=== PATIENT | male | born 1980 | race Caucasian/White ===

== ENCOUNTER 2023-03-20 21:47 | Emergency (ER) | payer MEDICAID, SELFPAY ==
[2023-03-20 21:49] VITALS: BP 139/87; PULSE 95; RESP 15; TEMP 36.9; O2SAT 98; BMI 37.3
--- NOTE | 2023-03-20 22:13 | CT_ITS ---
CT LEFT LOWER EXTREMITY WITH 3-D IMAGING CLINICAL INDICATION: infection -- left foot TECHNIQUE: Axial CT images of the LEFT lower extremity was performed without IV contrast material. Coronal and sagittal reformats were provided. RADIATION DOSAGE (If Supplied By Facility): CTDIvol = ( 15.35 ) mGy, DLP = ( 480.41 ) mGycm COMPARISON: Prior examinations are available for comparison. FINDINGS: Bones: Status post amputation of the great toe. No evidence of destructive bony process. No acute fracture is seen in the posterior calcaneus is not included on this examination.. Soft Tissues: Mild soft tissue swelling. No evidence of drainable abscess. CT/Extremity Lower without Contra IMPRESSION: 1. No evidence of destructive bony process or CT evidence of acute osteomyelitis. 2. Mild soft tissue swelling. 3. No evidence of drainable abscess. Electronically Signed: Landon Hair MD at 23:07 EDT ,
[2023-03-20] MEDS: HYDROmorphone 1 MG/ML Syringe 0.5 MG IV (22:28)
[2023-03-20] MEDS: Ondansetron 4 MG/2 ML Vial IV (22:28)
[2023-03-20 22:36] VITALS: BP 111/64; PULSE 86; RESP 18; TEMP 36.9; O2SAT 92
--- NOTE | 2023-03-20 22:36 | EDS_ITS ---
HPI History of Present Illness Chief Complaint: Other, Pain/Inj Detail of Chief Complaint: Bilateral foot pain Informant: patient Onset/Context/Timing Onset: Weeks (1 week) Context: Gradual Onset Narrative Narrative: Patient present secondary to bilateral foot pain and concern for infection. He is a diabetic. He complains of pain and swelling to the distal aspect of his left foot for the past week. He also has a scabbed lesion on his right great toe for the past week. He has an appointment to see his doctor on Sunday but did not think he could wait that long. He has had subjective fevers and states his blood sugars have been very elevated. [facility] Medical History (Updated 03/20/23 @ 23:[address] Juli Small MD) Amputation of left great toe Diabetes Heart attack Home Medications cephalexin 500 mg capsule 500 mg PO Q6 #40 CAPSULES 03/20/23 [Rx Last Taken Unknown] oxycodone-acetaminophen 5 mg-325 mg tablet (Percocet) 1 tab PO Q8H PRN pain 3 days #10 tabs 03/20/23 [Rx Last Taken Unknown] Allergy/AdvReac Type Severity Reaction Status Date / Time MORPHINE Allergy Shortness Uncoded 03/20/23 21:53 of breath PAPER TAPE AdvReac SKIN Uncoded 03/20/23 21:53 IRRITATION TORADOL AdvReac Nausea Uncoded 03/20/23 21:52 Surgical History Hx of heart artery stent Social History Smoking Status: Current every day smoker tobacco type: cigarettes ROS ROS ED Constitutional Constitutional ED: Reports fever(s) and subjective; Denies chills Eyes Eyes: Denies discharge from eye(s) ENT ENT ED: Denies discharge from eye(s), rhinorrhea or sore throat Cardiovascular Cardiovascular: Denies chest pain Respiratory/Chest Respiratory/Chest: Denies cough or dyspnea Gastrointestinal Gastrointestinal: Denies abdominal pain, nausea or vomiting Musculoskeletal Musculoskeletal: Reports extremity pain; Denies back pain Integumentary Denies Abrasions or rash Neurologic Neurologic: Denies headache(s) or weakness Psychiatric Psychiatric: Denies anxiety or depression Allergic/Immunologic Allergic/Immunologic ED: Denies lip swelling or urticaria EXAM Physical Exam Const Vital Signs: 03/20/23 21:49 03/20/23 22:36 Temperature 98.4 F 98.4 F Temperature Source Temporal Temporal Pulse Rate 95 86 Respiratory Rate 15 18 Blood Pressure 139/87 H 111/64 Blood Pressure Mean 104 79 Pulse Ox 98 92 Oxygen Delivery Method Room Air Room Air Positive well nourished and well developed General Appearance ED: well developed HEENT Reports moist mucous membranes Eyes EOMs intact bilaterally Neck no lymphadenopathy Chest Wall inspection of chest normal and palpation of chest normal Resp normal respiratory effort and clear to auscultation bilaterally Cardio regular rate and regular rhythm GI non-tender Palpation: soft Extremity Extremity Narrative: Patient with edematous area to the plantar surface of the left foot over the distal third, fourth, and fifth metatarsals. No overlying skin change. Scabbed lesion noted to the right great toe. No significant toe edema or erythema. No drainage from the wound. Neuro oriented x3 MDM MDM MDM Narrative Medical decision making narrative: Patient given Dilaudid for pain control. Labwork obtained to evaluate for leukocytosis, anemia, and electrolyte derangement. Right foot x-ray obtained to evaluate for any bony destruction of the right great toe or subcutaneous air. Given the amount of edema and tenderness to the left foot a CT scan was obtained to evaluate for deep abscess. Lab Data Attestation: I reviewed the patient's lab results. Labs: Laboratory Results - last 24 hr 03/20/23 22:30 WBC 10.5 RBC 4.08 L Hgb 12.6 L Hct 36.5 L MCV 89.5 MCH 30.9 MCHC 34.5 RDW Std Deviation 41.3 RDW Coeff of Simone 12.6 Plt Count 294 MPV 8.5 Immature Gran % (Auto) 0.300 Neut % (Auto) 63.3 Lymph % (Auto) 24.7 Stephens % (Auto) 6.8 Eos % (Auto) 4.2 Baso % (Auto) 0.7 Absolute Neuts (auto) 6.7 Absolute Lymphs (auto) 2.60 Nucleated RBC % 0 Sodium 134 L Potassium 4.3 Chloride 103 Carbon Dioxide 26.0 Anion Gap 5 BUN 31 H Creatinine 1.86 H Estim Creat Clear Calc 52.26 Est GFR (MDRD) Af Amer 52 L Est GFR (MDRD) Non-Af 43 L BUN/Creatinine Ratio 16.7 Glucose 310 H Lactic Acid 1.0 Calcium 9.3 Radiography Diagnostic Testing: Clinical Impression(s) from Imaging Studies Lower Extremity CT 03/20/23 22:13 IMPRESSION: 1. No evidence of destructive bony process or CT evidence of acute osteomyelitis. 2. Mild soft tissue swelling. 3. No evidence of drainable abscess. Electronically Signed: Landon Hair MD at 23:07 EDT , Foot X-Ray 03/20/23 22:43 IMPRESSION: No evidence of acute osseous changes. Electronically Signed: Landon Hair MD at 23:30 EDT , Treatment and Re-Evaluation :: CBC reveals normal white count at 10.5 with a hemoglobin of 12.6. No left shift noted. Chemistry studies significant for a sodium of 134. BUN is 31 and creatinine is 1.86. I do not have any prior studies available for comparison. Glucose is 310. Lactic acid is normal at 1.0. Right foot x-rays per my interpretation reveal chronic arthritic changes with no evidence of bony destruction or subcutaneous air. Radiology interpretation is reviewed and agrees. CT scan of the left foot reveals mild soft tissue swelling with no evidence of drainable abscess. No evidence of bony destruction. Patient will be given a course of Keflex and some Percocet for pain. I will refer him to local podiatry for follow-up. Discharge Plan Triage Chief Complaint: Other, Pain/Inj ED Provider: Juli Small Dx/Rx/DC Orders Clinical Impression: Diabetic foot infection Instructions: ED Diabetic Foot Care Prescriptions: New cephalexin 500 mg capsule 500 mg PO Q6 Qty: 40 0RF oxycodone-acetaminophen [Percocet] 5-325 mg tablet 1 tab PO Q8H PRN (Reason: pain) 3 Days Qty: 10 0RF Primary Care Provider: Connor Nazario Referrals: Jose Cruz Dawson DPM [Med Staff - Active Staff] - As Needed Connor Nazario MD [Primary Care Provider] - Disposition Disposition: Home, Self Care
[2023-03-20 22:43] LABS: Absolute Neutrophil Count 6.7 X10^3/uL (2.0-7.7); Basophil# 0.07 X10^3/uL; Basophil% 0.7 % (0-1); Eosinophil# 0.44 X10^3/uL; Eosinophils% 4.2 % (0-5); Hematocrit 36.5 % (40-54); Hemoglobin 12.6 g/dL (13.0-16.5); Lymphocyte % 24.7 % (19-41); Mean Corp Hgb Conc 34.5 g/dL (32-36); Mean Corpuscular Hgb 30.9 pg (27.0-32.0); Mean Corpuscular Volume 89.5 fL (80-94); Mean Platelet Vol. 8.5 fl (6.2-12.0); Monocyte# 0.72 X10^3/uL; Monocyte% 6.8 % (0-10); NRBC Flagged by Analyzer 0 % (0-5); Neutrophil # 6.68 X10^3/uL (2.7-7.7); Neutrophil % 63.3 % (47-70); Platelet Count 294 K/mm3 (150-450); RBC Distribution Width CV 12.6 % (11.6-14.6); RBC Distribution Width SD 41.3 fl (35.1-43.9); Red Blood Count 4.08 M/mm3 (4.6-6.2); White Blood Count 10.5 K/mm3 (4.4-11.0)
--- NOTE | 2023-03-20 22:43 | RAD_ITS ---
INDICATION: infection EXAMINATION/TECHNIQUE: X-RAY - RIGHT XR Foot Min 3 Views 3 VIEWS COMPARISON: No prior examinations are available for comparison. FINDINGS: SOFT TISSUES: No soft tissue swelling or gas. No radiopaque foreign body. BONES/JOINTS: No acute fracture or subluxation.. Normal alignment. Preservation of the joint space.. No sclerotic or destructive changes observed. Posterior calcaneal spur or enthesophyte. RAD/Foot min 3 Views IMPRESSION: No evidence of acute osseous changes. Electronically Signed: Landon Hair MD at 23:30 EDT ,
[2023-03-20 23:13] LABS: Anion Gap 5 (5-15); BUN 31 mg/dL (7-18); BUN/Creat Ratio 16.7 RATIO (10-20); Calcium,Total 9.3 mg/dL (8.5-10.1); Chloride 103 mmol/L (98-107); Creatinine, Serum 1.86 mg/dL (0.70-1.30); EST Glomerular Filtration Rate 43 mL/min (>60); Est Glom Filt Rate - Afr Amer 52 mL/min (>60); Estimated Creatinine Clearance 52.26 ml/min; Glucose 310 mg/dL (74-106); Potassium 4.3 mmol/L (3.5-5.1); Sodium Level 134 mmol/L (136-145)
[2023-03-20] MEDS: Cephalexin 250 MG Capsule 500 MG PO (23:55)
[2023-03-20] MEDS: HYDROmorphone 0.5 MG/0.5 ML SYRINGE IV (23:55)
== END 2023-03-21 00:10 | disposition home or self-care (01) ==
PROVIDERS: Emergency Provider Emergency Medicine; Visit Provider Emergency Medicine
DX: E11.628 Type 2 diabetes mellitus with other skin complications (principal); Z89.422 Acquired absence of other left toe(s); E11.65 Type 2 diabetes mellitus with hyperglycemia; L98.9 Disorder of the skin and subcutaneous tissue, unspecified; R60.0 Localized edema; M79.671 Pain in right foot; M79.672 Pain in left foot; F17.210 Nicotine dependence, cigarettes, uncomplicated; I25.2 Old myocardial infarction
CPT/HCPCS: 73630; 73700; 80048; 83605; 85025; 96374; 96375; 96376; 99284; A4216; J2405

== ENCOUNTER 2023-03-31 10:22 | Inpatient (IN) | payer MEDICARE, MEDICAID, SELFPAY ==
[2023-03-31 10:24] VITALS: BP 152/84; PULSE 74; RESP 12; TEMP 35.8; O2SAT 97; BMI 37.3
--- NOTE | 2023-03-31 11:11 | EDS_ITS ---
HPI History of Present Illness Chief Complaint: Wound Narrative Narrative: Patient is a diabetic, he smokes, he had a diabetic foot infection about a week ago he was placed on Keflex and his infection is getting worse. He is denying any fevers or chills or systemic complaints. No cough or congestion. Foot is quite painful. [facility] Medical History Amputation of left great toe Diabetes Heart attack Home Medications cephalexin 500 mg capsule 500 mg PO Q6 #40 CAPSULES 03/20/23 [Rx Last Taken Unknown] oxycodone-acetaminophen 5 mg-325 mg tablet (Percocet) 1 tab PO Q8H PRN pain 3 days #10 tabs 03/20/23 [Rx Last Taken Unknown] Allergy/AdvReac Type Severity Reaction Status Date / Time MORPHINE Allergy Severe Shortness Uncoded 03/31/23 10:24 of breath TORADOL AdvReac Mild Nausea Uncoded 03/31/23 10:24 PAPER TAPE AdvReac SKIN Uncoded 03/20/23 21:53 IRRITATION Surgical History Hx of heart artery stent Social History Smoking Status: Current every day smoker tobacco type: cigarettes ROS ROS ED ROS Narrative Past medical history: Reviewed Medications: Reviewed Social history: Noncontributory Review of systems: All systems negative except as indicated General: No fever Eyes: No visual changes ENT: No upper airway congestion, normal voice Neck: No neck pain Cardiovascular: No chest pain Respiratory: No shortness of breath or cough Gastrointestinal: No abdominal pain, nausea vomiting or diarrhea Genitourinary: No dysuria Musculoskeletal: As HPI Skin: As in HPI Neurological: No memory loss, confusion or any focal weakness EXAM Physical Exam Narrative Exam Narrative: Physical exam General: Patient appears chronically ill, he does not appear in significant distress. Head: Normocephalic, Atraumatic Eyes: Conjunctiva not pale ENT: Moist mucous membranes Neck: Supple, Nontender, No lymphadenopathy Cardiovascular: Regular rate, Regular rhythm Respiratory: No distress, CTA bilaterally Abdomen: Soft, Nontender, Nondistended Back: Nontender, Normal Inspection. Negative for: CVA tenderness Extremities: Foot has a dorsal infection, great toe is missing. Seems like there is some induration and fluctuance. No lymphangitic streaking, it is quite swollen. Skin: As above Neurological: Alert, Normal Strength, Normal Sensation Const Vital Signs: 03/31/23 10:24 Temperature 96.5 F L Temperature Source Temporal Pulse Rate 74 Respiratory Rate 12 Blood Pressure 152/84 H Blood Pressure Mean 106 Pulse Ox 97 Oxygen Delivery Method Room Air MDM MDM MDM Narrative Medical decision making narrative: Because of some induration and fluctuance, a bedside incision and drainage was done see procedure note Procedure note: Incision and drainage Verbal consent 1% lidocaine about 3 mL local I used a #15 blade, I used a hemostat to probe and break loculations only scant amount of pus was expectorated. Patient tolerated procedure well. : Patient has a diabetic foot that is not improving, part of the reason is because the blood sugar is 559 here, he may also have peripheral vascular disease. I started IV antibiotics and I will admit the patient. He can see podiatry inpatient. Time there is no evidence of sepsis. Inflammatory markers are quite elevated. There is a concern for underlying osteomyelitis. An inpatient MRI may be useful. I will talk to the hospitalist. Foot x-ray interpreted by me shows chronic changes, a toe amputation but no obvious osteomyelitis. Lab Data Labs: Laboratory Results - last 24 hr 03/31/23 11:15 WBC 6.4 RBC 4.25 L Hgb 12.6 L Hct 38.3 L MCV 90.1 MCH 29.6 MCHC 32.9 RDW Std Deviation 40.8 RDW Coeff of Simone 12.4 Plt Count 308 MPV 8.9 Immature Gran % (Auto) 0.300 Neut % (Auto) 61.2 Lymph % (Auto) 24.2 Canyon % (Auto) 7.8 Eos % (Auto) 5.2 H Baso % (Auto) 1.3 H Absolute Neuts (auto) 3.9 Absolute Lymphs (auto) 1.55 Nucleated RBC % 0 ESR 48 H Sodium 129 L Potassium 5.2 H Chloride 97 L Carbon Dioxide 28.0 Anion Gap 4 L BUN 29 H Creatinine 2.06 H Estim Creat Clear Calc 47.19 Est GFR (MDRD) Af Amer 46 L Est GFR (MDRD) Non-Af 38 L BUN/Creatinine Ratio 14.1 Glucose 559 H* Calcium 9.5 Total Bilirubin 0.20 AST 14 L ALT 28 Alkaline Phosphatase 74 C-React Prot Ext Range 6.77 H Total Protein 7.9 Albumin 3.1 L Globulin 4.8 H Albumin/Globulin Ratio 0.6 L Discharge Plan Triage Chief Complaint: Wound ED Provider: Kory Sparks Dx/Rx/DC Orders Clinical Impression: Diabetic foot, Failure of outpatient treatment, Uncontrolled diabetes mellitus Prescriptions: No Action cephalexin 500 mg capsule 500 mg PO Q6 Qty: 40 0RF oxycodone-acetaminophen [Percocet] 5-325 mg tablet 1 tab PO Q8H PRN (Reason: pain) 3 Days Qty: 10 0RF Primary Care Provider: Connor Nazario Referrals: Connor Nazario MD [Primary Care Provider] - Disposition Disposition: Acute Care Hospital [facility]
[2023-03-31] MEDS: Ondansetron 4 MG/2 ML Vial IV (11:13)
[2023-03-31] MEDS: HYDROmorphone 0.5 MG/0.5 ML SYRINGE IV ×2 (11:28→13:14)
[2023-03-31 11:30] LABS: Absolute Lymphocyte Count 1.55 X10^3/uL (0.83-4.51); Absolute Neutrophil Count 3.9 X10^3/uL (2.0-7.7); Basophil# 0.08 X10^3/uL; Basophil% 1.3 % (0-1); Eosinophil# 0.33 X10^3/uL; Eosinophils% 5.2 % (0-5); Hematocrit 38.3 % (40-54); Hemoglobin 12.6 g/dL (13.0-16.5); Lymphocyte # 1.55 X10^3/ul (0.83-4.51); Lymphocyte % 24.2 % (19-41); Mean Corp Hgb Conc 32.9 g/dL (32-36); Mean Corpuscular Hgb 29.6 pg (27.0-32.0); Mean Corpuscular Volume 90.1 fL (80-94); Mean Platelet Vol. 8.9 fl (6.2-12.0); Monocyte% 7.8 % (0-10); NRBC Flagged by Analyzer 0 % (0-5); Neutrophil # 3.92 X10^3/uL (2.7-7.7); Neutrophil % 61.2 % (47-70); Platelet Count 308 K/mm3 (150-450); RBC Distribution Width CV 12.4 % (11.6-14.6); RBC Distribution Width SD 40.8 fl (35.1-43.9); Red Blood Count 4.25 M/mm3 (4.6-6.2); White Blood Count 6.4 K/mm3 (4.4-11.0)
[2023-03-31 11:49] LABS: Erythrocyte Sedimentation Rate 48 mm/hr (0-20)
--- NOTE | 2023-03-31 12:05 | RAD_ITS ---
INDICATION: pain, infection EXAMINATION/TECHNIQUE: X-RAY - LEFT XR Foot Min 3 Views 3 VIEWS COMPARISON: CT dated March 20, 2023 FINDINGS: SOFT TISSUES: There is soft tissue swelling of the forefoot and midfoot. No radiopaque foreign body. BONES/JOINTS: There is evidence of prior amputation of the great toe which appears grossly stable since the prior CT. There is medial subluxation or possible dislocation of the second proximal phalanx at the metatarsophalangeal joint. No acute fracture or subluxation..No sclerotic or destructive changes observed. RAD/Foot min 3 Views IMPRESSION: Status post amputation of the great toe without evidence of osteomyelitis. Diffuse soft tissue swelling of the mid and forefoot. Subluxation or possible dislocation of the second proximal phalanx at the MTP joint. Electronically Signed: Jenni Zimmerman MD at 13:08 EDT ,
[2023-03-31 12:07] LABS: ALB/GLOB Ratio 0.6 RATIO (0.9-2.4); AST(SGOT) 14 U/L (15-37); Alanine Aminotransfer ALT/SGPT 28 U/L (16-61); Albumin, Serum 3.1 g/dL (3.2-5.0); Alkaline Phosphatase 74 U/L (45-117); Anion Gap 4 (5-15); BUN 29 mg/dL (7-18); BUN/Creat Ratio 14.1 RATIO (10-20); CRP 6.77 mg/L (0.0-3.0); Calcium,Total 9.5 mg/dL (8.5-10.1); Chloride 97 mmol/L (98-107); Creatinine, Serum 2.06 mg/dL (0.70-1.30); EST Glomerular Filtration Rate 38 mL/min (>60); Est Glom Filt Rate - Afr Amer 46 mL/min (>60); Estimated Creatinine Clearance 47.19 ml/min; Globulin 4.8 g/dL (2.2-4.2); Glucose 559 mg/dL (74-106); Potassium 5.2 mmol/L (3.5-5.1); Protein, Total 7.9 g/dL (6.4-8.2); Sodium Level 129 mmol/L (136-145)
--- NOTE | 2023-03-31 12:31 | HP.PCM_ITS ---
HPI - General General Date of Admission: 03/31/23 Date of Service: 03/31/23 Chief Complaint: foot infection HPI Narrative RUSTY MCCLURE, is a 42 M with a PMH as outlined who presents via the ED on 03/31/2023 with a complaint of a nonhealing left foot infection. He is a known diabetic. He had been placed on PO keflex after he presented to the ED with similar symptoms ~ 2 weeks ago, to no avail, so he decided to come in to the ED. he denied any fever, chills, cough, chest pain, palpitations, dizziness, nausea, vomiting or any other complaints. Vitals in the ED were BP of 152/84, IN of 74, R of 12 and temp of 96.5F. CBC showed Hb of 12.6, wbc of 6.4 and platelets of 308. ESR is 48. Chemistry showed sodium of 129, potasisum of 5.2 and Cr of 2.06. Glucose is 559 and bicarb is 28. CRP is 6.77. FOot xray was done and review was pending. He is being admitted to be managed for diabetic foot infection, with failed outpatient therapy. [facility] Medical History Amputation of left great toe Diabetes Heart attack Home Medications cephalexin 500 mg capsule 500 mg PO Q6 #40 CAPSULES 03/20/23 [Rx Last Taken Unknown] oxycodone-acetaminophen 5 mg-325 mg tablet (Percocet) 1 tab PO Q8H PRN pain 3 days #10 tabs 03/20/23 [Rx Last Taken Unknown] aspirin 81 mg tablet,delayed release 81 mg PO DAILY 03/31/23 [History Last Taken Unknown] atorvastatin 40 mg tablet 40 mg PO DAILY 03/31/23 [History Last Taken Unknown] clopidogrel 75 mg tablet 75 mg PO DAILY 03/31/23 [History Last Taken Unknown] fluticasone fur. 200 mcg-umeclid 62.5 mcg-vilant 25 mcg inhalat.powder (Trelegy Ellipta) 1 inh inhalation Q24H 03/31/23 [History Last Taken Unknown] furosemide 40 mg tablet 40 mg PO DAILY 03/31/23 [History Last Taken Unknown] gabapentin 300 mg capsule 300 mg PO TID 03/31/23 [History Last Taken Unknown] insulin NPH-regular 70-30 U-100 insulin 100 unit/mL subcutaneous pen (Humulin 70/30 U-100 KwikPen) 25 unit subcut TID 03/31/23 [History Last Taken Unknown] isosorbide mononitrate 30 mg tablet,extended release 24 hr 30 mg PO DAILY 03/31/23 [History Last Taken Unknown] losartan 50 mg tablet 50 mg PO DAILY 03/31/23 [History Last Taken Unknown] metformin 500 mg tablet 500 mg PO DAILY 03/31/23 [History Last Taken Unknown] ranolazine 500 mg tablet,extended release,12 hr 500 mg PO DAILY 03/31/23 [History Last Taken Unknown] sacubitril 49 mg-valsartan 51 mg tablet (Entresto) 1 tab PO BID 03/31/23 [History Last Taken Unknown] sucralfate 1 gram tablet 1 g PO 4X/DAY 03/31/23 [History Last Taken Unknown] Allergy/AdvReac Type Severity Reaction Status Date / Time morphine Allergy Severe Shortness Verified 03/31/23 16:49 of breath ketorolac [From Toradol] AdvReac Mild Nausea Verified 03/31/23 16:49 adhesive tape [paper tape] AdvReac Other Verified 03/31/23 16:49 Surgical History Hx of heart artery stent Social History Smoking Status: Current every day smoker tobacco type: cigarettes ROS Constitutional Constitutional: Denies anorexia, change in weight, chills, fatigue, fever(s), malaise or weakness ENT HEENT: Denies dysphagia, hearing loss or throat swelling Cardiovascular Cardiovascular: Denies chest pain, edema, orthopnea, palpitations or paroxysmal nocturnal dyspnea Respiratory/Chest Respiratory/Chest: Denies cough, shortness of breath at rest or shortness of breath with exertion Vital Signs Vital Signs Vital Signs: 03/31/23 10:24 Temperature 96.5 F L Temperature Source Temporal Pulse Rate 74 Respiratory Rate 12 Blood Pressure 152/84 H Blood Pressure Mean 106 Pulse Ox 97 Oxygen Delivery Method Room Air Weight Weight: 253 lb Body Mass Index (BMI) 37.3 Physical Exam Const alert, oriented x3 and no apparent distress General Appearance: cooperative HEENT normocephalic, head/scalp atraumatic, moist oral mucous membranes and oropharynx normal Neck no lymphadenopathy, supple and no JVD Lymph Lymphatic: no lymphadenopathy noted and no lymphedema noted Resp normal respiratory effort, normal air movement and clear to auscultation bilaterally Cardio regular rate, regular rhythm, S1 normal heart sound, S2 normal heart sound and no murmurs GI normal to inspection, nondistended, normoactive bowel sounds, soft to palpation, non-tender and non-distended Extremity Extremity Narrative: the dorsal pad of left foot very tender and swollen, no visible drainage. had firm callus over the side of the right great toe, very tender to touch. Skin Skin Narrative: as under the extremity Neuro CN's II-XII intact bilaterally, no focal motor deficits and no sensory deficits noted Psych thought process normal, cooperative, affect normal and denies homicidal ideation Results Lab / Micro Data 04/01/23 04:57 04/01/23 04:57 Labs: Laboratory Results - last 24 hr 03/31/23 11:15: WBC 6.4, RBC 4.25 L, Hgb 12.6 L, Hct 38.3 L, MCV 90.1, MCH 29.6, MCHC 32.9, RDW Std Deviation 40.8, RDW Coeff of Simone 12.4, Plt Count 308, MPV 8.9, Immature Gran % (Auto) 0.300, Neut % (Auto) 61.2, Lymph % (Auto) 24.2, Price % (Auto) 7.8, Eos % (Auto) 5.2 H, Baso % (Auto) 1.3 H, Absolute Neuts (auto) 3.9, Absolute Lymphs (auto) 1.55, Nucleated RBC % 0, ESR 48 H, Sodium 129 L, Potassium 5.2 H, Chloride 97 L, Carbon Dioxide 28.0, Anion Gap 4 L, BUN 29 H, Creatinine 2.06 H, Estim Creat Clear Calc 47.19, Est GFR (MDRD) Af Amer 46 L, Est GFR (MDRD) Non-Af 38 L, BUN/Creatinine Ratio 14.1, Glucose 559 H*, Calcium 9.5, Total Bilirubin 0.20, AST 14 L, ALT 28, Alkaline Phosphatase 74, C-React Prot Ext Range 6.77 H, Total Protein 7.9, Albumin 3.1 L, Globulin 4.8 H, Albumin/Globulin Ratio 0.6 L Assessment & Plan Assessment/Plan (1) Uncontrolled diabetes mellitus: PLAN: Plan #Diabetic foot infection * failed outpatient therapy * admit to med surg * consult podiatry * start on IV vancomycin and zosyn * get wound cultures * defer need for MRI to podiatry * * #Hyperglycemia in the setting of poorly controlled diabetes mellitus * blood sugar was in the 550s on admission * anion gap not elevated, with bicarb being 28 * check a1C * hydrate aggressively with IVF * give SQ humalog 10 units x 1 and start on high dose sliding scale * DVT prophylaxis: lovenox Charges/Coding Visit Charges Inpatient E&M: 62653 Init Hosp L3
[2023-03-31] MEDS: Piperacil/Tazobactam 4.5 GM in 0.9% Normal Saline (100mL MB+) 100 ML IV (12:51)
[2023-03-31 12:53] VITALS: BP 113/77; PULSE 64; RESP 18; TEMP 36.4; O2SAT 96
[2023-03-31] MEDS: Insulin Lispro 100 UNIT/ML INSULN.PEN 10 UNIT SC (13:03)
[2023-03-31] MEDS: Vancomycin HCl 1,750 MG in 0.9% Normal Saline (500mL Bag) 500 ML 250 MG IV (13:30)
--- NOTE | 2023-03-31 14:06 | NURSING ---
310 OBS [facility]
[2023-03-31 14:48] VITALS: RESP 18; BMI 39.3
[2023-03-31 14:56] VITALS: BP 133/73; PULSE 62; RESP 18; TEMP 37.2; O2SAT 98
--- NOTE | 2023-03-31 15:54 | PCM.RX.CS ---
Consult Antibiotic Management Pharmacy has been consulted to manage selected antiobiotic: Vancomycin Type of Intervention Type of Consult: New start Suspected Infection Suspected Infection: Other Labs Labs: Sodium 129 mmol/L (136-145) L 03/31/23 11:15 Potassium 5.2 mmol/L (3.5-5.1) H 03/31/23 11:15 Chloride 97 mmol/L (98-107) L 03/31/23 11:15 Carbon Dioxide 28.0 mmol/L (21.0-32.0) 03/31/23 11:15 Anion Gap 4 (5-15) L 03/31/23 11:15 BUN 29 mg/dL (7-18) H 03/31/23 11:15 Creatinine 2.06 mg/dL (0.70-1.30) H 03/31/23 11:15 Est GFR (MDRD) Af Amer 46 mL/min (>60) L 03/31/23 11:15 Est GFR (MDRD) Non-Af 38 mL/min (>60) L 03/31/23 11:15 BUN/Creatinine Ratio 14.1 RATIO (10-20) 03/31/23 11:15 Glucose 559 mg/dL (74-106) H* 03/31/23 11:15 Dosing Weight Weight used for dosin kg Estimated Creatinine Clearance Estimated Creatinine Clearance: 47ml/min Goal Trough Goal Trough: 15-20 mcg/mL Pharmacy Plan for Drug Dosing Pharmacy Plan for Drug Dosing: NEW START IV VANCOMYCIN Consulting Physician: Dr. Esquivel Indication: Diabetic Foot Infection Goal Trough: 15-20 SrCr: 2.06 CrCl: 46.8ml/min (using an adjusted body weight of 82kg) Comments: pt received a 1750mg x1 dose of Vancomycin in the ER on 03/31/23 at 1330 Vancomycin Dose: based on patients weight and renal function, recommend an initial dose of 1000mg q12h starting 04/01/23 at 0200. Trough prior to the 4th total dose Pending Level: 04/02/23 at 0130 Pharmacy Service will continue to monitor and adjust dosing as required. Follow-Up Labs Follow-Up Labs: Trough: Vancomycin (04/02/23 @ 0130)
[2023-03-31] MEDS: oxyCODONE 5 MG Tablet PO (16:04)
[2023-03-31] MEDS: Acetaminophen 325 MG Tablet 650 MG PO (16:05)
[2023-03-31] MEDS: Insulin Lispro 100 UNIT/ML INSULN.PEN SC ×2 (16:35→22:28)
[2023-03-31] MEDS: 0.9% Normal Saline (1000mL) 1,000 ML 150 ML IV ×2 (16:37→22:49)
[2023-03-31] MEDS: Juven (unflavored) Packet 1 PACKET PO (16:44)
[2023-03-31 16:53] LABS: Bedside Glucose 369 mg/dL (74-106)
[2023-03-31] MEDS: HYDROmorphone 1 MG/ML Syringe IV ×2 (17:45→22:15)
[2023-03-31] MEDS: 0.9% Saline Lock 10 ML Syringe IV (17:45)
[2023-03-31] MEDS: Piperacil/Tazobactam 3.375 GM in 0.9% Normal Saline (50mL MB+) 50 ML IV (22:19)
[2023-03-31 22:35] VITALS: BP 118/73; PULSE 60; RESP 16; TEMP 36.6; O2SAT 95
[2023-03-31 23:07] LABS: Bedside Glucose 235 mg/dL (74-106)
[2023-04-01] VITALS (7 sets, daily range): BP systolic 134–169; BP diastolic 68–83; PULSE 57–76; RESP 16–18; TEMP 36.4–37.2; O2SAT 96–99
[2023-04-01] MEDS: oxyCODONE 5 MG Tablet PO ×5 (00:08→23:24)
[2023-04-01] MEDS: Vancomycin IV 1,000 MG/200 ML BAG 200 MG IV ×2 (02:25→14:24)
[2023-04-01] MEDS: HYDROmorphone 1 MG/ML Syringe IV ×6 (02:39→21:57)
[2023-04-01 05:15] LABS: Absolute Lymphocyte Count 2.46 X10^3/uL (0.83-4.51); Absolute Neutrophil Count 3.8 X10^3/uL (2.0-7.7); Basophil# 0.09 X10^3/uL; Basophil% 1.2 % (0-1); Eosinophils% 6.6 % (0-5); Hematocrit 36.6 % (40-54); Hemoglobin 11.9 g/dL (13.0-16.5); Lymphocyte # 2.46 X10^3/ul (0.83-4.51); Lymphocyte % 32.6 % (19-41); Mean Corp Hgb Conc 32.5 g/dL (32-36); Mean Corpuscular Hgb 29.8 pg (27.0-32.0); Mean Corpuscular Volume 91.5 fL (80-94); Mean Platelet Vol. 8.8 fl (6.2-12.0); Monocyte# 0.63 X10^3/uL; Monocyte% 8.4 % (0-10); NRBC Flagged by Analyzer 0 % (0-5); Neutrophil # 3.84 X10^3/uL (2.7-7.7); Neutrophil % 50.9 % (47-70); Platelet Count 270 K/mm3 (150-450); RBC Distribution Width CV 12.6 % (11.6-14.6); RBC Distribution Width SD 41.5 fl (35.1-43.9); White Blood Count 7.5 K/mm3 (4.4-11.0)
[2023-04-01] MEDS: Piperacil/Tazobactam 3.375 GM in 0.9% Normal Saline (50mL MB+) 50 ML IV ×3 (05:19→22:06)
[2023-04-01 06:26] LABS: Anion Gap 5 (5-15); BUN 30 mg/dL (7-18); BUN/Creat Ratio 17.1 RATIO (10-20); Calcium,Total 8.8 mg/dL (8.5-10.1); Chloride 106 mmol/L (98-107); Creatinine, Serum 1.75 mg/dL (0.70-1.30); EST Glomerular Filtration Rate 46 mL/min (>60); Est Glom Filt Rate - Afr Amer 55 mL/min (>60); Estimated Creatinine Clearance 51.94 ml/min; Glucose 236 mg/dL (74-106); Potassium 4.2 mmol/L (3.5-5.1); Sodium Level 137 mmol/L (136-145)
[2023-04-01] MEDS: 0.9% Normal Saline (1000mL) 1,000 ML 150 ML IV (06:29)
[2023-04-01] MEDS: Insulin Lispro 100 UNIT/ML INSULN.PEN SC ×4 (06:30→22:07)
[2023-04-01 06:48] LABS: Bedside Glucose 261 mg/dL (74-106)
[2023-04-01] MEDS: Juven (unflavored) Packet 1 PACKET PO ×2 (08:34→17:40)
[2023-04-01] MEDS: 0.9% Saline Lock 10 ML Syringe IV ×2 (09:22→19:07)
--- NOTE | 2023-04-01 09:45 | ART_ITS ---
Reason For Study: ulcer Procedure A bilateral lower extremity continuous wave Doppler with analog waveform analysis,segmental pressures,and ankle brachial indexes without exercise. No LUE BP due to IV site. No L great toe pressure due to recent surgery and bandages. Left Segmental Pressures Left posterior tibial artery = 178mmHg. Left dorsalis pedis artery = 165mmHg. The left dorsalis pedis waveforms are triphasic. The left posterior tibial artery waveforms are triphasic. Right Segmental Pressures Right brachial= 156mmHg. Right posterior tibial artery = 189mmHg. Right dorsalis pedis artery = 194mmHg. Right digit = 134 mmHg. The right dorsalis pedis waveforms are triphasic. The right posterior tibial artery waveforms are triphasic. Indices The right ankle brachial index by the dorsalis pedis is 1.24. The right ankle brachial index by the posterior tibial artery is 1.21. The right digital-brachial index is .86. The left ankle brachial index by the posterior tibial artery is 1.14. The left ankle brachial index by the dorsalis pedis is 1.06. VL/Lower Ext Art Exam w/o Exercis Interpretation Summary Right RAVEN 1.24, normal. TBI and Doppler/PVR waveforms of the right leg normal a t rest. Left RAVEN 1.14, normal. Doppler/PVR waveforms of the left leg normal at rest. Ordering Physician: Po Saxena Performed By: Goran Goldstein, RVT
--- NOTE | 2023-04-01 09:47 | EKG12_ITS ---
Test Reason : PRE-OP, S/P CABG Blood Pressure : / mmHG Vent. Rate : 061 BPM Atrial Rate : 061 BPM P-R Int : 160 ms QRS Dur : 112 ms QT Int : 450 ms P-R-T Axes : 033 002 019 degrees QTc Int : 453 ms Sinus rhythm with Fusion complexes Inferior infarct , age undetermined Abnormal ECG No previous ECGs available Confirmed by ANN MURILLO, TIFF ([id number]), writer editor MARISSA HILLS ([id number]) on 04/17/2023 11:41:56 AM Referred By: ERIBERTO Confirmed By:TIFF JUAREZ MD
--- NOTE | 2023-04-01 09:49 | CON.PCM_ITS ---
Assessment & Plan Assessment/Plan (1) Type 2 diabetes mellitus with diabetic polyneuropathy: PLAN: Exam performed. Radiographs reviewed, no obvious signs of osteomyelitis. Patient vitally stable. No leukocytosis. Inflammatory markers within normal limits. Patient does have elevated blood sugar upon admission greater than 500, this co uld be related to left foot infection as he does demonstrate an abscess to the plantar left foot. Patient awaiting MRI left foot. We will plan for surgical debridement of the left foot tomorrow pending MRI results. Patient recent cardiac procedure, requesting cardiac clearance. EKG ordered. Arterial studies ordered. hemoglobin A1c ordered. Recommend heel weightbearing bilateral lower extremity in surgical shoes. We will continue to follow daily. (2) Peripheral vascular disease, unspecified: (3) Cellulitis of left lower limb: (4) Abscess of left foot excluding toes: (5) Hammertoe of left foot: (6) Hallux rigidus of right foot: HPI Consult Data Date of Consult: 04/01/23 HPI Narrative HPI Narrative: RUSTY MCCLURE, is a 42 M who presents onset left foot and leg swelling and pain in setting of poorly controlled diabetes. Patient has a history of a left partial first ray amputation on that side. Patient denies any constitutional symptoms but notes an increase in his blood sugar over the past several days. Patient denies any trauma to site or any other complaints at current. Patient is not followed routinely by podiatry current. [facility] Medical History Amputation of left great toe Diabetes Heart attack Home Medications cephalexin 500 mg capsule 500 mg PO Q6 #40 CAPSULES 03/20/23 [Rx Last Taken Unknown] oxycodone-acetaminophen 5 mg-325 mg tablet (Percocet) 1 tab PO Q8H PRN pain 3 days #10 tabs 03/20/23 [Rx Last Taken Unknown] aspirin 81 mg tablet,delayed release 81 mg PO DAILY 03/31/23 [History Last Taken Unknown] atorvastatin 40 mg tablet 40 mg PO DAILY 03/31/23 [History Last Taken Unknown] clopidogrel 75 mg tablet 75 mg PO DAILY 03/31/23 [History Last Taken Unknown] fluticasone fur. 200 mcg-umeclid 62.5 mcg-vilant 25 mcg inhalat.powder (Trelegy Ellipta) 1 inh inhalation Q24H 03/31/23 [History Last Taken Unknown] furosemide 40 mg tablet 40 mg PO DAILY 03/31/23 [History Last Taken Unknown] gabapentin 300 mg capsule 300 mg PO TID 03/31/23 [History Last Taken Unknown] insulin NPH-regular 70-30 U-100 insulin 100 unit/mL subcutaneous pen (Humulin 70/30 U-100 KwikPen) 25 unit subcut TID 03/31/23 [History Last Taken Unknown] isosorbide mononitrate 30 mg tablet,extended release 24 hr 30 mg PO DAILY 03/31/23 [History Last Taken Unknown] losartan 50 mg tablet 50 mg PO DAILY 03/31/23 [History Last Taken Unknown] metformin 500 mg tablet 500 mg PO DAILY 03/31/23 [History Last Taken Unknown] ranolazine 500 mg tablet,extended release,12 hr 500 mg PO DAILY 03/31/23 [History Last Taken Unknown] sacubitril 49 mg-valsartan 51 mg tablet (Entresto) 1 tab PO BID 03/31/23 [History Last Taken Unknown] sucralfate 1 gram tablet 1 g PO 4X/DAY 03/31/23 [History Last Taken Unknown] Allergy/AdvReac Type Severity Reaction Status Date / Time morphine Allergy Severe Shortness Verified 03/31/23 16:49 of breath ketorolac [From Toradol] AdvReac Mild Nausea Verified 03/31/23 16:49 adhesive tape [paper tape] AdvReac Other Verified 03/31/23 16:49 Surgical History Hx of heart artery stent Social History Smoking Status: Current every day smoker tobacco type: cigarettes ROS Constitutional Constitutional: Denies chills, daytime sleepiness or increased appetite Eyes Eyes: Denies blindness, blind spots or decreased night vision ENT HEENT: Denies change in voice, dental pain or facial pain Cardiovascular Cardiovascular: Denies abdominal edema, chest pain at rest or dyspnea Respiratory/Chest Respiratory/Chest: Denies change in phlegm color, dyspnea on exertion or mouth breathing Gastrointestinal Gastrointestinal: Denies bloating, change in bowel habits or cramping Physical Exam Narrative Dorsalis pedis posterior tibial pulses palpable 2 out of 4 to bilateral lower extremity. Doppler examination noted to be biphasic bilaterally. Capillary fill time brisk to lesser digits. Some atrophic skin changes noted such as skin thinning, shiny, taut appearance. Light touch protective sensation diminished bilateral feet. Patient does have pain to wound sites suggestive of some intact neuro sensation. Dermatologic: Right medial hallux demonstrates significant hyperkeratosis predebridement postdebridement full-thickness ulceration measuring 0.5 x 1.0 x 0.5 cm. Wound base demonstrates granular base clean skin edges no deep probing or undermining. Plantar left second MPJ there is noted to be an area of fluctuance predebridement postdebridement there is noted to be a full-thickness wound measuring 0.5 x 0.5 x 0.5 cm. periwound callus, fluctuance, edema, warmth and 3cc purulence noted upon debridement. Musculoskeletal: Diminished right first MPJ range of motion with regards to dorsiflexion less than 15 degrees. Dorsal dislocation left second digit with plantarflexed second metatarsal head. [place] deformity for wound creation. No signs DVT. Const alert and oriented x3 Lab / Micro Data 04/01/23 04:57 04/01/23 04:57 Labs: Laboratory Results - last 24 hr 03/31/23 11:15: WBC 6.4, RBC 4.25 L, Hgb 12.6 L, Hct 38.3 L, MCV 90.1, MCH 29.6, MCHC 32.9, RDW Std Deviation 40.8, RDW Coeff of Simone 12.4, Plt Count 308, MPV 8.9, Immature Gran % (Auto) 0.300, Neut % (Auto) 61.2, Lymph % (Auto) 24.2, [place] % (Auto) 7.8, Eos % (Auto) 5.2 H, Baso % (Auto) 1.3 H, Absolute Neuts (auto) 3.9, Absolute Lymphs (auto) 1.55, Nucleated RBC % 0, ESR 48 H, Sodium 129 L, Potassium 5.2 H, Chloride 97 L, Carbon Dioxide 28.0, Anion Gap 4 L, BUN 29 H, Creatinine 2.06 H, Estim Creat Clear Calc 47.19, Est GFR (MDRD) Af Amer 46 L, Est GFR (MDRD) Non-Af 38 L, BUN/Creatinine Ratio 14.1, Glucose 559 H*, Calcium 9.5, Total Bilirubin 0.20, AST 14 L, ALT 28, Alkaline Phosphatase 74, C-React Prot Ext Range 6.77 H, Total Protein 7.9, Albumin 3.1 L, Globulin 4.8 H, Albumin/Globulin Ratio 0.6 L 03/31/23 16:33: POC Glucose 369 H 03/31/23 22:28: POC Glucose 235 H 04/01/23 04:57: WBC 7.5, RBC 4.00 L, Hgb 11.9 L, Hct 36.6 L, MCV 91.5, MCH 29.8, MCHC 32.5, RDW Std Deviation 41.5, RDW Coeff of Simone 12.6, Plt Count 270, MPV 8.8, Immature Gran % (Auto) 0.300, Neut % (Auto) 50.9, Lymph % (Auto) 32.6, [place] % (Auto) 8.4, Eos % (Auto) 6.6 H, Baso % (Auto) 1.2 H, Absolute Neuts (auto) 3.8, Absolute Lymphs (auto) 2.46, Nucleated RBC % 0, Sodium 137, Potassium 4.2, Chloride 106, Carbon Dioxide 26.0, Anion Gap 5, BUN 30 H, Creatinine 1.75 H, Estim Creat Clear Calc 51.94, Est GFR (MDRD) Af Amer 55 L, Est GFR (MDRD) Non-Af 46 L, BUN/Creatinine Ratio 17.1, Glucose 236 H, Calcium 8.8 04/01/23 06:29: POC Glucose 261 H Radiology Impression Foot X-Ray 03/31/23 12:05 IMPRESSION: Status post amputation of the great toe without evidence of osteomyelitis. Diffuse soft tissue swelling of the mid and forefoot. Subluxation or possible dislocation of the second proximal phalanx at the MTP joint. Electronically Signed: Jenni Zimmerman MD at 13:08 EDT ,
[2023-04-01 10:14] LABS: Hemoglobin A1c 11.4 % (3.8-5.6)
[2023-04-01 12:05] LABS: Bedside Glucose 328 mg/dL (74-106)
[2023-04-01] MEDS: Acetaminophen 325 MG Tablet 650 MG PO ×2 (12:11→20:55)
--- NOTE | 2023-04-01 12:31 | PN_ITS ---
Subjective Subjective Patient seen and examined. He feels better today. He had pain in his left foot still. Podiatry was present and had debrided the left and right feet. He is to go for surgery tomorrow. In light of cardiac history , podiatry requesting for cardiac clearance. Objective Data Objective Data Vital Signs: Vital Signs Temp Pulse Resp BP Pulse Ox O2 Del Method 97.8 F 57 L 16 134/83 H 96 Room Air 04/01/23 05:20 04/01/23 05:20 04/01/23 05:20 04/01/23 05:20 04/01/23 05:20 04/01/23 05:20 Oxygen Delivery Method Room Air Weight: 251 lb 1.704 oz Body Mass Index (BMI) 39.3 Intake & Output: Intake and Output for Last 24 Hours 03/30/23 03/31/23 04/01/23 23:59 23:59 23:59 Intake Total 2365 / 2565 1550 / 1550 Output Total 1200 / 1200 700 / 700 Balance 1165 / 1365 850 / 850 Lab / Micro Data 04/01/23 04:57 04/01/23 04:57 Labs: Laboratory Results - last 24 hr 03/31/23 16:33: POC Glucose 369 H 03/31/23 22:28: POC Glucose 235 H 04/01/23 04:57: WBC 7.5, RBC 4.00 L, Hgb 11.9 L, Hct 36.6 L, MCV 91.5, MCH 29.8, MCHC 32.5, RDW Std Deviation 41.5, RDW Coeff of Simone 12.6, Plt Count 270, MPV 8.8, Immature Gran % (Auto) 0.300, Neut % (Auto) 50.9, Lymph % (Auto) 32.6, [place] % (Auto) 8.4, Eos % (Auto) 6.6 H, Baso % (Auto) 1.2 H, Absolute Neuts (auto) 3.8, Absolute Lymphs (auto) 2.46, Nucleated RBC % 0, Sodium 137, Potassium 4.2, Chloride 106, Carbon Dioxide 26.0, Anion Gap 5, BUN 30 H, Creatinine 1.75 H, E stim Creat Clear Calc 51.94, Est GFR (MDRD) Af Amer 55 L, Est GFR (MDRD) Non-Af 46 L, BUN/Creatinine Ratio 17.1, Glucose 236 H, Hemoglobin A1c 11.4 H, Calcium 8.8 04/01/23 06:29: POC Glucose 261 H 04/01/23 11:48: POC Glucose 328 H Radiography Diagnostic Testing: Radiology Impression Foot X-Ray 03/31/23 12:05 IMPRESSION: Status post amputation of the great toe without evidence of osteomyelitis. Diffuse soft tissue swelling of the mid and forefoot. Subluxation or possible dislocation of the second proximal phalanx at the MTP joint. Electronically Signed: Jenni Zimmerman MD at 13:08 EDT , Physical Exam Const alert, oriented x3 and no apparent distress General Appearance: cooperative HEENT normocephalic, head/scalp atraumatic, moist oral mucous membranes and oropharynx normal Neck no lymphadenopathy, supple and no JVD Lymph Lymphatic: no lymphadenopathy noted and no lymphedema noted Resp normal respiratory effort, normal air movement and clear to auscultation bilaterally Cardio regular rate, regular rhythm, S1 normal heart sound, S2 normal heart sound and no murmurs GI normal to inspection, nondistended, normoactive bowel sounds, soft to palpation, non-tender and non-distended Extremity Extremity Narrative: has firm, fluctuant swelling over left sole of foot, beneath the 2nd and 3rd toes. Also has debrided area over right great toe. Skin Skin Narrative: as under extremity Neuro CN's II-XII intact bilaterally, no focal motor deficits and no sensory deficits noted Psych thought process normal, cooperative, affect normal and denies homicidal ideation Assessment & Plan Assessment/Plan (1) Uncontrolled diabetes mellitus: PLAN: Plan #Diabetic foot infection * failed outpatient therapy * admit to med surg * podiatry on board. On Iv vancomycin and zosyn * wound and blood cultured pending * PO tylenol, oxycodone and IV morphine prn for pain. * start on IV vancomycin and zosyn * MRI of the left foot ordered as per podiatry * * #Hyperglycemia in the setting of poorly controlled diabetes mellitus * blood sugar was in the 550s on admission. blood sugars now better controlled * A1C is 11.4. * on metformin 500mg daily and NPH insulin 70/30 25 units bid. * ISS. Accuchecks ACHS * #CAD s/p stents: says he has had ~ 5 stents inserted. on aspirin, high intensity statin and imdur * #Peripheral artery disease: on aspirin and statin as well as ranolazine. #HFrEF: on entresto and lasix. DVT prophylaxis: lovenox Charges/Coding Visit Charges Inpatient E&M: 31585 Subs Hosp L2
--- NOTE | 2023-04-01 15:41 | PCM.CONS.C ---
Assessment & Plan Assessment/Plan (1) Coronary artery disease: QUALIFIERS: Coronary Disease-Associated Artery/Lesion type: unspecified vessel or lesion type [place] vs. transplanted heart: [place] heart Associated angina: without angina Qualified Code(s): I25.10 - Atherosclerotic heart disease of [place] coronary artery without angina pectoris PLAN: Continue present management (2) Preoperative cardiovascular examination: PLAN: No cardiac work-up required prior to debridement of the left foot abscess. Patient would be considered low risk for perioperative cardiac complications during this procedure. Continue aspirin and Plavix without interruption at this time. We will sign off. If we can be of any further assistance please let us know. HPI Consult Data Date of Consult: 04/01/23 HPI Narrative Reason for Consultation: Preoperative evaluation HPI Narrative: RUSTY MCCLURE, is a 42 M who presents with left foot abscess. The plan is to drain the abscess tomorrow. Cardiology consult was requested for preoperative cardiovascular evaluation. Patient has history of coronary artery disease status post CABG in around 2012. He has had 8 stents after that according to the patient. We do not have the details of these procedures at this time. Patient states that about 2 to 3 months ago he had his last stent that had to be placed because of occlusion of one of the prior stents. Unclear if this was stent thrombosis. Patient denies any cardiac complaints at this time. He states that he has pain in his foot while walking but continues to walk without any limitations. He can walk greater than 1 block without any issues. [facility] Medical History Amputation of left great toe Diabetes Heart attack Home Medications cephalexin 500 mg capsule 500 mg PO Q6 #40 CAPSULES 03/20/23 [Rx Last Taken Unknown] oxycodone-acetaminophen 5 mg-325 mg tablet (Percocet) 1 tab PO Q8H PRN pain 3 days #10 tabs 03/20/23 [Rx Last Taken Unknown] aspirin 81 mg tablet,delayed release 81 mg PO DAILY 03/31/23 [History Last Taken Unknown] atorvastatin 40 mg tablet 40 mg PO DAILY 03/31/23 [History Last Taken Unknown] clopidogrel 75 mg tablet 75 mg PO DAILY 03/31/23 [History Last Taken Unknown] fluticasone fur. 200 mcg-umeclid 62.5 mcg-vilant 25 mcg inhalat.powder (Trelegy Ellipta) 1 inh inhalation Q24H 03/31/23 [History Last Taken Unknown] furosemide 40 mg tablet 40 mg PO DAILY 03/31/23 [History Last Taken Unknown] gabapentin 300 mg capsule 300 mg PO TID 03/31/23 [History Last Taken Unknown] insulin NPH-regular 70-30 U-100 insulin 100 unit/mL subcutaneous pen (Humulin 70/30 U-100 KwikPen) 25 unit subcut TID 03/31/23 [History Last Taken Unknown] isosorbide mononitrate 30 mg tablet,extended release 24 hr 30 mg PO DAILY 03/31/23 [History Last Taken Unknown] losartan 50 mg tablet 50 mg PO DAILY 03/31/23 [History Last Taken Unknown] metformin 500 mg tablet 500 mg PO DAILY 03/31/23 [History Last Taken Unknown] ranolazine 500 mg tablet,extended release,12 hr 500 mg PO DAILY 03/31/23 [History Last Taken Unknown] sacubitril 49 mg-valsartan 51 mg tablet (Entresto) 1 tab PO BID 03/31/23 [History Last Taken Unknown] sucralfate 1 gram tablet 1 g PO 4X/DAY 03/31/23 [History Last Taken Unknown] Allergy/AdvReac Type Severity Reaction Status Date / Time morphine Allergy Severe Shortness Verified 03/31/23 16:49 of breath ketorolac [From Toradol] AdvReac Mild Nausea Verified 03/31/23 16:49 adhesive tape [paper tape] AdvReac Other Verified 03/31/23 16:49 Surgical History Hx of heart artery stent Social History Smoking Status: Current every day smoker tobacco type: cigarettes Physical Exam Const alert and oriented x3 HEENT normocephalic Eyes no scleral icterus Resp normal respiratory effort Risk Stratification Risk Stratification Applicable: No Charges/Coding Visit Charges Inpatient E&M: 91026 Init Hosp L2 Objective Data Vital Signs: Vital Signs Temp Pulse Resp BP Pulse Ox O2 Del Method 98.9 F 62 18 134/70 H 97 Room Air 04/01/23 09:00 04/01/23 09:00 04/01/23 09:00 04/01/23 09:00 04/01/23 09:00 04/01/23 09:00 Oxygen Delivery Method Room Air Weight: 251 lb 1.704 oz Body Mass Index (BMI) 39.3 Intake & Output: Intake and Output for Last 24 Hours 03/30/23 03/31/23 04/01/23 23:59 23:59 23:59 Intake Total 2365 / 2565 4100 / 4100 Output Total 1200 / 1200 1700 / 1700 Balance 1165 / 1365 2400 / 2400 Lab / Micro Data 04/01/23 04:57 04/01/23 04:57 Labs: Laboratory Results - last 24 hr 03/31/23 16:33: POC Glucose 369 H 03/31/23 22:28: POC Glucose 235 H 04/01/23 04:57: WBC 7.5, RBC 4.00 L, Hgb 11.9 L, Hct 36.6 L, MCV 91.5, MCH 29.8, MCHC 32.5, RDW Std Deviation 41.5, RDW Coeff of Simone 12.6, Plt Count 270, MPV 8.8, Immature Gran % (Auto) 0.300, Neut % (Auto) 50.9, Lymph % (Auto) 32.6, [place] % (Auto) 8.4, Eos % (Auto) 6.6 H, Baso % (Auto) 1.2 H, Absolute Neuts (auto) 3.8, Absolute Lymphs (auto) 2.46, Nucleated RBC % 0, Sodium 137, Potassium 4.2, Chloride 106, Carbon Dioxide 26.0, Anion Gap 5, BUN 30 H, Creatinine 1.75 H, Estim Creat Clear Calc 51.94, Est GFR (MDRD) Af Amer 55 L, Est GFR (MDRD) Non-Af 46 L, BUN/Creatinine Ratio 17.1, Glucose 236 H, Hemoglobin A1c 11.4 H, Calcium 8.8 04/01/23 06:29: POC Glucose 261 H 04/01/23 11:48: POC Glucose 328 H Cardiology Labs/Tests 04/01/23 04:57: WBC 7.5, RBC 4.00 L, Hgb 11.9 L, Hct 36.6 L, MCV 91.5, MCH 29.8, MCHC 32.5, Plt Count 270, MPV 8.8, Immature Gran % (Auto) 0.300, Neut % (Auto) 50.9, Lymph % (Auto) 32.6, [place] % (Auto) 8.4, Eos % (Auto) 6.6 H, Baso % (Auto) 1.2 H, Absolute Neuts (auto) 3.8, Nucleated RBC % 0, Sodium 137, Potassium 4.2, Chloride 106, Carbon Dioxide 26.0, Anion Gap 5, BUN 30 H, Creatinine 1.75 H, Est GFR (MDRD) Af Amer 55 L, Est GFR (MDRD) Non-Af 46 L, BUN/Creatinine Ratio 17.1, Glucose 236 H, Hemoglobin A1c 11.4 H, Calcium 8.8 Rhythm: EKG: ECHO: Stress Test: Cardiac Cath: PCI: CT Surgery: Holter monitor: EPS: PPM: CXR: Chest CT Scan:
[2023-04-01 17:35] LABS: Bedside Glucose 280 mg/dL (74-106)
[2023-04-01] MEDS: Gabapentin 300 MG Capsule PO ×2 (17:39→22:06)
[2023-04-01] MEDS: Budesonide Respules 0.5 MG/2 ML AMPUL.NEB. INHALATION (19:13)
[2023-04-01] MEDS: Ipratropium/Albuterol Sulfate 3 ML AMPUL.NEB INHALATION (19:13)
[2023-04-01] MEDS: Sucralfate 1 GM Tablet PO (21:58)
[2023-04-01] MEDS: SACUBITRIL/VALSARTAN 49-51 MG TABLET 1 EACH PO (21:58)
[2023-04-01] MEDS: Ranolazine 500 MG Tablet PO (21:59)
[2023-04-01] MEDS: Ondansetron 4 MG/2 ML Vial IV (22:22)
[2023-04-02] VITALS (16 sets, daily range): BP systolic 99–145; BP diastolic 45–85; PULSE 53–84; RESP 16–18; TEMP 36.4–36.8; O2SAT 95–99
[2023-04-02 00:38] LABS: Bedside Glucose 290 mg/dL (74-106)
[2023-04-02] MEDS: HYDROmorphone 1 MG/ML Syringe IV ×5 (01:06→19:47)
[2023-04-02 02:01] LABS: Anion Gap 7 (5-15); BUN 26 mg/dL (7-18); BUN/Creat Ratio 17.9 RATIO (10-20); Chloride 107 mmol/L (98-107); Creatinine, Serum 1.45 mg/dL (0.70-1.30); EST Glomerular Filtration Rate 57 mL/min (>60); Est Glom Filt Rate - Afr Amer 69 mL/min (>60); Estimated Creatinine Clearance 62.68 ml/min; Glucose 227 mg/dL (74-106); Potassium 3.5 mmol/L (3.5-5.1); Sodium Level 139 mmol/L (136-145)
[2023-04-02 02:21] LABS: Vancomycin, Trough Level 15.3 ug/mL (5.0-15.0)
[2023-04-02 02:24] LABS: Absolute Lymphocyte Count 2.84 X10^3/uL (0.83-4.51); Basophil# 0.06 X10^3/uL; Basophil% 0.7 % (0-1); Eosinophil# 0.31 X10^3/uL; Eosinophils% 3.5 % (0-5); Hematocrit 35.1 % (40-54); Hemoglobin 11.6 g/dL (13.0-16.5); Lymphocyte # 2.84 X10^3/ul (0.83-4.51); Lymphocyte % 31.9 % (19-41); Mean Corpuscular Hgb 29.7 pg (27.0-32.0); Mean Corpuscular Volume 89.8 fL (80-94); Monocyte# 0.63 X10^3/uL; Monocyte% 7.1 % (0-10); NRBC Flagged by Analyzer 0 % (0-5); Neutrophil # 5.04 X10^3/uL (2.7-7.7); Neutrophil % 56.5 % (47-70); Platelet Count 289 K/mm3 (150-450); RBC Distribution Width CV 12.3 % (11.6-14.6); RBC Distribution Width SD 40.2 fl (35.1-43.9); Red Blood Count 3.91 M/mm3 (4.6-6.2); White Blood Count 8.9 K/mm3 (4.4-11.0)
--- NOTE | 2023-04-02 02:28 | PCM.RX.CS ---
Consult Antibiotic Management Pharmacy has been consulted to manage selected antiobiotic: Vancomycin Type of Intervention Type of Consult: Follow-up Labs Labs: Sodium 139 mmol/L (136-145) 04/02/23 01:30 Potassium 3.5 mmol/L (3.5-5.1) 04/02/23 01:30 Chloride 107 mmol/L (98-107) 04/02/23 01:30 Carbon Dioxide 25.0 mmol/L (21.0-32.0) 04/02/23 01:30 Anion Gap 7 (5-15) 04/02/23 01:30 BUN 26 mg/dL (7-18) H 04/02/23 01:30 Creatinine 1.45 mg/dL (0.70-1.30) H 04/02/23 01:30 Est GFR (MDRD) Af Amer 69 mL/min (>60) 04/02/23 01:30 Est GFR (MDRD) Non-Af 57 mL/min (>60) L 04/02/23 01:30 BUN/Creatinine Ratio 17.9 RATIO (10-20) 04/02/23 01:30 Glucose 227 mg/dL (74-106) H 04/02/23 01:30 Vancomycin Trough 15.3 ug/mL (5.0-15.0) H 04/02/23 01:30 Pharmacy Plan for Drug Dosing Pharmacy Plan for Drug Dosing: Pharmacy Service will continue to monitor and adjust dosing as required. RTOUGH 15.3 @ 11 HOURS. NO CHANGES, FOLLOW UP TROUGH IN 48 HOURS Follow-Up Labs Follow-Up Labs: Trough: Vancomycin Date/Time Labs Ordered Labs to be done on [date and time ordered]: 04/04 @ 8240
[2023-04-02] MEDS: Vancomycin IV 1,000 MG/200 ML BAG 200 MG IV ×2 (02:31→15:06)
[2023-04-02] MEDS: Acetaminophen 325 MG Tablet 650 MG PO ×2 (02:33→22:15)
[2023-04-02] MEDS: Piperacil/Tazobactam 3.375 GM in 0.9% Normal Saline (50mL MB+) 50 ML IV ×3 (06:10→22:14)
[2023-04-02] MEDS: Gabapentin 300 MG Capsule PO ×3 (06:45→22:22)
[2023-04-02] MEDS: Insulin Lispro 100 UNIT/ML INSULN.PEN SC ×3 (06:45→22:16)
[2023-04-02] MEDS: oxyCODONE 5 MG Tablet PO ×3 (06:51→22:14)
[2023-04-02] MEDS: Budesonide Respules 0.5 MG/2 ML AMPUL.NEB. INHALATION (06:55)
[2023-04-02] MEDS: Ipratropium/Albuterol Sulfate 3 ML AMPUL.NEB INHALATION (06:55)
[2023-04-02 07:10] LABS: Bedside Glucose 265 mg/dL (74-106)
--- NOTE | 2023-04-02 08:02 | PN.HOSP_ITS ---
Reason for Visit Reason for Visit: Diagnoses Type 2 diabetes mellitus with diabetic polyneuropathy (03/31/23) Atherosclerotic heart disease of [place] coronary artery without angina pectoris (03/31/23) Peripheral vascular disease, unspecified (03/31/23) Cutaneous abscess of left foot (03/31/23) Cellulitis of left lower limb (03/31/23) Hallux rigidus, right foot (03/31/23) Other hammer toe(s) (acquired), left foot (03/31/23) Encounter for preprocedural cardiovascular examination (03/31/23) Subjective Subjective Feels well post op. Objective Data Objective Data Vital Signs: Vital Signs Temp Pulse Resp BP Pulse Ox O2 Del Method 36.6 C 68 18 119/54 L 97 Room Air 04/02/23 04:09 04/02/23 06:55 04/02/23 06:55 04/02/23 04:09 04/02/23 04:09 04/02/23 04:09 Oxygen Delivery Method Room Air Weight: 113.9 kg Body Mass Index (BMI) 39.3 Intake & Output: Intake and Output for Last 24 Hours 03/31/23 04/01/23 04/02/23 23:59 23:59 23:59 Intake Total 2365 / 2565 5050 / 5350 575 / 575 Output Total 1200 / 1200 2380 / 2380 Balance 1165 / 1365 2670 / 2970 575 / 575 Lab / Micro Data 04/02/23 01:30 04/02/23 01:30 Labs: Laboratory Results - last 24 hr 04/01/23 04:57: Hemoglobin A1c 11.4 H 04/01/23 11:48: POC Glucose 328 H 04/01/23 17:15: POC Glucose 280 H 04/01/23 22:10: POC Glucose 290 H 04/02/23 01:30: WBC 8.9, RBC 3.91 L, Hgb 11.6 L, Hct 35.1 L, MCV 89.8, MCH 29.7, MCHC 33.0, RDW Std Deviation 40.2, RDW Coeff of Simone 12.3, Plt Count 289, MPV 9.0, Immature Gran % (Auto) 0.300, Neut % (Auto) 56.5, Lymph % (Auto) 31.9, [place] % (Auto) 7.1, Eos % (Auto) 3.5, Baso % (Auto) 0.7, Absolute Neuts (auto) 5.0, Absolute Lymphs (auto) 2.84, Nucleated RBC % 0, Sodium 139, Potassium 3.5, Chloride 107, Carbon Dioxide 25.0, Anion Gap 7, BUN 26 H, Creatinine 1.45 H, Estim Creat Clear Calc 62.68, Est GFR (MDRD) Af Amer 69, Est GFR (MDRD) Non-Af 57 L, BUN/Creatinine Ratio 17.9, Glucose 227 H, Calcium 9.0, Vancomycin Trough 1 5.3 H 04/02/23 06:44: POC Glucose 265 H Physical Exam Const alert and no apparent distress HEENT head/scalp atraumatic Extremity Extremity Narrative: left foot wrapped--did not remove. Neuro Sensorium / Orientation: awake and alert Assessment & Plan Assessment/Plan (1) Diabetic foot infection: PLAN: Failed outpt mgmt Abx w van and pip/tazo s/p tendo achilles lenghening LLE. Lesser metatarsal osteotomy, I+D deep abscess down to level of tendon sheath/joint capsule. follow up cultures (2) Uncontrolled diabetes mellitus: QUALIFIERS: Diabetes mellitus type: type 2 Glycemic state: with hyperglycemia Qualified Code(s): E11.65 - Type 2 diabetes mellitus with hyperglycemia PLAN: a1c 11.5 Home regimen 70/30 25 TID. Here is 75/25 SSI (3) STEPHANIE (acute kidney injury): PLAN: admission Cr. 2.06, down to 1.45. Improved Monitor PLAN: Plan Chronic conditions * CAD: ASA, clopidogrel, atorvastatin, entresto. H/O CABG. Recent PCI 2-3 months ago. Cleared for surgery by cardiology DVT prophylaxis: lovenox Charges/Coding Visit Charges Inpatient E&M: 89969 Subs Hosp L2
[2023-04-02 08:13] LABS: Hemoglobin A1c 11.5 % (3.8-5.6)
--- NOTE | 2023-04-02 09:00 | MRI_ITS ---
STUDY: MRI LEFT FOOT REASON FOR EXAM: Male, 42 years old. Left foot infection, forefoot. Diabetes. TECHNIQUE: Standardized fat and water weighted pulse sequences were obtained in all 3 orthogonal planes. COMPARISON: None. FINDINGS: There has been amputation of the first digit through the distal shaft of the first metatarsal. There is cystic adventitious bursitis located inferior to the second MTP joint. There is mild marrow stress edema in the second and third metatarsal heads. Normal bone marrow of the remainder of the metatarsals, phalanges and visualized distal tarsal row, without fracture, periostitis, erosions, reactive bone edema, or osteomyelitis. Normal joint spaces, without effusions. Normal visualized [place] and Lisfranc joints and normal Lisfranc ligament. Normal intermetatarsal spaces without intermetatarsal ([place]) neuroma or bursitis. Normal visualized flexor and extensor tendons. Normal visualized plantar fascia without fasciitis, fibromatosis or tear. There is severe atrophy and fatty infiltration of the intrinsic muscles of the foot. There is mild subcutaneous soft tissue edema along the dorsum of the forefoot. MRI/Lower Ext/No Jt/w/o IMPRESSION: First digit amputation through the distal shaft of the first metatarsal. Cystic adventitious bursitis located inferior to the second MTP joint. Mild marrow stress edema in the second and third metatarsal heads. Severe atrophy and fatty infiltration of the intrinsic muscles of the foot. Mild subcutaneous soft tissue edema along the dorsum of the forefoot. No evidence of osteomyelitis. Electronically Signed: Warren Diaz MD at 10:58 EDT ,
[2023-04-02 09:17] LABS: Bedside Glucose 270 mg/dL (74-106)
--- NOTE | 2023-04-02 09:42 | NURSING ---
pt off floor for MRI @ 2537
--- NOTE | 2023-04-02 10:58 | CASEMGMT ---
RADHA DAWSON Face to Face with patient for initial transition planning/care coordination assessment. RN SAMIR introduced self and role at [facility]. Patient sitting on edge of bed, alert and oriented. Patient willing to participate in assessment and is able to answer all questions appropriately. Pt mother at bedside and pt agreeable to assessment with her present. Care providers, pharmacy, and demographics verified. Patient wishes to discharge home. Patient states he has no further needs or concerns at this time. CM to follow for discharge planning needs that may arise. PCP:Aravind Specialists:JENNI Prescott Preferred Pharmacy:[facility] Insurance:[facility] Prescription Benefit: yes LNOK:Nicolasa Cortez, mother Living Arrangements:Pt lives with mother and her sig other in a single story home with no steps to enter. Pt reports he is I in ADL's and denies concerns at home. Transportation: Pt drives self and denies concerns with transportation. DME:nebulizer, BGM and CGM with sufficient supply of strips, lancets and sensors. Pt states he has insuling with sufficient supply of needles as well. HHC:[facility] in the past when he had IV atb SNF:None Disposition Plan:Home, follow for wound care or need for IV atb Surgery came in at end of assessment and took pt to OR.
[2023-04-02] MEDS: Lactated Ringers 1,000 ML 15 ML IV (11:22)
--- NOTE | 2023-04-02 12:00 | RAD_ITS ---
STUDY: X-RAY - LEFT FOREFOOT CLINICAL: Male, 42 years old. Pain. TECHNIQUE: 3 intraoperative spot films of the left forefoot were obtained. COMPARISON: None. FINDINGS: There has been first digit amputation through the distal shaft of the first metatarsal. Initial spot film images show surgical instrumentation projecting over the second metatarsal neck region and the final image demonstrates an osteotomy of the distal second metatarsal. Normal remainder of the metatarsi. Normal second through fifth metatarsophalangeal joints. Normal visualized interphalangeal joints and phalanges of the lesser toes. RAD/Foot 2 Views IMPRESSION: Status post first digit amputation through the distal shaft of the first metatarsal. Osteotomy of the distal second metatarsal. Electronically Signed: Warren Diaz MD at 14:56 EDT ,
[2023-04-02] MEDS: Bupivacaine 0.5% PF 10 ML VIAL (12:55)
--- NOTE | 2023-04-02 13:06 | OP.PCM_ITS ---
Problems Associated Problem List Diagnoses (1) Short Achilles tendon (acquired), left ankle: (2) Type 2 diabetes mellitus with diabetic polyneuropathy: (3) Non-pressure chronic ulcer of other part of left foot with fat layer exposed: (4) Other hammer toe(s) (acquired), left foot: (5) Metatarsal deformity: (6) Abscess of tendon of left foot: Report of Operation Date of Procedure: 04/02/23 Pre-Operative Diagnosis: 1. Left lower extremity equinus deformity 2. Full-thickness wound left plantar foot 3. Deep abscess down to level tendon sheath/capsule left foot 4. Hammertoe left foot 5. Lesser metatarsal deformity with plantar flexor deformity creating apex wo und site plantar second MPJ 6. Diabetic neuropathy Post-Operative Diagnosis: Same Surgery/Procedure Performed:: 1. Tendo Achilles lengthening left lower extremity 2. Lesser metatarsal osteotomy 3. Incision and drainage of deep abscess down to level of tendon sheath/joint capsule Description of Surgical Findings:: Preoperatively MRI confirmed deep abscess deep to full-thickness wound to plantar left foot. No evidence of osteomyelitis. Due to history of partial left first ray amputation second digital deformity creating an apex for wound formation to plantar second MPJ plan was made for tendo Achilles lengthening with lesser metatarsal floating osteotomy and incision and drainage of abscess. This there is a deep abscess was noted to be 3 cc no evidence of deep residual infection postdebridement. Pre and post lavage swab cultures were taken Surgeon: Po Saxena inside sales manager: None (Elizabeth THORNTON) Type of Anesthesia: General Special Medications: 30 cc half percent Marcaine plain Specimen's removed: Pre and post lavage swab cultures as well as left plantar foot wound for tissue Drains: None Estimated Blood Loss (mL): Less than Fluids Replaced: None Description of Procedure: Patient was brought back the operating placed comfortably in supine position operating room table. Patient induced under general anesthesia. Well-padded left calf tourniquet applied. Left lower extremity 5 out any external rotation. Local infiltration block was performed using 10 cc half percent Marcaine at the second ray site. Left lower extremity scrubbed prepped draped using typical aseptic fashion. First procedure once cleared by anesthesia the left lower extremity was elevated exsanguinated tourniquet was inflated 250 mmHg. Local infiltration block was performed using 10 cc half percent Marcaine plain for a total of 20 cc at current to the posterior Achilles tendon. Using a ruler from the distal insertion of the Achilles tendon to proximal mahmood were made transversely across the tendon at 5 8 and 11 cm respectively through percutaneous stab incisions with a #11 blade the tendon was hemisected with the distalmost incision hemisected and the medial aspect of the central incision and resecting the lateral aspect and the proximal incision again hemisected and the medial aspect. There is to be a noted a 5 degree increase in dorsiflexor range of motion upon completion of this procedure incisional sites were flushed with copious amounts normal sterile saline and closed with simple interrupted 3-0 Prolene. This was covered. Attention was then directed to the next procedural sites. Second procedure incision drainage abscess down to deep tendon/capsule. The elliptical incision was performed to excise the half centimeter by half centimeter full-thickness wound to allow for incisional closure and abscess decompression. These this ellipse was excised using a 15 blade and pickup and passed the back table for tissue cultures there is noted to be a 3 cc abscess that was drained from the site. Prelavage swab cultures were then taken. Site was flushed with copious amounts normal sterile saline and post lavage swab cultures were then taken. Incision was then closed primarily using simple interrupted 3-0 Prolene. Third procedure fluoroscopic imaging was used to emerald out the second metatarsal head and neck. Dorsal 2 cm long incision was made full-thickness down to level of the second metatarsal neck. The extensor tendon was transected to allow for reduction of the hammertoe deformity and again using fluoroscopic imaging a transverse cut was made from dorsal plantar using a sagittal saw and the second metatarsal neck to allow for offloading of the second MPJ wound via floating metatarsal osteotomy. This was confirmed intraoperatively as well as fluoroscopic imaging. Site was flushed with copious amounts of normal sterile saline and then closed with 2 horizontal mattress sutures. Also tourniquet was then let down total tourniquet time was noted be 23 minutes. Incisional sites were dressed with Betadine Adaptic 4 x 4's Kerlix ABD pads and a well-padded Nazario compression dressing. Patient was transferred back to to the PACU vital signs stable vascular status intact all digits for further monitoring prior to transfer back to the floor. Patient tolerated procedure and anesthesia well apparent satisfactory condition. No complications. No unexpected findings. She will continue to receive IV antibiotics until final culture and sensitivity. I am confident that we cleared any infection with this procedure today.
[2023-04-02 13:36] LABS: Bedside Glucose 298 mg/dL (74-106)
[2023-04-02] MEDS: Sucralfate 1 GM Tablet PO ×2 (16:24→22:15)
[2023-04-02] MEDS: Juven (unflavored) Packet 1 PACKET PO (16:24)
[2023-04-02] MEDS: Insulin Human 75/25 Kwickpen 25 UNIT SC (16:26)
[2023-04-02 16:46] LABS: Bedside Glucose 246 mg/dL (74-106)
[2023-04-02] MEDS: 0.9% Saline Lock 10 ML Syringe IV ×2 (19:47→22:11)
[2023-04-02] MEDS: Ondansetron 4 MG/2 ML Vial IV (22:11)
[2023-04-02] MEDS: Ranolazine 500 MG Tablet PO (22:15)
[2023-04-02] MEDS: SACUBITRIL/VALSARTAN 49-51 MG TABLET 1 EACH PO (22:16)
[2023-04-03] VITALS (7 sets, daily range): BP systolic 124–145; BP diastolic 65–91; PULSE 58–80; RESP 14–18; TEMP 36.1–36.7; O2SAT 97–99
[2023-04-03] MEDS: HYDROmorphone 1 MG/ML Syringe IV ×7 (00:01→22:51)
[2023-04-03] MEDS: 0.9% Saline Lock 10 ML Syringe IV ×5 (00:01→22:51)
[2023-04-03 00:22] LABS: Bedside Glucose 286 mg/dL (74-106)
[2023-04-03] MEDS: oxyCODONE 5 MG Tablet PO ×4 (02:10→21:30)
[2023-04-03] MEDS: Vancomycin IV 1,000 MG/200 ML BAG 200 MG IV ×2 (02:10→13:10)
[2023-04-03] MEDS: Gabapentin 300 MG Capsule PO ×3 (05:35→21:38)
[2023-04-03] MEDS: Piperacil/Tazobactam 3.375 GM in 0.9% Normal Saline (50mL MB+) 50 ML IV ×3 (05:35→21:30)
[2023-04-03] MEDS: Sucralfate 1 GM Tablet PO ×4 (05:36→21:32)
[2023-04-03] MEDS: Insulin Lispro 100 UNIT/ML INSULN.PEN SC ×4 (05:38→21:36)
[2023-04-03] MEDS: 0.9% Normal Saline (250mL Bag) 250 ML 15 ML IV (05:40)
[2023-04-03] MEDS: Acetaminophen 325 MG Tablet 650 MG PO ×3 (06:36→21:30)
[2023-04-03 06:40] LABS: Bedside Glucose 245 mg/dL (74-106)
[2023-04-03 07:27] LABS: Absolute Lymphocyte Count 2.37 X10^3/uL (0.83-4.51); Absolute Neutrophil Count 5.8 X10^3/uL (2.0-7.7); Basophil# 0.08 X10^3/uL; Basophil% 0.8 % (0-1); Eosinophil# 0.44 X10^3/uL; Eosinophils% 4.6 % (0-5); Hematocrit 36.7 % (40-54); Hemoglobin 12.1 g/dL (13.0-16.5); Lymphocyte # 2.37 X10^3/ul (0.83-4.51); Lymphocyte % 24.8 % (19-41); Mean Corpuscular Volume 91.1 fL (80-94); Monocyte# 0.85 X10^3/uL; Monocyte% 8.9 % (0-10); NRBC Flagged by Analyzer 0 % (0-5); Neutrophil # 5.78 X10^3/uL (2.7-7.7); Neutrophil % 60.6 % (47-70); POSITIVE COUNT YES; RBC Distribution Width CV 12.3 % (11.6-14.6); RBC Distribution Width SD 40.7 fl (35.1-43.9); Red Blood Count 4.03 M/mm3 (4.6-6.2); White Blood Count 9.6 K/mm3 (4.4-11.0)
[2023-04-03] MEDS: Ipratropium/Albuterol Sulfate 3 ML AMPUL.NEB INHALATION ×2 (07:34→19:50)
[2023-04-03] MEDS: Budesonide Respules 0.5 MG/2 ML AMPUL.NEB. INHALATION ×2 (07:34→19:50)
--- NOTE | 2023-04-03 07:44 | PN.HOSP_ITS ---
Reason for Visit Reason for Visit: Diagnoses Type 2 diabetes mellitus with diabetic polyneuropathy (03/31/23) Type 2 diabetes mellitus with other skin complications (03/31/23) Type 2 diabetes mellitus with hyperglycemia (03/31/23) Atherosclerotic heart disease of [place] coronary artery without angina pectoris (03/31/23) Peripheral vascular disease, unspecified (03/31/23) Cutaneous abscess of left foot (03/31/23) Cellulitis of left lower limb (03/31/23) Local infection of the skin and subcutaneous tissue, unspecified (03/31/23) Non-pressure chronic ulcer of other part of left foot with fat layer exposed (03/31/23) Hallux rigidus, right foot (03/31/23) Other hammer toe(s) (acquired), left foot (03/31/23) Unspecified acquired deformity of unspecified lower leg (03/31/23) Abscess of tendon sheath, left ankle and foot (03/31/23) Short Achilles tendon (acquired), left ankle (03/31/23) Acute kidney failure, unspecified (03/31/23) Encounter for preprocedural cardiovascular examination (03/31/23) Subjective Subjective Still with pain in foot. Objective Data Objective Data Vital Signs: Vital Signs Temp Pulse Resp BP Pulse Ox O2 Del Method 36.1 C L 60 16 124/65 H 97 Room Air 04/03/23 06:41 04/03/23 07:35 04/03/23 07:35 04/03/23 06:41 04/03/23 06:41 04/03/23 06:41 Oxygen Delivery Method Room Air Weight: 113.9 kg Body Mass Index (BMI) 39.3 Intake & Output: Intake and Output for Last 24 Hours 04/01/23 04/02/23 04/03/23 23:59 23:59 23:59 Intake Total 5050 / 5350 1250.75 / 1250.75 1155 / 1155 Output Total 2380 / 2380 1125 / 1125 Balance 2670 / 2970 1250.75 / 1250.75 30 / 30 Lab / Micro Data 04/03/23 07:00 04/03/23 07:00 Labs: Laboratory Results - last 24 hr 04/02/23 01:30: Hemoglobin A1c 11.5 H 04/02/23 08:59: POC Glucose 270 H 04/02/23 13:17: POC Glucose 298 H 04/02/23 16:26: POC Glucose 246 H 04/02/23 22:14: POC Glucose 286 H 04/03/23 05:37: POC Glucose 245 H Micro: Microbiology 04/01/23 10:00 Wound - Left Foot Gram Stain - Final 04/01/23 10:00 Wound - Left Foot Wound Culture - Preliminary Citrobacter freundii Enterococcus faecalis Staphylococcus species 04/01/23 10:00 Wound - Left Foot Anaerobic Culture - Preliminary Checking for anaerobes, further studies to follow. 03/31/23 12:45 Blood Culture (Wb) - Venous Bacteria Detection (PCR) - Final 03/31/23 12:45 Blood Culture (Wb) - Venous Blood Culture - Preliminary Presumptive Micrococcus spp. 04/02/23 Unknown Wound Abcess - Aerobic & Anaerobic Swabs Gram Stain - Final 04/02/23 Unknown Wound Abcess - Left Foot Gram Stain - Final 04/02/23 Unknown Wound Abcess - Aerobic & Anaerobic Swabs Gram Stain - Final 03/31/23 12:30 Blood Culture (Wb) - Anticubital Left Blood Culture - Preliminary No growth in 48 hours. Radiography Diagnostic Testing: Radiology Impression Lower Extremity MRI 04/02/23 09:00 IMPRESSION: First digit amputation through the distal shaft of the first metatarsal. Cystic adventitious bursitis located inferior to the second MTP joint. Mild marrow stress edema in the second and third metatarsal heads. Severe atrophy and fatty infiltration of the intrinsic muscles of the foot. Mild subcutaneous soft tissue edema along the dorsum of the forefoot. No evidence of osteomyelitis. Electronically Signed: Warren Diaz MD at 10:58 EDT , Foot X-Ray 04/02/23 12:00 IMPRESSION: Status post first digit amputation through the distal shaft of the first metatarsal. Osteotomy of the distal second metatarsal. Electronically Signed: Warren Diaz MD at 14:56 EDT , Physical Exam Const alert and no apparent distress HEENT head/scalp atraumatic Extremity normal to inspection Assessment & Plan Assessment/Plan (1) Diabetic foot infection: PLAN: Failed outpt mgmt Abx w van and pip/tazo s/p tendo Achilles lengthening LLE. Lesser metatarsal osteotomy, I+D deep abscess down to level of tendon sheath/joint capsule. Podiatry following Consult ID Cultures: * Wound 04/01: Citrobacter, Enterococcus faecalis, Staph sp. * Surgical culture 04/02:Possible enterococcus. (2) Uncontrolled diabetes mellitus: QUALIFIERS: Diabetes mellitus type: type 2 Glycemic state: with hyperglycemia Qualified Code(s): E11.65 - Type 2 diabetes mellitus with hyperglycemia PLAN: a1c 11.5 Home regimen 70/30 25 TID. Here is 75/25 SSI Will increase 75/25 to 32 BID. (3) STEPHANIE (acute kidney injury): PLAN: admission Cr. 2.06, down to 1.45. Improved Monitor PLAN: Plan Chronic conditions * CAD: ASA, clopidogrel, atorvastatin, entresto. H/O CABG. Recent PCI 2-3 months ago. Cleared for surgery by cardiology DVT prophylaxis: lovenox Charges/Coding Visit Charges Inpatient E&M: 90396 Subs Hosp L2
[2023-04-03 07:58] LABS: Differential Indicated SCAN CRITERIA MET
[2023-04-03 07:59] LABS: Platelet Estimate ADEQUATE (ADEQ)
[2023-04-03 08:05] LABS: Anion Gap 6 (5-15); BUN 23 mg/dL (7-18); BUN/Creat Ratio 16.8 RATIO (10-20); Calcium,Total 8.8 mg/dL (8.5-10.1); Chloride 110 mmol/L (98-107); Creatinine, Serum 1.37 mg/dL (0.70-1.30); EST Glomerular Filtration Rate 61 mL/min (>60); Est Glom Filt Rate - Afr Amer 74 mL/min (>60); Estimated Creatinine Clearance 66.34 ml/min; Glucose 243 mg/dL (74-106); Potassium 3.5 mmol/L (3.5-5.1); Sodium Level 137 mmol/L (136-145)
[2023-04-03] MEDS: Isosorbide Mononitrate 30 MG Tablet PO (09:04)
[2023-04-03] MEDS: Ranolazine 500 MG Tablet PO ×2 (09:04→21:32)
[2023-04-03] MEDS: Atorvastatin Calcium 40 MG Tablet PO (09:04)
[2023-04-03] MEDS: Aspirin E.C. 81 MG Tablet PO (09:04)
[2023-04-03] MEDS: Clopidogrel Bisulfate 75 MG Tablet PO (09:04)
[2023-04-03] MEDS: Juven (unflavored) Packet 1 PACKET PO ×2 (09:04→16:22)
[2023-04-03] MEDS: SACUBITRIL/VALSARTAN 49-51 MG TABLET 1 EACH PO ×2 (09:04→21:32)
[2023-04-03] MEDS: Insulin Human 75/25 Kwickpen 25 UNIT SC ×2 (09:05→11:31)
[2023-04-03] MEDS: Furosemide 40 MG Tablet PO (09:05)
--- NOTE | 2023-04-03 10:06 | PCM.CONS.GEN ---
Assessment & Plan Assessment/Plan (1) Abscess of tendon of left foot: PLAN: Taken to OR 04/02/[address] Saxena for I&D. No osteo seen on MRI. Wound cx with enterococcus, citro, staph. On empiric vanc/zosyn. Will follow, thank you (2) Type 2 diabetes mellitus with diabetic polyneuropathy: HPI Consult Data Date of Consult: 04/03/23 HPI Narrative Reason for Consultation: foot abscess HPI Narrative: RUSTY MCCLURE, is a 42 M with uncontrolled DM complicated by neuropathy, presented 03.31.23 with 1-2 months progressive L foot infected wound with progressive mild pain, redness and associated fever and chills. Given keflex from ED, changed to clinda and doxy for the week leading up to admit. MRI done, taken to OR here 04/[address] Saxena for I&D. On vanc/zosyn, feeling better. Full ROS performed and neg except as noted above. [facility] Medical History Amputation of left great toe Diabetes Heart attack Home Medications cephalexin 500 mg capsule 500 mg PO Q6 #40 CAPSULES 03/20/23 [Rx Last Taken Unknown] oxycodone-acetaminophen 5 mg-325 mg tablet (Percocet) 1 tab PO Q8H PRN pain 3 days #10 tabs 03/20/23 [Rx Last Taken Unknown] aspirin 81 mg tablet,delayed release 81 mg PO DAILY 03/31/23 [History Last Taken Unknown] atorvastatin 40 mg tablet 40 mg PO DAILY 03/31/23 [History Last Taken Unknown] clopidogrel 75 mg tablet 75 mg PO DAILY 03/31/23 [History Last Taken Unknown] fluticasone fur. 200 mcg-umeclid 62.5 mcg-vilant 25 mcg inhalat.powder (Trelegy Ellipta) 1 inh inhalation Q24H 03/31/23 [History Last Taken Unknown] furosemide 40 mg tablet 40 mg PO DAILY 03/31/23 [History Last Taken Unknown] gabapentin 300 mg capsule 300 mg PO TID 03/31/23 [History Last Taken Unknown] insulin NPH-regular 70-30 U-100 insulin 100 unit/mL subcutaneous pen (Humulin 70/30 U-100 KwikPen) 25 unit subcut TID 03/31/23 [History Last Taken Unknown] isosorbide mononitrate 30 mg tablet,extended release 24 hr 30 mg PO DAILY 03/31/23 [History Last Taken Unknown] losartan 50 mg tablet 50 mg PO DAILY 03/31/23 [History Last Taken Unknown] metformin 500 mg tablet 500 mg PO DAILY 03/31/23 [History Last Taken Unknown] ranolazine 500 mg tablet,extended release,12 hr 500 mg PO DAILY 03/31/23 [History Last Taken Unknown] sacubitril 49 mg-valsartan 51 mg tablet (Entresto) 1 tab PO BID 03/31/23 [History Last Taken Unknown] sucralfate 1 gram tablet 1 g PO 4X/DAY 03/31/23 [History Last Taken Unknown] Allergy/AdvReac Type Severity Reaction Status Date / Time morphine Allergy Severe Shortness Verified 03/31/23 16:49 of breath ketorolac [From Toradol] AdvReac Mild Nausea Verified 03/31/23 16:49 adhesive tape [paper tape] AdvReac Other Verified 03/31/23 16:49 Surgical History Hx of heart artery stent Social History Smoking Status: Current every day smoker tobacco type: cigarettes Physical Exam Const alert, oriented x3 and no apparent distress General Appearance: cooperative HEENT normocephalic and head/scalp atraumatic Eyes PERRL and EOMs intact bilaterally Neck supple and No nodes Resp normal air movement and clear to auscultation bilaterally Cardio regular rate and regular rhythm Heart Sounds: Negative for murmur GI soft to palpation, non-tender and non-distended Extremity General Extremity: Negative for edema Skin Skin Narrative: L foot wrapped. Neuro CN's II-XII intact bilaterally Lab / Micro Data Attestation: I reviewed the patient's lab results. 04/03/23 07:00 04/03/23 07:00 Labs: Laboratory Results - last 24 hr 04/02/23 13:17: POC Glucose 298 H 04/02/23 16:26: POC Glucose 246 H 04/02/23 22:14: POC Glucose 286 H 04/03/23 05:37: POC Glucose 245 H 04/03/23 07:00: WBC 9.6, RBC 4.03 L, Hgb 12.1 L, Hct 36.7 L, MCV 91.1, MCH 30.0, MCHC 33.0, RDW Std Deviation 40.7, RDW Coeff of Simone 12.3, Plt Count TNP, MPV 9.0, Immature Gran % (Auto) 0.300, Neut % (Auto) 60.6, Lymph % (Auto) 24.8, Carson % (Auto) 8.9, Eos % (Auto) 4.6, Baso % (Auto) 0.8, Absolute Neuts (auto) 5.8, Absolute Lymphs (auto) 2.37, Nucleated RBC % 0, Platelet Estimate ADEQUATE, Sodium 137, Potassium 3.5, Chloride 110 H, Carbon Dioxide 21.0, Anion Gap 6, BUN 23 H, Creatinine 1.37 H, Estim Creat Clear Calc 66.34, Est GFR (MDRD) Af Amer 74, Est GFR (MDRD) Non-Af 61, BUN/Creatinine Ratio 16.8, Glucose 243 H, Calcium 8.8 Micro: Microbiology 04/01/23 10:00 Wound - Left Foot Gram Stain - Final 04/01/23 10:00 Wound - Left Foot Wound Culture - Preliminary Citrobacter freundii Enterococcus faecalis Staphylococcus species Staphylococcus species#2 04/01/23 10:00 Wound - Left Foot Anaerobic Culture - Preliminary Checking for anaerobes, further studies to follow. 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 03/31/23 12:30 Blood Culture (Wb) - Anticubital Left Blood Culture - Preliminary No growth in 48 hours. Radiology Impression Lower Extremity MRI 04/02/23 09:00 IMPRESSION: First digit amputation through the distal shaft of the first metatarsal. Cystic adventitious bursitis located inferior to the second MTP joint. Mild marrow stress edema in the second and third metatarsal heads. Severe atrophy and fatty infiltration of the intrinsic muscles of the foot. Mild subcutaneous soft tissue edema along the dorsum of the forefoot. No evidence of osteomyelitis. Electronically Signed: Warren Diaz MD at 10:58 EDT , Foot X-Ray 04/02/23 12:00 IMPRESSION: Status post first digit amputation through the distal shaft of the first metatarsal. Osteotomy of the distal second metatarsal. Electronically Signed: Warren Diaz MD at 14:56 EDT ,
[2023-04-03 11:51] LABS: Bedside Glucose 280 mg/dL (74-106)
--- NOTE | 2023-04-03 12:41 | WOUNDNOTE ---
wound photo: left foot
--- NOTE | 2023-04-03 12:42 | WOUNDNOTE ---
wound photo: left foot
--- NOTE | 2023-04-03 12:43 | WOUNDNOTE ---
wound photo: left Achilles
--- NOTE | 2023-04-03 12:53 | PCM.PROGNOTE ---
Subjective Subjective 1 day postop. Pain moderate today. Denies constitutional's. No sign DVT. Objective Data Objective Data Vital Signs: Vital Signs Temp Pulse Resp BP Pulse Ox O2 Del Method 97 F L 60 16 124/65 H 97 Room Air 04/03/23 06:41 04/03/23 07:35 04/03/23 07:35 04/03/23 06:41 04/03/23 06:41 04/03/23 08:29 Oxygen Delivery Method Room Air Weight: 113.9 kg Body Mass Index (BMI) 39.3 Intake & Output: Intake and Output for Last 24 Hours 04/01/23 04/02/23 04/03/23 23:59 23:59 23:59 Intake Total 5050 / 5350 1250.75 / 1250.75 1505 / 1505 Output Total 2380 / 2380 1925 / 1925 Balance 2670 / 2970 1250.75 / 1250.75 -420 / -420 Lab / Micro Data 04/03/23 07:00 04/03/23 07:00 Labs: Laboratory Results - last 24 hr 04/02/23 13:17: POC Glucose 298 H 04/02/23 16:26: POC Glucose 246 H 04/02/23 22:14: POC Glucose 286 H 04/03/23 05:37: POC Glucose 245 H 04/03/23 07:00: WBC 9.6, RBC 4.03 L, Hgb 12.1 L, Hct 36.7 L, MCV 91.1, MCH 30.0, MCHC 33.0, RDW Std Deviation 40.7, RDW Coeff of Simone 12.3, Plt Count TNP, MPV 9.0, Immature Gran % (Auto) 0.300, Neut % (Auto) 60.6, Lymph % (Auto) 24.8, Cassia % (Auto) 8.9, Eos % (Auto) 4.6, Baso % (Auto) 0.8, Absolute Neuts (auto) 5.8, Absolute Lymphs (auto) 2.37, Nucleated RBC % 0, Platelet Estimate ADEQUATE, Sodium 137, Potassium 3.5, Chloride 110 H, Carbon Dioxide 21.0, Anion Gap 6, BUN 23 H, Creatinine 1.37 H, Estim Creat Clear Calc 66.34, Est GFR (MDRD) Af Amer 74, Est GFR (MDRD) Non-Af 61, BUN/Creatinine Ratio 16.8, Glucose 243 H, Calcium 8.8 04/03/23 11:31: POC Glucose 280 H Micro: Microbiology 04/01/23 10:00 Wound - Left Foot Gram Stain - Final 04/01/23 10:00 Wound - Left Foot Wound Culture - Preliminary Citrobacter freundii Enterococcus faecalis Staphylococcus species Staphylococcus species#2 04/01/23 10:00 Wound - Left Foot Anaerobic Culture - Preliminary Checking for anaerobes, further studies to follow. 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 03/31/23 12:30 Blood Culture (Wb) - Anticubital Left Blood Culture - Preliminary No growth in 48 hours. Radiography Diagnostic Testing: Radiology Impression Foot X-Ray 04/02/23 12:00 IMPRESSION: Status post first digit amputation through the distal shaft of the first metatarsal. Osteotomy of the distal second metatarsal. Electronically Signed: Warren Diaz MD at 14:56 EDT , Physical Exam Narrative 0 incisional sites to right dorsal forefoot right plantar forefoot and right posterior Achilles noted to be well approximated with intact sutures. No signs of infection residually. Tenderness noted to meseret-incisional areas. Neurovascular status unchanged, no sign DVT. Const alert and oriented x3 Assessment & Plan Assessment/Plan (1) Abscess of tendon of left foot: PLAN: Exam performed Vital signs stable Incisional sites look well approximated recommend waiting final culture and sensitivity for antibiotic recommendations Patient can bear weight to right heel in surgical shoe with AO splint Well-padded AO splint was applied to right lower extremity today along with overlying dry sterile dressing to the incisional sites. Upon discharge patient will follow-up with me in 1 week. Per clinical findings no evidence of bone infection recommend DC on oral antibiotics pending final culture and sensitivity. Please contact our service if any additional information is required. We will otherwise follow-up with the patient in 1 week upon discharge. Patient is splint is to keep remain clean dry and intact until follow-up. (2) Other hammer toe(s) (acquired), left foot: (3) Non-pressure chronic ulcer of other part of left foot with fat layer exposed: (4) Short Achilles tendon (acquired), left ankle:
[2023-04-03] MEDS: Insulin Human 75/25 Kwickpen 32 UNIT SC (16:22)
[2023-04-03 16:35] LABS: Bedside Glucose 233 mg/dL (74-106)
[2023-04-03 22:40] LABS: Bedside Glucose 200 mg/dL (74-106)
[2023-04-04 01:55] LABS: Vancomycin, Trough Level 14.6 ug/mL (5.0-15.0)
[2023-04-04] MEDS: Vancomycin IV 1,000 MG/200 ML BAG 200 MG IV (02:16)
[2023-04-04] MEDS: Vancomycin Trough/Random Due 1 LAB MC (02:16)
[2023-04-04] MEDS: HYDROmorphone 1 MG/ML Syringe IV ×3 (02:16→10:58)
[2023-04-04] MEDS: 0.9% Saline Lock 10 ML Syringe IV ×3 (02:16→10:59)
[2023-04-04 02:33] VITALS: BP 116/58; PULSE 68; RESP 18; TEMP 36.6; O2SAT 96
--- NOTE | 2023-04-04 03:10 | PHA.PHARE_ITS ---
Consult Antibiotic Management Pharmacy has been consulted to manage selected antiobiotic: Vancomycin Type of Intervention Type of Consult: Follow-up Labs Labs: Sodium 137 mmol/L (136-145) 04/03/23 07:00 Potassium 3.5 mmol/L (3.5-5.1) 04/03/23 07:00 Chloride 110 mmol/L (98-107) H 04/03/23 07:00 Carbon Dioxide 21.0 mmol/L (21.0-32.0) 04/03/23 07:00 Anion Gap 6 (5-15) 04/03/23 07:00 BUN 23 mg/dL (7-18) H 04/03/23 07:00 Creatinine 1.37 mg/dL (0.70-1.30) H 04/03/23 07:00 Est GFR (MDRD) Af Amer 74 mL/min (>60) 04/03/23 07:00 Est GFR (MDRD) Non-Af 61 mL/min (>60) 04/03/23 07:00 BUN/Creatinine Ratio 16.8 RATIO (10-20) 04/03/23 07:00 Glucose 243 mg/dL (74-106) H 04/03/23 07:00 Vancomycin Trough 14.6 ug/mL (5.0-15.0) 04/04/23 01:20 Microbiology Microbiology: Microbiology 04/01/23 10:00 Wound - Left Foot Gram Stain - Final 04/01/23 10:00 Wound - Left Foot Wound Culture - Preliminary Citrobacter freundii Enterococcus faecalis Staphylococcus species Staphylococcus species#2 04/01/23 10:00 Wound - Left Foot Anaerobic Culture - Preliminary Checking for anaerobes, further studies to follow. 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 03/31/23 12:30 Blood Culture (Wb) - Anticubital Left Blood Culture - Preliminary No growth in 48 hours. Pharmacy Plan for Drug Dosing Pharmacy Plan for Drug Dosing: Pharmacy Service will continue to monitor and adjust dosing as required. TROUGH 14.6 @ 12 HOURS. NO CHANGES, FOLLOW UP TROUGH IN 2 DAYS
[2023-04-04] MEDS: Gabapentin 300 MG Capsule PO ×2 (06:44→15:16)
[2023-04-04] MEDS: Piperacil/Tazobactam 3.375 GM in 0.9% Normal Saline (50mL MB+) 50 ML IV (06:45)
[2023-04-04] MEDS: Sucralfate 1 GM Tablet PO ×2 (06:45→10:59)
[2023-04-04] MEDS: Insulin Lispro 100 UNIT/ML INSULN.PEN SC (06:46)
[2023-04-04 06:54] LABS: Absolute Lymphocyte Count 2.15 X10^3/uL (0.83-4.51); Absolute Neutrophil Count 4.4 X10^3/uL (2.0-7.7); Basophil# 0.07 X10^3/uL; Basophil% 0.9 % (0-1); Eosinophil# 0.35 X10^3/uL; Eosinophils% 4.6 % (0-5); Hematocrit 36.8 % (40-54); Lymphocyte # 2.15 X10^3/ul (0.83-4.51); Mean Corp Hgb Conc 32.6 g/dL (32-36); Mean Corpuscular Hgb 29.7 pg (27.0-32.0); Mean Corpuscular Volume 91.1 fL (80-94); Mean Platelet Vol. 8.7 fl (6.2-12.0); Monocyte# 0.67 X10^3/uL; Monocyte% 8.7 % (0-10); NRBC Flagged by Analyzer 0 % (0-5); Neutrophil % 57.3 % (47-70); Platelet Count 261 K/mm3 (150-450); RBC Distribution Width CV 12.4 % (11.6-14.6); RBC Distribution Width SD 41.1 fl (35.1-43.9); Red Blood Count 4.04 M/mm3 (4.6-6.2); White Blood Count 7.7 K/mm3 (4.4-11.0)
[2023-04-04 07:13] LABS: Bedside Glucose 213 mg/dL (74-106)
[2023-04-04 07:23] LABS: Anion Gap 5 (5-15); BUN 24 mg/dL (7-18); BUN/Creat Ratio 17.3 RATIO (10-20); Calcium,Total 8.8 mg/dL (8.5-10.1); Chloride 111 mmol/L (98-107); Creatinine, Serum 1.39 mg/dL (0.70-1.30); EST Glomerular Filtration Rate 60 mL/min (>60); Est Glom Filt Rate - Afr Amer 72 mL/min (>60); Estimated Creatinine Clearance 65.39 ml/min; Glucose 213 mg/dL (74-106); Potassium 3.3 mmol/L (3.5-5.1); Sodium Level 139 mmol/L (136-145)
[2023-04-04] MEDS: oxyCODONE 5 MG Tablet PO (07:51)
[2023-04-04] MEDS: Juven (unflavored) Packet 1 PACKET PO (07:56)
[2023-04-04] MEDS: Insulin Human 75/25 Kwickpen 32 UNIT SC (07:56)
[2023-04-04] MEDS: Aspirin E.C. 81 MG Tablet PO (07:56)
[2023-04-04 08:00] VITALS: BP 122/76; PULSE 71; RESP 18; TEMP 36.3; O2SAT 98
--- NOTE | 2023-04-04 08:17 | WOUNDNOTE ---
In to reassess the dressing to the left foot. dressing remains D&I. Pt states still some mild discomfort noted. will continue to monitor. pt states he is hoping to be discharged home today.
--- NOTE | 2023-04-04 08:54 | PN.HOSP_ITS ---
Reason for Visit Reason for Visit: Diagnoses Type 2 diabetes mellitus with diabetic polyneuropathy (03/31/23) Type 2 diabetes mellitus with other skin complications (03/31/23) Type 2 diabetes mellitus with hyperglycemia (03/31/23) Atherosclerotic heart disease of [place] coronary artery without angina pectoris (03/31/23) Peripheral vascular disease, unspecified (03/31/23) Cutaneous abscess of left foot (03/31/23) Cellulitis of left lower limb (03/31/23) Local infection of the skin and subcutaneous tissue, unspecified (03/31/23) Non-pressure chronic ulcer of other part of left foot with fat layer exposed (03/31/23) Hallux rigidus, right foot (03/31/23) Other hammer toe(s) (acquired), left foot (03/31/23) Unspecified acquired deformity of unspecified lower leg (03/31/23) Abscess of tendon sheath, left ankle and foot (03/31/23) Short Achilles tendon (acquired), left ankle (03/31/23) Acute kidney failure, unspecified (03/31/23) Encounter for preprocedural cardiovascular examination (03/31/23) Subjective Subjective Some pain. Feels ok otherwise. Objective Data Objective Data Vital Signs: Vital Signs Temp Pulse Resp BP Pulse Ox O2 Del Method 36.6 C 68 18 116/58 L 96 Room Air 04/04/23 02:33 04/04/23 02:33 04/04/23 02:33 04/04/23 02:33 04/04/23 02:33 04/04/23 02:34 Oxygen Delivery Method Room Air Weight: 113.9 kg Body Mass Index (BMI) 39.3 Intake & Output: Intake and Output for Last 24 Hours 04/02/23 04/03/23 04/04/23 23:59 23:59 23:59 Intake Total 1250.75 / 1250.75 2555 / 2555 550 / 550 Output Total 3125 / 3125 Balance 1250.75 / 1250.75 -570 / -570 550 / 550 Lab / Micro Data 04/04/23 06:40 04/04/23 06:40 Labs: Laboratory Results - last 24 hr 04/03/23 11:31: POC Glucose 280 H 04/03/23 16:17: POC Glucose 233 H 04/03/23 21:36: POC Glucose 200 H 04/04/23 01:20: Vancomycin Trough 14.6 04/04/23 06:40: WBC 7.7, RBC 4.04 L, Hgb 12.0 L, Hct 36.8 L, MCV 91.1, MCH 29.7, MCHC 32.6, RDW Std Deviation 41.1, RDW Coeff of Simone 12.4, Plt Count 261, MPV 8.7, Immature Gran % (Auto) 0.500, Neut % (Auto) 57.3, Lymph % (Auto) 28.0, [place] % (Auto) 8.7, Eos % (Auto) 4.6, Baso % (Auto) 0.9, Absolute Neuts (auto) 4.4, Absolute Lymphs (auto) 2.15, Nucleated RBC % 0, Sodium 139, Potassium 3.3 L, Chl oride 111 H, Carbon Dioxide 23.0, Anion Gap 5, BUN 24 H, Creatinine 1.39 H, Estim Creat Clear Calc 65.39, Est GFR (MDRD) Af Amer 72, Est GFR (MDRD) Non-Af 60, BUN/Creatinine Ratio 17.3, Glucose 213 H, Calcium 8.8 04/04/23 06:43: POC Glucose 213 H Micro: Microbiology 04/02/23 Unknown Wound Abcess - Left Foot Gram Stain - Final 04/02/23 Unknown Wound Abcess - Left Foot Wound Culture - Preliminary Citrobacter freundii GPC Poss Enterococcus sp Staphylococcus species Staphylococcus species#2 04/01/23 10:00 Wound - Left Foot Gram Stain - Final 04/01/23 10:00 Wound - Left Foot Wound Culture - Final Citrobacter freundii Enterococcus faecalis Meth. resistant Staph. aureus Staphylococcus epidermidis 04/01/23 10:00 Wound - Left Foot Anaerobic Culture - Preliminary Checking for anaerobes, further studies to follow. 04/02/23 Unknown Wound Abcess - Aerobic & Anaerobic Swabs Gram Stain - Final 04/02/23 Unknown Wound Abcess - Aerobic & Anaerobic Swabs Wound Culture - Preliminary GPC Poss Enterococcus sp 04/02/23 Unknown Wound Abcess - Aerobic & Anaerobic Swabs Gram Stain - Final 04/02/23 Unknown Wound Abcess - Aerobic & Anaerobic Swabs Wound Culture - Preliminary GPC Poss Enterococcus sp 03/31/23 12:45 Blood Culture (Wb) - Venous Bacteria Detection (PCR) - Final 03/31/23 12:45 Blood Culture (Wb) - Venous Blood Culture - Preliminary Presumptive Micrococcus spp. 03/31/23 12:30 Blood Culture (Wb) - Anticubital Left Blood Culture - Preliminary No growth in 48 hours. Radiography Diagnostic Testing: Radiology Impression Extremity Arterial Study 04/01/23 09:45 Interpretation Summary Right RAVEN 1.24, normal. TBI and Doppler/PVR waveforms of the right leg normal at rest. Left RAVEN 1.14, normal. Doppler/PVR waveforms of the left leg normal at rest. Ordering Physician: Po Saxena Performed By: Goran Goldstein, RVT Physical Exam Const alert and no apparent distress HEENT head/scalp atraumatic and moist oral mucous membranes Extremity Extremity Narrative: left leg wrapped--did not remove. Assessment & Plan Assessment/Plan (1) Diabetic foot infection: PLAN: Failed outpt mgmt Abx w van and pip/tazo s/p tendo Achilles lengthening LLE. Lesser metatarsal osteotomy, I+D deep abscess down to level of tendon sheath/joint capsule. Podiatry following Consult ID Cultures: * Wound 04/01: Citrobacter, Enterococcus faecalis, Staph sp. * Surgical culture 04/02:Possible enterococcus. 10 more days of linezolid, cefdinir and metronidazole. Follow up with podiatry. (2) Uncontrolled diabetes mellitus: QUALIFIERS: Diabetes mellitus type: type 2 Glycemic state: with hyperglycemia Qualified Code(s): E11.65 - Type 2 diabetes mellitus with hyperglycemia PLAN: a1c 11.5 Home regimen 70/30 25 TID. Here is 75/25 SSI Chest with patient that this combination insulin is not ideal and recommended going on basal insulin as well as prandial. Patient states that he would not have any issues regards to insurance coverage with that. So would recommend patient be on basal insulin twice daily and then prandial insulin with meals. Patient does have a continuous remote glucometer that would help him be able to check that. He is open to following up with endocrinology and provide information for Dr. Ish Tan. (3) STEPHANIE (acute kidney injury): PLAN: admission Cr. 2.06, down to 1.45. Improved Monitor PLAN: Plan Chronic conditions * CAD: ASA, clopidogrel, atorvastatin, entresto. H/O CABG. Recent PCI 2-3 months ago. Cleared for surgery by cardiology DVT prophylaxis: lovenox
--- NOTE | 2023-04-04 09:34 | PN.ID_ITS ---
Physical Exam Narrative Feeling good, no fever, no n/v/d. Const alert and no apparent distress General Appearance: cooperative Resp normal air movement and clear to auscultation bilaterally Cardio regular rate and regular rhythm GI soft to palpation, non-tender and non-distended Skin Skin Narrative: L foot wrapped ID ID: Route of nutrition/ use of supplements: [] Nutritional Intake: [] IV Site: [] Anne Catheter: [] Assessment & Plan Assessment/Plan (1) Abscess of tendon of left foot: PLAN: Taken to OR 04/02/[address] Saxena for I&D. No osteo seen on MRI. Wound cx with enterococcus, citro, MRSA, MR-CoNS. Abscess extended down to tendon. On empiric vanc/zosyn. Ok for home with 10 more days po linezolid, cefdinir, flagyl. 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
[2023-04-04] MEDS: Atorvastatin Calcium 40 MG Tablet PO (10:59)
[2023-04-04] MEDS: SACUBITRIL/VALSARTAN 49-51 MG TABLET 1 EACH PO (10:59)
[2023-04-04] MEDS: Clopidogrel Bisulfate 75 MG Tablet PO (10:59)
[2023-04-04] MEDS: Furosemide 40 MG Tablet PO (10:59)
[2023-04-04] MEDS: Ranolazine 500 MG Tablet PO (10:59)
[2023-04-04] MEDS: Isosorbide Mononitrate 30 MG Tablet PO (11:00)
[2023-04-04 11:59] LABS: Bedside Glucose 112 mg/dL (74-106)
--- NOTE | 2023-04-04 12:35 | PCM.DC.SUM ---
Providers Date of Admission: 03/31/23 Primary Care Physician: Dr. 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 Routine Comment: Consult: Podiatry Routine Consulting Provider: Po Saxena Reason for Consult: diabetic foot infection EMERGENT Consult: No Notified: Yes Date Notified: 03/31/23 Time Notified: 15:19 Method of Notification: Text 04/01/23 12:42 Consult: Cardiology Routine Consulting Provider: Lesley Bedoya Reason for Consult: cardiac preoperative risk assessment EMERGENT Consult: No Notified: Yes Date Notified: 04/01/23 Time Notified: 12:42 Method of Notification: Text 04/03/23 07:46 Consult: Infectious Disease Routine Consulting Provider: Connor Brown Reason for Consult: diabetic foot infection EMERGENT Consult: No Notified: Yes Date Notified: 04/03/23 Time Notified: 07:46 Method of Notification: Text Reason For Visit: DIABETIC FOOT INFECTION, HYPERGLYCEMIA Diagnosis Discharge Diagnosis (1) Diabetic foot infection: Status: Inactive Code(s): E11.628 - Type 2 diabetes mellitus with other skin complications; L08.9 - Local infection of the skin and subcutaneous tissue, unspecified Plan: Failed outpt mgmt Abx w van and pip/tazo s/p tendo Achilles lengthening LLE. Lesser metatarsal osteotomy, I+D deep abscess down to level of tendon sheath/joint capsule. Podiatry following Consult ID Cultures: Wound 04/01: Citrobacter, Enterococcus faecalis, Staph sp. Surgical culture 04/02:Possible enterococcus. 10 more days of linezolid, cefdinir and metronidazole. Follow up with podiatry. (2) Uncontrolled diabetes mellitus: Status: Acute Qualifiers: Diabetes mellitus type: type 2 Glycemic state: with hyperglycemia Qualified Code(s): E11.65 - Type 2 diabetes mellitus with hyperglycemia Plan: a1c 11.5 Home regimen 70/30 25 TID. Here is 75/25 SSI Chest with patient that this combination insulin is not ideal and recommended going on basal insulin as well as prandial. Patient states that he would not have any issues regards to insurance coverage with that. So would recommend patient be on basal insulin twice daily and then prandial insulin with meals. Patient does have a continuous remote glucometer that would help him be able to check that. He is open to following up with endocrinology and provide information for Dr. Ish Tan. (3) STEPHANIE (acute kidney injury): Status: Acute Code(s): N17.9 - Acute kidney failure, unspecified Plan: admission Cr. 2.06, down to 1.45. Improved Monitor Plan Chronic conditions CAD: ASA, clopidogrel, atorvastatin, entresto. H/O CABG. Recent PCI 2-3 months ago. Cleared for surgery by cardiology DVT prophylaxis: lovenox Medications at Discharge Home Medications aspirin 81 mg tablet,delayed release 81 mg PO DAILY 03/31/23 atorvastatin 40 mg tablet 40 mg PO DAILY 03/31/23 clopidogrel 75 mg tablet 75 mg PO DAILY 03/31/23 fluticasone fur. 200 mcg-umeclid 62.5 mcg-vilant 25 mcg inhalat.powder (Trelegy Ellipta) 1 inh inhalation Q24H 03/31/23 furosemide 40 mg tablet 40 mg PO DAILY 03/31/23 gabapentin 300 mg capsule 300 mg PO TID 03/31/23 isosorbide mononitrate 30 mg tablet,extended release 24 hr 30 mg PO DAILY 03/31/23 metformin 500 mg tablet 500 mg PO DAILY 03/31/23 ranolazine 500 mg tablet,extended release,12 hr 500 mg PO DAILY 03/31/23 sacubitril 49 mg-valsartan 51 mg tablet (Entresto) 1 tab PO BID 03/31/23 sucralfate 1 gram tablet 1 g PO 4X/DAY 03/31/23 acetaminophen 500 mg capsule 1,000 mg (2 x 500 mg) PO Q8H PRN PRN pain #90 caps 04/04/23 arginine 7 gram-glutam 7 gram-CaHMB 1.5 [id number]-[id number]-[id number]-min oral pwd pkt (Bjorn (with collagen)) 1 packet PO BIDCM #30 ea 04/04/23 buprenorphine 8 mg-naloxone 2 mg sublingual film (Suboxone) 1 film buccal BID #30 ea 04/04/23 cefdinir 300 mg capsule 300 mg PO BID #20 caps 04/04/23 ibuprofen 400 mg tablet 400 mg PO Q6H PRN pain #60 tabs 04/04/23 insulin glargine 100 unit/mL subcutaneous solution 30 unit (0.3 mL) subcut BID #10 mL 04/04/23 insulin lispro 100 unit/mL subcutaneous pen (Humalog KwikPen (U-100) Insulin) 10 unit (0.1 mL) subcut TID #15 mL 04/04/23 linezolid 600 mg tablet 600 mg PO Q12H 10 days #20 tabs 04/04/23 metronidazole 500 mg tablet 500 mg PO TID #30 tabs 04/04/23 Hospital Course Operations - (1. Tendo Achilles lengthening left lower extremity 2. Lesser metatarsal osteotomy 3. Incision and drainage of deep abscess down to level of tendon sheath/joint capsule) Procedures None Summary of Care Provided Minutes Spent on Discharge: 35 Weight / BMI Weight Weight: 113.9 kg Body Mass Index (BMI) 39.3 ABG / Lab / Microbiology Data 04/04/23 06:40 04/04/23 06:40 Laboratory: Laboratory Results - last 24 hr 04/03/23 16:17: POC Glucose 233 H 04/03/23 21:36: POC Glucose 200 H 04/04/23 01:20: Vancomycin Trough 14.6 04/04/23 06:40: WBC 7.7, RBC 4.04 L, Hgb 12.0 L, Hct 36.8 L, MCV 91.1, MCH 29.7, MCHC 32.6, RDW Std Deviation 41.1, RDW Coeff of Simone 12.4, Plt Count 261, MPV 8.7, Immature Gran % (Auto) 0.500, Neut % (Auto) 57.3, Lymph % (Auto) 28.0, [place] % (Auto) 8.7, Eos % (Auto) 4.6, Baso % (Auto) 0.9, Absolute Neuts (auto) 4.4, Absolute Lymphs (auto) 2.15, Nucleated RBC % 0, Sodium 139, Potassium 3.3 L, Chloride 111 H, Carbon Dioxide 23.0, Anion Gap 5, BUN 24 H, Creatinine 1.39 H, Estim Creat Clear Calc 65.39, Est GFR (MDRD) Af Amer 72, Est GFR (MDRD) Non-Af 60, BUN/Creatinine Ratio 17.3, Glucose 213 H, Calcium 8.8 04/04/23 06:43: POC Glucose 213 H 04/04/23 11:35: POC Glucose 112 H Microbiology: Microbiology 04/01/23 10:00 Wound - Left Foot Gram Stain - Final 04/01/23 10:00 Wound - Left Foot Wound Culture - Final Citrobacter freundii Enterococcus faecalis Meth. resistant Staph. aureus Staphylococcus epidermidis 04/01/23 10:00 Wound - Left Foot Anaerobic Culture - Final No anaerobic bacteria isolated. 03/31/23 12:45 Blood Culture (Wb) - Venous Bacteria Detection (PCR) - Final 03/31/23 12:45 Blood Culture (Wb) - Venous Blood Culture - Preliminary Presumptive Micrococcus spp. Gram positive purnima 04/02/23 Unknown Wound Abcess - Aerobic & Anaerobic Swabs Gram Stain - Final 04/02/23 Unknown Wound Abcess - Aerobic & Anaerobic Swabs Wound Culture - Final Enterococcus faecalis 04/02/23 Unknown Wound Abcess - Aerobic & Anaerobic Swabs Gram Stain - Final 04/02/23 Unknown Wound Abcess - Aerobic & Anaerobic Swabs Wound Culture - Preliminary Enterococcus faecalis 04/02/23 Unknown Wound Abcess - Left Foot Gram Stain - Final 04/02/23 Unknown Wound Abcess - Left Foot Wound Culture - Preliminary Citrobacter freundii GPC Poss Enterococcus sp Staphylococcus species Staphylococcus species#2 03/31/23 12:30 Blood Culture (Wb) - Anticubital Left Blood Culture - Preliminary No growth in 48 hours. Radiography Diagnostic Testing: Radiology Impression Extremity Arterial Study 04/01/23 09:45 Interpretation Summary Right RAVEN 1.24, normal. TBI and Doppler/PVR waveforms of the right leg normal at rest. Left RAVEN 1.14, normal. Doppler/PVR waveforms of the left leg normal at rest. Ordering Physician: Po Saxena Performed By: Goran Goldstein RVT D/C Instructions Discharge Diet: 2000 Calorie Control Diet Weight Bearing Status: No weight bearing Keep extremity elevated above heart level: Left Leg Call your doctor if your incision/area has: Continuous Slow Oozing, Sudden Increased Bleeding, Increased Pain/ Swelling, Increased Redness, Foul Smelling Discharge and Swelling at the incision site Call your doctor if you observe: Fever of 101 or Higher Meaningful Use Info Meaningful Use Diagnoses (Choose all that apply): None applicable Discharge Plan Admission Admit Date/Time: 03/31/23 12:43 Primary Reason for Your Visit: diabetic foot infection Attending Provider: Brendon Marie Primary Care Provider: Connor Nazario Consulting Providers: Elise Esquivel; Lesley Bedoya; Po Saxena; Connor Brown Instructions Additional Instructions / Restrictions: Keep splint clean dry and intact right lower extremity Maintain heel weightbearing in surgical shoe assisted by walker Elevate right lower extremity above level of heart at rest Patient can ice behind the knee 3 times a day. Take antibiotics as directed. Follow-up with Dr. Norman in 1 week. For pain, you may take Tylenol and/or ibuprofen. Since you are already taking Suboxone, I will not prescribe narcotics. Your insulin regimen is now changed. You are to take Insulin glargine (long-acting insulin) twice daily and insulin lispro (short-acting insulin) with meals. You may follow up with endocrinology at your earliest convenience. Discharge Orders/Prescriptions Prescriptions: New linezolid 600 mg tablet 600 mg PO Q12H 10 Days Qty: 20 0RF cefdinir 300 mg capsule 300 mg PO BID Qty: 20 0RF metronidazole 500 mg tablet 500 mg PO TID Qty: 30 0RF Bjorn (with collagen) 7-7-1.5 gram Powder In Packet 1 packet PO BIDCM Qty: 30 0RF buprenorphine-naloxone [Suboxone] 8-2 mg film 1 film buccal BID Qty: 30 0RF Rx Instructions: continue the dosing you were prescribed on 03/14/[address] Bello insulin glargine 100 unit/mL solution 30 unit subcut BID Qty: 10 0RF insulin lispro [Humalog KwikPen Insulin] 100 unit/mL insulin pen 10 unit subcut TID Qty: 15 0RF acetaminophen 500 mg capsule 1,000 mg PO Q8H PRN PRN (Reason: pain) Qty: 90 0RF ibuprofen 400 mg tablet 400 mg PO Q6H PRN (Reason: pain) Qty: 60 0RF Continued aspirin 81 mg tablet,delayed release (DR/EC) 81 mg PO DAILY Patient Comments: TAKE 1 TABLET BY MOUTH EVERY MORNING atorvastatin 40 mg tablet 40 mg PO DAILY Patient Comments: TAKE 1 TABLET BY MOUTH ONCE DAILY clopidogrel 75 mg tablet 75 mg PO DAILY Patient Comments: TAKE 1 TABLET BY MOUTH ONCE DAILY sucralfate 1 gram tablet 1 g PO 4X/DAY Patient Comments: TAKE 1 TABLET BY MOUTH FOUR TIMES DAILY Entresto 49-51 mg tablet 1 tab PO BID Patient Comments: TAKE 1 TABLET BY MOUTH TWICE DAILY ranolazine 500 mg tablet extended release 12 hr 500 mg PO DAILY Patient Comments: TAKE 1 TABLET BY MOUTH TWICE DAILY gabapentin 300 mg capsule 300 mg PO TID Patient Comments: TAKE 1 CAPSULE BY MOUTH THREE TIMES DAILY furosemide 40 mg tablet 40 mg PO DAILY Patient Comments: TAKE 1 TABLET BY MOUTH ONCE DAILY Trelegy Ellipta 200-62.5-25 mcg blister with device 1 inh INHALATION Q24H Patient Comments: INHALE 1 PUFF BY MOUTH ONCE DAILY DIRECTED Discontinued cephalexin 500 mg capsule 500 mg PO Q6 Qty: 40 0RF oxycodone-acetaminophen [Percocet] 5-325 mg tablet 1 tab PO Q8H PRN (Reason: pain) 3 Days Qty: 10 0RF losartan 50 mg tablet 50 mg PO DAILY Patient Comments: TAKE 1 TABLET BY MOUTH EVERY DAY Humulin 70/30 U-100 KwikPen 100 unit/mL (70-30) insulin pen 25 unit SUBCUT TID Patient Comments: INJECT 35 UNITS SUBCUTANEOUSLY TWICE DAILY WITH MEALS No Action metformin 500 mg tablet 500 mg PO DAILY Patient Comments: TAKE 1 TABLET BY MOUTH ONCE DAILY WITH BREAKFAST isosorbide mononitrate 30 mg tablet extended release 24 hr 30 mg PO DAILY Patient Comments: TAKE 1 TABLET BY MOUTH ONCE DAILY Referrals / Follow Up: Po Saxena DPM [Med Staff - Active Staff] - Connor Nazario MD [Primary Care Provider] - Ish Tan MD [Med Staff - Courtesy Staff] - Within 1 Month Disposition Disposition (needs filled in before D/C Order can be placed): Home, Self Care Charges/Coding Visit Charges Inpatient E&M: 40315 Disch Hosp >30min
[2023-04-04] MEDS: Insulin Human 75/25 Kwickpen 16 UNIT SC (12:37)
[2023-04-04] MEDS: oxyCODONE 5 MG Tablet 10 MG PO (12:37)
--- NOTE | 2023-04-04 14:07 | CASEMGMT ---
Addendum entered by Anila Parsons 04/04/23 14:37: Received message to call Adele at [facility]. TC to her at [phone]. Provided an update on pt and contact information. Original Note: TC to [facility] in [place], pt cost for insulin and linezolid=$0. Bjorn is not covered and is approx $97. RN CM into pt room, pt dressed and ready for dc. Pt aware of med cost. Provided pt with a $10 coupon for Bjorn. Pt states this is affordable to him. Pt is comfortable dc'ing and denies any needs for homegoing.
--- NOTE | 2023-04-04 14:35 | PHA.DC_ITS ---
Pharmacy [facility] Service has performed discharge medication reconciliation and counseling for this patient. The patient's discharge medication list was reviewed for discrepancies and discrepancies were resolved. The patient was counseled on the following discharge medications and changes in medications for homegoing were reviewed. The Reason for Use, instructions for use, and potential side effects were reviewed for all new medications. The patient's questions regarding all of their medications were answered. 1. Acetaminophen 1000 mg PO Q8H PRN pain 2. Bjorn BID 3. Cefdinir 300 mg PO BID x 10 days 4. Ibuprofen 400 mg PO Q6H PRN pain 5. Linezolid 600 mg PO Q12H x 10 days 6. Metronidazole 500 mg PO TID x 10 days 7. Oxycodone 5 mg P oQ4H PRN pain x 7 days 8. Insulin lispro 10 unit TID with meals 9. Insulin glargine 30 units BID The patient was able to verbally demonstrate an understanding of their discharge medications. Medications at Discharge Home Medications aspirin 81 mg tablet,delayed release 81 mg PO DAILY 03/31/23 atorvastatin 40 mg tablet 40 mg PO DAILY 03/31/23 clopidogrel 75 mg tablet 75 mg PO DAILY 03/31/23 fluticasone fur. 200 mcg-umeclid 62.5 mcg-vilant 25 mcg inhalat.powder (Trelegy Ellipta) 1 inh inhalation Q24H 03/31/23 furosemide 40 mg tablet 40 mg PO DAILY 03/31/23 gabapentin 300 mg capsule 300 mg PO TID 03/31/23 isosorbide mononitrate 30 mg tablet,extended release 24 hr 30 mg PO DAILY 03/31/23 metformin 500 mg tablet 500 mg PO DAILY 03/31/23 ranolazine 500 mg tablet,extended release,12 hr 500 mg PO DAILY 03/31/23 sacubitril 49 mg-valsartan 51 mg tablet (Entresto) 1 tab PO BID 03/31/23 sucralfate 1 gram tablet 1 g PO 4X/DAY 03/31/23 acetaminophen 500 mg capsule 1,000 mg (2 x 500 mg) PO Q8H PRN PRN pain #90 caps 04/04/23 arginine 7 gram-glutam 7 gram-CaHMB 1.5 szce-ovmpg-gp-min oral pwd pkt (Bjorn (with collagen)) 1 packet PO BIDCM #30 ea 04/04/23 buprenorphine 8 mg-naloxone 2 mg sublingual film (Suboxone) 1 film buccal BID #30 ea 04/04/23 cefdinir 300 mg capsule 300 mg PO BID #20 caps 04/04/23 ibuprofen 400 mg tablet 400 mg PO Q6H PRN pain #60 tabs 04/04/23 insulin glargine 100 unit/mL subcutaneous solution 30 unit (0.3 mL) subcut BID #10 mL 04/04/23 insulin lispro 100 unit/mL subcutaneous pen (Humalog KwikPen (U-100) Insulin) 10 unit (0.1 mL) subcut TID #15 mL 04/04/23 linezolid 600 mg tablet 600 mg PO Q12H 10 days #20 tabs 04/04/23 metronidazole 500 mg tablet 500 mg PO TID #30 tabs 04/04/23 oxycodone 5 mg capsule 5 mg PO Q4H PRN pain 7 days #42 caps 04/04/23
[2023-04-04 15:01] VITALS: BP 137/81; PULSE 57; RESP 16; TEMP 36.3; O2SAT 99
== END 2023-04-04 15:29 | disposition home or self-care (01) | DRG 623 ==
LOC: ED 12:21 → MS3 13:42
PROVIDERS: Anesthesiology; Podiatrist; Admitting Provider Student in an Organized Health Care Education/Training Program; Emergency Provider Emergency Medicine
PROC: 0L8P3ZZ Division of Left Lower Leg Tendon, Percutaneous Approach (ICD-10-PCS; principal; 2023-04-02 11:45)
DX: E11.621 Type 2 diabetes mellitus with foot ulcer (principal); L03.116 Cellulitis of left lower limb; I50.22 Chronic systolic (congestive) heart failure; N17.9 Acute kidney failure, unspecified; E11.42 Type 2 diabetes mellitus with diabetic polyneuropathy; B95.2 Enterococcus as the cause of diseases classified elsewhere; B95.62 Methicillin resistant Staphylococcus aureus infection as the cause of diseases classified elsewhere; E11.51 Type 2 diabetes mellitus with diabetic peripheral angiopathy without gangrene; L97.522 Non-pressure chronic ulcer of other part of left foot with fat layer exposed; E11.65 Type 2 diabetes mellitus with hyperglycemia; Z89.412 Acquired absence of left great toe; Z79.4 Long term (current) use of insulin; E11.628 Type 2 diabetes mellitus with other skin complications; L97.519 Non-pressure chronic ulcer of other part of right foot with unspecified severity; M65.072 Abscess of tendon sheath, left ankle and foot; M20.42 Other hammer toe(s) (acquired), left foot; I25.10 Atherosclerotic heart disease of native coronary artery without angina pectoris; M20.21 Hallux rigidus, right foot; M67.02 Short Achilles tendon (acquired), left ankle; F17.210 Nicotine dependence, cigarettes, uncomplicated; Z79.82 Long term (current) use of aspirin; Z79.84 Long term (current) use of oral hypoglycemic drugs; Z95.5 Presence of coronary angioplasty implant and graft; Z95.1 Presence of aortocoronary bypass graft
CPT/HCPCS: 36415; 73620; 73630; 73718; 76000; 80048; 80053; 80202; 82962; 83036; 85025; 85652; 86140; 87015; 87040; 87070; 87075; 87077; 87102; 87116; 87176; 87186; 87205; 87206; 93005; 93923; 94640; 94668; 97802; 99252; 99284; J7030; J7040; J7050; J7120; A4216; G0463; J2405

== ENCOUNTER → 2023-05-17 | Outpatient (CLI) | payer MEDICARE, MEDICAID, SELFPAY | END | disposition home or self-care (01) | LOC: LABSPEC 17:22 | PROVIDERS: Visit Provider Podiatrist | DX: L97.512 Non-pressure chronic ulcer of other part of right foot with fat layer exposed (principal) | CPT/HCPCS: 87070; 87075; 87077; 87186; 87205 ==

== ENCOUNTER 2023-06-22 12:02 | Day surgery (SDC) | payer MEDICARE, MEDICAID, SELFPAY ==
[2023-06-22] VITALS (9 sets, daily range): BP systolic 112–138; BP diastolic 61–77; PULSE 60–67; RESP 16–18; TEMP 36.1–36.6; O2SAT 93–100; BMI 36.7
--- NOTE | 2023-06-22 | BON_PTH ---
PATHOLOGY RESULTS PATIENT: RUSTY MCCLURE LOC: [facility] [place] U#:[id number] AGE/SX: 42/M ROOM: RE06/22/[address]: Dr. Po Saxena DPM : 1980 BED: DIS: 06/22/2023 SPEC #: [id number] RECD: 06/22/23 18:39 STATUS: DOMONIQUE JAELYN #: [id number] LOLIS: 06/22/23 00:[address]: Po Saxena DEPT: SURGICAL PATHOLOGY RECD BY: Benigno Augustin ENTERED: 06/25/23 09:31 SP TYPE: Bone OTHR DR: Dr. Connor Nazario MD Tissues: Toe, NOS Procedures: Decalcification bone/plaque Surgery Specimen Level IV HEADER OPERATION: Right hallux IPJ arthroplasty PRE-OP DIAGNOSIS: Hallux rigidus, Diabetic neuropathy TISSUE SUBMITTED: Right great toe bone MICROSCOPIC DIAGNOSIS Bone of right great toe, excision: Reactive and reparative change. No evidence of osteomyelitis. AM:prakash 06/28/2023 MICROSCOPIC DESCRIPTION Slides are reviewed. GROSS DESCRIPTION Received in fixative is one container labeled with the patient's name and designated bone right great toe. The specimen consists of multiple pieces of bone that in aggregate measure 3.0 x 2.0 x 0.5 cm. The specimen is totally submitted in two cassettes after decalcification. / SJ:prakash 06/25/2023 TC:5 CPT: 26092, 07060
[2023-06-22] MEDS: Lactated Ringers 1,000 ML 15 ML IV (12:33)
[2023-06-22 12:58] LABS: Bedside Glucose 215 mg/dL (74-106)
--- NOTE | 2023-06-22 14:12 | RAD_ITS ---
INDICATION: FOOT ARTHROPLASTY EXAMINATION/TECHNIQUE: X-RAY - RIGHT XR Foot Min 3 Views 1 VIEW COMPARISON: 03/20/2023 FINDINGS: Single fluoroscopic spot image of the right toes obtained intraoperatively. For details of procedure please refer to the operative notes. Total fluoroscopic time: 3 seconds. RAD/Foot min 3 Views IMPRESSION: Single intraoperative fluoroscopic spot view of the toes of right foot. Electronically Signed: Rey Martinez MD at 18:34 EST ,
[2023-06-22] MEDS: Cefazolin 2 GM in 0.9% Normal Saline (100mL Bag) 100 ML IV (14:35)
[2023-06-22] MEDS: Bupivacaine Mpf 0.5% 30 ML VIAL (14:40)
[2023-06-22] MEDS: Bacitracin 500 UNITS/GM PACKET (14:55)
[2023-06-22] MEDS: Bupivacaine 0.5% PF 10 ML VIAL (14:56)
--- NOTE | 2023-06-22 15:07 | OP.PCM_ITS ---
Problems Associated Problem List Diagnoses (1) Type 2 diabetes mellitus with diabetic polyneuropathy: (2) Hallux rigidus of right foot: Report of Operation Date of Procedure: 06/22/23 Pre-Operative Diagnosis: 1) hallux rigidus right foot 2) diabetic neuropathy Post-Operative Diagnosis: Same Surgery/Procedure Performed:: Hallux interphalangeal joint arthroplasty, right foot Surgeon: Po Saxena bending roll operator: None (prudence nieves) Type of Anesthesia: Local MAC Special Medications: 40 cc half percent Marcaine plain Specimen's removed: Proximal phalangeal head right hallux Drains: None Estimated Blood Loss (mL): Minimal Fluids Replaced: Per anesthesia Description of Procedure: Patient brought back the operating placed comfortably in supine position on operating room table. Patient induced under MAC anesthesia. Well-padded right ankle tourniquet applied. Right lower extremity was positioned and bump to knock out on external rotation. Right lower extremity scrubbed prepped draped using typical aseptic fashion. Once cleared by anesthesia a local anesthesia block was performed by performing a digital block to the right hallux with 10 cc of half percent Marcaine plain additional 10 cc was performed using a Warren block to the right hallux. Preoperatively the hallux IPJ was marked out using palp Tatian and a medial 3 cm incision was made traversing the hallux interphalangeal joint arthroplasty down to level bone any bleeders identified cauterized neurovascular structures were identified and protected with blunt retraction blunt dissection was taken to expose the interphalange joint of the right hallux and approximately 1/2 cm of the proximal phalangeal head was excised from medial to lateral using a sagittal saw and bone rongeurs this was confirmed using fluoroscopic imaging. Toe was now mobile from a rigid state to offload preulcerative lesion to the plantar medial right hallux. Site was flushed with copious amounts of normal sterile saline. Deep closure performed with simple interrupted buried 4-0 Vicryl. Horizontal mattress stitches x 3 were performed using 4-0 nylon. Tourniquet was let down prior to incisional closure. Total tourniquet time was noted to be 14 minutes. Additional 20 cc cc of half percent Marcaine plain for a total of 40 cc was used in a Warren block in digital block technique to the right hallux. Incisional site was dressed with bacitracin Adaptic 4 x 4's Kerlix and Bart bandage. Patient was transported to PACU vital signs stable vascular status intact all digits for further monitoring prior to discharge. Patient tolerated procedure and anesthesia well in apparent satisfactory condition. No complications Preoperatively patient had a rigid right hallux which was contributing to a preulcerative lesion to the plantar medial hallux IPJ, after procedure the hallux IPJ is now mobile with offloading a preulcerative lesion to plantar medial right hallux Grafts/Implants Used: None Admit VTE Documentation VTE Present on Admission: Yes VTE Pharm Prophylaxis ordered?: Yes
[2023-06-22 16:15] LABS: Bedside Glucose 105 mg/dL (74-106)
== END 2023-06-22 16:53 | disposition home or self-care (01) ==
LOC: SDC 12:02 → AC 12:04
PROVIDERS: Referring Provider Podiatrist; Visit Provider Podiatrist
PROC: (CPT 28899; principal; 2023-06-22 13:15)
DX: E11.42 Type 2 diabetes mellitus with diabetic polyneuropathy (principal); J44.9 Chronic obstructive pulmonary disease, unspecified; I48.19 Other persistent atrial fibrillation; M20.21 Hallux rigidus, right foot; I10 Essential (primary) hypertension; I25.10 Atherosclerotic heart disease of native coronary artery without angina pectoris; K21.9 Gastro-esophageal reflux disease without esophagitis; F41.9 Anxiety disorder, unspecified; F32.A Depression, unspecified; M10.9 Gout, unspecified; M19.90 Unspecified osteoarthritis, unspecified site; F17.210 Nicotine dependence, cigarettes, uncomplicated; F12.90 Cannabis use, unspecified, uncomplicated; I25.2 Old myocardial infarction; Z95.1 Presence of aortocoronary bypass graft; Z86.718 Personal history of other venous thrombosis and embolism; Z79.82 Long term (current) use of aspirin; Z79.899 Other long term (current) drug therapy
CPT/HCPCS: 28289; 73630; 76000; 82962; 88305; 88311; J7120; J2405

== ENCOUNTER 2023-06-27 19:35 | Emergency (ER) | payer MEDICARE, MEDICAID, SELFPAY ==
[2023-06-27 19:38] VITALS: BP 174/102; PULSE 74; RESP 20; TEMP 36.2; O2SAT 97; BMI 37.3
--- NOTE | 2023-06-27 19:47 | ED.VIS.LOWEX ---
HPI History of Present Illness Chief Complaint: Lower Extremity Injury Narrative Narrative: 42-year-old male past medical history of diabetes, had surgery by his brush head maker Dr. Saxena a month ago, but states he stepped on a piece of glass in bare feet approximately 3 days ago. He saw his primary care physician the following day and was put on Keflex. He states tonight the area is swollen and painful, and red. His tetanus immunization is up-to-date. He pulled out a large shard of glass that was at least an inch deep. He is unsure if there is a small piece of glass still contained within his wound. He denies any fevers or chills, no nausea or vomiting, no other symptoms. [facility] Medical History Amputation of left great toe Anxiety Arthritis Back pain Cardiology follow-up encounter COPD (chronic obstructive pulmonary disease) Coronary artery disease Diabetic foot Dietary restriction DVT (deep venous thrombosis) Failure of outpatient treatment Fatty liver Gastric reflux Hallux rigidus of right foot Hammertoe of left foot Heart attack High cholesterol History of atrial fibrillation History of CHF (congestive heart failure) History of echocardiogram History of edema History of pain when walking History of stress test History of ulceration Hypertension Insulin dependent diabetes mellitus Leg cramps Marijuana use Metatarsal deformity Migraine headache MRSA infection Other hammer toe(s) (acquired), left foot Peripheral vascular disease, unspecified Restless legs Short Achilles tendon (acquired), left ankle Shortness of breath on exertion Smoker Substance abuse Syncope TIA (transient ischemic attack) Type 2 diabetes mellitus with diabetic polyneuropathy Uncontrolled diabetes mellitus Wears glasses Home Medications aspirin 81 mg tablet,delayed release 81 mg PO DAILY 03/31/23 [History Last Taken 06/21/23] atorvastatin 40 mg tablet 40 mg PO DAILY 03/31/23 [History Last Taken Unknown] clopidogrel 75 mg tablet 75 mg PO DAILY 03/31/23 [History Last Taken 06/21/23] fluticasone fur. 200 mcg-umeclid 62.5 mcg-vilant 25 mcg inhalat.powder (Trelegy Ellipta) 1 inh inhalation Q24H 03/31/23 [History Last Taken Unknown] furosemide 40 mg tablet 40 mg PO DAILY 03/31/23 [History Last Taken Unknown] gabapentin 300 mg capsule 300 mg PO 4X/DAY 03/31/23 [History Last Taken 06/22/23] isosorbide mononitrate 30 mg tablet,extended release 24 hr 30 mg PO DAILY 03/31/23 [History Last Taken 06/22/23] metformin 500 mg tablet 500 mg PO DAILY 03/31/23 [History Last Taken Unknown] ranolazine 500 mg tablet,extended release,12 hr 500 mg PO BID 03/31/23 [History Last Taken Unknown] sacubitril 49 mg-valsartan 51 mg tablet (Entresto) 1 tab PO BID 03/31/23 [History Last Taken Unknown] sucralfate 1 gram tablet 1 g PO 4X/DAY 03/31/23 [History Last Taken Unknown] acetaminophen 500 mg capsule 1,000 mg (2 x 500 mg) PO Q8H PRN PRN pain #90 caps 04/04/23 [Rx Last Taken Unknown] buprenorphine 8 mg-naloxone 2 mg sublingual film (Suboxone) 1 film buccal BID #30 ea 04/04/23 [Rx Last Taken Unknown] ibuprofen 400 mg tablet 400 mg PO Q6H PRN pain #60 tabs 04/04/23 [Rx Last Taken Unknown] insulin glargine 100 unit/mL subcutaneous solution 30 unit (0.3 mL) subcut BID #10 mL 04/04/23 [Rx Last Taken Unknown] insulin lispro 100 unit/mL subcutaneous pen (Humalog KwikPen (U-100) Insulin) 10 unit (0.1 mL) subcut TID #15 mL 04/04/23 [Rx Last Taken Unknown] albuterol sulfate 2.5 mg/3 mL (0.083 %) solution for nebulization 2.5 mg inhalation Q8H PRN PRN shortness of breath or wheezing 06/21/23 [History Last Taken Unknown] albuterol sulfate 90 mcg/actuation aerosol inhaler 2 inh inhalation PRN PRN shortness of breath or wheezing 06/21/23 [History Last Taken Unknown] clindamycin HCl 300 mg capsule 300 mg PO TID 06/21/23 [History Last Taken Unknown] cyclobenzaprine 10 mg tablet 10 mg PO TID 06/21/23 [History Last Taken Unknown] famotidine 20 mg tablet 20 mg PO BID 06/21/23 [History Last Taken 06/22/23] losartan 50 mg tablet 50 mg PO 1500 06/21/23 [History Last Taken 06/22/23] ondansetron 4 mg disintegrating tablet 4 mg PO Q8H PRN nausea and vomiting 06/21/23 [History Last Taken Unknown] pantoprazole 40 mg tablet,delayed release 40 mg PO DAILY 06/21/23 [History Last Taken 06/22/23] ibuprofen 800 mg tablet 800 mg PO TID PRN pain #30 tabs 06/22/23 [Rx Last Taken Unknown] Allergy/AdvReac Type Severity Reaction Status Date / Time morphine Allergy Severe Anaphylaxis Verified 06/27/23 19:37 sumatriptan [From Imitrex] Allergy Severe Other Verified 06/27/23 19:37 acetarsol Allergy Intermediate Rash Verified 06/27/23 19:37 calcium [From DHEA] Allergy Intermediate Shortness Verified 06/27/23 19:37 of breath calcium carbonate [From DHEA] Allergy Intermediate Shortness Verified 06/27/23 19:37 of breath chlorpromazine Allergy Intermediate Other Verified 06/27/23 19:37 [From Thorazine] nalbuphine Allergy Intermediate Shortness Verified 06/27/23 19:37 of breath prasterone (DHEA) [From DHEA] Allergy Intermediate Shortness Verified 06/27/23 19:37 of breath prednisone Allergy Intermediate Other Verified 06/27/23 19:37 prochlorperazine Allergy Intermediate Shortness Verified 06/27/23 19:37 of breath magnesium AdvReac Severe Other Verified 06/27/23 19:37 Iodinated Contrast Media AdvReac Mild Other Verified 06/27/23 19:37 iodine AdvReac Mild Other Verified 06/27/23 19:37 ketorolac [From Toradol] AdvReac Mild Nausea Verified 06/27/23 19:37 tramadol AdvReac Mild Vomiting Verified 06/27/23 19:37 adhesive tape [paper tape] AdvReac Other Verified 06/27/23 19:37 Surgical History History of cardiac catheterization History of carpal tunnel surgery of left wrist History of carpal tunnel surgery of right wrist Hx of heart artery stent Hx of left knee surgery Hx of single vessel coronary artery bypass Hx of tonsillectomy Social History Smoking Status: Current every day smoker tobacco type: cigarettes ROS ROS ED ROS Narrative Constitutional: No fever, no chills. HEENT: No sore throat. No neck pain. No loss of vision. No rhinorrhea. Cardiovascular: No chest pain. No palpitations. No pedal edema. Respiratory: No cough, no shortness of breath. Abdominal: No abdominal pain. No nausea. No vomiting. Genitourinary: No dysuria. No hematuria. Musculoskeletal: No myalgias. No arthralgias. Positive swelling and redness plantar aspect of left foot. No drainage. Neurologic: No headaches. No dizziness. No lightheadedness. Skin: No rash. No change in color. Psychiatric: No depression. No anxiety. EXAM Physical Exam Narrative Exam Narrative: Afebrile. Vital signs noted. Nontoxic-appearing. HEENT: Normocephalic. Atraumatic. PERRL, EOMI. Neck soft and supple. No point tenderness or step off. Cardiovascular: Regular rate and rhythm. No murmurs, rubs, or gallops appreciated. Respiratory: No tachypnea. Lungs clear to auscultation bilaterally. Gastrointestinal: Abdomen soft, nontender, with normoactive bowel sounds. No rebound or guarding. Neurological: Awake. Alert. Nonfocal, nonlateralizing. Skin: No rash. Normal color. No pallor. Musculoskeletal: No pedal edema. Full range of motion extremities. Inspection of the left foot does reveal postsurgical changes and amputation of the great toe. There is a healing vertical incision in the midfoot from where he had surgery over a month ago. There is more of a horizontal puncture wound without active bleeding or overt erythema with tenderness to palpation. No purulent drainage or active bleeding noted. It may be approximately 1.5 to 2 cm in length. Const Vital Signs: 06/27/23 19:38 Temperature 97.2 F L Temperature Source Temporal Pulse Rate 74 Respiratory Rate 20 H Blood Pressure 174/102 H Blood Pressure Mean 126 Pulse Ox 97 Oxygen Delivery Method Room Air MDM MDM MDM Narrative Medical decision making narrative: Concern is for retained foreign body of the left foot versus infected plantar wound. I do not feel laboratory work is indicated. He was told that x-rays may not definitively show any retained foreign body. He is already taking Keflex. X-rays obtained of the left foot and interpreted by myself independently demonstrate no evidence of foreign body. I reviewed the radiology report which confirms my independent interpretation, and, some soft tissue swelling and postsurgical changes as well. Patient was reassured. He is to continue his Keflex. He can follow-up with his primary care provider who put him on Keflex, and he was told to follow-up with his brush head maker in the next 2 days for a wound check before the holiday. I feel he can be discharged safely home with follow-up. I do not feel he needs laboratory work. Return instructions to the emergency department were reviewed. Disposition is discharged home in stable condition. History & Record Review Discussion w/independent historian: Patient Additional record(s) reviewed:: Prior ED visit Lab Data Attestation: I reviewed the patient's lab results. Radiography Diagnostic Testing: Clinical Impression(s) from Imaging Studies Foot X-Ray 06/27/23 20:02 IMPRESSION: Postsurgical changes as described with diffuse soft tissue swelling. Remainder of the extra unremarkable with no acute fracture or subluxation. Electronically Signed: Alma Rosa Stark MD at 20:57 EST , Discharge Plan Triage Chief Complaint: Lower Extremity Injury ED Provider: Jeff Hardwick Dx/Rx/DC Orders Clinical Impression: Visit for wound check, Puncture wound of foot, left Instructions: ED Puncture Wound (Foot), ED Stab Wound Prescriptions: No Action aspirin 81 mg tablet,delayed release (DR/EC) 81 mg PO DAILY Patient Comments: TAKE 1 TABLET BY MOUTH EVERY MORNING atorvastatin 40 mg tablet 40 mg PO DAILY Patient Comments: TAKE 1 TABLET BY MOUTH ONCE DAILY clopidogrel 75 mg tablet 75 mg PO DAILY Patient Comments: TAKE 1 TABLET BY MOUTH ONCE DAILY sucralfate 1 gram tablet 1 g PO 4X/DAY Patient Comments: TAKE 1 TABLET BY MOUTH FOUR TIMES DAILY Entresto 49-51 mg tablet 1 tab PO BID Patient Comments: TAKE 1 TABLET BY MOUTH TWICE DAILY ranolazine 500 mg tablet extended release 12 hr 500 mg PO BID Patient Comments: TAKE 1 TABLET BY MOUTH TWICE DAILY metformin 500 mg tablet 500 mg PO DAILY Patient Comments: TAKE 1 TABLET BY MOUTH ONCE DAILY WITH BREAKFAST isosorbide mononitrate 30 mg tablet extended release 24 hr 30 mg PO DAILY Patient Comments: TAKE 1 TABLET BY MOUTH ONCE DAILY gabapentin 300 mg capsule 300 mg PO 4X/DAY Patient Comments: TAKE 1 CAPSULE BY MOUTH THREE TIMES DAILY furosemide 40 mg tablet 40 mg PO DAILY Patient Comments: TAKE 1 TABLET BY MOUTH ONCE DAILY Trelejalil Ellipta 200-62.5-25 mcg blister with device 1 inh INHALATION Q24H Patient Comments: INHALE 1 PUFF BY MOUTH ONCE DAILY DIRECTED buprenorphine-naloxone [Suboxone] 8-2 mg film 1 film buccal BID Qty: 30 0RF Rx Instructions: continue the dosing you were prescribed on 03/14/[address] Bello insulin glargine 100 unit/mL solution 30 unit subcut BID Qty: 10 0RF insulin lispro [Humalog KwikPen Insulin] 100 unit/mL insulin pen 10 unit subcut TID Qty: 15 0RF acetaminophen 500 mg capsule 1,000 mg PO Q8H PRN PRN (Reason: pain) Qty: 90 0RF ibuprofen 400 mg tablet 400 mg PO Q6H PRN (Reason: pain) Qty: 60 0RF famotidine 20 mg tablet 20 mg PO BID Patient Comments: TAKE 1 TABLET BY MOUTH TWICE DAILY pantoprazole 40 mg tablet,delayed release (DR/EC) 40 mg PO DAILY Patient Comments: TAKE 1 TABLET BY MOUTH ONCE DAILY albuterol sulfate 90 mcg/actuation HFA aerosol inhaler 2 inh INHALATION PRN PRN (Reason: shortness of breath or wheezing) Patient Comments: INHALE 2 PUFFS BY MOUTH as instructed EVERY 4 HOURS NEEDED for FOR WHEEZING, SHORTNESS OF BREATH albuterol sulfate 2.5 mg /3 mL (0.083 %) solution for nebulization 2.5 mg inhalation Q8H PRN PRN (Reason: shortness of breath or wheezing) Patient Comments: INHALE ONE 3ML VIAL PER NEBULIZER THREE TIMES DAILY NEEDED FOR WHEEZING OR SHORTNESS OF BREATH INHALING OVER 5 TO 15 MINUTES losartan 50 mg tablet 50 mg PO 1500 Patient Comments: TAKE 1 TABLET BY MOUTH EVERY DAY ondansetron 4 mg tablet,disintegrating 4 mg PO Q8H PRN (Reason: nausea and vomiting) Patient Comments: DISSOLVE 1 (ONE) TABLET BY MOUTH EVERY 6 HOURS NEEDED FOR NAUSEA clindamycin HCl 300 mg capsule 300 mg PO TID Patient Comments: TAKE 1 CAPSULE BY MOUTH THREE TIMES DAILY FOR 10 DAYS cyclobenzaprine 10 mg tablet 10 mg PO TID ibuprofen 800 mg tablet 800 mg PO TID PRN (Reason: pain) Qty: 30 0RF Primary Care Provider: Connor Nazario Referrals: Po Saxena DPM [Med Staff - Active Staff] - 2 Days for wound check Connor Nazario MD [Primary Care Provider] - 1 Week Disposition Disposition: Home, Self Care
--- NOTE | 2023-06-27 20:02 | RAD_ITS ---
STUDY: X-RAY - LEFT FOOT CLINICAL: Male, 42 years old. pain, trauma TECHNIQUE: 3 view(s) of the foot. COMPARISON: 03/31/2023. FINDINGS: Normal talus, calcaneus, and tarsal bones. Normal visualized subtalar, talonavicular, calcaneocuboid, tarsal and tarsometatarsal articulations. Normal metatarsi. Status post amputation from the mid proximal metatarsal bone. Normal third through fifth metatarsophalangeal joints. Well-corticated lucency through the distal aspect of the second metatarsal bone suggestive of sequela of old fracture or prior surgery. The second through fifth phalanges are unremarkable. Diffuse soft tissue swelling of the distal calf, ankle and dorsum of the foot. There is no demonstrated fracture. RAD/Foot min 3 Views IMPRESSION: Postsurgical changes as described with diffuse soft tissue swelling. Remainder of the extra unremarkable with no acute fracture or subluxation. Electronically Signed: Alma Rosa Stark MD at 20:57 EST ,
== END 2023-06-27 21:19 | disposition home or self-care (01) ==
PROVIDERS: Emergency Provider Emergency Medicine; Visit Provider Emergency Medicine
DX: Z51.89 Encounter for other specified aftercare (principal); E11.51 Type 2 diabetes mellitus with diabetic peripheral angiopathy without gangrene; Z89.422 Acquired absence of other left toe(s); J44.9 Chronic obstructive pulmonary disease, unspecified; I11.0 Hypertensive heart disease with heart failure; I50.9 Heart failure, unspecified; Z79.4 Long term (current) use of insulin; S91.332A Puncture wound without foreign body, left foot, initial encounter; W25.XXXA Contact with sharp glass, initial encounter; I25.10 Atherosclerotic heart disease of native coronary artery without angina pectoris; E78.00 Pure hypercholesterolemia, unspecified; K21.9 Gastro-esophageal reflux disease without esophagitis; F41.9 Anxiety disorder, unspecified; M19.90 Unspecified osteoarthritis, unspecified site; F12.90 Cannabis use, unspecified, uncomplicated; G25.81 Restless legs syndrome; F17.210 Nicotine dependence, cigarettes, uncomplicated; Z86.73 Personal history of transient ischemic attack (TIA), and cerebral infarction without residual deficits; Z79.82 Long term (current) use of aspirin; Z79.899 Other long term (current) drug therapy; Z79.84 Long term (current) use of oral hypoglycemic drugs; Z86.718 Personal history of other venous thrombosis and embolism
CPT/HCPCS: 73630; 99282

== ENCOUNTER 2023-06-29 13:43 | Emergency (ER) | payer MEDICARE, MEDICAID, SELFPAY ==
[2023-06-29 13:44] VITALS: BP 171/90; PULSE 69; RESP 15; TEMP 36.7; O2SAT 99; BMI 38.2
[2023-06-29 14:26] LABS: Absolute Lymphocyte Count 1.64 X10^3/uL (0.83-4.51); Absolute Neutrophil Count 6.4 X10^3/uL (2.0-7.7); Basophil# 0.06 X10^3/uL; Basophil% 0.7 % (0-1); Eosinophil# 0.15 X10^3/uL; Eosinophils% 1.7 % (0-5); Hematocrit 37.6 % (40-54); Hemoglobin 12.6 g/dL (13.0-16.5); Lymphocyte # 1.64 X10^3/ul (0.83-4.51); Lymphocyte % 18.5 % (19-41); Mean Corp Hgb Conc 33.5 g/dL (32-36); Mean Corpuscular Hgb 29.4 pg (27.0-32.0); Mean Corpuscular Volume 87.6 fL (80-94); Mean Platelet Vol. 8.9 fl (6.2-12.0); Monocyte# 0.53 X10^3/uL; NRBC Flagged by Analyzer 0 % (0-5); Neutrophil # 6.44 X10^3/uL (2.7-7.7); Neutrophil % 72.8 % (47-70); Platelet Count 282 K/mm3 (150-450); RBC Distribution Width CV 13.1 % (11.6-14.6); RBC Distribution Width SD 41.6 fl (35.1-43.9); Red Blood Count 4.29 M/mm3 (4.6-6.2); White Blood Count 8.9 K/mm3 (4.4-11.0)
[2023-06-29 14:41] LABS: ALB/GLOB Ratio 0.7 RATIO (0.9-2.4); AST(SGOT) 30 U/L (15-37); Alanine Aminotransfer ALT/SGPT 30 U/L (16-61); Albumin, Serum 3.1 g/dL (3.2-5.0); Alkaline Phosphatase 65 U/L (45-117); Anion Gap 6 (5-15); BUN 16 mg/dL (7-18); BUN/Creat Ratio 9.3 RATIO (10-20); Calcium,Total 8.8 mg/dL (8.5-10.1); Chloride 105 mmol/L (98-107); Creatinine, Serum 1.72 mg/dL (0.70-1.30); EST Glomerular Filtration Rate 47 mL/min (>60); Est Glom Filt Rate - Afr Amer 57 mL/min (>60); Estimated Creatinine Clearance 56.52 ml/min; Globulin 4.2 g/dL (2.2-4.2); Glucose 373 mg/dL (74-106); Potassium 4.6 mmol/L (3.5-5.1); Protein, Total 7.3 g/dL (6.4-8.2); Sodium Level 135 mmol/L (136-145)
--- NOTE | 2023-06-29 15:12 | CT_ITS ---
STUDY: CT ABDOMEN AND PELVIS WITHOUT CONTRAST REASON FOR EXAM: Male, 42 years old. Abd pain. Nausea and vomiting. RADIATION DOSAGE (If Supplied By Facility): CTDIvol = ( 18.96 ) mGy, DLP = ( 1027.91 ) mGycm TECHNIQUE: Transaxial images were obtained from the dome of the diaphragm to the symphysis pubis without oral contrast, and without intravenous contrast. Sagittal and coronal images were reconstructed. Individualized dose optimization techniques were used for this CT. COMPARISON: None. FINDINGS: The visualized lung bases are unremarkable. Coronary artery calcification. Normal liver. Normal gallbladder and extrahepatic biliary system. Normal spleen. Normal pancreas. Normal bilateral adrenal glands. Normal right kidney. Normal left kidney. Normal visualized stomach. Normal small intestine. There are scattered colonic diverticula consistent with diverticulosis. The appendix is visualized and appears normal. There is scattered atherosclerotic calcification of the abdominal aorta, without a demonstrated aneurysm. Normal inferior vena cava. Normal retroperitoneum. Normal urinary bladder. Mild central prostatic calcifications. Normal abdominal wall. Straightening of the normal lumbar lordosis. CT/Abdomen/Pelvis without Cont IMPRESSION: Scattered sigmoid diverticula. Electronically Signed: Willy Cruz MD at 16:04 [facility] ,
--- NOTE | 2023-06-29 15:14 | EDS_ITS ---
HPI History of Present Illness Chief Complaint: Abd Pain Informant: patient Onset/Context/Timing Onset: Today Narrative Narrative: Patient presents secondary to epigastric abdominal pain with nausea and vomiting. Patient states symptoms started on awakening this morning. Yesterday he felt well. He has not measured a fever but has felt warm and then gets chilled. No diarrhea. [facility] Medical History Amputation of left great toe Anxiety Arthritis Back pain Cardiology follow-up encounter COPD (chronic obstructive pulmonary disease) Coronary artery disease Diabetic foot Dietary restriction DVT (deep venous thrombosis) Failure of outpatient treatment Fatty liver Gastric reflux Hallux rigidus of right foot Hammertoe of left foot Heart attack High cholesterol History of atrial fibrillation History of CHF (congestive heart failure) History of echocardiogram History of edema History of pain when walking History of stress test History of ulceration Hypertension Insulin dependent diabetes mellitus Leg cramps Marijuana use Metatarsal deformity Migraine headache MRSA infection Other hammer toe(s) (acquired), left foot Peripheral vascular disease, unspecified Restless legs Short Achilles tendon (acquired), left ankle Shortness of breath on exertion Smoker Substance abuse Syncope TIA (transient ischemic attack) Type 2 diabetes mellitus with diabetic polyneuropathy Uncontrolled diabetes mellitus Wears glasses Home Medications aspirin 81 mg tablet,delayed release 81 mg PO DAILY 03/31/23 [History Last Taken 06/21/23] atorvastatin 40 mg tablet 40 mg PO DAILY 03/31/23 [History Last Taken Unknown] clopidogrel 75 mg tablet 75 mg PO DAILY 03/31/23 [History Last Taken 06/21/23] fluticasone fur. 200 mcg-umeclid 62.5 mcg-vilant 25 mcg inhalat.powder (Trelegy Ellipta) 1 inh inhalation Q24H 03/31/23 [History Last Taken Unknown] furosemide 40 mg tablet 40 mg PO DAILY 03/31/23 [History Last Taken Unknown] gabapentin 300 mg capsule 300 mg PO 4X/DAY 03/31/23 [History Last Taken 06/22/23] isosorbide mononitrate 30 mg tablet,extended release 24 hr 30 mg PO DAILY 03/31/23 [History Last Taken 06/22/23] metformin 500 mg tablet 500 mg PO DAILY 03/31/23 [History Last Taken Unknown] ranolazine 500 mg tablet,extended release,12 hr 500 mg PO BID 03/31/23 [History Last Taken Unknown] sacubitril 49 mg-valsartan 51 mg tablet (Entresto) 1 tab PO BID 03/31/23 [History Last Taken Unknown] sucralfate 1 gram tablet 1 g PO 4X/DAY 03/31/23 [History Last Taken Unknown] acetaminophen 500 mg capsule 1,000 mg (2 x 500 mg) PO Q8H PRN PRN pain #90 caps 04/04/23 [Rx Last Taken Unknown] insulin glargine 100 unit/mL subcutaneous solution 30 unit (0.3 mL) subcut BID #10 mL 04/04/23 [Rx Last Taken Unknown] insulin lispro 100 unit/mL subcutaneous pen (Humalog KwikPen (U-100) Insulin) 10 unit (0.1 mL) subcut TID #15 mL 04/04/23 [Rx Last Taken Unknown] albuterol sulfate 2.5 mg/3 mL (0.083 %) solution for nebulization 2.5 mg inhalation Q8H PRN PRN shortness of breath or wheezing 06/21/23 [History Last Taken Unknown] albuterol sulfate 90 mcg/actuation aerosol inhaler 2 inh inhalation PRN PRN shortness of breath or wheezing 06/21/23 [History Last Taken Unknown] cyclobenzaprine 10 mg tablet 10 mg PO TID PRN muscle spasm 06/21/23 [History Last Taken Unknown] famotidine 20 mg tablet 20 mg PO BID 06/21/23 [History Last Taken 06/22/23] losartan 50 mg tablet 50 mg PO 1500 06/21/23 [History Last Taken 06/22/23] ondansetron 4 mg disintegrating tablet 4 mg PO Q8H PRN nausea and vomiting 06/21/23 [History Last Taken Unknown] pantoprazole 40 mg tablet,delayed release 40 mg PO DAILY 06/21/23 [History Last Taken 06/22/23] ibuprofen 800 mg tablet 800 mg PO TID PRN pain #30 tabs 06/22/23 [Rx Last Taken Unknown] ondansetron 4 mg disintegrating tablet 4 mg PO Q8H PRN PRN Nausea #10 tabs 06/29/23 [Rx Last Taken Unknown] Allergy/AdvReac Type Severity Reaction Status Date / Time morphine Allergy Severe Anaphylaxis Verified 06/29/23 13:45 sumatriptan [From Imitrex] Allergy Severe Other Verified 06/29/23 13:45 acetarsol Allergy Intermediate Rash Verified 06/29/23 13:45 calcium [From DHEA] Allergy Intermediate Shortness Verified 06/29/23 13:45 of breath calcium carbonate [From DHEA] Allergy Intermediate Shortness Verified 06/29/23 13:45 of breath chlorpromazine Allergy Intermediate Other Verified 06/29/23 13:45 [From Thorazine] nalbuphine Allergy Intermediate Shortness Verified 06/29/23 13:45 of breath prasterone (DHEA) [From DHEA] Allergy Intermediate Shortness Verified 06/29/23 13:45 of breath prednisone Allergy Intermediate Other Verified 06/29/23 13:45 prochlorperazine Allergy Intermediate Shortness Verified 06/29/23 13:45 of breath magnesium AdvReac Severe Other Verified 06/29/23 13:45 Iodinated Contrast Media AdvReac Mild Other Verified 06/29/23 13:45 iodine AdvReac Mild Other Verified 06/29/23 13:45 ketorolac [From Toradol] AdvReac Mild Nausea Verified 06/29/23 13:45 tramadol AdvReac Mild Vomiting Verified 06/29/23 13:45 adhesive tape [paper tape] AdvReac Other Verified 06/29/23 13:45 Surgical History History of cardiac catheterization History of carpal tunnel surgery of left wrist History of carpal tunnel surgery of right wrist Hx of heart artery stent Hx of left knee surgery Hx of single vessel coronary artery bypass Hx of tonsillectomy Social History Smoking Status: Current every day smoker tobacco type: cigarettes ROS ROS ED Constitutional Constitutional ED: Reports chills, fever(s), subjective and sweats Eyes Eyes: Denies change in vision or discharge from eye(s) ENT ENT ED: Denies discharge from eye(s), rhinorrhea or sore throat Cardiovascular Cardiovascular: Denies chest pain or palpitations Respiratory/Chest Respiratory/Chest: Denies cough or dyspnea Gastrointestinal Gastrointestinal: Reports abdominal pain, nausea and vomiting; Denies diarrhea Genitourinary Genitourinary ED: Denies dysuria Musculoskeletal Musculoskeletal: Denies back pain or extremity pain Integumentary Denies Abrasions or rash Neurologic Neurologic: Denies headache(s) or weakness Psychiatric Psychiatric: Denies anxiety or depression Allergic/Immunologic Allergic/Immunologic ED: Denies lip swelling or urticaria EXAM Physical Exam Const Vital Signs: 06/29/23 13:44 Temperature 98.1 F Temperature Source Temporal Pulse Rate 69 Respiratory Rate 15 Blood Pressure 171/90 H Blood Pressure Mean 117 Pulse Ox 99 Oxygen Delivery Method Room Air Positive well nourished and well developed General Appearance ED: well developed HEENT Reports moist mucous membranes Eyes EOMs intact bilaterally Chest Wall inspection of chest normal and palpation of chest normal Resp normal respiratory effort and clear to auscultation bilaterally Cardio regular rate and regular rhythm GI GI Narrative: Moderate tenderness in the epigastrium. Guarding is noted. Active bowel sounds are appreciated. Extremity Extremity Narrative: Right lower extremity in a walking boot. Neuro oriented x3 and no sensory deficits noted Motor Exam: strength 5/5 throughout Psych Mood & Affect: anxious MDM MDM MDM Narrative Medical decision making narrative: IV line established. Patient given Dilaudid and Zofran for pain and nausea. Labwork obtained to evaluate for leukocytosis, anemia, and electrolyte derangement. CT scan of the abdomen pelvis obtained to evaluate for possible cholecystitis or pancreatitis. Fluids given. History & Record Review Discussion w/independent historian: Patient Additional record(s) reviewed:: Prior ED visit and Prior labs Lab Data Attestation: I reviewed the patient's lab results. Labs: Laboratory Results - last 24 hr 06/29/23 06/29/23 14:20 15:20 WBC 8.9 RBC 4.29 L Hgb 12.6 L Hct 37.6 L MCV 87.6 MCH 29.4 MCHC 33.5 RDW Std Deviation 41.6 RDW Coeff of Simone 13.1 Plt Count 282 MPV 8.9 Immature Gran % (Auto) 0.300 Neut % (Auto) 72.8 H Lymph % (Auto) 18.5 L Hunt % (Auto) 6.0 Eos % (Auto) 1.7 Baso % (Auto) 0.7 Absolute Neuts (auto) 6.4 Absolute Lymphs (auto) 1.64 Nucleated RBC % 0 Sodium 135 L Potassium 4.6 Chloride 105 Carbon Dioxide 24.0 Anion Gap 6 BUN 16 Creatinine 1.72 H Estim Creat Clear Calc 56.52 Est GFR (MDRD) Af Amer 57 L Est GFR (MDRD) Non-Af 47 L BUN/Creatinine Ratio 9.3 L Glucose 373 H Lactic Acid 1.4 Calcium 8.8 Total Bilirubin 0.30 AST 30 ALT 30 Alkaline Phosphatase 65 Total Protein 7.3 Albumin 3.1 L Globulin 4.2 Albumin/Globulin Ratio 0.7 L Lipase 24 Urine Color Yellow Urine Clarity Clear Urine pH 6.0 Ur Specific [place] 1.015 Urine Protein 500 H Urine Glucose (UA) 1000 H Urine Ketones Negative Urine Occult Blood 25 H Urine Nitrite Negative Urine Bilirubin Negative Urine Urobilinogen Normal Ur Leukocyte Esterase Negative Urine RBC 0 SEEN Urine WBC 0-5 SEEN Ur Squamous Epith Cells 25-50 SEEN Urine Bacteria 0 SEEN Urine Mucus 0 SEEN Radiography Diagnostic Testing: Clinical Impression(s) from Imaging Studies Abdomen/Pelvis CT 06/29/23 15:12 IMPRESSION: Scattered sigmoid diverticula. Electronically Signed: Willy Cruz MD at 16:04 EST , Treatment and Re-Evaluation :: CBC was normal white count 8.9 with a hemoglobin of 12.6. 72% neutrophils noted. Chemistry studies significant for a creatinine 1.72. This is only slightly elevated over his prior values. He has been as high as 2 in the past. Glucose is elevated at 373. Lactic acid is normal at 1.4. LFTs and lipase are normal. Urinalysis reveals no evidence of acute infection. He does have [address] scan of the abdomen pelvis is obtained that shows scattered sigmoid diverticula with no acute findings. Patient was given Dilaudid here followed by a GI cocktail and a dose of Protonix. At this time patient is resting more comfortably. He is on buprenorphine chronically. He states he is already on Carafate and Protonix as well. He will continue these medications and follow a bland diet. Return instructions given. Discharge Plan Triage Chief Complaint: Abd Pain ED Provider: Juli Small Dx/Rx/DC Orders Clinical Impression: Epigastric pain Prescriptions: New ondansetron 4 mg tablet,disintegrating 4 mg PO Q8H PRN PRN (Reason: Nausea) Qty: 10 0RF No Action aspirin 81 mg tablet,delayed release (DR/EC) 81 mg PO DAILY Patient Comments: TAKE 1 TABLET BY MOUTH EVERY MORNING atorvastatin 40 mg tablet 40 mg PO DAILY Patient Comments: TAKE 1 TABLET BY MOUTH ONCE DAILY clopidogrel 75 mg tablet 75 mg PO DAILY Patient Comments: TAKE 1 TABLET BY MOUTH ONCE DAILY sucralfate 1 gram tablet 1 g PO 4X/DAY Patient Comments: TAKE 1 TABLET BY MOUTH FOUR TIMES DAILY Entresto 49-51 mg tablet 1 tab PO BID Patient Comments: TAKE 1 TABLET BY MOUTH TWICE DAILY ranolazine 500 mg tablet extended release 12 hr 500 mg PO BID Patient Comments: TAKE 1 TABLET BY MOUTH TWICE DAILY metformin 500 mg tablet 500 mg PO DAILY Patient Comments: TAKE 1 TABLET BY MOUTH ONCE DAILY WITH BREAKFAST isosorbide mononitrate 30 mg tablet extended release 24 hr 30 mg PO DAILY Patient Comments: TAKE 1 TABLET BY MOUTH ONCE DAILY gabapentin 300 mg capsule 300 mg PO 4X/DAY Patient Comments: TAKE 1 CAPSULE BY MOUTH THREE TIMES DAILY furosemide 40 mg tablet 40 mg PO DAILY Patient Comments: TAKE 1 TABLET BY MOUTH ONCE DAILY Trelegy Ellipta 200-62.5-25 mcg blister with device 1 inh INHALATION Q24H Patient Comments: INHALE 1 PUFF BY MOUTH ONCE DAILY DIRECTED insulin glargine 100 unit/mL solution 30 unit subcut BID Qty: 10 0RF insulin lispro [Humalog KwikPen Insulin] 100 unit/mL insulin pen 10 unit subcut TID Qty: 15 0RF acetaminophen 500 mg capsule 1,000 mg PO Q8H PRN PRN (Reason: pain) Qty: 90 0RF famotidine 20 mg tablet 20 mg PO BID Patient Comments: TAKE 1 TABLET BY MOUTH TWICE DAILY pantoprazole 40 mg tablet,delayed release (DR/EC) 40 mg PO DAILY Patient Comments: TAKE 1 TABLET BY MOUTH ONCE DAILY albuterol sulfate 90 mcg/actuation HFA aerosol inhaler 2 inh INHALATION PRN PRN (Reason: shortness of breath or wheezing) Patient Comments: INHALE 2 PUFFS BY MOUTH as instructed EVERY 4 HOURS NEEDED for FOR WHEEZIN G, SHORTNESS OF BREATH albuterol sulfate 2.5 mg /3 mL (0.083 %) solution for nebulization 2.5 mg inhalation Q8H PRN PRN (Reason: shortness of breath or wheezing) Patient Comments: INHALE ONE 3ML VIAL PER NEBULIZER THREE TIMES DAILY NEEDED FOR WHEEZING OR SHORTNESS OF BREATH INHALING OVER 5 TO 15 MINUTES losartan 50 mg tablet 50 mg PO 1500 Patient Comments: TAKE 1 TABLET BY MOUTH EVERY DAY ondansetron 4 mg tablet,disintegrating 4 mg PO Q8H PRN (Reason: nausea and vomiting) Patient Comments: DISSOLVE 1 (ONE) TABLET BY MOUTH EVERY 6 HOURS NEEDED FOR NAUSEA cyclobenzaprine 10 mg tablet 10 mg PO TID PRN (Reason: muscle spasm) ibuprofen 800 mg tablet 800 mg PO TID PRN (Reason: pain) Qty: 30 0RF Primary Care Provider: Connor Nazario Referrals: Connor Nazario MD [Primary Care Provider] - 1 Week if not improving Disposition Disposition: Home, Self Care
[2023-06-29] MEDS: HYDROmorphone 1 MG/ML Syringe 0.5 MG IV (15:20)
[2023-06-29] MEDS: 0.9% Normal Saline (1000mL) 1,000 ML 1000 ML IV (15:20)
[2023-06-29] MEDS: Ondansetron 4 MG/2 ML Vial IV (15:20)
[2023-06-29 15:27] LABS: Bacteria 0 SEEN /hpf (None Seen); Mucous, Urine 0 SEEN /hpf (<or=2+); Red Blood Cells-Urine 0 SEEN /hpf (0-5)
[2023-06-29 15:34] LABS: Lipase 24 U/L (13-75)
[2023-06-29 15:45] LABS: Color, Urine Yellow (Yellow); Glucose, Dipstick 1000 mg/dl (Normal); Ketone-Dipstick Negative (Negative); Leukocyte Esterase-Dipstick Negative /ul (Negative); Nitrite-Dipstick Negative (Negative); Occult Blood-Urine 25 /ul (Negative); Protein-Dipstick 500 mg/dl (Negative); Specific Gravity, Urine 1.015 (1.002-1.030); Urine Bilirubin Dipstick Negative (Negative); Urine Clarity Clear (Clear); Urine Urobilinogen Normal (Normal)
[2023-06-29 15:54] LABS: Lactic Acid 1.4 mmol/L (0.4-1.9)
[2023-06-29] MEDS: HYDROmorphone 0.5 MG/0.5 ML SYRINGE IV (16:05)
[2023-06-29 16:13] LABS: Squamous Epithelial Cells - UA 25-50 SEEN /hpf (0-5); White Blood Cells 0-5 SEEN /hpf (0-5)
[2023-06-29] MEDS: Pantoprazole Sodium 40 MG in 0.9% Normal Saline (100mL MB+) 100 ML 330 MG IV (16:17)
[2023-06-29] MEDS: Mag Hydrox/Al Hydrox/Simeth 30 ML UDC PO (16:19)
== END 2023-06-29 17:20 | disposition home or self-care (01) ==
PROVIDERS: Emergency Provider Emergency Medicine; Visit Provider Emergency Medicine
DX: R10.13 Epigastric pain (principal); J44.9 Chronic obstructive pulmonary disease, unspecified; I11.0 Hypertensive heart disease with heart failure; I50.9 Heart failure, unspecified; E11.42 Type 2 diabetes mellitus with diabetic polyneuropathy; E11.65 Type 2 diabetes mellitus with hyperglycemia; Z79.4 Long term (current) use of insulin; R11.2 Nausea with vomiting, unspecified; E78.00 Pure hypercholesterolemia, unspecified; K57.30 Diverticulosis of large intestine without perforation or abscess without bleeding; I25.10 Atherosclerotic heart disease of native coronary artery without angina pectoris; F17.210 Nicotine dependence, cigarettes, uncomplicated; Z79.84 Long term (current) use of oral hypoglycemic drugs; Z79.82 Long term (current) use of aspirin; Z79.02 Long term (current) use of antithrombotics/antiplatelets; Z79.899 Other long term (current) drug therapy; Z95.1 Presence of aortocoronary bypass graft
CPT/HCPCS: 74176; 80053; 81001; 83605; 83690; 85025; 96361; 96374; 96375; 96376; 99283; J7030; A4216; J2405

== ENCOUNTER 2023-07-14 15:18 | Emergency (ER) | payer MEDICARE, MEDICAID, SELFPAY ==
[2023-07-14 15:20] VITALS: BP 164/77; PULSE 74; RESP 18; TEMP 36.4; O2SAT 99
--- NOTE | 2023-07-14 16:30 | RAD_ITS ---
STUDY: X-RAY - LEFT ANKLE REASON FOR EXAM: Male, 42 years old. pain, swelling TECHNIQUE: 3 view(s) of the ankle. COMPARISON: None. FINDINGS: Normal visualized distal tibia and fibula. Normal medial and lateral malleoli. Normal tibiotalar articulation and ankle mortise. Normal visualized talus and calcaneus. The visualized subtalar, talonavicular, calcaneocuboid and tarsal articulations are normal. There is no demonstrated fracture. Diffuse soft tissue swelling seen. RAD/Ankle min 3 Views IMPRESSION: Diffuse swelling with no distinct fracture or subluxation. Electronically Signed: Alma Rosa Stark MD at 16:47 EST ,
--- NOTE | 2023-07-14 16:30 | RAD_ITS ---
STUDY: X-RAY - LEFT FOOT CLINICAL: Male, 42 years old. pain TECHNIQUE: 3 view(s) of the foot. COMPARISON: 06/27/2023. FINDINGS: Normal talus, calcaneus, and tarsal bones. Normal visualized subtalar, talonavicular, calcaneocuboid, tarsal and tarsometatarsal articulations. Status post amputation of the first toe from the mid first metatarsal bone. Transverse lucency with well-corticated margins through the distal portion of the second metatarsal bone, likely sequela of old trauma or prior surgery. Normal second through fifth metatarsophalangeal joints. Normal interphalangeal joints and phalanges of the lesser toes. Diffuse soft tissue swelling through the distal calf, ankle and diffuse swelling through the foot including the dorsum and plantar region. There is no demonstrated acute fracture. RAD/Foot min 3 Views IMPRESSION: Diffuse soft tissue swelling as described with status post amputation of the first toe. No acute fracture or subluxation. Electronically Signed: Alma Rosa Stark MD at 16:47 EST ,
--- NOTE | 2023-07-14 16:31 | ED.VIS.LOWEX ---
HPI History of Present Illness Chief Complaint: Lower Extremity Injury Detail of Chief Complaint: Pain to left heel and ankle Informant: patient Narrative Narrative: Patient presents with pain to left heel and ankle that started last evening. Denies injury or trauma. He is not sure if maybe he stepped on something. Patient has history of diabetes and has had surgeries on his left foot. Last surgery was about [address] Saxena. Patient also with history of gout and typically gets it in his left ankle. In the last 2 months he states he had 2 flareups of gout that he normally gets Keflex for it because he cannot take steroids. [facility] Medical History Amputation of left great toe Anxiety Arthritis Back pain Cardiology follow-up encounter COPD (chronic obstructive pulmonary disease) Coronary artery disease Diabetic foot Dietary restriction DVT (deep venous thrombosis) Failure of outpatient treatment Fatty liver Gastric reflux Hallux rigidus of right foot Hammertoe of left foot Heart attack High cholesterol History of atrial fibrillation History of CHF (congestive heart failure) History of echocardiogram History of edema History of pain when walking History of stress test History of ulceration Hypertension Insulin dependent diabetes mellitus Leg cramps Marijuana use Metatarsal deformity Migraine headache MRSA infection Other hammer toe(s) (acquired), left foot Peripheral vascular disease, unspecified Restless legs Short Achilles tendon (acquired), left ankle Shortness of breath on exertion Smoker Substance abuse Syncope TIA (transient ischemic attack) Type 2 diabetes mellitus with diabetic polyneuropathy Uncontrolled diabetes mellitus Wears glasses Home Medications aspirin 81 mg tablet,delayed release 81 mg PO DAILY 03/31/23 [History Last Taken 06/21/23] atorvastatin 40 mg tablet 40 mg PO DAILY 03/31/23 [History Last Taken Unknown] clopidogrel 75 mg tablet 75 mg PO DAILY 03/31/23 [History Last Taken 06/21/23] fluticasone fur. 200 mcg-umeclid 62.5 mcg-vilant 25 mcg inhalat.powder (Trelegy Ellipta) 1 inh inhalation Q24H 03/31/23 [History Last Taken Unknown] furosemide 40 mg tablet 40 mg PO DAILY 03/31/23 [History Last Taken Unknown] gabapentin 300 mg capsule 300 mg PO 4X/DAY 03/31/23 [History Last Taken 06/22/23] isosorbide mononitrate 30 mg tablet,extended release 24 hr 30 mg PO DAILY 03/31/23 [History Last Taken 06/22/23] metformin 500 mg tablet 500 mg PO DAILY 03/31/23 [History Last Taken Unknown] ranolazine 500 mg tablet,extended release,12 hr 500 mg PO BID 03/31/23 [History Last Taken Unknown] sacubitril 49 mg-valsartan 51 mg tablet (Entresto) 1 tab PO BID 03/31/23 [History Last Taken Unknown] sucralfate 1 gram tablet 1 g PO 4X/DAY 03/31/23 [History Last Taken Unknown] acetaminophen 500 mg capsule 1,000 mg (2 x 500 mg) PO Q8H PRN PRN pain #90 caps 04/04/23 [Rx Last Taken Unknown] insulin glargine 100 unit/mL subcutaneous solution 30 unit (0.3 mL) subcut BID #10 mL 04/04/23 [Rx Last Taken Unknown] insulin lispro 100 unit/mL subcutaneous pen (Humalog KwikPen (U-100) Insulin) 10 unit (0.1 mL) subcut TID #15 mL 04/04/23 [Rx Last Taken Unknown] albuterol sulfate 2.5 mg/3 mL (0.083 %) solution for nebulization 2.5 mg inhalation Q8H PRN PRN shortness of breath or wheezing 06/21/23 [History Last Taken Unknown] albuterol sulfate 90 mcg/actuation aerosol inhaler 2 inh inhalation PRN PRN shortness of breath or wheezing 06/21/23 [History Last Taken Unknown] cyclobenzaprine 10 mg tablet 10 mg PO TID PRN muscle spasm 06/21/23 [History Last Taken Unknown] famotidine 20 mg tablet 20 mg PO BID 06/21/23 [History Last Taken 06/22/23] losartan 50 mg tablet 50 mg PO 1500 06/21/23 [History Last Taken 06/22/23] ondansetron 4 mg disintegrating tablet 4 mg PO Q8H PRN nausea and vomiting 06/21/23 [History Last Taken Unknown] pantoprazole 40 mg tablet,delayed release 40 mg PO DAILY 06/21/23 [History Last Taken 06/22/23] ibuprofen 800 mg tablet 800 mg PO TID PRN pain #30 tabs 06/22/23 [Rx Last Taken Unknown] ondansetron 4 mg disintegrating tablet 4 mg PO Q8H PRN PRN Nausea #10 tabs 06/29/23 [Rx Last Taken Unknown] cephalexin 500 mg capsule 500 mg PO Q6 #40 CAPSULES 07/14/23 [Rx Last Taken Unknown] hydrocodone-acetaminophen 5-325mg 5mg-325mg 1 tab PO Q4H PRN PRN Pain 2 days #10 TABLETS 07/14/23 [Rx Last Taken Unknown] Allergy/AdvReac Type Severity Reaction Status Date / Time morphine Allergy Severe Anaphylaxis Verified 07/14/23 15:20 sumatriptan [From Imitrex] Allergy Severe Other Verified 07/14/23 15:20 acetarsol Allergy Intermediate Rash Verified 07/14/23 15:20 calcium [From DHEA] Allergy Intermediate Shortness Verified 07/14/23 15:20 of breath calcium carbonate [From DHEA] Allergy Intermediate Shortness Verified 07/14/23 15:20 of breath chlorpromazine Allergy Intermediate Other Verified 07/14/23 15:20 [From Thorazine] nalbuphine Allergy Intermediate Shortness Verified 07/14/23 15:20 of breath prasterone (DHEA) [From DHEA] Allergy Intermediate Shortness Verified 07/14/23 15:20 of breath prednisone Allergy Intermediate Other Verified 07/14/23 15:20 prochlorperazine Allergy Intermediate Shortness Verified 07/14/23 15:20 of breath magnesium AdvReac Severe Other Verified 07/14/23 15:20 Iodinated Contrast Media AdvReac Mild Other Verified 07/14/23 15:20 iodine AdvReac Mild Other Verified 07/14/23 15:20 ketorolac [From Toradol] AdvReac Mild Nausea Verified 07/14/23 15:20 tramadol AdvReac Mild Vomiting Verified 07/14/23 15:20 adhesive tape [paper tape] AdvReac Other Verified 07/14/23 15:20 Surgical History History of cardiac catheterization History of carpal tunnel surgery of left wrist History of carpal tunnel surgery of right wrist Hx of heart artery stent Hx of left knee surgery Hx of single vessel coronary artery bypass Hx of tonsillectomy Social History Smoking Status: Current every day smoker tobacco type: cigarettes ROS ROS ED Review of Systems ROS Unobtainable: other Constitutional Constitutional ED: Reports lethargy; Denies chills, fever(s), sweats or weight loss Eyes Eyes: Denies blurry vision, change in vision or diplopia ENT ENT ED: Denies rhinorrhea or sore throat Cardiovascular Cardiovascular: Reports chest pain and racing heartbeat; Denies orthopnea Respiratory/Chest Respiratory/Chest: Denies cough, dyspnea, dyspnea on exertion, orthopnea or sputum Gastrointestinal Gastrointestinal: Denies abdominal pain, diarrhea, nausea or vomiting Genitourinary Genitourinary ED: Denies dysuria, hematuria or urinary frequency Musculoskeletal Musculoskeletal: Reports other Details: Left foot and ankle pain ; Denies arthralgias, back pain, myalgias or neck pain Integumentary Denies abscess, Abrasions or rash Neurologic Neurologic: Denies headache(s) or weakness Psychiatric Psychiatric: Denies anxiety, depression or suicidal thoughts Endocrine Endocrinology: Denies polydipsia, polyphagia or polyuria Hematologic/Lymphatic Hematologic/Lymphatic: Denies easy bleeding, easy bruising or lymphadenopathy Allergic/Immunologic Allergic/Immunologic ED: Denies mouth swelling, tongue swelling or urticaria EXAM Physical Exam Const Vital Signs: 07/14/23 15:20 07/14/23 18:36 Temperature 97.6 F L Temperature Source Temporal Pulse Rate 74 88 Respiratory Rate 18 16 Blood Pressure 164/77 H 140/88 H Blood Pressure Mean 106 105 Pulse Ox 99 Oxygen Delivery Method Room Air Room Air Positive well nourished and well developed General Appearance ED: well developed and NAD HEENT Reports TM's clear and moist mucous membranes normocephalic and atraumatic; Negative for trauma or tenderness Tympanic Membrane ED: Yes TM's clear Eyes PERRL and EOMs intact bilaterally General Eye ED: Negative for pale conjunctiva or scleral icterus Neck no lymphadenopathy, supple and no JVD General: Negative for tenderness Chest Wall inspection of chest normal and palpation of chest normal Chest: Negative for tenderness Resp normal respiratory effort and clear to auscultation bilaterally Effort and Inspection: Negative for respiratory distress or pain with movement Auscultation: Negative for rhonchi, wheezes or diminished lung sounds Cardio regular rate, regular rhythm, S1 normal heart sound, S2 normal heart sound and no murmurs Peripheral Pulses: pulses 2+ throughout GI normal to inspection, nondistended, normoactive bowel sounds, soft to palpation, non-tender, non-distended and no masses Back/Spine no CVA tenderness and no thoracic nor lumbar tenderness Extremity Extremity Narrative: Left foot and ankle-patient does have tenderness palpation over the left heel. There is no erythema or warmth noted. There are some mild soft tissue swelling diffusely about the ankle with some diffuse tenderness palpation. There is no erythema or warmth noted. Neurovascular intact distally. General Extremety ED: Negative for edema General Extremity: Negative for edema Neuro oriented x3, CN's II-XII intact bilaterally, no sensory deficits noted and gait normal Sensorium / Orientation: awake, alert, oriented to person, oriented to place and oriented to time Motor Exam: strength 5/5 throughout and strength abnormal Psych mental status grossly normal Skin no rashes or lesions noted and no wounds MDM MDM MDM Narrative Medical decision making narrative: Patient presents with pain and swelling to the left foot and ankle without known trauma. He does have history of gout. He had x-rays of the left foot and ankle that were negative for fracture or dislocation but did show soft tissue swelling and prior surgical procedures on the foot. No foreign bodies noted in the soft tissues. I discussed case with administrative operations coordinator on-call Dr. Marquis who asked that I obtain some basic labs and have patient follow-up with his office on Sunday. I will start him on Keflex empirically as he does have history of infections and he is diabetic. Suspect likely symptoms related to gout. His uric acid level here was normal at 7.1. Patient cannot take steroids. Recommended he take ibuprofen as tolerated. I will write him for a few [place] for severe pain. Lab Data Attestation: I reviewed the patient's lab results. Labs: Laboratory Results - last 24 hr 07/14/23 17:09 WBC 7.5 RBC 3.79 L Hgb 11.3 L Hct 33.4 L MCV 88.1 MCH 29.8 MCHC 33.8 RDW Std Deviation 40.4 RDW Coeff of Simone 12.6 Plt Count 267 MPV 9.1 Immature Gran % (Auto) 0.400 Neut % (Auto) 49.9 Lymph % (Auto) 33.7 Mineral % (Auto) 9.5 Eos % (Auto) 5.2 H Baso % (Auto) 1.3 H Absolute Neuts (auto) 3.7 Absolute Lymphs (auto) 2.52 Nucleated RBC % 0 ESR 22 H Sodium 138 Potassium 4.4 Chloride 109 H Carbon Dioxide 26.0 Anion Gap 3 L BUN 23 H Creatinine 1.72 H Est GFR (MDRD) Af Amer 57 L Est GFR (MDRD) Non-Af 47 L BUN/Creatinine Ratio 13.4 Glucose 277 H Uric Acid 7.1 Calcium 8.7 C-React Prot Ext Range < 2.90 Radiography Diagnostic Testing: Clinical Impression(s) from Imaging Studies Ankle X-Ray 07/14/23 16:30 IMPRESSION: Diffuse swelling with no distinct fracture or subluxation. Electronically Signed: Alma Rosa Stark MD at 16:47 EST Reading Location ID and State: [id number] / [place] , Service support , Foot X-Ray 07/14/23 16:30 IMPRESSION: Diffuse soft tissue swelling as described with status post amputation of the first toe. No acute fracture or subluxation. Electronically Signed: Alma Rosa Stark MD at 16:47 EST , Three-view x-rays of the left ankle obtained interpreted by myself as no evidence of fracture or dislocation. Radiology in agreement but felt there was some soft tissue swelling. Three-view x-rays of the left foot obtained showed prior surgical changes with no evidence of fracture foreign bodies and soft tissue's or other acute disease process. Radiology in agreement. Discharge Plan Triage Chief Complaint: Lower Extremity Injury ED Provider: Raji Scruggs Dx/Rx/DC Orders Clinical Impression: Gout, Acute pain of left foot, Ankle pain, left Instructions: ED Gout, ED Knee Pain of Uncertain Cause Prescriptions: New hydrocodone-acetaminophen [hydrocodone-acetaminophen] 5-325 mg tablet 1 tab PO Q4H PRN PRN (Reason: Pain) 2 Days Qty: 10 0RF cephalexin [cephalexin] 500 mg capsule 500 mg PO Q6 Qty: 40 0RF No Action aspirin 81 mg tablet,delayed release (DR/EC) 81 mg PO DAILY Patient Comments: TAKE 1 TABLET BY MOUTH EVERY MORNING atorvastatin 40 mg tablet 40 mg PO DAILY Patient Comments: TAKE 1 TABLET BY MOUTH ONCE DAILY clopidogrel 75 mg tablet 75 mg PO DAILY Patient Comments: TAKE 1 TABLET BY MOUTH ONCE DAILY sucralfate 1 gram tablet 1 g PO 4X/DAY Patient Comments: TAKE 1 TABLET BY MOUTH FOUR TIMES DAILY Entresto 49-51 mg tablet 1 tab PO BID Patient Comments: TAKE 1 TABLET BY MOUTH TWICE DAILY ranolazine 500 mg tablet extended release 12 hr 500 mg PO BID Patient Comments: TAKE 1 TABLET BY MOUTH TWICE DAILY metformin 500 mg tablet 500 mg PO DAILY Patient Comments: TAKE 1 TABLET BY MOUTH ONCE DAILY WITH BREAKFAST isosorbide mononitrate 30 mg tablet extended release 24 hr 30 mg PO DAILY Patient Comments: TAKE 1 TABLET BY MOUTH ONCE DAILY gabapentin 300 mg capsule 300 mg PO 4X/DAY Patient Comments: TAKE 1 CAPSULE BY MOUTH THREE TIMES DAILY furosemide 40 mg tablet 40 mg PO DAILY Patient Comments: TAKE 1 TABLET BY MOUTH ONCE DAILY Trelegy Ellipta 200-62.5-25 mcg blister with device 1 inh INHALATION Q24H Patient Comments: INHALE 1 PUFF BY MOUTH ONCE DAILY DIRECTED insulin glargine 100 unit/mL solution 30 unit subcut BID Qty: 10 0RF insulin lispro [Humalog KwikPen Insulin] 100 unit/mL insulin pen 10 unit subcut TID Qty: 15 0RF acetaminophen 500 mg capsule 1,000 mg PO Q8H PRN PRN (Reason: pain) Qty: 90 0RF ondansetron 4 mg tablet,disintegrating 4 mg PO Q8H PRN PRN (Reason: Nausea) Qty: 10 0RF famotidine 20 mg tablet 20 mg PO BID Patient Comments: TAKE 1 TABLET BY MOUTH TWICE DAILY pantoprazole 40 mg tablet,delayed release (DR/EC) 40 mg PO DAILY Patient Comments: TAKE 1 TABLET BY MOUTH ONCE DAILY albuterol sulfate 90 mcg/actuation HFA aerosol inhaler 2 inh INHALATION PRN PRN (Reason: shortness of breath or wheezing) Patient Comments: INHALE 2 PUFFS BY MOUTH as instructed EVERY 4 HOURS NEEDED for FOR WHEEZING, SHORTNESS OF BREATH albuterol sulfate 2.5 mg /3 mL (0.083 %) solution for nebulization 2.5 mg inhalation Q8H PRN PRN (Reason: shortness of breath or wheezing) Patient Comments: INHALE ONE 3ML VIAL PER NEBULIZER THREE TIMES DAILY NEEDED FOR WHEEZING OR SHORTNESS OF BREATH INHALING OVER 5 TO 15 MINUTES losartan 50 mg tablet 50 mg PO 1500 Patient Comments: TAKE 1 TABLET BY MOUTH EVERY DAY ondansetron 4 mg tablet,disintegrating 4 mg PO Q8H PRN (Reason: nausea and vomiting) Patient Comments: DISSOLVE 1 (ONE) TABLET BY MOUTH EVERY 6 HOURS NEEDED FOR NAUSEA cyclobenzaprine 10 mg tablet 10 mg PO TID PRN (Reason: muscle spasm) ibuprofen 800 mg tablet 800 mg PO TID PRN (Reason: pain) Qty: 30 0RF Primary Care Provider: Connor Nazario Referrals: Dru Marquis DPM [Med Staff - Active Staff] - 2 Days Connor Nazario MD [Primary Care Provider] - Disposition Disposition: Home, Self Care Discharge Date/Time: 07/14/23 18:41
[2023-07-14 17:20] LABS: Erythrocyte Sedimentation Rate 22 mm/hr (0-20)
[2023-07-14 17:22] LABS: Absolute Lymphocyte Count 2.52 X10^3/uL (0.83-4.51); Absolute Neutrophil Count 3.7 X10^3/uL (2.0-7.7); Basophil% 1.3 % (0-1); Eosinophil# 0.39 X10^3/uL; Eosinophils% 5.2 % (0-5); Hematocrit 33.4 % (40-54); Hemoglobin 11.3 g/dL (13.0-16.5); Lymphocyte # 2.52 X10^3/ul (0.83-4.51); Lymphocyte % 33.7 % (19-41); Mean Corp Hgb Conc 33.8 g/dL (32-36); Mean Corpuscular Hgb 29.8 pg (27.0-32.0); Mean Corpuscular Volume 88.1 fL (80-94); Mean Platelet Vol. 9.1 fl (6.2-12.0); Monocyte# 0.71 X10^3/uL; Monocyte% 9.5 % (0-10); NRBC Flagged by Analyzer 0 % (0-5); Neutrophil # 3.72 X10^3/uL (2.7-7.7); Neutrophil % 49.9 % (47-70); Platelet Count 267 K/mm3 (150-450); RBC Distribution Width CV 12.6 % (11.6-14.6); RBC Distribution Width SD 40.4 fl (35.1-43.9); Red Blood Count 3.79 M/mm3 (4.6-6.2); White Blood Count 7.5 K/mm3 (4.4-11.0)
[2023-07-14 17:39] LABS: Anion Gap 3 (5-15); BUN 23 mg/dL (7-18); BUN/Creat Ratio 13.4 RATIO (10-20); CRP < 2.90 mg/L (0.0-3.0); Calcium,Total 8.7 mg/dL (8.5-10.1); Chloride 109 mmol/L (98-107); Creatinine, Serum 1.72 mg/dL (0.70-1.30); EST Glomerular Filtration Rate 47 mL/min (>60); Est Glom Filt Rate - Afr Amer 57 mL/min (>60); Glucose 277 mg/dL (74-106); Potassium 4.4 mmol/L (3.5-5.1); Sodium Level 138 mmol/L (136-145); Uric Acid 7.1 mg/dL (3.5-7.2)
[2023-07-14] MEDS: Cephalexin 250 MG Capsule 500 MG PO (18:31)
[2023-07-14 18:36] VITALS: BP 140/88; PULSE 88; RESP 16
== END 2023-07-14 18:41 | disposition home or self-care (01) ==
PROVIDERS: Emergency Provider Emergency Medicine; Visit Provider Emergency Medicine
DX: M10.9 Gout, unspecified (principal); J44.9 Chronic obstructive pulmonary disease, unspecified; E11.42 Type 2 diabetes mellitus with diabetic polyneuropathy; Z79.4 Long term (current) use of insulin; I25.10 Atherosclerotic heart disease of native coronary artery without angina pectoris; E78.00 Pure hypercholesterolemia, unspecified; K21.9 Gastro-esophageal reflux disease without esophagitis; F17.210 Nicotine dependence, cigarettes, uncomplicated; Z79.84 Long term (current) use of oral hypoglycemic drugs; Z79.82 Long term (current) use of aspirin; Z79.02 Long term (current) use of antithrombotics/antiplatelets; Z79.899 Other long term (current) drug therapy
CPT/HCPCS: 73610; 73630; 80048; 84550; 85025; 85652; 86140; 99282

== ENCOUNTER 2023-09-01 17:16 | Emergency (ER) | payer MEDICARE, MEDICAID, SELFPAY ==
[2023-09-01 17:17] VITALS: BP 163/83; PULSE 79; RESP 18; TEMP 35.9; O2SAT 98; BMI 32.5
[2023-09-01 17:24] VITALS: TEMP 36.6
--- NOTE | 2023-09-01 17:30 | ED.VIS.LOWEX ---
HPI <MARYLIN Webb - Last Filed: 09/01/23 20:03> History of Present Illness Chief Complaint: Wound Check Narrative Narrative: 42-year-old male with type 2 diabetes presents with right great toe pain and swelling. This morning when he woke up there was a white pustule on gradually throughout the day its become red and swollen. About a week and a half ago he had an ingrown toenail removed by Dr. Saxena. He tolerated procedure well without complications. Since the procedure he was on a prophylactic antibiotic he thinks may be clindamycin. Today he feels warm but has no documented fever. His blood sugars today were around 375 which is higher than normal. He is on insulin. He ran out of his metformin 2 months ago. PFS <MARYLIN Webb - Last Filed: 09/01/23 20:03> [facility] Medical History Amputation of left great toe Anxiety Arthritis Back pain Cardiology follow-up encounter COPD (chronic obstructive pulmonary disease) Coronary artery disease Diabetic foot Dietary restriction DVT (deep venous thrombosis) Failure of outpatient treatment Fatty liver Gastric reflux Hallux rigidus of right foot Hammertoe of left foot Heart attack High cholesterol History of atrial fibrillation History of CHF (congestive heart failure) History of echocardiogram History of edema History of pain when walking History of stress test History of ulceration Hypertension Insulin dependent diabetes mellitus Leg cramps Marijuana use Metatarsal deformity Migraine headache MRSA infection Other hammer toe(s) (acquired), left foot Peripheral vascular disease, unspecified Restless legs Short Achilles tendon (acquired), left ankle Shortness of breath on exertion Smoker Substance abuse Syncope TIA (transient ischemic attack) Type 2 diabetes mellitus with diabetic polyneuropathy Uncontrolled diabetes mellitus Wears glasses Home Medications aspirin 81 mg tablet,delayed release 81 mg PO DAILY 03/31/23 [History Last Taken 06/21/23] atorvastatin 40 mg tablet 40 mg PO DAILY 03/31/23 [History Last Taken Unknown] clopidogrel 75 mg tablet 75 mg PO DAILY 03/31/23 [History Last Taken 06/21/23] fluticasone fur. 200 mcg-umeclid 62.5 mcg-vilant 25 mcg inhalat.powder (Trelegy Ellipta) 1 inh inhalation Q24H 03/31/23 [History Last Taken Unknown] furosemide 40 mg tablet 40 mg PO DAILY 03/31/23 [History Last Taken Unknown] gabapentin 300 mg capsule 300 mg PO 4X/DAY 03/31/23 [History Last Taken 06/22/23] isosorbide mononitrate 30 mg tablet,extended release 24 hr 30 mg PO DAILY 03/31/23 [History Last Taken 06/22/23] metformin 500 mg tablet 500 mg PO DAILY 03/31/23 [History Last Taken Unknown] ranolazine 500 mg tablet,extended release,12 hr 500 mg PO BID 03/31/23 [History Last Taken Unknown] sacubitril 49 mg-valsartan 51 mg tablet (Entresto) 1 tab PO BID 03/31/23 [History Last Taken Unknown] sucralfate 1 gram tablet 1 g PO 4X/DAY 03/31/23 [History Last Taken Unknown] acetaminophen 500 mg capsule 1,000 mg (2 x 500 mg) PO Q8H PRN PRN pain #90 caps 04/04/23 [Rx Last Taken Unknown] insulin glargine 100 unit/mL subcutaneous solution 30 unit (0.3 mL) subcut BID #10 mL 04/04/23 [Rx Last Taken Unknown] insulin lispro 100 unit/mL subcutaneous pen (Humalog KwikPen (U-100) Insulin) 10 unit (0.1 mL) subcut TID #15 mL 04/04/23 [Rx Last Taken Unknown] albuterol sulfate 2.5 mg/3 mL (0.083 %) solution for nebulization 2.5 mg inhalation Q8H PRN PRN shortness of breath or wheezing 06/21/23 [History Last Taken Unknown] albuterol sulfate 90 mcg/actuation aerosol inhaler 2 inh inhalation PRN PRN shortness of breath or wheezing 06/21/23 [History Last Taken Unknown] cyclobenzaprine 10 mg tablet 10 mg PO TID PRN muscle spasm 06/21/23 [History Last Taken Unknown] famotidine 20 mg tablet 20 mg PO BID 06/21/23 [History Last Taken 06/22/23] losartan 50 mg tablet 50 mg PO 1500 06/21/23 [History Last Taken 06/22/23] ondansetron 4 mg disintegrating tablet 4 mg PO Q8H PRN nausea and vomiting 06/21/23 [History Last Taken Unknown] pantoprazole 40 mg tablet,delayed release 40 mg PO DAILY 06/21/23 [History Last Taken 06/22/23] ibuprofen 800 mg tablet 800 mg PO TID PRN pain #30 tabs 06/22/23 [Rx Last Taken Unknown] ondansetron 4 mg disintegrating tablet 4 mg PO Q8H PRN PRN Nausea #10 tabs 06/29/23 [Rx Last Taken Unknown] cephalexin 500 mg capsule 500 mg PO Q6 #40 CAPSULES 07/14/23 [Rx Last Taken Unknown] hydrocodone-acetaminophen 5-325mg 5mg-325mg 1 tab PO Q4H PRN PRN Pain 2 days #10 TABLETS 07/14/23 [Rx Last Taken Unknown] doxycycline hyclate 100 mg capsule 100 mg PO BID 7 days #14 caps 09/01/23 [Rx Last Taken Unknown] Allergy/AdvReac Type Severity Reaction Status Date / Time morphine Allergy Severe Anaphylaxis Verified 09/01/23 17:17 sumatriptan [From Imitrex] Allergy Severe Other Verified 09/01/23 17:17 acetarsol Allergy Intermediate Rash Verified 09/01/23 17:17 calcium [From DHEA] Allergy Intermediate Shortness Verified 09/01/23 17:17 of breath calcium carbonate [From DHEA] Allergy Intermediate Shortness Verified 09/01/23 17:17 of breath chlorpromazine Allergy Intermediate Other Verified 09/01/23 17:17 [From Thorazine] nalbuphine Allergy Intermediate Shortness Verified 09/01/23 17:17 of breath prasterone (DHEA) [From DHEA] Allergy Intermediate Shortness Verified 09/01/23 17:17 of breath prednisone Allergy Intermediate Other Verified 09/01/23 17:17 prochlorperazine Allergy Intermediate Shortness Verified 09/01/23 17:17 of breath magnesium AdvReac Severe Other Verified 09/01/23 17:17 Iodinated Contrast Media AdvReac Mild Other Verified 09/01/23 17:17 iodine AdvReac Mild Other Verified 09/01/23 17:17 ketorolac [From Toradol] AdvReac Mild Nausea Verified 09/01/23 17:17 tramadol AdvReac Mild Vomiting Verified 09/01/23 17:17 adhesive tape [paper tape] AdvReac Other Verified 09/01/23 17:17 Surgical History History of cardiac catheterization History of carpal tunnel surgery of left wrist History of carpal tunnel surgery of right wrist Hx of heart artery stent Hx of left knee surgery Hx of single vessel coronary artery bypass Hx of tonsillectomy Social History Smoking Status: Current every day smoker tobacco type: cigarettes ROS <MARYLIN Webb - Last Filed: 09/01/23 20:03> ROS ED ROS Narrative Constitutional: Negative for fever. GI: Negative for nausea, vomiting. Neuro: Negative for motor/sensory dysfunction. Skin: Positive for erythema. EXAM <MARYLIN Webb - Last Filed: 09/01/23 20:03> Physical Exam Narrative Exam Narrative: CONST: Patient sitting in no acute distress. EYES: Normal inspection. NECK: Normal inspection. RESP: No respiratory distress, CTAB. CVS: Regular rate and rhythm, no murmur, no gallop. SKIN: Color normal, no rash, warm, dry, intact. EXTREMITIES: Pinpoint pustule on medial right great toe, the toe is edematous and erythematous especially on the medial aspect and tender to palpation, no fluctuance or drainage expressed. The sliver of medial toenail has been removed and is healed without signs of infection. Normal appearance of the ankle and foot. Full ROM, 2+ DP pulses. Healed left great toe amputation. NEURO: Oriented x4. PSYCH: Normal affect. Const Vital Signs: 09/01/23 17:17 09/01/23 17:24 Temperature 96.7 F L 97.9 F Temperature Source Temporal Oral Pulse Rate 79 Respiratory Rate 18 Blood Pressure 163/83 H Blood Pressure Mean 109 Pulse Ox 98 Oxygen Delivery Method Room Air <Dr. Brendon Schuster DO - Last Filed: 09/01/23 19:12> Physical Exam Const Vital Signs: 09/01/23 17:17 09/01/23 17:24 Temperature 96.7 F L 97.9 F Temperature Source Temporal Oral Pulse Rate 79 Respiratory Rate 18 Blood Pressure 163/83 H Blood Pressure Mean 109 Pulse Ox 98 Oxygen Delivery Method Room Air MDM <MARYLIN Webb - Last Filed: 09/01/23 20:03> MDM MDM Narrative Medical decision making narrative: Patient developed right great toe swelling and redness that started this morning. He is diabetic and had an ingrown toenail removed about 2 weeks ago. He appears well and nontoxic. He is afebrile with stable vital signs. Right toe has diffuse soft tissue swelling and erythema and tenderness especially along the medial aspect. There is a tiny pustule. There is no fluctuance or drainage. Extremities are neurovascularly intact. Labs show white count of 7.8, glucose 578 with normal CO2 and anion gap, CRP 7.54, ESR 61. Creatinine is 2.01. He has been this high in the past and as low as 1.37. I advised he stop taking NSAIDs and follow-up with his PCP for monitoring. X-ray shows no acute findings. Patient was given IV fluids and 10 units of insulin and after an hour is trending down to 439. Patient checks his glucose frequently at home and has a sliding scale and can administer more insulin as needed over the next few days. I discussed the case with on-call senior animal trainer, Dr. Vail, who recommended starting doxycycline and he can be reevaluated in the office in 48 hours on Sunday morning. Patient was comfortable with this plan and discharged in stable condition. Differential: Cellulitis, abscess, osteomyelitis Consults: Podiatry Lab Data Attestation: I reviewed the patient's lab results. Labs: Laboratory Results - last 24 hr 09/01/23 17:40 WBC 7.8 RBC 4.84 Hgb 14.0 Hct 41.2 MCV 85.1 MCH 28.9 MCHC 34.0 RDW Std Deviation 38.5 RDW Coeff of Simone 12.4 Plt Count 322 MPV 9.4 Immature Gran % (Auto) 0.300 Neut % (Auto) 57.7 Lymph % (Auto) 27.4 Pettis % (Auto) 9.5 Eos % (Auto) 4.2 Baso % (Auto) 0.9 Absolute Neuts (auto) 4.5 Absolute Lymphs (auto) 2.14 Nucleated RBC % 0 ESR 61 H Sodium 127 L Potassium 3.8 Chloride 95 L Carbon Dioxide 23.0 Anion Gap 9 BUN 32 H Creatinine 2.01 H Estim Creat Clear Calc 56.32 Est GFR (MDRD) Af Amer 47 L Est GFR (MDRD) Non-Af 39 L BUN/Creatinine Ratio 15.9 Glucose 578 H* Calcium 9.4 C-React Prot Ext Range 7.54 H Radiography Diagnostic Testing: Clinical Impression(s) from Imaging Studies Foot X-Ray 09/01/23 17:43 IMPRESSION: Diffuse soft tissue swelling. No fracture or destructive bony process. Electronically Signed: Malik Clark MD ([place]) at 18:04 EST , ED attending interpretation of right foot shows no acute bony process. <Dr. Brendon Schuster, DO - Last Filed: 09/01/23 19:12> [facility] Lab Data Labs: Laboratory Results - last 24 hr 09/01/23 17:40 WBC 7.8 RBC 4.84 Hgb 14.0 Hct 41.2 MCV 85.1 MCH 28.9 MCHC 34.0 RDW Std Deviation 38.5 RDW Coeff of Simone 12.4 Plt Count 322 MPV 9.4 Immature Gran % (Auto) 0.300 Neut % (Auto) 57.7 Lymph % (Auto) 27.4 Pettis % (Auto) 9.5 Eos % (Auto) 4.2 Baso % (Auto) 0.9 Absolute Neuts (auto) 4.5 Absolute Lymphs (auto) 2.14 Nucleated RBC % 0 ESR 61 H Sodium 127 L Potassium 3.8 Chloride 95 L Carbon Dioxide 23.0 Anion Gap 9 BUN 32 H Creatinine 2.01 H Estim Creat Clear Calc 56.32 Est GFR (MDRD) Af Amer 47 L Est GFR (MDRD) Non-Af 39 L BUN/Creatinine Ratio 15.9 Glucose 578 H* Calcium 9.4 C-React Prot Ext Range 7.54 H Radiography Diagnostic Testing: Clinical Impression(s) from Imaging Studies Foot X-Ray 09/01/23 17:43 IMPRESSION: Diffuse soft tissue swelling. No fracture or destructive bony process. Electronically Signed: Malik Clark MD ([place]) at 18:04 EST , Treatment and Re-Evaluation Narrative: I have personally performed a face to face assessment of the patient and have reviewed the CELIA Note. I performed a substantive portion of the visit including all aspects of the following. My [place] findings include: History: Patient presents with redness and swelling to his right great toe that began today. Patient states it has gradually gotten worse throughout the day. Patient describes the pain as sharp and burning. Patient states it is worse with any pressure or movement. Patient denies any paresthesias or weakness. Patient states he did have a recent excision of an ingrown toenail by Dr. Saxena. Patient admits to some subjective chills and sweats. Exam: Vital signs are stable except for mildly elevated blood pressure 163/83. Patient is afebrile. Patient is in no acute distress. Musculoskeletal exam reveals tenderness, edema, and erythema over the right great toe, worse on the medial aspect. There is a small pustule noted. There is no fluctuance. There is no discharge or drainage noted. Range of motion was limited in all motions of the right great toe secondary to pain. Sensation was intact to light touch in all digits. Capillary refill was less than 2 seconds in all digits. Medical Decision Making: Differential diagnosis includes cellulitis, osteomyelitis, and abscess. CBC will be obtained to assess for leukocytosis and anemia. Basic metabolic profile will be obtained to assess for electrolyte abnormality and renal function. Sed rate and CRP will be obtained to assess for acute phase reactants. X-rays of the right foot will be obtained to assess for osteomyelitis. CBC was reviewed and was within normal limits. Basic metabolic profile was reviewed. Glucose was 578. Sodium was falsely low at 127. BUN was 32 and creatinine was 2.01. This is consistent with prior results. C-reactive protein was reviewed and was elevated at 7.54. Sed rate was reviewed and was elevated at 61. X-rays of the right foot were obtained. There are 3 views. On my independent interpretation, there is no acute fracture. There is no evidence of osteomyelitis. Radiologist also interpreted the x-rays and agrees. Patient was given IV fluids. Patient was given a dose of insulin here. Patient was given a dose of Percocet here. Patient was given a dose of doxycycline. Patient was instructed to use warm compresses to the area. Patient was instructed to follow-up with his senior animal trainer in 2 days. Patient understood and was agreeable with the plan. All questions were answered. Discharge Plan Triage Chief Complaint: Wound Check ED Midlevel Provider: Tanvi Wells ED Provider: Brendon Schuster Dx/Rx/DC Orders Clinical Impression: Right foot infection, Acute hyperglycemia Instructions: ED Wound Check (Infection) Prescriptions: New doxycycline hyclate 100 mg capsule 100 mg PO BID 7 Days Qty: 14 0RF No Action aspirin 81 mg tablet,delayed release (DR/EC) 81 mg PO DAILY Patient Comments: TAKE 1 TABLET BY MOUTH EVERY MORNING atorvastatin 40 mg tablet 40 mg PO DAILY Patient Comments: TAKE 1 TABLET BY MOUTH ONCE DAILY clopidogrel 75 mg tablet 75 mg PO DAILY Patient Comments: TAKE 1 TABLET BY MOUTH ONCE DAILY sucralfate 1 gram tablet 1 g PO 4X/DAY Patient Comments: TAKE 1 TABLET BY MOUTH FOUR TIMES DAILY Entresto 49-51 mg tablet 1 tab PO BID Patient Comments: TAKE 1 TABLET BY MOUTH TWICE DAILY ranolazine 500 mg tablet extended release 12 hr 500 mg PO BID Patient Comments: TAKE 1 TABLET BY MOUTH TWICE DAILY metformin 500 mg tablet 500 mg PO DAILY Patient Comments: TAKE 1 TABLET BY MOUTH ONCE DAILY WITH BREAKFAST isosorbide mononitrate 30 mg tablet extended release 24 hr 30 mg PO DAILY Patient Comments: TAKE 1 TABLET BY MOUTH ONCE DAILY gabapentin 300 mg capsule 300 mg PO 4X/DAY Patient Comments: TAKE 1 CAPSULE BY MOUTH THREE TIMES DAILY furosemide 40 mg tablet 40 mg PO DAILY Patient Comments: TAKE 1 TABLET BY MOUTH ONCE DAILY Trelegy Ellipta 200-62.5-25 mcg blister with device 1 inh INHALATION Q24H Patient Comments: INHALE 1 PUFF BY MOUTH ONCE DAILY DIRECTED insulin glargine 100 unit/mL solution 30 unit subcut BID Qty: 10 0RF insulin lispro [Humalog KwikPen Insulin] 100 unit/mL insulin pen 10 unit subcut TID Qty: 15 0RF acetaminophen 500 mg capsule 1,000 mg PO Q8H PRN PRN (Reason: pain) Qty: 90 0RF ondansetron 4 mg tablet,disintegrating 4 mg PO Q8H PRN PRN (Reason: Nausea) Qty: 10 0RF hydrocodone-acetaminophen [hydrocodone-acetaminophen] 5-325 mg tablet 1 tab PO Q4H PRN PRN (Reason: Pain) 2 Days Qty: 10 0RF cephalexin [cephalexin] 500 mg capsule 500 mg PO Q6 Qty: 40 0RF famotidine 20 mg tablet 20 mg PO BID Patient Comments: TAKE 1 TABLET BY MOUTH TWICE DAILY pantoprazole 40 mg tablet,delayed release (DR/EC) 40 mg PO DAILY Patient Comments: TAKE 1 TABLET BY MOUTH ONCE DAILY albuterol sulfate 90 mcg/actuation HFA aerosol inhaler 2 inh INHALATION PRN PRN (Reason: shortness of breath or wheezing) Patient Comments: INHALE 2 PUFFS BY MOUTH as instructed EVERY 4 HOURS NEEDED for FOR WHEEZING, SHORTNESS OF BREATH albuterol sulfate 2.5 mg /3 mL (0.083 %) solution for nebulization 2.5 mg inhalation Q8H PRN PRN (Reason: shortness of breath or wheezing) Patient Comments: INHALE ONE 3ML VIAL PER NEBULIZER THREE TIMES DAILY NEEDED FOR WHEEZING OR SHORTNESS OF BREATH INHALING OVER 5 TO 15 MINUTES losartan 50 mg tablet 50 mg PO 1500 Patient Comments: TAKE 1 TABLET BY MOUTH EVERY DAY ondansetron 4 mg tablet,disintegrating 4 mg PO Q8H PRN (Reason: nausea and vomiting) Patient Comments: DISSOLVE 1 (ONE) TABLET BY MOUTH EVERY 6 HOURS NEEDED FOR NAUSEA cyclobenzaprine 10 mg tablet 10 mg PO TID PRN (Reason: muscle spasm) ibuprofen 800 mg tablet 800 mg PO TID PRN (Reason: pain) Qty: 30 0RF Primary Care Provider: Connor Nazario Referrals: Connor Nazario MD [Primary Care Provider] - Activity Restrictions/Additional Instructions: Call the podiatry office on Sunday. Dr. Vail is there in the morning and Dr. Saxena in the afternoon and you can be seen by either. Tell them you were in the ER and Dr. Vail said you need to be seen Sunday. Disposition Disposition: Home, Self Care
--- NOTE | 2023-09-01 17:43 | RAD_ITS ---
STUDY: X-RAY - RIGHT FOOT CLINICAL: Male, 42 years old. Swelling and pain TECHNIQUE: 3 view(s) of the foot. COMPARISON: None. FINDINGS: Normal talus, calcaneus, and tarsal bones. Degenerative arthrosis of the tibiotalar articulation. Normal metatarsi. Normal metatarsophalangeal joint of the great toe. Normal tibial and fibular sesamoid bones. Partial resection of the first distal phalanx adjacent to the IP joint. Normal second through fifth metatarsophalangeal joints. Normal interphalangeal joints and phalanges of the lesser toes. Diffuse soft tissue swelling. RAD/Foot min 3 Views IMPRESSION: Diffuse soft tissue swelling. No fracture or destructive bony process. Electronically Signed: Malik Clark MD ([place]) at 18:04 EST ,
[2023-09-01 17:56] LABS: Absolute Lymphocyte Count 2.14 X10^3/uL (0.83-4.51); Absolute Neutrophil Count 4.5 X10^3/uL (2.0-7.7); Basophil# 0.07 X10^3/uL; Basophil% 0.9 % (0-1); Eosinophil# 0.33 X10^3/uL; Eosinophils% 4.2 % (0-5); Hematocrit 41.2 % (40-54); Lymphocyte # 2.14 X10^3/ul (0.83-4.51); Lymphocyte % 27.4 % (19-41); Mean Corpuscular Hgb 28.9 pg (27.0-32.0); Mean Corpuscular Volume 85.1 fL (80-94); Mean Platelet Vol. 9.4 fl (6.2-12.0); Monocyte# 0.74 X10^3/uL; Monocyte% 9.5 % (0-10); NRBC Flagged by Analyzer 0 % (0-5); Neutrophil # 4.51 X10^3/uL (2.7-7.7); Neutrophil % 57.7 % (47-70); Platelet Count 322 K/mm3 (150-450); RBC Distribution Width CV 12.4 % (11.6-14.6); RBC Distribution Width SD 38.5 fl (35.1-43.9); Red Blood Count 4.84 M/mm3 (4.6-6.2); White Blood Count 7.8 K/mm3 (4.4-11.0)
[2023-09-01] MEDS: Oxycodone/Apap 5/325 Tablet PO (17:57)
[2023-09-01] MEDS: Ondansetron ODT 4 MG Tablet PO (17:58)
[2023-09-01 18:03] LABS: Erythrocyte Sedimentation Rate 61 mm/hr (0-20)
[2023-09-01 18:19] LABS: Anion Gap 9 (5-15); BUN 32 mg/dL (7-18); BUN/Creat Ratio 15.9 RATIO (10-20); CRP 7.54 mg/L (0.0-3.0); Calcium,Total 9.4 mg/dL (8.5-10.1); Chloride 95 mmol/L (98-107); Creatinine, Serum 2.01 mg/dL (0.70-1.30); EST Glomerular Filtration Rate 39 mL/min (>60); Est Glom Filt Rate - Afr Amer 47 mL/min (>60); Estimated Creatinine Clearance 56.32 ml/min; Glucose 578 mg/dL (74-106); Potassium 3.8 mmol/L (3.5-5.1); Sodium Level 127 mmol/L (136-145)
[2023-09-01] MEDS: 0.9% Normal Saline (1000mL) 1,000 ML 999 ML IV (18:40)
[2023-09-01] MEDS: Doxycycline 100 MG CAPSULE PO (18:42)
[2023-09-01] MEDS: Insulin Lispro 100 UNIT/ML INSULN.PEN 10 UNIT SC (18:42)
[2023-09-01 20:08] VITALS: BP 156/86; PULSE 61; RESP 20; TEMP 36.2; O2SAT 97
[2023-09-01 20:15] LABS: Bedside Glucose 439 mg/dL (74-106)
== END 2023-09-01 20:09 | disposition home or self-care (01) ==
PROVIDERS: Physician Assistant; Emergency Provider Emergency Medicine; Visit Provider Emergency Medicine
DX: L08.9 Local infection of the skin and subcutaneous tissue, unspecified (principal); E11.51 Type 2 diabetes mellitus with diabetic peripheral angiopathy without gangrene; Z89.412 Acquired absence of left great toe; J44.9 Chronic obstructive pulmonary disease, unspecified; E11.65 Type 2 diabetes mellitus with hyperglycemia; E11.42 Type 2 diabetes mellitus with diabetic polyneuropathy; Z79.4 Long term (current) use of insulin; M79.674 Pain in right toe(s); E78.00 Pure hypercholesterolemia, unspecified; I10 Essential (primary) hypertension; F17.210 Nicotine dependence, cigarettes, uncomplicated; Z79.82 Long term (current) use of aspirin; Z79.02 Long term (current) use of antithrombotics/antiplatelets; Z79.899 Other long term (current) drug therapy
CPT/HCPCS: 73630; 80048; 82962; 85025; 85652; 86140; 96360; 99283; J7030; A4216

== ENCOUNTER 2023-09-02 02:02 | Emergency (ER) | payer MEDICARE, MEDICAID, SELFPAY ==
[2023-09-02 02:03] VITALS: BP 166/79; PULSE 91; RESP 12; TEMP 36.1; O2SAT 94; BMI 35.4
--- NOTE | 2023-09-02 02:27 | EDS_ITS ---
HPI History of Present Illness Chief Complaint: Lower Extremity Injury Informant: patient Narrative Narrative: Patient presents with his right great toe looking a little bit larger than when he left. Patient had part of his nail removed about 10 days ago but was doing well. It is unclear if he was on antibiotics for a period of time after this or not. He was seen earlier today for erythema of the great toe. I reviewed the x-rays and blood work that was done. He states the blood sugars better. He does not feel sick. He is not having fevers chills nausea or vomiting. But he looked at his toe and he thinks it is a little bit more swollen tonight. He was told to come back in if it is more red or swollen. He has had multiple surgeries on his feet and loss of toes due to diabetes. [facility] Medical History Amputation of left great toe Anxiety Arthritis Back pain Cardiology follow-up encounter COPD (chronic obstructive pulmonary disease) Coronary artery disease Diabetic foot Dietary restriction DVT (deep venous thrombosis) Failure of outpatient treatment Fatty liver Gastric reflux Hallux rigidus of right foot Hammertoe of left foot Heart attack High cholesterol History of atrial fibrillation History of CHF (congestive heart failure) History of echocardiogram History of edema History of pain when walking History of stress test History of ulceration Hypertension Insulin dependent diabetes mellitus Leg cramps Marijuana use Metatarsal deformity Migraine headache MRSA infection Other hammer toe(s) (acquired), left foot Peripheral vascular disease, unspecified Restless legs Short Achilles tendon (acquired), left ankle Shortness of breath on exertion Smoker Substance abuse Syncope TIA (transient ischemic attack) Type 2 diabetes mellitus with diabetic polyneuropathy Uncontrolled diabetes mellitus Wears glasses Home Medications aspirin 81 mg tablet,delayed release 81 mg PO DAILY 03/31/23 [History Last Taken 06/21/23] atorvastatin 40 mg tablet 40 mg PO DAILY 03/31/23 [History Last Taken Unknown] clopidogrel 75 mg tablet 75 mg PO DAILY 03/31/23 [History Last Taken 06/21/23] fluticasone fur. 200 mcg-umeclid 62.5 mcg-vilant 25 mcg inhalat.powder (Trelegy Ellipta) 1 inh inhalation Q24H 03/31/23 [History Last Taken Unknown] furosemide 40 mg tablet 40 mg PO DAILY 03/31/23 [History Last Taken Unknown] gabapentin 300 mg capsule 300 mg PO 4X/DAY 03/31/23 [History Last Taken 06/22/23] isosorbide mononitrate 30 mg tablet,extended release 24 hr 30 mg PO DAILY 03/31/23 [History Last Taken 06/22/23] metformin 500 mg tablet 500 mg PO DAILY 03/31/23 [History Last Taken Unknown] ranolazine 500 mg tablet,extended release,12 hr 500 mg PO BID 03/31/23 [History Last Taken Unknown] sacubitril 49 mg-valsartan 51 mg tablet (Entresto) 1 tab PO BID 03/31/23 [History Last Taken Unknown] sucralfate 1 gram tablet 1 g PO 4X/DAY 03/31/23 [History Last Taken Unknown] acetaminophen 500 mg capsule 1,000 mg (2 x 500 mg) PO Q8H PRN PRN pain #90 caps 04/04/23 [Rx Last Taken Unknown] insulin glargine 100 unit/mL subcutaneous solution 30 unit (0.3 mL) subcut BID #10 mL 04/04/23 [Rx Last Taken Unknown] insulin lispro 100 unit/mL subcutaneous pen (Humalog KwikPen (U-100) Insulin) 10 unit (0.1 mL) subcut TID #15 mL 04/04/23 [Rx Last Taken Unknown] albuterol sulfate 2.5 mg/3 mL (0.083 %) solution for nebulization 2.5 mg inhalation Q8H PRN PRN shortness of breath or wheezing 06/21/23 [History Last Taken Unknown] albuterol sulfate 90 mcg/actuation aerosol inhaler 2 inh inhalation PRN PRN shortness of breath or wheezing 06/21/23 [History Last Taken Unknown] cyclobenzaprine 10 mg tablet 10 mg PO TID PRN muscle spasm 06/21/23 [History Last Taken Unknown] famotidine 20 mg tablet 20 mg PO BID 06/21/23 [History Last Taken 06/22/23] losartan 50 mg tablet 50 mg PO 1500 06/21/23 [History Last Taken 06/22/23] ondansetron 4 mg disintegrating tablet 4 mg PO Q8H PRN nausea and vomiting 06/21/23 [History Last Taken Unknown] pantoprazole 40 mg tablet,delayed release 40 mg PO DAILY 06/21/23 [History Last Taken 06/22/23] ibuprofen 800 mg tablet 800 mg PO TID PRN pain #30 tabs 06/22/23 [Rx Last Taken Unknown] ondansetron 4 mg disintegrating tablet 4 mg PO Q8H PRN PRN Nausea #10 tabs 06/29/23 [Rx Last Taken Unknown] cephalexin 500 mg capsule 500 mg PO Q6 #40 CAPSULES 07/14/23 [Rx Last Taken Unknown] metoprolol succinate 25 mg tablet,extended release 24 hr 25 mg PO Q12H 09/02/23 [History Last Taken Unknown] milnacipran 100 mg tablet (Savella) 100 mg PO QHS 09/02/23 [History Last Taken Unknown] Allergy/AdvReac Type Severity Reaction Status Date / Time morphine Allergy Severe Anaphylaxis Verified 09/02/23 02:08 sumatriptan [From Imitrex] Allergy Severe Other Verified 09/02/23 02:08 acetarsol Allergy Intermediate Rash Verified 09/02/23 02:08 chlorpromazine Allergy Intermediate Other Verified 09/02/23 02:08 [From Thorazine] nalbuphine Allergy Intermediate Shortness Verified 09/02/23 02:08 of breath prasterone (DHEA) [From DHEA] Allergy Intermediate Shortness Verified 09/02/23 02:08 of breath prednisone Allergy Intermediate Other Verified 09/02/23 02:08 prochlorperazine Allergy Intermediate Shortness Verified 09/02/23 02:08 of breath Iodinated Contrast Media AdvReac Mild Hives Verified 09/02/23 02:08 iodine AdvReac Mild Hives Verified 09/02/23 02:08 ketorolac [From Toradol] AdvReac Mild Nausea Verified 09/02/23 02:08 tramadol AdvReac Mild Vomiting Verified 09/02/23 02:08 adhesive tape [paper tape] AdvReac Other Verified 09/02/23 02:08 Surgical History History of cardiac catheterization History of carpal tunnel surgery of left wrist History of carpal tunnel surgery of right wrist Hx of heart artery stent Hx of left knee surgery Hx of single vessel coronary artery bypass Hx of tonsillectomy Social History Smoking Status: Current every day smoker tobacco type: cigarettes ROS ROS ED Constitutional Constitutional ED: Denies chills, fever(s), subjective or sweats ENT ENT ED: Denies rhinorrhea Cardiovascular Cardiovascular: Denies chest pain, palpitations or racing heartbeat Respiratory/Chest Respiratory/Chest: Denies cough Gastrointestinal Gastrointestinal: Denies nausea or vomiting Musculoskeletal Musculoskeletal: Reports arthralgias and other Details: Pain at right great toe. He states he still does have good sensation. Integumentary Reports other Details: Redness of right great Neurologic Neurologic: Denies paresthesias or weakness Endocrine Endocrinology: Denies polydipsia or polyuria Allergic/Immunologic Allergic/Immunologic ED: Denies urticaria EXAM Physical Exam Narrative Exam Narrative: General: Patient awake alert no acute distress nontoxic in appearance. HEENT mucous membranes are moist. Heart is regular. Lungs are clear and saturations are normal 94% on room air showing no hypoxia. Abdomen is obese but nontender. Extremities there is some erythema diffusely around the right great toe and swelling. It is mildly warm. It looks were he had the excisional part of his nail is well-healed. He states there is seem to have been a small pustule at the base of the toe yesterday but that is gone now. The erythema does not streak up the foot at all. It stops at the big toe. Sensation is still intact. Const Vital Signs: 09/02/23 02:03 Temperature 96.9 F L Temperature Source Temporal Pulse Rate 91 Respiratory Rate 12 Blood Pressure 166/79 H Blood Pressure Mean 108 Pulse Ox 94 Oxygen Delivery Method Room Air MDM MDM MDM Narrative Medical decision making narrative: I have reviewed the blood work and x-ray that were just done earlier in the evening. I do not think it is worth repeating this now. I do not think the hyperglycemia is causing this. I think he likely has an infection. He was just started on antibiotics. It has been hours since he started it. I do not think the workup needs to change. He is not having vomiting. He is not having fevers. I think he is still appropriate to try as an outpatient therapy as he really has barely started it. I will give him an IV dose of vancomycin here. He requested something for pain. The difficulty is he has allergies to many pain meds. And he is on Suboxone. I will use Tylenol as there are very few options. Patient was given Tylenol for pain. He wanted something else. But he has significant limitations based on his allergies. Even though he has morphine listed as anaphylaxis he can tolerate Dilaudid. I explained this is unlikely to do much for him as he is on Suboxone. It is not listed on his med list but I did do an online prescribing report. This was given which helped. 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 I explained that we still need to give him a chance of recovery. He has only been on antibiotics for a matter of hours. If he is failing outpatient therapy he may need to come in and he may end up having surgery. But at this point he has no fever or white count or sign of osteomyelitis or gas in the tissues and I feel outpatient trial of therapy is appropriate. Discharge Plan Triage Chief Complaint: Lower Extremity Injury ED Provider: Wellington Rand Dx/Rx/DC Orders Clinical Impression: Cellulitis of great toe of right foot Instructions: ED Cellulitis Prescriptions: No Action aspirin 81 mg tablet,delayed release (DR/EC) 81 mg PO DAILY Patient Comments: TAKE 1 TABLET BY MOUTH EVERY MORNING atorvastatin 40 mg tablet 40 mg PO DAILY Patient Comments: TAKE 1 TABLET BY MOUTH ONCE DAILY clopidogrel 75 mg tablet 75 mg PO DAILY Patient Comments: TAKE 1 TABLET BY MOUTH ONCE DAILY sucralfate 1 gram tablet 1 g PO 4X/DAY Patient Comments: TAKE 1 TABLET BY MOUTH FOUR TIMES DAILY Entresto 49-51 mg tablet 1 tab PO BID Patient Comments: TAKE 1 TABLET BY MOUTH TWICE DAILY ranolazine 500 mg tablet extended release 12 hr 500 mg PO BID Patient Comments: TAKE 1 TABLET BY MOUTH TWICE DAILY metformin 500 mg tablet 500 mg PO DAILY Patient Comments: TAKE 1 TABLET BY MOUTH ONCE DAILY WITH BREAKFAST isosorbide mononitrate 30 mg tablet extended release 24 hr 30 mg PO DAILY Patient Comments: TAKE 1 TABLET BY MOUTH ONCE DAILY gabapentin 300 mg capsule 300 mg PO 4X/DAY Patient Comments: TAKE 1 CAPSULE BY MOUTH THREE TIMES DAILY furosemide 40 mg tablet 40 mg PO DAILY Patient Comments: TAKE 1 TABLET BY MOUTH ONCE DAILY Trelegy Ellipta 200-62.5-25 mcg blister with device 1 inh INHALATION Q24H Patient Comments: INHALE 1 PUFF BY MOUTH ONCE DAILY DIRECTED insulin glargine 100 unit/mL solution 30 unit subcut BID Qty: 10 0RF insulin lispro [Humalog KwikPen Insulin] 100 unit/mL insulin pen 10 unit subcut TID Qty: 15 0RF acetaminophen 500 mg capsule 1,000 mg PO Q8H PRN PRN (Reason: pain) Qty: 90 0RF ondansetron 4 mg tablet,disintegrating 4 mg PO Q8H PRN PRN (Reason: Nausea) Qty: 10 0RF cephalexin [cephalexin] 500 mg capsule 500 mg PO Q6 Qty: 40 0RF famotidine 20 mg tablet 20 mg PO BID Patient Comments: TAKE 1 TABLET BY MOUTH TWICE DAILY pantoprazole 40 mg tablet,delayed release (DR/EC) 40 mg PO DAILY Patient Comments: TAKE 1 TABLET BY MOUTH ONCE DAILY albuterol sulfate 90 mcg/actuation HFA aerosol inhaler 2 inh INHALATION PRN PRN (Reason: shortness of breath or wheezing) Patient Comments: INHALE 2 PUFFS BY MOUTH as instructed EVERY 4 HOURS NEEDED for FOR WHEEZING, SHORTNESS OF BREATH albuterol sulfate 2.5 mg /3 mL (0.083 %) solution for nebulization 2.5 mg inhalation Q8H PRN PRN (Reason: shortness of breath or wheezing) Patient Comments: INHALE ONE 3ML VIAL PER NEBULIZER THREE TIMES DAILY NEEDED FOR WHEEZING OR SHORTNESS OF BREATH INHALING OVER 5 TO 15 MINUTES losartan 50 mg tablet 50 mg PO 1500 Patient Comments: TAKE 1 TABLET BY MOUTH EVERY DAY ondansetron 4 mg tablet,disintegrating 4 mg PO Q8H PRN (Reason: nausea and vomiting) Patient Comments: DISSOLVE 1 (ONE) TABLET BY MOUTH EVERY 6 HOURS NEEDED FOR NAUSEA cyclobenzaprine 10 mg tablet 10 mg PO TID PRN (Reason: muscle spasm) ibuprofen 800 mg tablet 800 mg PO TID PRN (Reason: pain) Qty: 30 0RF metoprolol succinate 25 mg tablet extended release 24 hr 25 mg PO Q12H Patient Comments: TAKE 1 TABLET BY MOUTH TWICE DAILY Savella 100 mg tablet 100 mg PO QHS Patient Comments: TAKE 1/2 (ONE-HALF) OF A TABLET BY MOUTH EVERY NIGHT AT BEDTIME FOR 7 DAYS, then TAKE 1/2 (ONE-HALF) OF A TABLET BY MOUTH TWICE DAILY FOR 21 DAYS Primary Care Provider: Connor Nazario Referrals: Connor Nazario MD [Primary Care Provider] - 2 Days for wound check Activity Restrictions/Additional Instructions: Follow-up with your primary physician or preferably your forming machine 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 Disposition Disposition: Home, Self Care
[2023-09-02] MEDS: Acetaminophen 500 MG Tablet 1000 MG PO (03:03)
[2023-09-02 03:05] VITALS: BP 135/77; PULSE 67; RESP 16; TEMP 36.2
[2023-09-02] MEDS: Vancomycin HCl 1,750 MG in 0.9% Normal Saline (500mL Bag) 500 ML 250 MG IV (03:05)
[2023-09-02] MEDS: HYDROmorphone 1 MG/ML Syringe IM (03:52)
[2023-09-02 04:05] VITALS: BP 135/78; PULSE 66; RESP 16; TEMP 36.9
[2023-09-02 05:21] VITALS: BP 140/77; PULSE 67; RESP 16; TEMP 36.6; O2SAT 95
== END 2023-09-02 05:28 | disposition home or self-care (01) ==
PROVIDERS: Emergency Provider Emergency Medicine; Visit Provider Emergency Medicine
DX: L03.115 Cellulitis of right lower limb (principal); E11.51 Type 2 diabetes mellitus with diabetic peripheral angiopathy without gangrene; Z89.412 Acquired absence of left great toe; J44.9 Chronic obstructive pulmonary disease, unspecified; Z79.4 Long term (current) use of insulin; Z79.82 Long term (current) use of aspirin; Z79.02 Long term (current) use of antithrombotics/antiplatelets; Z79.899 Other long term (current) drug therapy; F17.210 Nicotine dependence, cigarettes, uncomplicated
CPT/HCPCS: 96365; 96366; 96372; 99284; J7040

== ENCOUNTER 2023-09-05 20:04 | Emergency (ER) | payer MEDICARE, MEDICAID, SELFPAY ==
[2023-09-05 20:05] VITALS: BP 153/78; PULSE 72; RESP 15; TEMP 36.1; O2SAT 99; BMI 36.1
--- NOTE | 2023-09-05 20:21 | CT_ITS ---
EXAM: CT ABDOMEN AND PELVIS WITHOUT INTRAVENOUS CONTRAST CLINICAL INDICATION: Upper abd pain TECHNIQUE: Helically acquired images were obtained of the abdomen and pelvis without intravenous contrast. This CT exam was performed using one or more of the following dose reduction techniques: automated exposure control, adjustment of the mA and/or kV according to patient size, and/or use of iterative reconstruction technique. COMPARISON: CT abdomen and pelvis, 06/29/2023 FINDINGS: LOWER THORAX: Coronary artery stent. Mild likely atelectasis in the basilar lungs. No cardiomegaly. No significant pericardial effusion. ABDOMEN: LIVER: Low-attenuation throughout the liver suggesting fatty infiltration. No focal hepatic abnormality. GALLBLADDER AND BILE DUCTS: No significant abnormality. No calcified gallstones. No gallbladder distention or wall edema. No intra- or extrahepatic biliary ductal dilation. PANCREAS: No significant abnormality. No focal cystic mass. SPLEEN: No significant abnormality. Normal size without focal cystic or solid mass. ADRENALS: No significant abnormality. No nodules. KIDNEYS AND URETERS: No significant abnormality. Normal renal size and position. No hydronephrosis. STOMACH AND BOWEL: Colonic diverticulosis without evidence of acute diverticulitis. No stomach or bowel distention. PELVIS: APPENDIX: A normal appendix is identified in the right lower quadrant. BLADDER: No significant abnormality. REPRODUCTIVE: Normal as visualized. No mass. ABDOMEN and PELVIS: INTRAPERITONEAL SPACE: No significant abnormality. No ascites or other fluid collection. No free air. BONES/JOINTS: Degenerative changes in the spine. No suspicious lytic or blastic abnormality. SOFT TISSUES: No significant abnormality. No discrete abdominal or pelvic wall hernia. VASCULATURE: Atherosclerosis of the aorta and its branch vessels. LYMPH NODES: No significant abnormality. No enlarged lymph nodes. CT/Abdomen/Pelvis without Cont IMPRESSION: 1. Fatty liver. 2. Colonic diverticulosis without evidence of acute diverticulitis. Electronically Signed: Mychal Rothman DO at 21:09 EST ,
--- NOTE | 2023-09-05 20:21 | EKG12_ITS ---
Test Reason : DYSRHYTHMIA Blood Pressure : / mmHG Vent. Rate : 066 BPM Atrial Rate : 066 BPM P-R Int : 146 ms QRS Dur : 120 ms QT Int : 418 ms P-R-T Axes : 050 006 -20 degrees QTc Int : 438 ms Normal sinus rhythm Inferior infarct (cited on or before 01-APR-2023) Abnormal ECG Confirmed by YADIRA MURILLO, ABELINO ([id number]), editorial director MARISSA HILLS ([id number]) on 09/10/2023 9:33:09 AM Referred By: Confirmed By:JUAN MAY MD
--- NOTE | 2023-09-05 20:24 | EX.ED.DYSGE1 ---
HPI History of Present Illness Chief Complaint: Abd Pain Informant: patient Onset/Context/Timing Onset: Yesterday Narrative Narrative: Patient presents secondary to severe left upper quadrant pain that started yesterday. He states has had some chills but no fever. He had some nausea. Patient denies any prior abdominal surgeries. He states he did undergo an EGD about a year ago and was told he should have both an upper and lower repeated. He has not yet done so because he is on aspirin and Plavix. He is currently on Carafate and Protonix for reflux. [facility] Medical History Amputation of left great toe Anxiety Arthritis Back pain Cardiology follow-up encounter COPD (chronic obstructive pulmonary disease) Coronary artery disease Diabetic foot Dietary restriction DVT (deep venous thrombosis) Failure of outpatient treatment Fatty liver Gastric reflux Hallux rigidus of right foot Hammertoe of left foot Heart attack High cholesterol History of atrial fibrillation History of CHF (congestive heart failure) History of echocardiogram History of edema History of pain when walking History of stress test History of ulceration Hypertension Insulin dependent diabetes mellitus Leg cramps Marijuana use Metatarsal deformity Migraine headache MRSA infection Other hammer toe(s) (acquired), left foot Peripheral vascular disease, unspecified Restless legs Short Achilles tendon (acquired), left ankle Shortness of breath on exertion Smoker Substance abuse Syncope TIA (transient ischemic attack) Type 2 diabetes mellitus with diabetic polyneuropathy Uncontrolled diabetes mellitus Wears glasses Home Medications aspirin 81 mg tablet,delayed release 81 mg PO DAILY 03/31/23 [History Last Taken 06/21/23] atorvastatin 40 mg tablet 40 mg PO DAILY 03/31/23 [History Last Taken Unknown] clopidogrel 75 mg tablet 75 mg PO DAILY 03/31/23 [History Last Taken 06/21/23] fluticasone fur. 200 mcg-umeclid 62.5 mcg-vilant 25 mcg inhalat.powder (Trelegy Ellipta) 1 inh inhalation Q24H 03/31/23 [History Last Taken Unknown] furosemide 40 mg tablet 40 mg PO DAILY 03/31/23 [History Last Taken Unknown] gabapentin 300 mg capsule 300 mg PO 4X/DAY 03/31/23 [History Last Taken 06/22/23] isosorbide mononitrate 30 mg tablet,extended release 24 hr 30 mg PO DAILY 03/31/23 [History Last Taken 06/22/23] metformin 500 mg tablet 500 mg PO DAILY 03/31/23 [History Last Taken Unknown] ranolazine 500 mg tablet,extended release,12 hr 500 mg PO BID 03/31/23 [History Last Taken Unknown] sacubitril 49 mg-valsartan 51 mg tablet (Entresto) 1 tab PO BID 03/31/23 [History Last Taken Unknown] sucralfate 1 gram tablet 1 g PO 4X/DAY 03/31/23 [History Last Taken Unknown] acetaminophen 500 mg capsule 1,000 mg (2 x 500 mg) PO Q8H PRN PRN pain #90 caps 04/04/23 [Rx Last Taken Unknown] insulin glargine 100 unit/mL subcutaneous solution 30 unit (0.3 mL) subcut BID #10 mL 04/04/23 [Rx Last Taken Unknown] insulin lispro 100 unit/mL subcutaneous pen (Humalog KwikPen (U-100) Insulin) 10 unit (0.1 mL) subcut TID #15 mL 04/04/23 [Rx Last Taken Unknown] albuterol sulfate 2.5 mg/3 mL (0.083 %) solution for nebulization 2.5 mg inhalation Q8H PRN PRN shortness of breath or wheezing 06/21/23 [History Last Taken Unknown] albuterol sulfate 90 mcg/actuation aerosol inhaler 2 inh inhalation PRN PRN shortness of breath or wheezing 06/21/23 [History Last Taken Unknown] cyclobenzaprine 10 mg tablet 10 mg PO TID PRN muscle spasm 06/21/23 [History Last Taken Unknown] famotidine 20 mg tablet 20 mg PO BID 06/21/23 [History Last Taken 06/22/23] losartan 50 mg tablet 50 mg PO 1500 06/21/23 [History Last Taken 06/22/23] ondansetron 4 mg disintegrating tablet 4 mg PO Q8H PRN nausea and vomiting 06/21/23 [History Last Taken Unknown] pantoprazole 40 mg tablet,delayed release 40 mg PO DAILY 06/21/23 [History Last Taken 06/22/23] ibuprofen 800 mg tablet 800 mg PO TID PRN pain #30 tabs 06/22/23 [Rx Last Taken Unknown] ondansetron 4 mg disintegrating tablet 4 mg PO Q8H PRN PRN Nausea #10 tabs 06/29/23 [Rx Last Taken Unknown] cephalexin 500 mg capsule 500 mg PO Q6 #40 CAPSULES 07/14/23 [Rx Last Taken Unknown] metoprolol succinate 25 mg tablet,extended release 24 hr 25 mg PO Q12H 09/02/23 [History Last Taken Unknown] milnacipran 100 mg tablet (Savella) 100 mg PO QHS 09/02/23 [History Last Taken Unknown] Allergy/AdvReac Type Severity Reaction Status Date / Time morphine Allergy Severe Anaphylaxis Verified 09/05/23 20:07 sumatriptan [From Imitrex] Allergy Severe Other Verified 09/05/23 20:07 acetarsol Allergy Intermediate Rash Verified 09/05/23 20:07 chlorpromazine Allergy Intermediate Other Verified 09/05/23 20:07 [From Thorazine] nalbuphine Allergy Intermediate Shortness Verified 09/05/23 20:07 of breath prasterone (DHEA) [From DHEA] Allergy Intermediate Shortness Verified 09/05/23 20:07 of breath prednisone Allergy Intermediate Other Verified 09/05/23 20:07 prochlorperazine Allergy Intermediate Shortness Verified 09/05/23 20:07 of breath Iodinated Contrast Media AdvReac Mild Hives Verified 09/05/23 20:07 iodine AdvReac Mild Hives Verified 09/05/23 20:07 ketorolac [From Toradol] AdvReac Mild Nausea Verified 09/05/23 20:07 tramadol AdvReac Mild Vomiting Verified 09/05/23 20:07 adhesive tape [paper tape] AdvReac Other Verified 09/05/23 20:07 Surgical History History of cardiac catheterization History of carpal tunnel surgery of left wrist History of carpal tunnel surgery of right wrist Hx of heart artery stent Hx of left knee surgery Hx of single vessel coronary artery bypass Hx of tonsillectomy Social History Smoking Status: Current every day smoker tobacco type: cigarettes ROS ROS ED Constitutional Constitutional ED: Reports chills; Denies fever(s) Eyes Eyes: Denies change in vision or discharge from eye(s) ENT ENT ED: Denies discharge from eye(s), rhinorrhea or sore throat Cardiovascular Cardiovascular: Denies chest pain or palpitations Respiratory/Chest Respiratory/Chest: Denies cough or dyspnea Gastrointestinal Gastrointestinal: Reports abdominal pain and nausea; Denies diarrhea or vomiting Genitourinary Genitourinary ED: Denies dysuria Musculoskeletal Musculoskeletal: Denies back pain or extremity pain Integumentary Denies Abrasions or rash Neurologic Neurologic: Denies headache(s) or weakness Psychiatric Psychiatric: Denies anxiety or depression Allergic/Immunologic Allergic/Immunologic ED: Denies lip swelling or urticaria EXAM Physical Exam Const Vital Signs: 09/05/23 20:05 Temperature 96.9 F L Temperature Source Temporal Pulse Rate 72 Respiratory Rate 15 Blood Pressure 153/78 H Blood Pressure Mean 103 Pulse Ox 99 Oxygen Delivery Method Room Air Positive well nourished and well developed General Appearance ED: well developed HEENT Reports moist mucous membranes Eyes EOMs intact bilaterally Chest Wall inspection of chest normal and palpation of chest normal Resp normal respiratory effort and clear to auscultation bilaterally Cardio regular rate and regular rhythm GI GI Narrative: Moderate tenderness in the left upper quadrant. No guarding or rebound. Hypoactive bowel sounds. Extremity normal to inspection Neuro oriented x3 and no sensory deficits noted Motor Exam: strength 5/5 throughout Psych mental status grossly normal Skin no rashes or lesions noted MDM MDM MDM Narrative Medical decision making narrative: IV line established. Labwork obtained to evaluate for leukocytosis, anemia, and electrolyte derangement. Patient given IV fluids along with Dilaudid and Zofran. CT flank obtained to evaluate for possible pancreatitis, cholecystitis, perforated ulcer. History & Record Review Discussion w/independent historian: Patient Additional record(s) reviewed:: Prior ED visit and Prior labs Lab Data Attestation: I reviewed the patient's lab results. Labs: Laboratory Results - last 24 hr 09/05/23 20:20 WBC 8.6 RBC 4.55 L Hgb 13.3 Hct 39.3 L MCV 86.4 MCH 29.2 MCHC 33.8 RDW Std Deviation 39.5 RDW Coeff of Simone 12.5 Plt Count 250 MPV 9.4 Immature Gran % (Auto) 0.300 Neut % (Auto) 70.6 H Lymph % (Auto) 15.[address] [place] % (Auto) 11.8 H Eos % (Auto) 0.6 Baso % (Auto) 0.8 Absolute Neuts (auto) 6.1 Absolute Lymphs (auto) 1.36 Nucleated RBC % 0 Sodium 130 L Potassium 3.7 Chloride 98 Carbon Dioxide 22.0 Anion Gap 10 BUN 25 H Creatinine 2.07 H Estim Creat Clear Calc 57.70 Est GFR (MDRD) Af Amer 46 L Est GFR (MDRD) Non-Af 38 L BUN/Creatinine Ratio 12.1 Glucose 522 H* Calcium 9.4 Total Bilirubin 0.80 Direct Bilirubin 0.20 AST 35 ALT 50 Alkaline Phosphatase 67 Troponin I High Sens 12 Total Protein 7.4 Albumin 2.9 L Globulin 4.5 H Lipase 27 Radiography Diagnostic Testing: Clinical Impression(s) from Imaging Studies Abdomen/Pelvis CT 09/05/23 20:21 IMPRESSION: 1. Fatty liver. 2. Colonic diverticulosis without evidence of acute diverticulitis. Electronically Signed: Mychal Rothman DO at 21:09 EST , Treatment and Re-Evaluation :: CBC was normal white count 8.6 with normal differential. Hemoglobin is 13.3. Chemistry studies reveal a BUN of 25 and a creatinine of 2.07. This is consistent with his prior values. Glucose is elevated at 522. Sodium is 130, but corrected sodium is 137. LFTs and lipase are unremarkable. Troponin is normal at 12. EKG is sinus rhythm with no significant ischemia. He does have slight changes noted in lead III when compared to prior study, but no significant changes noted in [address] scan of the abdomen and pelvis obtained reveals fatty liver and chronic diverticulosis without evidence of diverticulitis. Patient is given a GI cocktail. After 1 L of IV fluids his blood sugar is improved to 388. At this time patient is still on Carafate and Protonix at home. He will be discharged home to continue these medications. I will refer him both to general surgery and GI locally so he can have repeat endoscopy studies done which she is due for. Return instructions provided. Discharge Plan Triage Chief Complaint: Abd Pain ED Provider: Juli Small Dx/Rx/DC Orders Clinical Impression: Abdominal pain Instructions: ED Epigastric Pain Uncertain Cause Prescriptions: No Action aspirin 81 mg tablet,delayed release (DR/EC) 81 mg PO DAILY Patient Comments: TAKE 1 TABLET BY MOUTH EVERY MORNING atorvastatin 40 mg tablet 40 mg PO DAILY Patient Comments: TAKE 1 TABLET BY MOUTH ONCE DAILY clopidogrel 75 mg tablet 75 mg PO DAILY Patient Comments: TAKE 1 TABLET BY MOUTH ONCE DAILY sucralfate 1 gram tablet 1 g PO 4X/DAY Patient Comments: TAKE 1 TABLET BY MOUTH FOUR TIMES DAILY Entresto 49-51 mg tablet 1 tab PO BID Patient Comments: TAKE 1 TABLET BY MOUTH TWICE DAILY ranolazine 500 mg tablet extended release 12 hr 500 mg PO BID Patient Comments: TAKE 1 TABLET BY MOUTH TWICE DAILY metformin 500 mg tablet 500 mg PO DAILY Patient Comments: TAKE 1 TABLET BY MOUTH ONCE DAILY WITH BREAKFAST isosorbide mononitrate 30 mg tablet extended release 24 hr 30 mg PO DAILY Patient Comments: TAKE 1 TABLET BY MOUTH ONCE DAILY gabapentin 300 mg capsule 300 mg PO 4X/DAY Patient Comments: TAKE 1 CAPSULE BY MOUTH THREE TIMES DAILY furosemide 40 mg tablet 40 mg PO DAILY Patient Comments: TAKE 1 TABLET BY MOUTH ONCE DAILY Trelegy Ellipta 200-62.5-25 mcg blister with device 1 inh INHALATION Q24H Patient Comments: INHALE 1 PUFF BY MOUTH ONCE DAILY DIRECTED insulin glargine 100 unit/mL solution 30 unit subcut BID Qty: 10 0RF insulin lispro [Humalog KwikPen Insulin] 100 unit/mL insulin pen 10 unit subcut TID Qty: 15 0RF acetaminophen 500 mg capsule 1,000 mg PO Q8H PRN PRN (Reason: pain) Qty: 90 0RF ondansetron 4 mg tablet,disintegrating 4 mg PO Q8H PRN PRN (Reason: Nausea) Qty: 10 0RF cephalexin [cephalexin] 500 mg capsule 500 mg PO Q6 Qty: 40 0RF famotidine 20 mg tablet 20 mg PO BID Patient Comments: TAKE 1 TABLET BY MOUTH TWICE DAILY pantoprazole 40 mg tablet,delayed release (DR/EC) 40 mg PO DAILY Patient Comments: TAKE 1 TABLET BY MOUTH ONCE DAILY albuterol sulfate 90 mcg/actuation HFA aerosol inhaler 2 inh INHALATION PRN PRN (Reason: shortness of breath or wheezing) Patient Comments: INHALE 2 PUFFS BY MOUTH as instructed EVERY 4 HOURS NEEDED for FOR WHEEZING, SHORTNESS OF BREATH albuterol sulfate 2.5 mg /3 mL (0.083 %) solution for nebulization 2.5 mg inhalation Q8H PRN PRN (Reason: shortness of breath or wheezing) Patient Comments: INHALE ONE 3ML VIAL PER NEBULIZER THREE TIMES DAILY NEEDED FOR WHEEZING OR SHORTNESS OF BREATH INHALING OVER 5 TO 15 MINUTES losartan 50 mg tablet 50 mg PO 1500 Patient Comments: TAKE 1 TABLET BY MOUTH EVERY DAY ondansetron 4 mg tablet,disintegrating 4 mg PO Q8H PRN (Reason: nausea and vomiting) Patient Comments: DISSOLVE 1 (ONE) TABLET BY MOUTH EVERY 6 HOURS NEEDED FOR NAUSEA cyclobenzaprine 10 mg tablet 10 mg PO TID PRN (Reason: muscle spasm) ibuprofen 800 mg tablet 800 mg PO TID PRN (Reason: pain) Qty: 30 0RF metoprolol succinate 25 mg tablet extended release 24 hr 25 mg PO Q12H Patient Comments: TAKE 1 TABLET BY MOUTH TWICE DAILY Savella 100 mg tablet 100 mg PO QHS Patient Comments: TAKE 1/2 (ONE-HALF) OF A TABLET BY MOUTH EVERY NIGHT AT BEDTIME FOR 7 DAYS, then TAKE 1/2 (ONE-HALF) OF A TABLET BY MOUTH TWICE DAILY FOR 21 DAYS Primary Care Provider: Connor Nazario Referrals: Rg Pfeiffer DO [Med Staff - Active Staff] - As soon as possible Connor Nazario MD [Primary Care Provider] - Traci Womack MD [Med Staff - Active Staff] - As soon as possible Disposition Disposition: Home, Self Care
[2023-09-05 20:32] LABS: Absolute Lymphocyte Count 1.36 X10^3/uL (0.83-4.51); Absolute Neutrophil Count 6.1 X10^3/uL (2.0-7.7); Basophil# 0.07 X10^3/uL; Basophil% 0.8 % (0-1); Eosinophil# 0.05 X10^3/uL; Eosinophils% 0.6 % (0-5); Hematocrit 39.3 % (40-54); Hemoglobin 13.3 g/dL (13.0-16.5); Lymphocyte # 1.36 X10^3/ul (0.83-4.51); Lymphocyte % 15.9 % (19-41); Mean Corp Hgb Conc 33.8 g/dL (32-36); Mean Corpuscular Hgb 29.2 pg (27.0-32.0); Mean Corpuscular Volume 86.4 fL (80-94); Mean Platelet Vol. 9.4 fl (6.2-12.0); Monocyte# 1.01 X10^3/uL; Monocyte% 11.8 % (0-10); NRBC Flagged by Analyzer 0 % (0-5); Neutrophil # 6.06 X10^3/uL (2.7-7.7); Neutrophil % 70.6 % (47-70); Platelet Count 250 K/mm3 (150-450); RBC Distribution Width CV 12.5 % (11.6-14.6); RBC Distribution Width SD 39.5 fl (35.1-43.9); Red Blood Count 4.55 M/mm3 (4.6-6.2); White Blood Count 8.6 K/mm3 (4.4-11.0)
[2023-09-05] MEDS: Ondansetron 4 MG/2 ML Vial IV (20:34)
[2023-09-05] MEDS: HYDROmorphone 1 MG/ML Syringe IV (20:35)
[2023-09-05] MEDS: 0.9% Normal Saline (1000mL) 1,000 ML 1000 ML IV (20:36)
[2023-09-05 21:01] LABS: AST(SGOT) 35 U/L (15-37); Alanine Aminotransfer ALT/SGPT 50 U/L (16-61); Albumin, Serum 2.9 g/dL (3.2-5.0); Alkaline Phosphatase 67 U/L (45-117); Anion Gap 10 (5-15); BUN 25 mg/dL (7-18); BUN/Creat Ratio 12.1 RATIO (10-20); Calcium,Total 9.4 mg/dL (8.5-10.1); Chloride 98 mmol/L (98-107); Creatinine, Serum 2.07 mg/dL (0.70-1.30); EST Glomerular Filtration Rate 38 mL/min (>60); Est Glom Filt Rate - Afr Amer 46 mL/min (>60); Globulin 4.5 g/dL (2.2-4.2); Glucose 522 mg/dL (74-106); Lipase 27 U/L (13-75); Potassium 3.7 mmol/L (3.5-5.1); Protein, Total 7.4 g/dL (6.4-8.2); Sodium Level 130 mmol/L (136-145)
[2023-09-05 21:03] LABS: Troponin-I HS 12 pg/mL (3.0-78.0)
[2023-09-05] MEDS: Mag Hydrox/Al Hydrox/Simeth 30 ML UDC PO (21:47)
[2023-09-05] MEDS: HYDROmorphone 0.5 MG/0.5 ML SYRINGE IV (21:49)
[2023-09-05 22:24] VITALS: BP 120/63; PULSE 67; RESP 12; TEMP 36.7; O2SAT 100
[2023-09-05 22:28] LABS: Bedside Glucose 388 mg/dL (74-106)
== END 2023-09-05 22:26 | disposition home or self-care (01) ==
PROVIDERS: Emergency Provider Emergency Medicine; Visit Provider Emergency Medicine
DX: R10.9 Unspecified abdominal pain (principal); J44.9 Chronic obstructive pulmonary disease, unspecified; E11.42 Type 2 diabetes mellitus with diabetic polyneuropathy; Z79.4 Long term (current) use of insulin; R11.0 Nausea; I10 Essential (primary) hypertension; K21.9 Gastro-esophageal reflux disease without esophagitis; F17.210 Nicotine dependence, cigarettes, uncomplicated; Z79.82 Long term (current) use of aspirin; Z79.84 Long term (current) use of oral hypoglycemic drugs; Z79.02 Long term (current) use of antithrombotics/antiplatelets; Z79.899 Other long term (current) drug therapy; Z95.1 Presence of aortocoronary bypass graft
CPT/HCPCS: 74176; 80048; 80076; 82962; 83690; 84484; 85025; 93005; 96361; 96374; 96375; 96376; 99285; J7030; A4216; J2405

== ENCOUNTER → 2023-09-12 | Outpatient (CLI) | payer MEDICARE, MEDICAID, SELFPAY ==
--- NOTE | 2023-09-12 12:41 | MRI_ITS ---
STUDY: MRI RIGHT FOREFOOT REASON FOR EXAM: Male, 42 years old. Acute osteomyelitis right foot. TECHNIQUE: Standardized fat and water weighted pulse sequences were obtained in all 3 orthogonal planes. COMPARISON: Right foot radiographs dated 06/22/2023 and 09/01/2023. FINDINGS: There is subcutaneous soft tissue swelling surrounding the great toe and extending along the dorsum of the foot. There is no discrete fluid collection or drainable abscess. Again seen is an osteotomy of the head of the first proximal phalanx. There is abnormal marrow signal in the shaft of the first proximal phalanx (sagittal STIR series 8 images 7-9), concerning for developing osteomyelitis. Normal bone marrow of the remainder of the phalanges, metatarsals, and visualized distal tarsal row, without fracture, periostitis, erosions or reactive bone edema. Normal sesamoids without sesamoiditis, fracture or avascular necrosis. Normal joint spaces, without effusions. There are no extraarticular fluid collections. Normal visualized Chopart and Lisfranc joints and normal Lisfranc ligament. Normal intermetatarsal spaces without intermetatarsal (Weiner) neuroma or bursitis. Normal visualized extensor digitorum longus, extensor hallucis longus, flexor digitorum brevis and flexor hallucis longus tendons. Normal visualized plantar fascia without fasciitis, fibromatosis or tear. There is atrophy and fatty infiltration of the intrinsic muscles of the foot. MRI/Lower Ext/No Jt/w/o IMPRESSION: Osteotomy of the head of the first proximal phalanx. Abnormal marrow signal in the shaft of the first proximal phalanx, concerning for developing osteomyelitis. Subcutaneous soft tissue swelling surrounding the great toe and extending along the dorsum of the foot. No discrete fluid collection or drainable abscess. Atrophy and fatty infiltration of the intrinsic muscles of the foot. Electronically Signed: Warren Diaz MD at 14:25 EST ,
== END | disposition home or self-care (01) ==
LOC: MRI 12:33
PROVIDERS: Referring Provider Podiatrist; Visit Provider Podiatrist
DX: M86.171 Other acute osteomyelitis, right ankle and foot (principal)
CPT/HCPCS: 73718

== ENCOUNTER 2023-09-14 14:59 | Inpatient (IN) | payer MEDICARE, MEDICAID, SELFPAY ==
[2023-09-14] VITALS (9 sets, daily range): BP systolic 123–163; BP diastolic 66–94; PULSE 63–76; RESP 12–18; TEMP 36.4–37; O2SAT 95–100; BMI 35.3; BMI 35.1
[2023-09-14] MEDS: HYDROmorphone 1 MG/ML Syringe IV (17:13)
--- NOTE | 2023-09-14 17:20 | RAD_ITS ---
STUDY: X-RAY - LEFT FOOT CLINICAL: Male, 42 years old. pain- left heal, right great toe TECHNIQUE: 3 view(s) of the foot. COMPARISON: 07/14/2023. FINDINGS: No change or acute abnormality seen. Stable appearance of previous amputation of the first digit through the neck of the first metatarsal. 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 No acute fracture. No dislocation. No current focal destructive lesion of the bones. Normal visualized subtalar, talonavicular, calcaneocuboid, tarsal and tarsometatarsal articulations. Normal third through fifth metatarsophalangeal joints. Normal interphalangeal joints and phalanges of the lesser toes. The soft tissue structures are unremarkable. RAD/Foot min 3 Views IMPRESSION: No definite acute abnormality. Electronically Signed: Raymon Gould MD at 18:00 EST ,
--- NOTE | 2023-09-14 17:20 | RAD_ITS ---
STUDY: X-RAY - RIGHT FOOT CLINICAL: Male, 42 years old. PAIN TECHNIQUE: 3 view(s) of the foot. COMPARISON: 09/01/2023. FINDINGS: Stable appearance of previous amputation of the head of the first proximal phalanx. No acute fracture, dislocation, or focal destructive lesion of the bones. Normal talus, calcaneus, and tarsal bones. Normal visualized subtalar, talonavicular, calcaneocuboid, tarsal and tarsometatarsal articulations. Normal metatarsi. Normal metatarsophalangeal joint of the great toe. Normal tibial and fibular sesamoid bones. Normal interphalangeal joint of the great toe. Normal phalanges of the great toe. Normal second through fifth metatarsophalangeal joints. Normal interphalangeal joints and phalanges of the lesser toes. The soft tissue structures are unremarkable. RAD/Foot min 3 Views IMPRESSION: No definite acute or significant abnormality seen. Electronically Signed: Raymon Gould MD at 18:01 EST ,
--- NOTE | 2023-09-14 17:27 | ED.VIS.LOWEX ---
HPI History of Present Illness Chief Complaint: Lower Extremity Injury Informant: patient Narrative Narrative: Patient is a 42-year-old male with history of type 2 diabetes mellitus with polyneuropathy and chronic wounds to his foot with prior left great toe amputation presenting with worsening foot pain. He follows with podiatry, Dr. Saxena. Patient reports the past 2 weeks has had worsening pain of his right great toe production and MRI of it yesterday. He states it continues to be more painful and swollen. He is also been having intermittent drainage from his left heel. Is not entirely sure where it is coming from but he sees his drainage on his sock. He has been having subjective fevers and chills. Has been having nausea but attributes that to the pain. Has been taking Tylenol as well as gabapentin and is on a Butrans patch as well for pain. Denies any new injury. Is currently on antibiotics and is not sure which one it is. Outpatient MRI from 09/12/2023 reviewed which is concerning for developing osteomyelitis of the first proximal phalanx and surrounding subcutaneous of tissue swelling of the great toe extending on the dorsum of the foot with no discrete fluid collection of the right foot. [facility] Medical History Amputation of left great toe Anxiety Arthritis Back pain Cardiology follow-up encounter COPD (chronic obstructive pulmonary disease) Coronary artery disease Diabetic foot Dietary restriction DVT (deep venous thrombosis) Failure of outpatient treatment Fatty liver Gastric reflux Hallux rigidus of right foot Hammertoe of left foot Heart attack High cholesterol History of atrial fibrillation History of CHF (congestive heart failure) History of echocardiogram History of edema History of pain when walking History of stress test History of ulceration Hypertension Insulin dependent diabetes mellitus Leg cramps Marijuana use Metatarsal deformity Migraine headache MRSA infection Other hammer toe(s) (acquired), left foot Peripheral vascular disease, unspecified Restless legs Short Achilles tendon (acquired), left ankle Shortness of breath on exertion Smoker Substance abuse Syncope TIA (transient ischemic attack) Type 2 diabetes mellitus with diabetic polyneuropathy Uncontrolled diabetes mellitus Wears glasses Home Medications aspirin 81 mg tablet,delayed release 81 mg PO DAILY 03/31/23 [History Last Taken 09/14/23] atorvastatin 40 mg tablet 40 mg PO DAILY 03/31/23 [History Last Taken 09/14/23] clopidogrel 75 mg tablet 75 mg PO DAILY 03/31/23 [History Last Taken 09/14/23] fluticasone fur. 200 mcg-umeclid 62.5 mcg-vilant 25 mcg inhalat.powder (Trelegy Ellipta) 1 inh inhalation Q24H 03/31/23 [History Last Taken 09/14/23] furosemide 40 mg tablet 40 mg PO DAILY 03/31/23 [History Last Taken 09/14/23] gabapentin 300 mg capsule 300 mg PO 4X/DAY 03/31/23 [History Last Taken 09/14/23] isosorbide mononitrate 30 mg tablet,extended release 24 hr 30 mg PO DAILY 03/31/23 [History Last Taken 09/14/23] metformin 500 mg tablet 500 mg PO DAILY 03/31/23 [History Last Taken Unknown] sacubitril 49 mg-valsartan 51 mg tablet (Entresto) 1 tab PO BID 03/31/23 [History Last Taken 09/14/23] sucralfate 1 gram tablet 1 g PO 4X/DAY 03/31/23 [History Last Taken 09/14/23] acetaminophen 500 mg capsule 1,000 mg (2 x 500 mg) PO Q8H PRN PRN pain #90 caps 04/04/23 [Rx Last Taken 09/14/23] insulin glargine 100 unit/mL subcutaneous solution 30 unit (0.3 mL) subcut BID #10 mL 04/04/23 [Rx Last Taken 09/14/23] insulin lispro 100 unit/mL subcutaneous pen (Humalog KwikPen (U-100) Insulin) 10 unit (0.1 mL) subcut TID #15 mL 04/04/23 [Rx Last Taken 09/14/23] albuterol sulfate 2.5 mg/3 mL (0.083 %) solution for nebulization 2.5 mg inhalation Q8H PRN PRN shortness of breath or wheezing 06/21/23 [History Last Taken 09/05/23] albuterol sulfate 90 mcg/actuation aerosol inhaler 2 inh inhalation PRN PRN shortness of breath or wheezing 06/21/23 [History Last Taken 09/14/23] losartan 50 mg tablet 50 mg PO 1500 06/21/23 [History Last Taken 09/14/23] pantoprazole 40 mg tablet,delayed release 40 mg PO DAILY 06/21/23 [History Last Taken 09/14/23] metoprolol succinate 25 mg tablet,extended release 24 hr 25 mg PO Q12H 09/02/23 [History Last Taken 09/14/23] buprenorphine 8 mg-naloxone 2 mg sublingual film 1 film sublingual BID 09/14/23 [History Last Taken 09/12/23] ciprofloxacin HCl 750 mg tablet 750 mg PO Q12H 09/14/23 [History Last Taken 09/14/23] doxycycline monohydrate 100 mg capsule 100 mg PO Q12H 09/14/23 [History Last Taken 09/14/23] Allergy/AdvReac Type Severity Reaction Status Date / Time morphine Allergy Severe Anaphylaxis Verified 09/14/23 15:01 sumatriptan [From Imitrex] Allergy Severe Other Verified 09/14/23 15:01 acetarsol Allergy Intermediate Rash Verified 09/14/23 15:01 chlorpromazine Allergy Intermediate Other Verified 09/14/23 15:01 [From Thorazine] nalbuphine Allergy Intermediate Shortness Verified 09/14/23 15:01 of breath prasterone (DHEA) [From DHEA] Allergy Intermediate Shortness Verified 09/14/23 15:01 of breath prednisone Allergy Intermediate Other Verified 09/14/23 15:01 prochlorperazine Allergy Intermediate Shortness Verified 09/14/23 15:01 of breath Iodinated Contrast Media AdvReac Mild Hives Verified 09/14/23 15:01 iodine AdvReac Mild Hives Verified 09/14/23 15:01 ketorolac [From Toradol] AdvReac Mild Nausea Verified 09/14/23 15:01 tramadol AdvReac Mild Vomiting Verified 09/14/23 15:01 adhesive tape [paper tape] AdvReac Other Verified 09/14/23 15:01 Family History (Updated 09/14/23 @ 21:[address] Magali Jiménez MD) Mother Hypertension HLD (hyperlipidemia) Heart disease Father Hypertension HLD (hyperlipidemia) Heart disease Myocardial infarction CAD (coronary artery disease) Surgical History History of cardiac catheterization History of carpal tunnel surgery of left wrist History of carpal tunnel surgery of right wrist Hx of heart artery stent Hx of left knee surgery Hx of single vessel coronary artery bypass Hx of tonsillectomy Social History (Updated 09/14/23 @ 21:[address] Magali Jiménez MD) household members: none Smoking Status: Current every day smoker tobacco type: cigarettes Smoking packs per day: 0.5 Smoking cigarettes per day: 10.0 alcohol intake: never substance use type: does not use ROS ROS ED Constitutional Constitutional ED: Reports chills, fever(s) and subjective Eyes Eyes: Denies change in vision Cardiovascular Cardiovascular: Denies chest pain Respiratory/Chest Respiratory/Chest: Denies cough Gastrointestinal Gastrointestinal: Reports nausea; Denies abdominal pain or vomiting Musculoskeletal Musculoskeletal: Reports other Details: Worsening right great toe pain, left heel pain. Chronic neuropathy Integumentary Reports rash Neurologic Neurologic: Reports paresthesias; Denies headache(s) or weakness Hematologic/Lymphatic Hematologic/Lymphatic: Denies easy bleeding or easy bruising EXAM Physical Exam Const Vital Signs: 09/14/23 14:59 09/14/23 15:01 09/14/23 17:01 Temperature 97.6 F L Temperature Source Temporal Pulse Rate 63 69 70 Respiratory Rate 16 18 14 Blood Pressure 163/76 H 155/79 H 142/66 H Blood Pressure Mean 105 104 91 Pulse Ox 98 99 95 Oxygen Delivery Method Room Air Room Air Room Air 09/14/23 18:04 09/14/23 20:01 09/14/23 20:00 Temperature 98.6 F Temperature Source Pulse Rate 67 76 64 Respiratory Rate 14 12 12 Blood Pressure 140/77 H 123/79 H Blood Pressure Mean 98 93 Pulse Ox 99 100 100 Oxygen Delivery Method Room Air Room Air Positive well nourished and well developed General Appearance ED: well developed and NAD HEENT Reports moist mucous membranes Eyes PERRL Chest Wall inspection of chest normal Resp normal respiratory effort and clear to auscultation bilaterally Cardio regular rate, regular rhythm and no murmurs Cardio Narrative: 2+ DP pulses GI non-tender and non-distended Extremity Extremity Narrative: Edema with pain with palpation and range of motion of the right great toe. No associated erythema at this time. No crepitus appreciated of the bilateral lower extremities. Mild edema of the left lower extremity appreciated, nonpitting. Prior left great toe amputation. Tenderness palpation of the left heel. No associated warmth. Patient does have a diffuse tenderness throughout his lower extremities. Neuro oriented x3 and moves all extremities Sensorium / Orientation: alert Motor Exam: Negative for general weakness Psych mental status grossly normal Skin no wounds Rashes: no rashes MDM MDM MDM Narrative Medical decision making narrative: Patient is a 42-year-old male with history of diabetes, polyneuropathy and presenting with worsening foot pain. Patient peers nontoxic. He reports he has been having fever that is subjective and chills. Concern for osteomyelitis, occult infection versus other source of infection. Workup including CBC, BMP, CRP and ESR is obtained. Patient does have elevation of the CRP and ESR however it is near his baseline. Is not have an acute leukocytosis. X-rays reviewed by myself as well as radiology do not show any acute fracture or other acute abnormalities. Patient is given 1 mg IV Dilaudid for pain control. 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 Saxena. Given the worsening pain he is agreeable with admission for IV antibiotics as patient could have worsening diabetic foot infection. Addition patient is profoundly hyperglycemic with a glucose of 728. He has baseline elevation of his creatinine of 1.75. He has pseudohyponatremia with a sodium of 128. He has a normal anion gap and I do not believe he is in DKA. He is given 15 units of insulin in the emergency room for his hyperglycemia after 1 L of IV fluids. Started on IV Rocephin and vancomycin. Patient does mention to me that he stopped taking his buprenorphine 8 mg patch week ago because he was having pain in his left upper quadrant and thought it was related to that. Not sure what to make of that symptom but some of his increased pain could be from the fact that he stopped the buprenorphine. Case is discussed with admitting physician, Dr. Jiménez. History & Record Review Additional record(s) reviewed:: Prior outpatient record (MRI from 09/11-possible osteomyelitis of the right great toe proximal phalanx, surrounding soft tissue swelling) Lab Data Attestation: I reviewed the patient's lab results. Labs: Laboratory Results - last 24 hr 09/14/23 09/14/23 17:20 20:14 WBC 7.2 RBC 4.14 L Hgb 12.1 L Hct 36.8 L MCV 88.9 MCH 29.2 MCHC 32.9 RDW Std Deviation 40.1 RDW Coeff of Simone 12.4 Plt Count 303 MPV 9.0 ESR 44 H Sodium 128 L Potassium 4.4 Chloride 95 L Carbon Dioxide 25.0 Anion Gap 8 BUN 26 H Creatinine 1.75 H Estim Creat Clear Calc 67.46 Est GFR (MDRD) Af Amer 55 L Est GFR (MDRD) Non-Af 46 L BUN/Creatinine Ratio 14.9 Glucose 728 H* Calcium 10.1 Magnesium 1.8 C-React Prot Ext Range 7.29 H POC Glucose > 500 H* ABG Data ABG results: ABG 09/14/23 18:18 Specimen Type MONICA Sample Site Not entered VBG pH 7.34 VBG pO2 39 VBG HCO3 25 VBG Total CO2 27 VBG O2 Sat (Calc) 70 VBG Base Excess -1 POC Mix VBG pCO2 Pt Tmp 47.0 O2 Delivery Device Not entered Radiography Diagnostic Testing: Clinical Impression(s) from Imaging Studies Foot X-Ray 09/14/23 17:20 IMPRESSION: No definite acute abnormality. Electronically Signed: Raymon Gould MD at 18:00 EST , Foot X-Ray 09/14/23 17:20 IMPRESSION: No definite acute or significant abnormality seen. Electronically Signed: Raymon Gould MD at 18:01 EST , Management Discussion w/another healthcare provider: Hospitalist and Recycling Director Discharge Plan Dx/Rx/DC Orders Clinical Impression: Type 2 diabetes mellitus with diabetic polyneuropathy, Hyperglycemia, Acute osteomyelitis Disposition Disposition: Acute Care Hospital [facility] Discharge Date/Time: 09/14/23 20:51
[2023-09-14 17:30] LABS: Hematocrit 36.8 % (40-54); Hemoglobin 12.1 g/dL (13.0-16.5); Mean Corp Hgb Conc 32.9 g/dL (32-36); Mean Corpuscular Hgb 29.2 pg (27.0-32.0); Mean Corpuscular Volume 88.9 fL (80-94); Platelet Count 303 K/mm3 (150-450); RBC Distribution Width CV 12.4 % (11.6-14.6); RBC Distribution Width SD 40.1 fl (35.1-43.9); Red Blood Count 4.14 M/mm3 (4.6-6.2); White Blood Count 7.2 K/mm3 (4.4-11.0)
[2023-09-14 17:38] LABS: Erythrocyte Sedimentation Rate 44 mm/hr (0-20)
[2023-09-14 17:55] LABS: Anion Gap 8 (5-15); BUN 26 mg/dL (7-18); BUN/Creat Ratio 14.9 RATIO (10-20); CRP 7.29 mg/L (0.0-3.0); Calcium,Total 10.1 mg/dL (8.5-10.1); Chloride 95 mmol/L (98-107); Creatinine, Serum 1.75 mg/dL (0.70-1.30); EST Glomerular Filtration Rate 46 mL/min (>60); Est Glom Filt Rate - Afr Amer 55 mL/min (>60); Estimated Creatinine Clearance 67.46 ml/min; Glucose 728 mg/dL (74-106); Potassium 4.4 mmol/L (3.5-5.1); Sodium Level 128 mmol/L (136-145)
[2023-09-14] MEDS: 0.9% Normal Saline (1000mL) 1,000 ML 999 ML IV (18:03)
[2023-09-14 18:23] LABS: Blood Gas Specimen Type VEN; O2 Delivery Device Not entered; SITE Not entered; VBG BASE EXCESS -1 mmol/L (-1.0-3.5); VBG Bicarbonate 25 mmol/L (22-26); VBG PO2 39 mmHg (25-40); VBG SO2 70 % (50-70); VBG TCO2 27 mmol/L (23-33); VBG pH 7.34 (7.32-7.42)
[2023-09-14] MEDS: oxyCODONE 5 MG Tablet PO (20:24)
--- NOTE | 2023-09-14 20:25 | PCM.HP.STD ---
HPI - General General Date of Admission: 09/14/23 Date of Service: 09/14/23 Chief Complaint: Worsening pain to R foot pain HPI Narrative The patient is a 42 y/o M w/ PMHx: Chart reported HF unclear type, Chronic anemia, Hx VTE, CAD s/p CABG x 1 and PCI, COPD, Anxiety and Depression, GERD, PAF, HTN, HLD, Hx Substance abuse, Hx TIA, Tobacco use, RLS, PVD, Diabetes mellitus type II poorly controlled with diabetic foot wound history who presents to the [facility] ED on 09/14/23 with history of chronic diabetic foot wounds with prior left great toe amputation with worsening foot pain following with Dr. 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 however given MRI 09/12/2023 demonstrated concerning findings for developing osteomyelitis of the first proximal phalanx and surrounding subcutaneous tissue of the great toe extending on the dorsum of the right foot with no discrete collection prompted referral to the ED for evaluation Workup in the ED included T98.6, heart rate 76, BP 123/79, respiratory rate 12, 100% on room air, CBC with WC 7.12, hemoglobin 12.1, MCV 88.9, platelet 303 without differential performed, VBG unremarkable, ESR 44, CRP 7.29, BMP with sodium 128, chloride 95, BUN/creatinine 26/1.75, glucose 728, plain film of the left foot with no definitive acute abnormality, plain film of the right foot with no definitive acute abnormality. In the ED patient ministered 1 L normal saline, Dilaudid 1 mg IV x 1, oxycodone 5 mg p.o. x 1, IV Zosyn and IV vancomycin therapy. [facility] Medical History Amputation of left great toe Anxiety Arthritis Back pain Cardiology follow-up encounter COPD (chronic obstructive pulmonary disease) Coronary artery disease Diabetic foot Dietary restriction DVT (deep venous thrombosis) Failure of outpatient treatment Fatty liver Gastric reflux Hallux rigidus of right foot Hammertoe of left foot Heart attack High cholesterol History of atrial fibrillation History of CHF (congestive heart failure) History of echocardiogram History of edema History of pain when walking History of stress test History of ulceration Hypertension Insulin dependent diabetes mellitus Leg cramps Marijuana use Metatarsal deformity Migraine headache MRSA infection Other hammer toe(s) (acquired), left foot Peripheral vascular disease, unspecified Restless legs Short Achilles tendon (acquired), left ankle Shortness of breath on exertion Smoker Substance abuse Syncope TIA (transient ischemic attack) Type 2 diabetes mellitus with diabetic polyneuropathy Uncontrolled diabetes mellitus Wears glasses Home Medications aspirin 81 mg tablet,delayed release 81 mg PO DAILY 03/31/23 [History Last Taken 09/14/23] atorvastatin 40 mg tablet 40 mg PO DAILY 03/31/23 [History Last Taken 09/14/23] clopidogrel 75 mg tablet 75 mg PO DAILY 03/31/23 [History Last Taken 09/14/23] fluticasone fur. 200 mcg-umeclid 62.5 mcg-vilant 25 mcg inhalat.powder (Trelegy Ellipta) 1 inh inhalation Q24H 03/31/23 [History Last Taken 09/14/23] furosemide 40 mg tablet 40 mg PO DAILY 03/31/23 [History Last Taken 09/14/23] gabapentin 300 mg capsule 300 mg PO 4X/DAY 03/31/23 [History Last Taken 09/14/23] isosorbide mononitrate 30 mg tablet,extended release 24 hr 30 mg PO DAILY 03/31/23 [History Last Taken 09/14/23] metformin 500 mg tablet 500 mg PO DAILY 03/31/23 [History Last Taken Unknown] sacubitril 49 mg-valsartan 51 mg tablet (Entresto) 1 tab PO BID 03/31/23 [History Last Taken 09/14/23] sucralfate 1 gram tablet 1 g PO 4X/DAY 03/31/23 [History Last Taken 09/14/23] acetaminophen 500 mg capsule 1,000 mg (2 x 500 mg) PO Q8H PRN PRN pain #90 caps 04/04/23 [Rx Last Taken 09/14/23] insulin glargine 100 unit/mL subcutaneous solution 30 unit (0.3 mL) subcut BID #10 mL 04/04/23 [Rx Last Taken 09/14/23] insulin lispro 100 unit/mL subcutaneous pen (Humalog KwikPen (U-100) Insulin) 10 unit (0.1 mL) subcut TID #15 mL 04/04/23 [Rx Last Taken 09/14/23] albuterol sulfate 2.5 mg/3 mL (0.083 %) solution for nebulization 2.5 mg inhalation Q8H PRN PRN shortness of breath or wheezing 06/21/23 [History Last Taken 09/05/23] albuterol sulfate 90 mcg/actuation aerosol inhaler 2 inh inhalation PRN PRN shortness of breath or wheezing 06/21/23 [History Last Taken 09/14/23] losartan 50 mg tablet 50 mg PO 1500 06/21/23 [History Last Taken 09/14/23] pantoprazole 40 mg tablet,delayed release 40 mg PO DAILY 06/21/23 [History Last Taken 09/14/23] metoprolol succinate 25 mg tablet,extended release 24 hr 25 mg PO Q12H 09/02/23 [History Last Taken 09/14/23] buprenorphine 8 mg-naloxone 2 mg sublingual film 1 film sublingual BID 09/14/23 [History Last Taken 09/12/23] ciprofloxacin HCl 750 mg tablet 750 mg PO Q12H 09/14/23 [History Last Taken 09/14/23] doxycycline monohydrate 100 mg capsule 100 mg PO Q12H 09/14/23 [History Last Taken 09/14/23] Allergy/AdvReac Type Severity Reaction Status Date / Time morphine Allergy Severe Anaphylaxis Verified 09/14/23 15:01 sumatriptan [From Imitrex] Allergy Severe Other Verified 09/14/23 15:01 acetarsol Allergy Intermediate Rash Verified 09/14/23 15:01 chlorpromazine Allergy Intermediate Other Verified 09/14/23 15:01 [From Thorazine] nalbuphine Allergy Intermediate Shortness Verified 09/14/23 15:01 of breath prasterone (DHEA) [From DHEA] Allergy Intermediate Shortness Verified 09/14/23 15:01 of breath prednisone Allergy Intermediate Other Verified 09/14/23 15:01 prochlorperazine Allergy Intermediate Shortness Verified 09/14/23 15:01 of breath Iodinated Contrast Media AdvReac Mild Hives Verified 09/14/23 15:01 iodine AdvReac Mild Hives Verified 09/14/23 15:01 ketorolac [From Toradol] AdvReac Mild Nausea Verified 09/14/23 15:01 tramadol AdvReac Mild Vomiting Verified 09/14/23 15:01 adhesive tape [paper tape] AdvReac Other Verified 09/14/23 15:01 Family History (Updated 09/14/23 @ 21:[address] Magali Jiménez MD) Mother Hypertension HLD (hyperlipidemia) Heart disease Father Hypertension HLD (hyperlipidemia) Heart disease Myocardial infarction CAD (coronary artery disease) Surgical History History of cardiac catheterization History of carpal tunnel surgery of left wrist History of carpal tunnel surgery of right wrist Hx of heart artery stent Hx of left knee surgery Hx of single vessel coronary artery bypass Hx of tonsillectomy Social History (Updated 09/14/23 @ 21:[address] Magali Jiménez MD) household members: none Smoking Status: Current every day smoker tobacco type: cigarettes Smoking packs per day: 0.5 Smoking cigarettes per day: 10.0 alcohol intake: never substance use type: does not use ROS ROS Narrative Admission Review of Systems: CONSTITUTIONAL: No weight loss, + fever, chills, weakness or fatigue. HEENT: Eyes: No visual loss, blurred vision, double vision or yellow sclerae. Ears, Nose, Throat: No hearing loss, sneezing, congestion, runny nose or sore throat. SKIN: No rash or itching, lesions, wounds except + diabetic foot wounds with concern for drainage, swelling and erythema per patient. CARDIOVASCULAR: No chest pain, chest pressure or chest discomfort, palpitations, edema, orthopnea, syncopal events. RESPIRATORY: No shortness of breath, cough or sputum, wheezing, hemoptysis. GASTROINTESTINAL: + anorexia, nausea without emesis, previous abdominal cramping discomfort which seems to improve. No diarrhea, melena, BRBPR. GENITOURINARY: No dysuria, frequency, urgency or retention. NEUROLOGICAL: No headache, dizziness, syncope, paralysis, ataxia, numbness or tingling in the extremities, focal weakness, change in bowel or bladder control, seizure. MUSCULOSKELETAL: + muscle, back pain, joint pain or stiffness. HEMATOLOGIC: + Chronic anemia, easy bleeding/bruising. LYMPHATICS: No enlarged nodes. No history of splenectomy. PSYCHIATRIC: + History of anxiety and depression. ENDOCRINOLOGIC: No reports of sweating, cold or heat intolerance. No polyuria or polydipsia. ALLERGIES: + History of hives and anaphylaxis. Vital Signs Vital Signs Vital Signs: 09/14/23 14:59 09/14/23 15:01 09/14/23 17:01 Temperature 97.6 F L Temperature Source Temporal Pulse Rate 63 69 70 Respiratory Rate 16 18 14 Blood Pressure 163/76 H 155/79 H 142/66 H Blood Pressure Mean 105 104 91 Pulse Ox 98 99 95 Oxygen Delivery Method Room Air Room Air Room Air 09/14/23 18:04 09/14/23 20:01 09/14/23 20:00 Temperature 98.6 F Temperature Source Pulse Rate 67 76 64 Respiratory Rate 14 12 12 Blood Pressure 140/77 H 123/79 H Blood Pressure Mean 98 93 Pulse Ox 99 100 100 Oxygen Delivery Method Room Air Room Air Weight Weight: 239 lb 7 oz Body Mass Index (BMI) 35.3 Physical Exam Narrative Physical Examination: General: Awake, alert, oriented x 3 and cooperative, seated upright in the ED bed, appears calm, notes ongoing discomfort to his diabetic foot wound, right greater than left but does not overtly appear distressed or severely uncomfortable. Skin: Normal color, normal turgor, no icterus, no cyanosis with noted edematous primarily right great toe with no significant erythema and evidence of previous left foot toe amputations with tenderness at the heel and edema but again no specific drainage or erythema. HEENT: AT/NC, EOMI, PERRLA, mildly dry MM, no carotid bruits or JVD noted; however, thickened neck makes evaluation difficult. Lungs: CTA bilaterally, moderate effort, mild decrease BL bases, no rales, ronchi or wheezing. Heart: Currently regular rate and rhythm; no gallop, rub audible. Abdomen: Soft, obese, NTTP, ND, mildly hyperactive BS, no appreciated HSM. Extremities: No cyanosis, no clubbing, evidence of previous toe resection/foot interventions, see skin. Neurological: Patient awake, alert, oriented as noted, cognitive function intact; pupils equally reactive to light and accommodation, cranial nerves grossly normal, moving all 4 extremities, no focal deficits, strength moderately global decrease secondary to acute presentation complaints. Psychiatric: Affect appears normal, no acute evidence of depressive or anxiety feelings. Results Lab / Micro Data 09/14/23 17:20 09/14/23 17:20 Labs: Laboratory Results - last 24 hr 09/14/23 17:20: WBC 7.2, RBC 4.14 L, Hgb 12.1 L, Hct 36.8 L, MCV 88.9, MCH 29.2, MCHC 32.9, RDW Std Deviation 40.1, RDW Coeff of Simone 12.4, Plt Count 303, MPV 9.0, ESR 44 H, Sodium 128 L, Potassium 4.4, Chloride 95 L, Carbon Dioxide 25.0, Anion Gap 8, BUN 26 H, Creatinine 1.75 H, Estim Creat Clear Calc 67.46, Est GFR (MDRD) Af Amer 55 L, Est GFR (MDRD) Non-Af 46 L, BUN/Creatinine Ratio 14.9, Glucose 728 H*, Calcium 10.1, C-React Prot Ext Range 7.29 H ABG Data ABG results: ABG 09/14/23 18:18 Specimen Type MONICA Sample Site Not entered VBG pH 7.34 VBG pO2 39 VBG HCO3 25 VBG Total CO2 27 VBG O2 Sat (Calc) 70 VBG Base Excess -1 POC Mix VBG pCO2 Pt Tmp 47.0 O2 Delivery Device Not entered Imaging Radiology Impression Foot X-Ray 09/14/23 17:20 IMPRESSION: No definite acute abnormality. Electronically Signed: Raymon Gould MD at 18:00 EST , Foot X-Ray 09/14/23 17:20 IMPRESSION: No definite acute or significant abnormality seen. Electronically Signed: Raymon Gould MD at 18:01 EST , Assessment & Plan Assessment/Plan (1) Acute osteomyelitis: PLAN: Plan The patient is a 42 y/o M w/ PMHx: Chart reported HF unclear type, Chronic anemia, Hx VTE, CAD s/p CABG x 1 and PCI, COPD, Anxiety and Depression, GERD, PAF, HTN, HLD, Hx Substance abuse, Hx TIA, Tobacco use, RLS, PVD, Diabetes mellitus type II poorly controlled with diabetic foot wound history who presents to the [facility] ED on 09/14/23 with history of chronic diabetic foot wounds with prior left great toe amputation with worsening foot pain following with Dr. 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 #1. Bilateral Diabetic Foot Wounds with concern for R Foot Acute Osteomyelitis, possibly failed outpatient antibiotic therapy: Will admit to [facility], maintain on IV vancomycin and IV Zosyn, will obtain Wound Cx/Wound MRSA PCR if onset drainage; however, in the ED none noted, plan repeat CBC in AM, continue affected extremity elevation above heart when seated and in bed, monitor erythema outline with VS checks, podiatry consulted, continue aggressive fluids, infectious disease also consulted, n.p.o. status after midnight in case of operative intervention needs, defer repeat arterial evaluation as noted previously but if preference per podiatry certainly could repeat and involve vascular if preference. #2. Diabetes mellitus type II, poorly controlled, chronic polyneuropathy with chronic diabetic foot wounds complicated by presentation #1 with hyperglycemia, possibly HHS: Will obtain acetone to be cautious as well as serum osmolality but in the interim will hold oral home regimen, continue home insulin regimen pending A1c but low threshold to increase pending blood sugar trending and level, ADA diet, accu checks w/ ISS. If presentation consistent with HHS will treat more aggressively and even consider drip if necessary. Nutrition consulted for education and teaching. Hemoglobin A1c requested. #3. Acute hyponatremia, related with hyperglycemia and possibly acute component of hypovolemia given presentation: Admission sodium 128, chloride 95, glucose however is of note 728 thus corrected is lower, will judiciously hydrate and repeat CMP in AM. #4. CAD: s/p CABG x 1 and PCI x 8, given at this point per discussion with ED not definitive that patient will go to OR will continue aspirin, Plavix especially given significant cardiac history, metoprolol, losartan, statin therapy. #5. Chronic pain syndrome: Patient no longer taking the buprenorphine, notes took himself off secondary to abdominal discomfort and complaints and he reports that he had some improvement, will defer restarting but certainly his presentation is complicated by the fact that he could have a withdrawal component, will maintain on oral narcotic therapy and per podiatry preference reported through ED physician will hold on IV pain regimen secondary to concerns. #6. HF unclear type: Chart reported, unclear type, no echocardiogram in the system for comparison, given 1 L fluid in the ED, will continue maintenance IV fluids only for 1 additional liter, continue closely monitor, will continue aspirin, Plavix as noted as currently no definitive plan for OR, statin therapy, metoprolol, losartan although may potentially be on Entresto thus will need to clarify as should not be on both, Lasix home regimen. #7. Chronic COPD: Will hold home inhalers in the interim transition to ATC budesonide, PRN albuterol, HOB, IS parameters. #8. Hypertension: Continue home regimen including metoprolol, losartan, isosorbide, Lasix with hold parameters as needed, PRN hydralazine. #9. Hyperlipidemia: We will continue patient on statin therapy. #10. Chronic Kidney Disease Stage III, unclear subtype: Admission BUN/Cr 26/1.75, baseline renal function primarily 1.7-2.0 since the start of 2023, repeat BMP in AM. #11. Tobacco Abuse: Encouraged cessation, inpatient consultation per RT, NR if desired. #12. Obesity: Weight loss and lifestyle changes encouraged. #13. GERD: We will continue patient on PPI and sucralfate. #14. Chronic normocytic anemia: Admission hemoglobin 12.1, MCV 88.9, baseline hemoglobin appears primarily 11-12 range although more recently 09/05/2023 hemoglobin 13.3, will continue to trend. #15. DVT Prophylaxis: SCDs, hold chemoprophylaxis pending Podiatry evaluation in case of OR. If no our intention may add chemoprophylaxis. #16. CODE status: Patient does not have healthcare power bankruptcy attorney or living will in place but notes that if he was unable to make his own medical decisions he would want his mother to be his decision-maker. Discussed CODE status at length including difference between FULL code, DNR-CCA and DNR-CC status. Following discussions about the differences in these status, requested DNR-CCA but allowance of intubation which was discussed again and confirmed. Advanced Care Planning Face to Face Time: 16 minutes. Charges/Coding Visit Charges Inpatient E&M: 70465 Init Hosp L3 Procedures Hospitalists Procedures: 67426 Advncd Care Plan 30 Min
[2023-09-14 20:33] LABS: Bedside Glucose > 500 mg/dL (74-106)
[2023-09-14] MEDS: Piperacil/Tazobactam 3.375 GM in 0.9% Normal Saline (50mL MB+) 50 ML IV (20:42)
[2023-09-14] MEDS: Insulin Lispro 100 UNIT/ML INSULN.PEN 15 UNIT SC (20:49)
[2023-09-14] MEDS: 0.9% Normal Saline (1000mL) 1,000 ML 125 ML IV (21:18)
[2023-09-14 21:44] LABS: Magnesium 1.8 mg/dL (1.6-2.6)
[2023-09-14] MEDS: Vancomycin HCl 1,750 MG in 0.9% Normal Saline (500mL Bag) 500 ML 250 MG IV (22:16)
[2023-09-14] MEDS: Buprenorphine HCl 2 MG TAB.SUBL SL (22:17)
[2023-09-14] MEDS: Gabapentin 300 MG Capsule PO (22:17)
[2023-09-14] MEDS: Metoprolol(XL)Succ 25 MG Tablet PO (22:23)
[2023-09-14] MEDS: Sucralfate 1 GM Tablet PO (22:23)
[2023-09-14] MEDS: SACUBITRIL/VALSARTAN 49-51 MG TABLET 1 EACH PO (22:24)
[2023-09-14 23:16] LABS: Osmolality, Serum 329 mOsm/KG (275-295)
[2023-09-14] MEDS: Budesonide Respules 0.5 MG/2 ML AMPUL.NEB. INHALATION (23:23)
[2023-09-14 23:40] LABS: Glucose 592 mg/dL (74-106)
[2023-09-15] VITALS (8 sets, daily range): BP systolic 103–144; BP diastolic 64–91; PULSE 65–98; RESP 16–18; TEMP 36.9–37.1; O2SAT 96–98; BMI 35.2
[2023-09-15] MEDS: Insulin Lispro 100 UNIT/ML INSULN.PEN 20 UNIT SC ×2 (00:18→16:24)
[2023-09-15] MEDS: Acetaminophen 325 MG Tablet 650 MG PO ×2 (00:19→20:27)
[2023-09-15] MEDS: oxyCODONE 5 MG Tablet 10 MG PO ×2 (00:20→08:27)
--- NOTE | 2023-09-15 01:28 | PCM.RX.CS ---
Consult Antibiotic Management Pharmacy has been consulted to manage selected antibiotic: Vancomycin Type of Intervention Type of Consult: New start Labs Labs: Sodium 128 mmol/L (136-145) L 09/14/23 17:20 Potassium 4.4 mmol/L (3.5-5.1) 09/14/23 17:20 Chloride 95 mmol/L (98-107) L 09/14/23 17:20 Carbon Dioxide 25.0 mmol/L (21.0-32.0) 09/14/23 17:20 Anion Gap 8 (5-15) 09/14/23 17:20 BUN 26 mg/dL (7-18) H 09/14/23 17:20 Creatinine 1.75 mg/dL (0.70-1.30) H 09/14/23 17:20 Est GFR (MDRD) Af Amer 55 mL/min (>60) L 09/14/23 17:20 Est GFR (MDRD) Non-Af 46 mL/min (>60) L 09/14/23 17:20 BUN/Creatinine Ratio 14.9 RATIO (10-20) 09/14/23 17:20 Glucose 592 mg/dL (74-106) H* 09/14/23 22:30 Dosing Weight Weight used for dosin.8 kg Estimated Creatinine Clearance Estimated Creatinine Clearance: 67 Goal Trough Goal Trough: 15-20 mcg/mL Pharmacy Plan for Drug Dosing Pharmacy Plan for Drug Dosing: Pharmacy Service will continue to monitor and adjust dosing as required. Follow-Up Labs Follow-Up Labs: Trough: Vancomycin Date/Time Labs Ordered Labs to be done on [date and time ordered]: 09/15 @ 1433
[2023-09-15 02:04] LABS: Bedside Glucose > 500 mg/dL (74-106)
[2023-09-15 02:04] LABS: Bedside Glucose > 500 mg/dL (74-106)
--- NOTE | 2023-09-15 03:51 | EKG12_ITS ---
Test Reason : PREOP Blood Pressure : / mmHG Vent. Rate : 062 BPM Atrial Rate : 062 BPM P-R Int : 144 ms QRS Dur : 118 ms QT Int : 448 ms P-R-T Axes : 039 001 -09 degrees QTc Int : 454 ms Normal sinus rhythm Inferior infarct (cited on or before 01-APR-2023) Abnormal ECG When compared with ECG of 05-SEP-2023 20:25, No significant change was found Confirmed by ANN MURILLO, TIFF ([id number]), city editor MARISSA HILLS ([id number]) on 09/20/2023 9:16:41 AM Referred By: Confirmed By:TIFF JUAREZ MD
[2023-09-15] MEDS: Piperacil/Tazobactam 3.375 GM in 0.9% Normal Saline (50mL MB+) 50 ML IV ×3 (05:04→21:12)
[2023-09-15] MEDS: Buprenorphine HCl 2 MG TAB.SUBL SL ×3 (05:08→21:14)
[2023-09-15] MEDS: Sucralfate 1 GM Tablet PO ×4 (05:09→21:14)
[2023-09-15] MEDS: Insulin Lispro 100 UNIT/ML INSULN.PEN SC ×4 (05:16→21:20)
[2023-09-15] MEDS: Insulin Lispro 100 UNIT/ML INSULN.PEN 10 UNIT SC ×2 (05:17→11:33)
[2023-09-15 06:33] LABS: Absolute Lymphocyte Count 2.08 X10^3/uL (0.83-4.51); Absolute Neutrophil Count 4.4 X10^3/uL (2.0-7.7); Basophil# 0.07 X10^3/uL; Basophil% 0.9 % (0-1); Eosinophil# 0.46 X10^3/uL; Hematocrit 31.8 % (40-54); Hemoglobin 10.8 g/dL (13.0-16.5); Lymphocyte # 2.08 X10^3/ul (0.83-4.51); Mean Corpuscular Hgb 29.8 pg (27.0-32.0); Mean Corpuscular Volume 87.6 fL (80-94); Mean Platelet Vol. 9.1 fl (6.2-12.0); Monocyte# 0.62 X10^3/uL; Monocyte% 8.1 % (0-10); NRBC Flagged by Analyzer 0 % (0-5); Neutrophil # 4.37 X10^3/uL (2.7-7.7); Neutrophil % 56.7 % (47-70); Platelet Count 285 K/mm3 (150-450); RBC Distribution Width CV 12.4 % (11.6-14.6); RBC Distribution Width SD 39.8 fl (35.1-43.9); Red Blood Count 3.63 M/mm3 (4.6-6.2); White Blood Count 7.7 K/mm3 (4.4-11.0)
[2023-09-15 07:17] LABS: ALB/GLOB Ratio 0.6 RATIO (0.9-2.4); AST(SGOT) 21 U/L (15-37); Alanine Aminotransfer ALT/SGPT 25 U/L (16-61); Albumin, Serum 2.3 g/dL (3.2-5.0); Alkaline Phosphatase 55 U/L (45-117); Anion Gap 5 (5-15); BUN 29 mg/dL (7-18); BUN/Creat Ratio 18.5 RATIO (10-20); Calcium,Total 9.5 mg/dL (8.5-10.1); Chloride 107 mmol/L (98-107); Creatinine, Serum 1.57 mg/dL (0.70-1.30); EST Glomerular Filtration Rate 52 mL/min (>60); Est Glom Filt Rate - Afr Amer 63 mL/min (>60); Estimated Creatinine Clearance 74.92 ml/min; Globulin 3.8 g/dL (2.2-4.2); Glucose 368 mg/dL (74-106); Potassium 3.6 mmol/L (3.5-5.1); Protein, Total 6.1 g/dL (6.4-8.2); Sodium Level 136 mmol/L (136-145)
[2023-09-15 07:17] LABS: Bedside Glucose 323 mg/dL (74-106)
[2023-09-15 10:02] LABS: Hemoglobin A1c 13.8 % (3.8-5.6)
--- NOTE | 2023-09-15 10:11 | PCM.CONS.GEN ---
Assessment & Plan Assessment/Plan (1) Osteomyelitis of foot, right, acute: PLAN: Exam performed. White blood cell count inflammatory markers within normal limits. Vital signs stable. Blood glucose greater than 700 upon admission. Patient states that he feels his insulin is not well tuned and this is contributing to blood glucose greater than 700. I think it is likely that patient is not taking anything to manage his diabetes. Difficult to discern actual pain level as patient historically has lied in attempt to receive prescription narcotic pain medication prescriptions from me personally. MRI shows possible osteomyelitis right great toe. There is some swelling redness and warmth to the site. I discussed multiple options with the patient including long-term antibiotics, incision and drainage with application of antibiotic beads and hallux amputation. Patient wishes to proceed with amputation for definitive infection clearance right great toe. Due to redness swelling left heel order MRI to evaluate for possible localized infection to that site. Patient can maintain heel weightbearing in surgical shoes bilaterally. No dressings required as patient has no actual open wounds at current. Will continue to follow closely. Patient receiving IV vancomycin and Zosyn. (2) Type 2 diabetes mellitus with diabetic polyneuropathy: QUALIFIERS: Diabetes mellitus terminal clerk insulin use: with residential use Qualified Code(s): E11.42 - Type 2 diabetes mellitus with diabetic polyneuropathy; Z79.4 - terminal superintendent (current) use of insulin (3) Hallux rigidus of right foot: (4) Cellulitis of left foot: HPI Consult Data Date of Consult: 09/15/23 HPI Narrative HPI Narrative: RSUTY MCCLURE, is a 42 M who presents worsening right great toe pain. Left heel pain. Patient notes purulent drainage from bilateral sides. Patient denies any open wounds today. Patient notes pain uncontrolled diffusely to bilateral feet. Patient historically has been on Suboxone. From a previous admission patient informed me that he discontinued taking Suboxone and had not filled any prescriptions, after follow-up with Suboxone clinic this had not been true. Patient reporting that he is no longer on Suboxone again during the stay. 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 This is from his left heel. Due to unbearable pain patient presented to the ER. MRI the patient had received on 12 September 2023 demonstrated possible osteomyelitis to right great toe. Patient was subsequently admitted for IV antibiotics and further workup. [facility] Medical History Amputation of left great toe Anxiety Arthritis Back pain Cardiology follow-up encounter COPD (chronic obstructive pulmonary disease) Coronary artery disease Diabetic foot Dietary restriction DVT (deep venous thrombosis) Failure of outpatient treatment Fatty liver Gastric reflux Hallux rigidus of right foot Hammertoe of left foot Heart attack High cholesterol History of atrial fibrillation History of CHF (congestive heart failure) History of echocardiogram History of edema History of pain when walking History of stress test History of ulceration Hypertension Insulin dependent diabetes mellitus Leg cramps Marijuana use Metatarsal deformity Migraine headache MRSA infection Other hammer toe(s) (acquired), left foot Peripheral vascular disease, unspecified Restless legs Short Achilles tendon (acquired), left ankle Shortness of breath on exertion Smoker Substance abuse Syncope TIA (transient ischemic attack) Type 2 diabetes mellitus with diabetic polyneuropathy Uncontrolled diabetes mellitus Wears glasses Home Medications aspirin 81 mg tablet,delayed release 81 mg PO DAILY 03/31/23 [History Last Taken 09/14/23] atorvastatin 40 mg tablet 40 mg PO DAILY 03/31/23 [History Last Taken 09/14/23] clopidogrel 75 mg tablet 75 mg PO DAILY 03/31/23 [History Last Taken 09/14/23] fluticasone fur. 200 mcg-umeclid 62.5 mcg-vilant 25 mcg inhalat.powder (Trelegy Ellipta) 1 inh inhalation Q24H 03/31/23 [History Last Taken 09/14/23] furosemide 40 mg tablet 40 mg PO DAILY 03/31/23 [History Last Taken 09/14/23] gabapentin 300 mg capsule 300 mg PO 4X/DAY 03/31/23 [History Last Taken 09/14/23] isosorbide mononitrate 30 mg tablet,extended release 24 hr 30 mg PO DAILY 03/31/23 [History Last Taken 09/14/23] metformin 500 mg tablet 500 mg PO DAILY 03/31/23 [History Last Taken Unknown] sacubitril 49 mg-valsartan 51 mg tablet (Entresto) 1 tab PO BID 03/31/23 [History Last Taken 09/14/23] sucralfate 1 gram tablet 1 g PO 4X/DAY 03/31/23 [History Last Taken 09/14/23] acetaminophen 500 mg capsule 1,000 mg (2 x 500 mg) PO Q8H PRN PRN pain #90 caps 04/04/23 [Rx Last Taken 09/14/23] insulin glargine 100 unit/mL subcutaneous solution 30 unit (0.3 mL) subcut BID #10 mL 04/04/23 [Rx Last Taken 09/14/23] insulin lispro 100 unit/mL subcutaneous pen (Humalog KwikPen (U-100) Insulin) 10 unit (0.1 mL) subcut TID #15 mL 04/04/23 [Rx Last Taken 09/14/23] albuterol sulfate 2.5 mg/3 mL (0.083 %) solution for nebulization 2.5 mg inhalation Q8H PRN PRN shortness of breath or wheezing 06/21/23 [History Last Taken 09/05/23] albuterol sulfate 90 mcg/actuation aerosol inhaler 2 inh inhalation PRN PRN shortness of breath or wheezing 06/21/23 [History Last Taken 09/14/23] losartan 50 mg tablet 50 mg PO 1500 06/21/23 [History Last Taken 09/14/23] pantoprazole 40 mg tablet,delayed release 40 mg PO DAILY 06/21/23 [History Last Taken 09/14/23] metoprolol succinate 25 mg tablet,extended release 24 hr 25 mg PO Q12H 09/02/23 [History Last Taken 09/14/23] buprenorphine 8 mg-naloxone 2 mg sublingual film 1 film sublingual BID 09/14/23 [History Last Taken 09/12/23] ciprofloxacin HCl 750 mg tablet 750 mg PO Q12H 09/14/23 [History Last Taken 09/14/23] doxycycline monohydrate 100 mg capsule 100 mg PO Q12H 09/14/23 [History Last Taken 09/14/23] Allergy/AdvReac Type Severity Reaction Status Date / Time morphine Allergy Severe Anaphylaxis Verified 09/14/23 15:01 sumatriptan [From Imitrex] Allergy Severe Other Verified 09/14/23 15:01 acetarsol Allergy Intermediate Rash Verified 09/14/23 15:01 chlorpromazine Allergy Intermediate Other Verified 09/14/23 15:01 [From Thorazine] nalbuphine Allergy Intermediate Shortness Verified 09/14/23 15:01 of breath prasterone (DHEA) [From DHEA] Allergy Intermediate Shortness Verified 09/14/23 15:01 of breath prednisone Allergy Intermediate Other Verified 09/14/23 15:01 prochlorperazine Allergy Intermediate Shortness Verified 09/14/23 15:01 of breath Iodinated Contrast Media AdvReac Mild Hives Verified 09/14/23 15:01 iodine AdvReac Mild Hives Verified 09/14/23 15:01 ketorolac [From Toradol] AdvReac Mild Nausea Verified 09/14/23 15:01 tramadol AdvReac Mild Vomiting Verified 09/14/23 15:01 adhesive tape [paper tape] AdvReac Other Verified 09/14/23 15:01 Family History Mother Hypertension HLD (hyperlipidemia) Heart disease Father Hypertension HLD (hyperlipidemia) Heart disease Myocardial infarction CAD (coronary artery disease) Surgical History History of cardiac catheterization History of carpal tunnel surgery of left wrist History of carpal tunnel surgery of right wrist Hx of heart artery stent Hx of left knee surgery Hx of single vessel coronary artery bypass Hx of tonsillectomy Social History household members: none Smoking Status: Current every day smoker tobacco type: cigarettes Smoking packs per day: 0.5 Smoking cigarettes per day: 10.0 alcohol intake: never substance use type: does not use Physical Exam Narrative Vascular: Dorsalis pedis posterior tibial pulses palpable 2 out of 4 to bilateral lower extremity. Capillary fill time brisk. Digital hair growth noted. Neurologic: Diminished light touch protective sensation to bilateral feet. Dermatologic: Erythema edema and warmth noted to the right hallux. No open wound. Erythema edema and warmth noted to left plantar heel. No open wounds. No other signs of infection. Musculoskeletal: No gross wound forming deformity noted. Muscular strength full. No sign DVT bilaterally. Lab / Micro Data 09/15/23 05:55 09/15/23 05:55 Labs: Laboratory Results - last 24 hr 09/14/23 17:20: WBC 7.2, RBC 4.14 L, Hgb 12.1 L, Hct 36.8 L, MCV 88.9, MCH 29.2, MCHC 32.9, RDW Std Deviation 40.1, RDW Coeff of Simone 12.4, Plt Count 303, MPV 9.0, ESR 44 H, Sodium 128 L, Potassium 4.4, Chloride 95 L, Carbon Dioxide 25.0, Anion Gap 8, BUN 26 H, Creatinine 1.75 H, Estim Creat Clear Calc 67.46, Est GFR (MDRD) Af Amer 55 L, Est GFR (MDRD) Non-Af 46 L, BUN/Creatinine Ratio 14.9, Glucose 728 H*, Calcium 10.1, Magnesium 1.8, C-React Prot Ext Range 7.29 H 09/14/23 20:14: POC Glucose > 500 H* 09/14/23 21:17: POC Glucose > 500 H* 09/14/23 22:27: POC Glucose > 500 H* 09/14/23 22:30: Glucose 592 H*, Serum Osmolality 329 H, Acetone Level NEGATIVE 09/15/23 05:16: POC Glucose 323 H 09/15/23 05:55: WBC 7.7, RBC 3.63 L, Hgb 10.8 L, Hct 31.8 L, MCV 87.6, MCH 29.8, MCHC 34.0, RDW Std Deviation 39.8, RDW Coeff of Simone 12.4, Plt Count 285, MPV 9.1, Immature Gran % (Auto) 1.300 H, Neut % (Auto) 56.7, Lymph % (Auto) 27.0, [place] % (Auto) 8.1, Eos % (Auto) 6.0 H, Baso % (Auto) 0.9, Absolute Neuts (auto) 4.4, Absolute Lymphs (auto) 2.08, Nucleated RBC % 0, Sodium 136, Potassium 3.6, Chloride 107, Carbon Dioxide 24.0, Anion Gap 5, BUN 29 H, Creatinine 1.57 H, Estim Creat Clear Calc 74.92, Est GFR (MDRD) Af Amer 63, Est GFR (MDRD) Non-Af 52 L, BUN/Creatinine Ratio 18.5, Glucose 368 H, Hemoglobin A1c 13.8 H, Calcium 9.5, Total Bilirubin 0.20, AST 21, ALT 25, Alkaline Phosphatase 55, Total Protein 6.1 L, Albumin 2.3 L, Globulin 3.8, Albumin/Globulin Ratio 0.6 L ABG Data ABG results: ABG 09/14/23 18:18 Specimen Type MONICA Sample Site Not entered VBG pH 7.34 VBG pO2 39 VBG HCO3 25 VBG Total CO2 27 VBG O2 Sat (Calc) 70 VBG Base Excess -1 POC Mix VBG pCO2 Pt Tmp 47.0 O2 Delivery Device Not entered Imaging Radiology Impression Foot X-Ray 09/14/23 17:20 IMPRESSION: No definite acute abnormality. Electronically Signed: Raymon Gould MD at 18:00 EST , Foot X-Ray 09/14/23 17:20 IMPRESSION: No definite acute or significant abnormality seen. Electronically Signed: Raymon Gould MD at 18:01 EST ,
--- NOTE | 2023-09-15 10:20 | MRI_ITS ---
HISTORY: Left heel infection. TECHNIQUE: Multiplanar and multisequence MR images of the left ankle and hindfoot were obtained without contrast. 189 images. COMPARISON: XR prior day. FINDINGS: BONE: No acute fracture, osteochondral lesion, or confluent T1 signal abnormality identified. JOINT: Mild degenerative change or small osteophytes. No significant joint effusion. LIGAMENTS: Anterior and posterior syndesmotic as well as the anterior and posterior talofibular ligaments also intact. No deltoid ligament tear. Intact Lisfranc ligament. TENDONS: High-grade tear of the Achilles tendon with discontinuity, enlargement, and signal abnormality. No high-grade tear or significant tear or synovitis of the flexor, extensor, peroneal tendons. PLANTAR FASCIA: No acute tear. OTHER SOFT TISSUES: Subcutaneous edema of the ankle extending over the dorsum of the foot. Plantar intramuscular edema of the medial foot. No discrete fluid collection to suggest abscess. Sinus tarsi fat preserved. MRI/Lower Ext Joint Only (Routine) IMPRESSION: Tear of the Achilles tendon. Subcutaneous edema of the ankle, which may be secondary to trauma rather than infection. Cellulitis and myositis of the left foot without evidence for osteomyelitis or abscess. Electronically Signed: Isidra Wilhelm MD at 13:57 EST ,
[2023-09-15] MEDS: Gabapentin 300 MG Capsule PO ×4 (10:27→21:14)
[2023-09-15] MEDS: Isosorbide Mononitrate 30 MG Tablet PO (10:28)
[2023-09-15] MEDS: Insulin Glargine-YFGN 100 UNIT/ML Pen 40 UNIT SC ×2 (10:28→21:19)
[2023-09-15] MEDS: SACUBITRIL/VALSARTAN 49-51 MG TABLET 1 EACH PO ×2 (10:29→21:14)
[2023-09-15] MEDS: Pantoprazole Sodium 40 MG Tablet PO (10:29)
[2023-09-15] MEDS: Clopidogrel Bisulfate 75 MG Tablet PO (10:29)
[2023-09-15] MEDS: Metoprolol(XL)Succ 25 MG Tablet PO ×2 (10:30→21:13)
[2023-09-15] MEDS: Furosemide 40 MG Tablet PO (10:30)
--- NOTE | 2023-09-15 10:30 | CASEMGMT ---
RN SAMIR Assessment: Face to Face with pt for initial transition planning/care coordination assessment. RN CM introduced self and role at [facility], pt voices understanding and consents to assessment. Pt is A&O x4, resting in bed and answers all questions appropriately at this time. Care providers, pharmacy, and demographics verified/updated. Admitting Dx: Diabetic foot wound PCP:Dr. Connor Nazario Specialists: Dr. Murphy with podiatry and Dr. Patterson with Cardio in [place] Preferred Pharmacy: [facility] in [place] Insurance: [employer] Prescription Benefit: yes LNOK: Mother Nicolasa [phone] Living Arrangements: Pt lives at home with family. Home is single story with a basement, no stairs to enter. Pt reports he does not go down into the basement. Pt is independent at baseline. Transportation: Pt drives self and denies concerns with transportation. DME: [employer] HHC/SNF: Pt reports he did have home IV abx in the past that he administered but not sure of agency. Pt states no concerns with going home at time of dc. Pt states no further concerns/needs. CM to follow. Advised pt to ask CM if any further question/concerns/needs arise, voices understanding. Pt Goal: Home Plan: TBD- awaiting podiatry recommendations for wound care and weightbearing status Emily López MSN, RN, CCM
[2023-09-15] MEDS: Vancomycin HCl 1,250 MG in 0.9% Normal Saline (250mL Bag) 250 ML 167 MG IV ×2 (10:36→22:50)
[2023-09-15] MEDS: LORazepam 1 MG Tablet PO (11:32)
[2023-09-15] MEDS: Glucerna Shake 120 ML LIQUID PO (11:33)
[2023-09-15 12:00] LABS: Bedside Glucose 260 mg/dL (74-106)
--- NOTE | 2023-09-15 12:23 | PCM.PN.HOSP ---
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 (09/14/23) Objective Data Objective Data Vital Signs: Vital Signs Temp Pulse Resp BP Pulse Ox O2 Del Method 98.5 F 65 18 136/65 H 98 Room Air 09/15/23 08:41 09/15/23 10:30 09/15/23 09:48 09/15/23 08:41 09/15/23 09:48 09/15/23 09:48 Oxygen Delivery Method Room Air Weight: 237 lb 10.533 oz Body Mass Index (BMI) 35.2 Intake & Output: Intake and Output for Last 24 Hours 09/13/23 09/14/23 09/15/23 23:59 23:59 23:59 Intake Total 1050 / 1050 1721.38 / 1721.38 Output Total 400 / 400 475 / 475 Balance 650 / 650 1246.38 / 1246.38 Lab / Micro Data 09/15/23 05:55 09/15/23 05:55 Labs: Laboratory Results - last 24 hr 09/14/23 17:20: WBC 7.2, RBC 4.14 L, Hgb 12.1 L, Hct 36.8 L, MCV 88.9, MCH 29.2, MCHC 32.9, RDW Std Deviation 40.1, RDW Coeff of Simone 12.4, Plt Count 303, MPV 9.0, ESR 44 H, Sodium 128 L, Potassium 4.4, Chloride 95 L, Carbon Dioxide 25.0, Anion Gap 8, BUN 26 H, Creatinine 1.75 H, Estim Creat Clear Calc 67.46, Est GFR (MDRD) Af Amer 55 L, Est GFR (MDRD) Non-Af 46 L, BUN/Creatinine Ratio 14.9, Glucose 728 H*, Calcium 10.1, Magnesium 1.8, C-React Prot Ext Range 7.29 H 09/14/23 20:14: POC Glucose > 500 H* 09/14/23 21:17: POC Glucose > 500 H* 09/14/23 22:27: POC Glucose > 500 H* 09/14/23 22:30: Glucose 592 H*, Serum Osmolality 329 H, Acetone Level NEGATIVE 09/15/23 05:16: POC Glucose 323 H 09/15/23 05:55: WBC 7.7, RBC 3.63 L, Hgb 10.8 L, Hct 31.8 L, MCV 87.6, MCH 29.8, MCHC 34.0, RDW Std Deviation 39.8, RDW Coeff of Simone 12.4, Plt Count 285, MPV 9.1, Immature Gran % (Auto) 1.300 H, Neut % (Auto) 56.7, Lymph % (Auto) 27.0, [place] % (Auto) 8.1, Eos % (Auto) 6.0 H, Baso % (Auto) 0.9, Absolute Neuts (auto) 4.4, Absolute Lymphs (auto) 2.08, Nucleated RBC % 0, Sodium 136, Potassium 3.6, Chloride 107, Carbon Dioxide 24.0, Anion Gap 5, BUN 29 H, Creatinine 1.57 H, Estim Creat Clear Calc 74.92, Est GFR (MDRD) Af Amer 63, Est GFR (MDRD) Non-Af 52 L, BUN/Creatinine Ratio 18.5, Glucose 368 H, Hemoglobin A1c 13.8 H, Calcium 9.5, Total Bilirubin 0.20, AST 21, ALT 25, Alkaline Phosphatase 55, Total Protein 6.1 L, Albumin 2.3 L, Globulin 3.8, Albumin/Globulin Ratio 0.6 L 09/15/23 11:31: POC Glucose 260 H ABG Data ABG results: ABG 09/14/23 18:18 Specimen Type MONICA Sample Site Not entered VBG pH 7.34 VBG pO2 39 VBG HCO3 25 VBG Total CO2 27 VBG O2 Sat (Calc) 70 VBG Base Excess -1 POC Mix VBG pCO2 Pt Tmp 47.0 O2 Delivery Device Not entered Radiography Diagnostic Testing: Radiology Impression Foot X-Ray 09/14/23 17:20 IMPRESSION: No definite acute abnormality. Electronically Signed: Raymon Gould MD at 18:00 EST , Foot X-Ray 09/14/23 17:20 IMPRESSION: No definite acute or significant abnormality seen. Electronically Signed: Raymon Gould MD at 18:01 EST , Physical Exam Narrative Seen and examined. Patient complain of severe pain on both lower legs even on just touching. Both legs are swollen, little edematous and tender to touch. Seems hyperesthesia Physical exam General: Alert, Oriented x3, Cooperative. Morbid obesity 35.1 kg/m? HEENT: Atraumatic, PERRLA, EOMI, Normocephalic Oral: No Gingival or Mucosal Lesions/ Ulcerations Neck: Supple, No JVD, Negative Carotid Bruits Chest wall/Lungs: Air entry diminished in bilateral lung bases. No crepitation/rhonchi Cardiovascular: Regular rate, Regular Rhythm, Normal S1, Normal S2, No M/G/R Abdomen: Bowel Sounds Present, Soft, Non Tender, Non-Distended : No dysuria. No renal angle tenderness. No suprapubic tenderness. Extremities: Mild reactive edema, Capillary Refill Less than 3 Seconds Skin: Eschar of left great toe amputation well-healed Musculoskeletal: Tenderness present on both hunter, ankle and feet on both legs. Status post left great toe amputation. Scheduled for right great amputation. Neurological: Cranial nerves II-XII grossly intact, DTR 2+/4. No acute focal neurological deficit. Psych/Mental Status: Normal Affect, Appropriate. 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 Complain of predominantly right great toe pain swollen for last 2 weeks although on both lower legs. Subjective fever and chills. Denies new injury. Outpatient MRI from 09/12/2023 shows developing osteomyelitis of first proximal phalanx and surrounding subcutaneous tissue of right great toe extending to the dorsum of the foot with no discrete fluid collection. #1. Bilateral Diabetic Foot Wounds with concern for R Foot Acute Osteomyelitis, possibly failed outpatient antibiotic therapy: [facility] There is no drainage present on the feet. Was seen by nipping machine operator. Left foot MRI is ordered. Pain control. On IV antibiotics. #2. Diabetes mellitus type II, poorly controlled, chronic polyneuropathy with chronic diabetic foot wounds and diabetic nephropathy: Patient admitting glucose was 728 with serum sodium 128. With the correction of the glucose to 368, her serum sodium is 136 and serum osmolarity 329, patient has HHS, hyperosmolar hyperglycemic state. A1c high 13.8. Accu-Cheks before meals and cover with Humalog sliding scale. Patient also on long-acting insulin. Titrate the dose as guided by Accu-Cheks #3. Hypotonic hypovolemic hyponatremia due to HHS: Serum sodium is corrected. Rest as mentioned above #4. CAD: s/p CABG x 1 and PCI x 8, given at this point per discussion with ED not definitive that patient will go to OR will continue aspirin, Plavix especially given significant cardiac history, metoprolol, losartan, statin therapy. #5. Chronic pain syndrome: As per Dr. Saxena's note, patient lied about the pain scale in order to get narcotics. Currently on oxycodone. Allergenics shows anaphylaxis to morphine. #6. HF unclear type: Chart reported, unclear type, no echocardiogram in the system for comparison, given 1 L fluid in the ED, will continue maintenance IV fluids only for 1 additional liter, continue closely monitor, will continue aspirin, Plavix as noted as currently no definitive plan for OR, statin therapy, metoprolol, losartan although may potentially be on Entresto thus will need to clarify as should not be on both, Lasix home regimen. #7. Chronic COPD: Will hold home inhalers in the interim transition to ATC budesonide, PRN albuterol, HOB, IS parameters. #8. Hypertension: Continue home regimen including metoprolol, losartan, isosorbide, Lasix with hold parameters as needed, PRN hydralazine. #9. Hyperlipidemia: We will continue patient on statin therapy. #10. chronic Kidney Disease Stage III,a: Admission BUN/Cr 26/1.75, baseline renal function primarily 1.7-2.0. BUN/creatinine 29/1.57 improved from admitting creatinine 1.75. #11. Tobacco Abuse: Encouraged cessation, inpatient consultation per RT, NR if desired. #12. Obesity: Weight loss and lifestyle changes encouraged. #13. GERD: We will continue patient on PPI and sucralfate. #14. Chronic normocytic anemia: Admission hemoglobin 12.1, MCV 88.9, baseline hemoglobin appears primarily 11-12 range although more recently 09/05/2023 hemoglobin 13.3, will continue to trend. #15. DVT Prophylaxis: SCDs, hold chemoprophylaxis pending Podiatry evaluation in case of OR. If no our intention may add chemoprophylaxis. #16. CODE status: Patient does not have healthcare power mergers and acquisitions attorney or living will in place but notes that if he was unable to make his own medical decisions he would want his mother to be his decision-maker. Discussed CODE status at length including difference between FULL code, DNR-CCA and DNR-CC status. Following discussions about the differences in these status, requested DNR-CCA but allowance of intubation which was discussed again and confirmed. Charges/Coding Visit Charges Inpatient E&M: 69109 Subs Hosp L2
[2023-09-15] MEDS: oxyCODONE 5 MG Tablet PO ×4 (13:08→23:48)
[2023-09-15 17:01] LABS: Bedside Glucose 295 mg/dL (74-106)
[2023-09-15] MEDS: Juven (unflavored) Packet 1 PACKET PO (17:17)
[2023-09-15] MEDS: Budesonide Respules 0.5 MG/2 ML AMPUL.NEB. INHALATION (20:38)
[2023-09-15] MEDS: Atorvastatin Calcium 40 MG Tablet PO (21:25)
[2023-09-15 22:47] LABS: Bedside Glucose 316 mg/dL (74-106)
[2023-09-15] MEDS: MELATONIN 3 MG TABLET PO (23:49)
[2023-09-16] VITALS (11 sets, daily range): BP systolic 108–171; BP diastolic 65–97; PULSE 70–95; RESP 16–18; TEMP 36.7–36.9; O2SAT 93–98; BMI 35.1
[2023-09-16] MEDS: HYDROmorphone 1 MG/ML Syringe IV (00:32)
[2023-09-16] MEDS: Buprenorphine HCl 2 MG TAB.SUBL SL ×3 (06:13→22:24)
[2023-09-16] MEDS: Sucralfate 1 GM Tablet PO ×4 (06:13→22:12)
[2023-09-16] MEDS: oxyCODONE 5 MG Tablet PO ×5 (06:13→22:11)
[2023-09-16] MEDS: Insulin Lispro 100 UNIT/ML INSULN.PEN SC ×3 (06:14→17:50)
[2023-09-16] MEDS: Insulin Lispro 100 UNIT/ML INSULN.PEN 20 UNIT SC ×2 (06:15→12:16)
[2023-09-16] MEDS: Piperacil/Tazobactam 3.375 GM in 0.9% Normal Saline (50mL MB+) 50 ML IV ×3 (06:27→22:21)
[2023-09-16 06:38] LABS: Bedside Glucose 301 mg/dL (74-106)
[2023-09-16] MEDS: Aspirin E.C. 81 MG Tablet PO (09:33)
[2023-09-16] MEDS: Isosorbide Mononitrate 30 MG Tablet PO (09:33)
[2023-09-16] MEDS: Metoprolol(XL)Succ 25 MG Tablet PO ×2 (09:33→22:19)
[2023-09-16] MEDS: Gabapentin 300 MG Capsule PO ×4 (09:33→22:22)
[2023-09-16] MEDS: SACUBITRIL/VALSARTAN 49-51 MG TABLET 1 EACH PO ×2 (09:34→22:12)
[2023-09-16] MEDS: Clopidogrel Bisulfate 75 MG Tablet PO (09:34)
[2023-09-16] MEDS: Furosemide 40 MG Tablet PO (09:35)
[2023-09-16] MEDS: Insulin Glargine-YFGN 100 UNIT/ML Pen 40 UNIT SC (09:35)
[2023-09-16] MEDS: Pantoprazole Sodium 40 MG Tablet PO (09:35)
[2023-09-16] MEDS: Juven (unflavored) Packet 1 PACKET PO ×2 (09:41→17:52)
[2023-09-16 10:11] LABS: Vancomycin, Trough Level 21.2 ug/mL (5.0-15.0)
[2023-09-16 12:56] LABS: Bedside Glucose 208 mg/dL (74-106)
--- NOTE | 2023-09-16 13:04 | PCM.RX.CS ---
Consult Antibiotic Management Pharmacy has been consulted to manage selected antibiotic: Vancomycin Type of Intervention Type of Consult: Follow-up Labs Labs: Sodium 136 mmol/L (136-145) 09/15/23 05:55 Potassium 3.6 mmol/L (3.5-5.1) 09/15/23 05:55 Chloride 107 mmol/L (98-107) 09/15/23 05:55 Carbon Dioxide 24.0 mmol/L (21.0-32.0) 09/15/23 05:55 Anion Gap 5 (5-15) 09/15/23 05:55 BUN 29 mg/dL (7-18) H 09/15/23 05:55 Creatinine 1.57 mg/dL (0.70-1.30) H 09/15/23 05:55 Est GFR (MDRD) Af Amer 63 mL/min (>60) 09/15/23 05:55 Est GFR (MDRD) Non-Af 52 mL/min (>60) L 09/15/23 05:55 BUN/Creatinine Ratio 18.5 RATIO (10-20) 09/15/23 05:55 Glucose 368 mg/dL (74-106) H 09/15/23 05:55 Vancomycin Trough 21.2 ug/mL (5.0-15.0) H 09/16/23 09:43 Goal Trough Goal Trough: 15-20 mcg/mL Pharmacy Plan for Drug Dosing Pharmacy Plan for Drug Dosing: VANCOMYCIN LEVEL RECEIVED Current Vancomycin Dose: 1250mg q12h (1030,2230) Number of Doses Received: x1 1750mg ER dose, x2 1250mg doses Vancomycin Level: 21.2 Hours Since Last Dose: 11 hours since last dose on 09/15/23 at 2250 Renal Function: SrCr 1.57 Renal Function Trend: stable Lab/Micro: Vancomycin Plan/Comments: resulted trough of 21.2 is above the ordered goal trough of 15-20. recommend holding x2 doses and checking a random level 09/17/23 at 0600 Pending Level: random level 09/17/23 at 0600 Pharmacy Service will continue to monitor and adjust dosing as required. Follow-Up Labs Follow-Up Labs: Trough: Vancomycin (random level 09/17/23 at 0600)
[2023-09-16] MEDS: Vancomycin Trough/Random Due 1 LAB MC (13:17)
[2023-09-16] MEDS: Ondansetron 4 MG/2 ML Vial IV (14:21)
[2023-09-16] MEDS: 0.9% Saline Lock 10 ML Syringe IV (14:21)
--- NOTE | 2023-09-16 15:34 | NURSING ---
Pt was updated earlier that morphine was removed from allergy list. 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 Pt refuses states this is bullshit, I am not getting any relief form this and I am wanting my dilaudid that works. Pt is threatening to call the head of the hospital. Charge nurse notified and medication returned. Pt is also stating he is going to leave AMA.
--- NOTE | 2023-09-16 15:40 | PN.HOSP_ITS ---
Reason for Visit Reason for Visit: Diagnoses Type 2 diabetes mellitus with diabetic polyneuropathy (09/14/23) Cellulitis of left lower limb (09/14/23) Hallux rigidus, right foot (09/14/23) Other acute osteomyelitis, unspecified site (09/14/23) Other acute osteomyelitis, right ankle and foot (09/14/23) manager intermediate (current) use of insulin (09/14/23) Objective Data Objective Data Vital Signs: Vital Signs Temp Pulse Resp BP Pulse Ox O2 Del Method 98.0 F 72 18 108/65 98 Room Air 09/16/23 15:33 09/16/23 15:33 09/16/23 15:33 09/16/23 15:33 09/16/23 15:33 09/16/23 15:33 Oxygen Delivery Method Room Air Weight: 237 lb 10.533 oz Body Mass Index (BMI) 35.2 Intake & Output: Intake and Output for Last 24 Hours 09/14/23 09/15/23 09/17/23 23:59 23:59 00:59 Intake Total 1050 / 1050 4680.42 / 4680.42 1204.58 / 1204.58 Output Total 400 / 400 2700 / 2700 550 / 550 Balance 650 / 650 1980.42 / 1980.42 654.58 / 654.58 Lab / Micro Data 09/15/23 05:55 09/15/23 05:55 Labs: Laboratory Results - last 24 hr 09/15/23 16:21: POC Glucose 295 H 09/15/23 21:18: POC Glucose 316 H 09/16/23 06:06: POC Glucose 301 H 09/16/23 09:43: Vancomycin Trough 21.2 H 09/16/23 12:14: POC Glucose 208 H Physical Exam Narrative Seen and examined. Patient is states that allergic list of anaphylaxis due to morphine is wrongly asscribed in allergy list. He states when he had an IV morphine he felt mildly dizzy but no hives or features of angioedema or respiratory arrest. Therefore was taken off from his allergy list. Patient complain of severe pain on both lower legs even on just touching not controlled with oxycodone. Both legs are swollen, little edematous and tender to touch. Seems hyperesthesia Physical exam General: Alert, Oriented x3, Cooperative. Morbid obesity 35.1 kg/m? HEENT: Atraumatic, PERRLA, EOMI, Normocephalic Oral: No Gingival or Mucosal Lesions/ Ulcerations Neck: Supple, No JVD, Negative Carotid Bruits Chest wall/Lungs: Air entry diminished in bilateral lung bases. No crepitation/rhonchi Cardiovascular: Regular rate, Regular Rhythm, Normal S1, Normal S2, No M/G/R Abdomen: Bowel Sounds Present, Soft, Non Tender, Non-Distended : No dysuria. No renal angle tenderness. No suprapubic tenderness. Extremities: Mild reactive edema, Capillary Refill Less than 3 Seconds Skin: Eschar of left great toe amputation well-healed Musculoskeletal: Tenderness present on both hunter, ankle and feet on both legs. Status post left great toe amputation. Scheduled for right great amputation. Neurological: Cranial nerves II-XII grossly intact, DTR 2+/4. No acute focal neurological deficit. Psych/Mental Status: Flat affect. Assessment & Plan Assessment/Plan (1) Acute osteomyelitis: PLAN: Plan The patient is a 42 y/o M was admitted because of worsening foot pain follows Dr. Saxena as continuous improvement manager. Complain of predominantly right great toe pain swollen for last 2 weeks although on both lower legs. Subjective fever and chills. Denies new injury. Outpatient MRI from 09/12/2023 shows developing osteomyelitis of first proximal phalanx and surrounding subcutaneous tissue of right great toe extending to the dorsum of the foot with no discrete fluid collection. #1. Bilateral Diabetic Foot Wounds with concern for R Foot Acute Osteomyelitis, possibly failed outpatient antibiotic therapy: Patient is being admitted in [facility] floor. There is no drainage present on the feet. Was seen by continuous improvement manager. Left foot MRI is ordered. Pain control. On IV antibiotics. 09/15: Patient constantly asking for Dilaudid, pain not controlled with oxycodone. Discussed about the mentioned morphine and allergy list as anaphylaxis. Patient is states it is wrong and he did not had hives, anaphylaxis or respiratory depression or arrest. It was taken off from allergy list. Started on IV Dilaudid. Oxycodone discontinued MRI foot of left ankle and foot shows a tear of Achilles tendon with subcutaneous edema of ankle secondary to trauma rather than infection. Cellulitis and myositis of left foot without evidence of osteomyelitis or abscess. #2. Diabetes mellitus type II, poorly controlled, chronic polyneuropathy with chronic diabetic foot wounds and diabetic nephropathy: Patient admitting glucose was 728 with serum sodium 128. With the correction of the glucose to 368, her serum sodium is 136 and serum osmolarity 329, patient has HHS, hyperosmolar hyperglycemic state. A1c high 13.8. Accu-Cheks before meals and cover with Humalog sliding scale. Patient also on long-acting insulin. Titrate the dose as guided by Accu-Cheks 09/25 glucose is between 200-300. Lantus and Humalog dose increased. Lantus and Humalog dose increased. #3. Hypotonic hypovolemic hyponatremia due to HHS: Serum sodium is corrected. Rest as mentioned above #4. CAD: s/p CABG x 1 and PCI x 8, given at this point per discussion with ED not definitive that patient will go to OR will continue aspirin, Plavix especially given significant cardiac history, metoprolol, losartan, statin therapy. #5. Chronic pain syndrome: As per Dr. Saxena's note, patient lied about the pain scale in order to get narcotics. Currently on oxycodone. Allergenics show s anaphylaxis to morphine. #6. HF unclear type: Chart reported, unclear type, no echocardiogram in the system for comparison, given 1 L fluid in the ED, will continue maintenance IV fluids only for 1 additional liter, continue closely monitor, will continue aspirin, Plavix as noted as currently no definitive plan for OR, statin therapy, metoprolol, losartan although may potentially be on Entresto thus will need to clarify as should not be on both, Lasix home regimen. #7. Chronic COPD: Will hold home inhalers in the interim transition to ATC budesonide, PRN albuterol, HOB, IS parameters. #8. Hypertension: Continue home regimen including metoprolol, losartan, isosorbide, Lasix with hold parameters as needed, PRN hydralazine. #9. Hyperlipidemia: We will continue patient on statin therapy. #10. chronic Kidney Disease Stage III,a: Admission BUN/Cr 26/1.75, baseline renal function primarily 1.7-2.0. BUN/creatinine 29/1.57 improved from admitting creatinine 1.75. #11. Tobacco Abuse: Encouraged cessation, inpatient consultation per RT, NR if desired. #12. Obesity: Weight loss and lifestyle changes encouraged. #13. GERD: We will continue patient on PPI and sucralfate. #14. Chronic normocytic anemia: Admission hemoglobin 12.1, MCV 88.9, baseline hemoglobin appears primarily 11-12 range although more recently 09/05/2023 hemoglobin 13.3, will continue to trend. #15. DVT Prophylaxis: SCDs, hold chemoprophylaxis pending Podiatry evaluation in case of OR. If no our intention may add chemoprophylaxis. #16. 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 Discussed CODE status at length including difference between FULL code, DNR-CCA and DNR-CC status. Following discussions about the differences in these status, requested DNR-CCA but allowance of intubation which was discussed again and confirmed. Charges/Coding Visit Charges Inpatient E&M: 14621 Subs Hosp L2
[2023-09-16] MEDS: HYDROmorphone 0.5 MG/0.5 ML SYRINGE IV ×2 (16:13→19:59)
[2023-09-16 16:57] LABS: Bedside Glucose 117 mg/dL (74-106)
[2023-09-16] MEDS: Insulin Lispro 100 UNIT/ML INSULN.PEN 15 UNIT SC (17:51)
[2023-09-16 18:10] LABS: Bedside Glucose 171 mg/dL (74-106)
[2023-09-16] MEDS: Budesonide Respules 0.5 MG/2 ML AMPUL.NEB. INHALATION (20:15)
[2023-09-16] MEDS: Atorvastatin Calcium 40 MG Tablet PO (22:12)
[2023-09-16 22:37] LABS: Bedside Glucose 132 mg/dL (74-106)
[2023-09-17] VITALS (17 sets, daily range): BP systolic 92–136; BP diastolic 46–119; PULSE 69–89; RESP 14–18; TEMP 36.4–37.2; O2SAT 90–97; BMI 35.2
[2023-09-17] MEDS: HYDROmorphone 0.5 MG/0.5 ML SYRINGE IV ×5 (00:37→23:31)
[2023-09-17] MEDS: Piperacil/Tazobactam 3.375 GM in 0.9% Normal Saline (50mL MB+) 50 ML IV ×3 (05:30→22:33)
[2023-09-17] MEDS: 0.9% Saline Lock 10 ML Syringe IV ×4 (05:31→20:29)
[2023-09-17 06:23] LABS: Absolute Lymphocyte Count 2.36 X10^3/uL (0.83-4.51); Absolute Neutrophil Count 4.1 X10^3/uL (2.0-7.7); Basophil# 0.05 X10^3/uL; Basophil% 0.7 % (0-1); Eosinophil# 0.45 X10^3/uL; Eosinophils% 5.9 % (0-5); Hematocrit 32.9 % (40-54); Hemoglobin 10.9 g/dL (13.0-16.5); Lymphocyte # 2.36 X10^3/ul (0.83-4.51); Lymphocyte % 30.9 % (19-41); Mean Corp Hgb Conc 33.1 g/dL (32-36); Mean Corpuscular Hgb 29.6 pg (27.0-32.0); Mean Corpuscular Volume 89.4 fL (80-94); Mean Platelet Vol. 8.4 fl (6.2-12.0); Monocyte# 0.63 X10^3/uL; Monocyte% 8.2 % (0-10); NRBC Flagged by Analyzer 0 % (0-5); Neutrophil # 4.11 X10^3/uL (2.7-7.7); Neutrophil % 53.8 % (47-70); Platelet Count 282 K/mm3 (150-450); RBC Distribution Width SD 41.8 fl (35.1-43.9); Red Blood Count 3.68 M/mm3 (4.6-6.2); White Blood Count 7.6 K/mm3 (4.4-11.0)
[2023-09-17 06:40] LABS: Anion Gap 5 (5-15); BUN 27 mg/dL (7-18); BUN/Creat Ratio 18.5 RATIO (10-20); Calcium,Total 9.2 mg/dL (8.5-10.1); Chloride 108 mmol/L (98-107); Creatinine, Serum 1.46 mg/dL (0.70-1.30); EST Glomerular Filtration Rate 56 mL/min (>60); Est Glom Filt Rate - Afr Amer 68 mL/min (>60); Glucose 166 mg/dL (74-106); Potassium 3.6 mmol/L (3.5-5.1); Sodium Level 138 mmol/L (136-145)
[2023-09-17 06:42] LABS: Vancomycin, Random Level 10.4 ug/mL (0.0-15.0)
[2023-09-17] MEDS: Insulin Lispro 100 UNIT/ML INSULN.PEN SC ×3 (06:51→22:35)
--- NOTE | 2023-09-17 06:56 | PCM.RX.CS ---
Consult Antibiotic Management Pharmacy has been consulted to manage selected antibiotic: Vancomycin Type of Intervention Type of Consult: Follow-up Suspected Infection Suspected Infection: Skin/Soft tissue Labs Labs: Sodium 138 mmol/L (136-145) 09/17/23 06:07 Potassium 3.6 mmol/L (3.5-5.1) 09/17/23 06:07 Chloride 108 mmol/L (98-107) H 09/17/23 06:07 Carbon Dioxide 25.0 mmol/L (21.0-32.0) 09/17/23 06:07 Anion Gap 5 (5-15) 09/17/23 06:07 BUN 27 mg/dL (7-18) H 09/17/23 06:07 Creatinine 1.46 mg/dL (0.70-1.30) H 09/17/23 06:07 Est GFR (MDRD) Af Amer 68 mL/min (>60) 09/17/23 06:07 Est GFR (MDRD) Non-Af 56 mL/min (>60) L 09/17/23 06:07 BUN/Creatinine Ratio 18.5 RATIO (10-20) 09/17/23 06:07 Glucose 166 mg/dL (74-106) H 09/17/23 06:07 Vancomycin Trough 21.2 ug/mL (5.0-15.0) H 09/16/23 09:43 Random Vancomycin 10.4 ug/mL (0.0-15.0) 09/17/23 06:07 Pharmacy Plan for Drug Dosing Pharmacy Plan for Drug Dosing: VANCOMYCIN LEVEL RECEIVED Current Vancomycin Dose: ON HOLD d/t elevated trough- was on 1250mg IV Q12h with last dose administered 09/14 @2250 Number of Doses Received: 3 Vancomycin Level: 10.4 Hours Since Last Dose: 31hr Renal Function: 1.46 Renal Function Trend: improved Vancomycin Plan/Comments: Patient had a random trough drawn this morning which resulted in a value of 10.4 (goal 15-20). Patient's trough is now <20, will restart vancomycin at this time. Will decrease dose slightly and start patient on vancomycin 1000mg IV Q12hr to start 09/17/23 @0700 Pending Level: 09/18/23 @1830, prior to 4th dose of new regimen. Pharmacy Service will continue to monitor and adjust dosing as required.
[2023-09-17 07:11] LABS: Bedside Glucose 151 mg/dL (74-106)
[2023-09-17] MEDS: Metoprolol(XL)Succ 25 MG Tablet PO ×2 (08:20→22:38)
[2023-09-17] MEDS: Isosorbide Mononitrate 30 MG Tablet PO (08:21)
[2023-09-17] MEDS: SACUBITRIL/VALSARTAN 49-51 MG TABLET 1 EACH PO ×2 (08:21→22:33)
[2023-09-17] MEDS: Gabapentin 300 MG Capsule PO ×4 (08:26→22:33)
[2023-09-17] MEDS: Budesonide Respules 0.5 MG/2 ML AMPUL.NEB. INHALATION ×2 (08:36→20:03)
--- NOTE | 2023-09-17 09:45 | WOUNDNOTE ---
Pt going to surgery this am. will leave dressings in place.
[2023-09-17] MEDS: Vancomycin IV 1,000 MG/200 ML BAG 200 MG IV ×2 (10:12→19:36)
[2023-09-17] MEDS: 0.9% Normal Saline (1000mL) 1,000 ML 15 ML IV ×2 (10:12→14:36)
[2023-09-17 10:36] LABS: Bedside Glucose 183 mg/dL (74-106)
--- NOTE | 2023-09-17 10:41 | NURSING ---
0945-off unit via bed for surgery. long acting insulin held w/am med pass d/t npo status
--- NOTE | 2023-09-17 11:00 | AMP_PTH ---
PATIENT: RUSTY MCCLURE LOC: MS3 U#:[id number] AGE/SX: 42/M ROOM: [facility] RE09/14/[address]: Dr. Brendon Marie DO : 1980 BED: 1 DIS: 09/20/2023 SPEC #: [id number] RECD: 09/17/23 12:50 STATUS: DOMONIQUE REQ #: [id number] LOLIS: 09/17/23 11:[address]: Po Saxena DEPT: SURGICAL PATHOLOGY RECD BY: Violet Massey ENTERED: 09/17/23 13:46 SP TYPE: Amputation OTHR DR: MD Dr. Po Banerjee, DPM MD Dr. Connor Lopez MD Dr. Robert Leininger, MD Tissues: Toe, NOS Procedures: Decalcification bone/plaque Surgery Specimen Level IV Comments: @ Ordering doctor for DEC edited from to @ by JUAN F at 09/26/23 1141 @ Ordering doctor for SUIV edited from to @ by JUAN F at 09/26/23 1141 @ Submitting doctor edited from to @ by JUAN F at 09/26/23 1141 HEADER OPERATION: Amputation, Great toe, Application left posterior plaster PRE-OP DIAGNOSIS: Osteomyelitis of foot, right, acute TISSUE SUBMITTED: Right great toe MICROSCOPIC DIAGNOSIS Right great toe, amputation; Focal fibrinous exudation, acute and chronic inflammation and granulation tissue reaction. Bone with chronic inflammation and reactive changes, negative for acute osteomyelitis. [facility] 09/26/2023 MICROSCOPIC DESCRIPTION Slides are reviewed. GROSS DESCRIPTION Received in fixative is one container labeled with the patient's name and designated Right great toe. The specimen consists of a toe with attached bone, skin, nail and soft tissue. Specimen measures 5 cm in length and approximately 3.2 cm in average diameter. Portion of the nail is missing (approximately one-fourth). The plantar surface contains a remote scar. No mass lesions are identified. Longitudinal sections of toe are submitted two cassettes after decalcification. [facility] 09/17/23 More sections are submitted as follows; 3- Soft tissue, area of scar, 4&5 - more longitudinal sections of toe after decalcification. [facility] TC:3 CPT: 08789,13737
[2023-09-17] MEDS: Bupivacaine Mpf 0.5% 30 ML VIAL (12:15)
--- NOTE | 2023-09-17 12:27 | OP.PCM_ITS ---
Problems Associated Problem List Diagnoses (1) Cellulitis of left foot: (2) Osteomyelitis of foot, right, acute: (3) Type 2 diabetes mellitus with diabetic polyneuropathy: (4) Achilles rupture, left: Report of Operation Date of Procedure: 09/17/23 Pre-Operative Diagnosis: 1) Right hallux osteomyelitis 2) Left Achilles Tendon rupture Post-Operative Diagnosis: same Surgery/Procedure Performed:: 1) Right hallux amputation 2) Application of splint in plantarflexion on left side Description of Surgical Findings:: Patient admitted for pain to right hallux and MRI findings consistent of osteomyelitis. Patient initially on vancomycin and Zosyn IV antibiotics. I gave the patient 3 options for care and this included proceeding with IV antibiotics after resolution of infection and pain to right hallux. Performed I&D with bone biopsy and packing with antibiotic cement to right hallux. Or amputation of right hallux electively to clear any source of infection or pain long-term. Patient proceeded with hallux amputation. Patient is a noncontrolled type II diabetic. Patient has history of left hallux amputation. On this hospital admission due to pain to the left heel and MRI was ordered and confirmed rupture of left Achilles tendon. Will plan for conservative treatment due to poorly controlled diabetes and noncompliance issues. Surgeon: Po Saxena Type of Anesthesia: MAC Special Medications: 30cc 0.5% marcaine plain Specimen's removed: Right hallux bone/tissue - microbiology Drains: none Estimated Blood Loss (mL): minimal Description of Procedure: Patient brought back the operating placed comfortably supine position. Some issues with infiltrated right shoulder IV. New IV was placed per anesthesia. Patient was placed on the bed OR table with all osseous prominences offloaded prevent any current compression neuropraxia. Patient induced under MAC anesthesia. Well-padded right ankle tourniquet was applied. Right lower extremity was positioned to knock out any external rotation. Right lower extremity was then scrubbed prepped draped using typical aseptic fashion. Procedure #1 right hallux amputation Right lower extremity was elevated exsanguinated tourniquet was inflated to 250 mmHg. Local infiltration or Warren block technique was performed using 30 cc half percent Marcaine plain. A fishmouth incision was made along the distal aspect of the hallux just distal to the metatarsal phalangeal joint on the right side. This incision was made with a 15 blade full-thickness down to level bone. The right hallux was then disarticulated at the level of the first metatarsal phalangeal joint. This passed the back table to be sent for microbiology bone and tissue culture. No obvious signs of acute infection. This is likely a chronic infectious process based on examination intraoperatively. Incisional site was flushed with copious amounts of normal sterile saline. Post lavage swab cultures were taken. Skin incision was closed with simple interrupted 3-0 Prolene. Tourniquet was let down. Total tourniquet time was noted be 21 minutes. Betadine Adaptic 4 x 4's Kerlix and Bart bandage were dressed to the right foot. Procedure #2 splinting left lower extremity for Achilles rupture Left lower extremity was positioned in a plantarflexed position and splinted in this position using an AO splint with adequate cast padding and a modified Nazario compression dressing work daily. Patient was transported to PACU vital signs stable vascular status intact all digits for further monitoring prior to transfer back to floor. Patient tolerated procedure well. Patient will have to maintain protected weightbearing cam boot on right lower extremity. He has to maintain nonweightbearing left lower extremity due to Achilles rupture. For period of 4 to 12 weeks. Due to significant weightbearing restrictions I recommend recovery in a intermediate facility. Especially due to patient's poor compliance, poor blood glucose control, history of noncompliance with Suboxone treatment. Will continue to follow patient closely. Admit VTE Documentation VTE Present on Admission: Yes VTE Pharm Prophylaxis ordered?: Yes
--- NOTE | 2023-09-17 12:48 | CASEMGMT ---
Received tc from who states pt has a ruptured achilles tendon on the left which he will be non wt bearing for and he just had an amputation on the right that he will be in a boot for. Pod is recommending SNF for this reason. Updated SW.
[2023-09-17 13:03] LABS: Bedside Glucose 223 mg/dL (74-106)
--- NOTE | 2023-09-17 13:17 | CASEMGMT ---
Discharge Planning A list of?SNF providers including quality and resource use data and consistent with the patient's preferred geographic region, medical needs, and insurance network was created in [employer] Guide.? This list was provided to the RN SAMIR. Jesika Monzon, Discharge Planning Asst.
--- NOTE | 2023-09-17 13:30 | RAD_ITS ---
STUDY: X-RAY - RIGHT FOOT CLINICAL: Male, 42 years old. Amputation of first digit. Follow-up. TECHNIQUE: 3 view(s) of the foot. COMPARISON: 09/01/2023 FINDINGS: Amputation of the proximal and distal phalanges of the first digit with residual marked soft tissue swelling. Mild osteoarthritic changes of the tibiotalar joint, subtalar joint and midfoot, unchanged. RAD/Foot min 3 Views IMPRESSION: Amputation of the phalanges of the first digit with residual soft tissue swelling. Stable osteoarthritic changes. Electronically Signed: Morro Foley MD at 14:15 EDT ,
--- NOTE | 2023-09-17 13:42 | PN.HOSP_ITS ---
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 (09/14/23) Objective Data Objective Data Vital Signs: Vital Signs Temp Pulse Resp BP Pulse Ox O2 Del Method O2 Flow Rate 97.5 F L 78 16 108/63 95 Nasal Cannula 2 09/17/23 13:33 09/17/23 13:33 09/17/23 13:33 09/17/23 13:33 09/17/23 13:33 09/17/23 13:33 09/17/23 13:33 Oxygen Flow Rate (L/min) 2 Oxygen Delivery Method Nasal Cannula Weight: 237 lb 14.06 oz Body Mass Index (BMI) 35.2 Intake & Output: Intake and Output for Last 24 Hours 09/15/23 09/16/23 09/17/23 22:59 23:59 23:59 Intake Total 900 / 900 Output Total 950 / 950 Balance -50 / -50 Lab / Micro Data 09/17/23 06:07 09/17/23 06:07 Labs: Laboratory Results - last 24 hr 09/16/23 16:16: POC Glucose 117 H 09/16/23 17:48: POC Glucose 171 H 09/16/23 22:16: POC Glucose 132 H 09/17/23 06:07: WBC 7.6, RBC 3.68 L, Hgb 10.9 L, Hct 32.9 L, MCV 89.4, MCH 29.6, MCHC 33.1, RDW Std Deviation 41.8, RDW Coeff of Simone 13.0, Plt Count 282, MPV 8.4, Immature Gran % (Auto) 0.500, Neut % (Auto) 53.8, Lymph % (Auto) 30.9, Dare % (Auto) 8.2, Eos % (Auto) 5.9 H, Baso % (Auto) 0.7, Absolute Neuts (auto) 4.1, Absolute Lymphs (auto) 2.36, Nucleated RBC % 0, Sodium 138, Potassium 3.6, Chloride 108 H, Carbon Dioxide 25.0, Anion Gap 5, BUN 27 H, Creatinine 1.46 H, Estim Creat Clear Calc 80.60, Est GFR (MDRD) Af Amer 68, Est GFR (MDRD) Non-Af 56 L, BUN/Creatinine Ratio 18.5, Glucose 166 H, Calcium 9.2, Random Vancomycin 10.4 09/17/23 06:49: POC Glucose 151 H 09/17/23 10:16: POC Glucose 183 H 09/17/23 12:46: POC Glucose 223 H Physical Exam Narrative Seen and examined. Patient had procedure today for right hallux osteomyelitis. Patient had right hallux amputation and application of splint in plantarflexion. Pain is controlled. No fever. Physical exam General: Alert, Oriented x3, Cooperative. Morbid obesity 35.1 kg/m? HEENT: Atraumatic, PERRLA, EOMI, Normocephalic Oral: No Gingival or Mucosal Lesions/ Ulcerations Neck: Supple, No JVD, Negative Carotid Bruits Chest wall/Lungs: Air entry diminished in bilateral lung bases. No crepitation/rhonchi Cardiovascular: Regular rate, Regular Rhythm, Normal S1, Normal S2, No M/G/R Abdomen: Bowel Sounds Present, Soft, Non Tender, Non-Distended : No dysuria. No renal angle tenderness. No suprapubic tenderness. Extremities: Mild reactive edema, Capillary Refill Less than 3 Seconds Skin: Eschar of left great toe amputation well-healed Musculoskeletal: Tenderness present on both hunter, ankle and feet on both legs. Status post left great toe amputation. Neurological: Cranial nerves II-XII grossly intact, DTR 2+/4. No acute focal neurological deficit. Psych/Mental Status: Flat affect. 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 Complain of predominantly right great toe pain swollen for last 2 weeks although on both lower legs. Subjective fever and chills. Denies new injury. Outpatient MRI from 09/12/2023 shows developing osteomyelitis of first proximal phalanx and surrounding subcutaneous tissue of right great toe extending to the dorsum of the foot with no discrete fluid collection. #1. Bilateral Diabetic Foot Wounds with concern for R Foot Acute Osteomyelitis, possibly failed outpatient antibiotic therapy: Patient is being admitted in [facility] floor. There is no drainage present on the feet. Was seen by conveyor installer. Left foot MRI is ordered. Pain control. On IV antibiotics. 09/15: Patient constantly asking for Dilaudid, pain not controlled with oxycodone. Discussed about the mentioned morphine and allergy list as anaphylaxis. Patient is states it is wrong and he did not had hives, anap hylaxis or respiratory depression or arrest. It was taken off from allergy list. Started on IV Dilaudid. Oxycodone discontinued MRI foot of left ankle and foot shows a tear of Achilles tendon with subcutaneous edema of ankle secondary to trauma rather than infection. Cellulitis and myositis of left foot without evidence of osteomyelitis or abscess. 09/16: Patient had right hallux osteomyelitis and right hallux amputation and application of a splint. Left Achilles tendon rupture also noted in the operative note. #2. Diabetes mellitus type II, poorly controlled, chronic polyneuropathy with chronic diabetic foot wounds and diabetic nephropathy: Patient admitting glucose was 728 with serum sodium 128. With the correction of the glucose to 368, her serum sodium is 136 and serum osmolarity 329, patient has HHS, hyperosmolar hyperglycemic state. A1c high 13.8. Accu-Cheks before meals and cover with Humalog sliding scale. Patient also on long-acting insulin. Titrate the dose as guided by Accu-Cheks 09/15 glucose is between 200-300. Lantus and Humalog dose increased. Lantus and Humalog dose increased. 09/16: Glucose between 132 223. Yesterday evening glucose dropped to 117 there fore insulin dose was decreased. Insulin dose adjusted. #3. Hypotonic hypovolemic hyponatremia due to HHS: Serum sodium is corrected. Rest as mentioned above #4. CAD: s/p CABG x 1 and PCI x 8, given at this point per discussion with ED not definitive that patient will go to OR will continue aspirin, Plavix especially given significant cardiac history, metoprolol, losartan, statin therapy. #5. Chronic pain syndrome: As per Dr. Saxena's note, patient lied about the pain scale in order to get narcotics. Currently on oxycodone. Allergenics shows anaphylaxis to morphine. #6. HF unclear type: Chart reported, unclear type, no echocardiogram in the system for comparison, given 1 L fluid in the ED, will continue maintenance IV fluids only for 1 additional liter, continue closely monitor, will continue aspirin, Plavix as noted as currently no definitive plan for OR, statin therapy, metoprolol, losartan although may potentially be on Entresto thus will need to clarify as should not be on both, Lasix home regimen. #7. Chronic COPD: Will hold home inhalers in the interim transition to ATC budesonide, PRN albuterol, HOB, IS parameters. #8. Hypertension: Continue home regimen including metoprolol, losartan, isosorbide, Lasix with hold parameters as needed, PRN hydralazine. #9. Hyperlipidemia: We will continue patient on statin therapy. #10. chronic Kidney Disease Stage III,a: Admission BUN/Cr 26/1.75, baseline renal function primarily 1.7-2.0. BUN/creatinine 29/1.57 improved from admitting creatinine 1.75. #11. Tobacco Abuse: Encouraged cessation, inpatient consultation per RT, NR if desired. #12. Obesity: Weight loss and lifestyle changes encouraged. #13. GERD: We will continue patient on PPI and sucralfate. #14. Chronic normocytic anemia: Admission hemoglobin 12.1, MCV 88.9, baseline hemoglobin appears primarily 11-12 range although more recently 09/05/2023 hemoglobin 13.3, will continue to trend. #15. DVT Prophylaxis: SCDs, hold chemoprophylaxis pending Podiatry evaluation in case of OR. If no our intention may add chemoprophylaxis. #16. CODE status: Patient does not have healthcare power staff attorney or living will in place but notes that if he was unable to make his own medical decisions he would want his mother to be his decision-maker. Discussed CODE status at length including difference between FULL code, DNR-CCA and DNR-CC status. Following discussions about the differences in these status, requested DNR-CCA but allowance of intubation which was discussed again and confirmed. Charges/Coding Visit Charges Inpatient E&M: 48809 Subs Hosp L2
[2023-09-17] MEDS: Acetaminophen 325 MG Tablet 650 MG PO (14:50)
[2023-09-17] MEDS: oxyCODONE 5 MG Tablet PO ×2 (14:50→18:05)
[2023-09-17] MEDS: Buprenorphine HCl 2 MG TAB.SUBL SL ×2 (14:50→22:33)
[2023-09-17] MEDS: Ipratropium/Albuterol Sulfate 3 ML AMPUL.NEB INHALATION ×2 (15:00→20:03)
--- NOTE | 2023-09-17 15:20 | CASEMGMT ---
Social Work Pt met w/pt in room, pt's aunt and uncle in the room w/pt. SW provided to pt a list via [facility] of longterm facilities in network w/pt's insurance, in pt's preferred geographic area, complete w/quality and resource use data. SW did let pt know that some places may not be able to take him due to the Suboxone. SW inquired who prescribes it, he states Dr. Nelson in [place]. SW asked pt to review list w/family and SW will return tomorrow morning for choices, and referrals will be sent out tomorrow. Pt states understanding. SW to follow up tomorrow. MARIA ESTHER Pinon
--- NOTE | 2023-09-17 15:35 | PCM.CONS.GEN ---
Assessment & Plan Assessment/Plan (1) Osteomyelitis of foot, right, acute: PLAN: Glucose 700s on admit. On vanc/zosyn. Now s/p toe amp 09/17/[address] Saxena. Cxs pending. 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 Some associated fever and chills. Given 10 day course of 2 po abx, completed around 09/11 without improvement. Admitted 09/13, started on vanc/zosyn, taken to OR today for toe amp. Feeling ok today. Full ROS performed and neg except as noted above. [facility] Medical History Amputation of left great toe Anxiety Arthritis Back pain Cardiology follow-up encounter COPD (chronic obstructive pulmonary disease) Coronary artery disease Diabetic foot Dietary restriction DVT (deep venous thrombosis) Failure of outpatient treatment Fatty liver Gastric reflux Hallux rigidus of right foot Hammertoe of left foot Heart attack High cholesterol History of atrial fibrillation History of CHF (congestive heart failure) History of echocardiogram History of edema History of pain when walking History of stress test History of ulceration Hypertension Insulin dependent diabetes mellitus Leg cramps Marijuana use Metatarsal deformity Migraine headache MRSA infection Other hammer toe(s) (acquired), left foot Peripheral vascular disease, unspecified Restless legs Short Achilles tendon (acquired), left ankle Shortness of breath on exertion Smoker Substance abuse Syncope TIA (transient ischemic attack) Type 2 diabetes mellitus with diabetic polyneuropathy Uncontrolled diabetes mellitus Wears glasses Home Medications aspirin 81 mg tablet,delayed release 81 mg PO DAILY 03/31/23 [History Last Taken 09/14/23] atorvastatin 40 mg tablet 40 mg PO DAILY 03/31/23 [History Last Taken 09/14/23] clopidogrel 75 mg tablet 75 mg PO DAILY 03/31/23 [History Last Taken 09/14/23] fluticasone fur. 200 mcg-umeclid 62.5 mcg-vilant 25 mcg inhalat.powder (Trelegy Ellipta) 1 inh inhalation Q24H 03/31/23 [History Last Taken 09/14/23] furosemide 40 mg tablet 40 mg PO DAILY 03/31/23 [History Last Taken 09/14/23] gabapentin 300 mg capsule 300 mg PO 4X/DAY 03/31/23 [History Last Taken 09/14/23] isosorbide mononitrate 30 mg tablet,extended release 24 hr 30 mg PO DAILY 03/31/23 [History Last Taken 09/14/23] metformin 500 mg tablet 500 mg PO DAILY 03/31/23 [History Last Taken Unknown] sacubitril 49 mg-valsartan 51 mg tablet (Entresto) 1 tab PO BID 03/31/23 [History Last Taken 09/14/23] sucralfate 1 gram tablet 1 g PO 4X/DAY 03/31/23 [History Last Taken 09/14/23] acetaminophen 500 mg capsule 1,000 mg (2 x 500 mg) PO Q8H PRN PRN pain #90 caps 04/04/23 [Rx Last Taken 09/14/23] insulin glargine 100 unit/mL subcutaneous solution 30 unit (0.3 mL) subcut BID #10 mL 04/04/23 [Rx Last Taken 09/14/23] insulin lispro 100 unit/mL subcutaneous pen (Humalog KwikPen (U-100) Insulin) 10 unit (0.1 mL) subcut TID #15 mL 04/04/23 [Rx Last Taken 09/14/23] albuterol sulfate 2.5 mg/3 mL (0.083 %) solution for nebulization 2.5 mg inhalation Q8H PRN PRN shortness of breath or wheezing 06/21/23 [History Last Taken 09/05/23] albuterol sulfate 90 mcg/actuation aerosol inhaler 2 inh inhalation PRN PRN shortness of breath or wheezing 06/21/23 [History Last Taken 09/14/23] losartan 50 mg tablet 50 mg PO 1500 06/21/23 [History Last Taken 09/14/23] pantoprazole 40 mg tablet,delayed release 40 mg PO DAILY 12/14/23 [History Last Taken 09/14/23] metoprolol succinate 25 mg tablet,extended release 24 hr 25 mg PO Q12H 09/02/23 [History Last Taken 09/14/23] buprenorphine 8 mg-naloxone 2 mg sublingual film 1 film sublingual BID 09/14/23 [History Last Taken 09/12/23] ciprofloxacin HCl 750 mg tablet 750 mg PO Q12H 09/14/23 [History Last Taken 09/14/23] doxycycline monohydrate 100 mg capsule 100 mg PO Q12H 09/14/23 [History Last Taken 09/14/23] Allergy/AdvReac Type Severity Reaction Status Date / Time sumatriptan [From Imitrex] Allergy Severe Other Verified 09/14/23 15:01 acetarsol Allergy Intermediate Rash Verified 09/14/23 15:01 chlorpromazine Allergy Intermediate Other Verified 09/14/23 15:01 [From Thorazine] nalbuphine Allergy Intermediate Shortness Verified 09/14/23 15:01 of breath prasterone (DHEA) [From DHEA] Allergy Intermediate Shortness Verified 09/14/23 15:01 of breath prednisone Allergy Intermediate Other Verified 09/14/23 15:01 prochlorperazine Allergy Intermediate Shortness Verified 09/14/23 15:01 of breath Iodinated Contrast Media AdvReac Mild Hives Verified 09/14/23 15:01 iodine AdvReac Mild Hives Verified 09/14/23 15:01 ketorolac [From Toradol] AdvReac Mild Nausea Verified 09/14/23 15:01 tramadol AdvReac Mild Vomiting Verified 09/14/23 15:01 adhesive tape [paper tape] AdvReac Other Verified 09/14/23 15:01 Family History Mother Hypertension HLD (hyperlipidemia) Heart disease Father Hypertension HLD (hyperlipidemia) Heart disease Myocardial infarction CAD (coronary artery disease) Surgical History History of cardiac catheterization History of carpal tunnel surgery of left wrist History of carpal tunnel surgery of right wrist Hx of heart artery stent Hx of left knee surgery Hx of single vessel coronary artery bypass Hx of tonsillectomy Social History household members: none Smoking Status: Current every day smoker tobacco type: cigarettes Smoking packs per day: 0.5 Smoking cigarettes per day: 10.0 alcohol intake: never substance use type: does not use Physical Exam Const alert, oriented x3 and no apparent distress General Appearance: cooperative HEENT normocephalic and head/scalp atraumatic Eyes PERRL and EOMs intact bilaterally Neck supple and No nodes Resp normal air movement and clear to auscultation bilaterally Cardio regular rate and regular rhythm GI soft to palpation, non-tender and non-distended Extremity General Extremity: edema Skin Skin Narrative: Feet wrapped Neuro CN's II-XII intact bilaterally Lab / Micro Data Attestation: I reviewed the patient's lab results. 09/17/23 06:07 09/17/23 06:07 Labs: Laboratory Results - last 24 hr 09/16/23 16:16: POC Glucose 117 H 09/16/23 17:48: POC Glucose 171 H 09/16/23 22:16: POC Glucose 132 H 09/17/23 06:07: WBC 7.6, RBC 3.68 L, Hgb 10.9 L, Hct 32.9 L, MCV 89.4, MCH 29.6, MCHC 33.1, RDW Std Deviation 41.8, RDW Coeff of Simone 13.0, Plt Count 282, MPV 8.4, Immature Gran % (Auto) 0.500, Neut % (Auto) 53.8, Lymph % (Auto) 30.9, Prentiss % (Auto) 8.2, Eos % (Auto) 5.9 H, Baso % (Auto) 0.7, Absolute Neuts (auto) 4.1, Absolute Lymphs (auto) 2.36, Nucleated RBC % 0, Sodium 138, Potassium 3.6, Chloride 108 H, Carbon Dioxide 25.0, Anion Gap 5, BUN 27 H, Creatinine 1.46 H, Estim Creat Clear Calc 80.60, Est GFR (MDRD) Af Amer 68, Est GFR (MDRD) Non-Af 56 L, BUN/Creatinine Ratio 18.5, Glucose 166 H, Calcium 9.2, Random Vancomycin 10.4 09/17/23 06:49: POC Glucose 151 H 09/17/23 10:16: POC Glucose 183 H 09/17/23 12:46: POC Glucose 223 H Imaging Radiology Impression Foot X-Ray 09/17/23 13:30 IMPRESSION: Amputation of the phalanges of the first digit with residual soft tissue swelling. Stable osteoarthritic changes. Electronically Signed: Morro Foley MD at 14:15 EDT ,
[2023-09-17] MEDS: Juven (unflavored) Packet 1 PACKET PO (16:37)
[2023-09-17] MEDS: Sucralfate 1 GM Tablet PO ×2 (16:37→22:33)
[2023-09-17] MEDS: Insulin Lispro 100 UNIT/ML INSULN.PEN 20 UNIT SC (16:47)
--- NOTE | 2023-09-17 17:05 | NURSING ---
PT HAD ACCIDENTALLY PULLED IV OUT AND BLOOD WAS ON THE SHEETS, NIGHAT WRAPS, FLOOR, REMOTES. LINEN AND NIGHAT WRAPS CHANGED, EVERYTHING ELSE WAS WIPED DOWN
[2023-09-17 17:06] LABS: Bedside Glucose 274 mg/dL (74-106)
[2023-09-17] MEDS: Atorvastatin Calcium 40 MG Tablet PO (22:33)
[2023-09-17] MEDS: Insulin Glargine-YFGN 100 UNIT/ML Pen 30 UNIT SC (22:35)
[2023-09-17 23:00] LABS: Bedside Glucose 244 mg/dL (74-106)
[2023-09-18] VITALS (9 sets, daily range): BP systolic 106–144; BP diastolic 65–79; PULSE 72–83; RESP 14–18; TEMP 36.4–37.2; O2SAT 92–98; BMI 35.7
[2023-09-18] MEDS: HYDROmorphone 0.5 MG/0.5 ML SYRINGE IV ×6 (04:13→23:49)
--- NOTE | 2023-09-18 06:06 | NURSING ---
Attempted to put a second iv in pt. Pt skin is like leather very hard to push the needle in. On second poke Pt would not all this nurse to move the needle around to get. He said no more. So was unable to get the second iv in.
[2023-09-18] MEDS: Buprenorphine HCl 2 MG TAB.SUBL SL ×3 (06:07→21:28)
[2023-09-18] MEDS: Sucralfate 1 GM Tablet PO ×4 (06:25→21:28)
[2023-09-18] MEDS: Vancomycin IV 1,000 MG/200 ML BAG 200 MG IV ×2 (06:25→19:36)
[2023-09-18] MEDS: oxyCODONE 5 MG Tablet PO ×4 (06:30→21:28)
[2023-09-18 06:40] LABS: Absolute Neutrophil Count 4.6 X10^3/uL (2.0-7.7); Basophil# 0.03 X10^3/uL; Basophil% 0.4 % (0-1); Eosinophil# 0.31 X10^3/uL; Eosinophils% 4.3 % (0-5); Hematocrit 33.4 % (40-54); Hemoglobin 10.8 g/dL (13.0-16.5); Lymphocyte % 20.7 % (19-41); Mean Corp Hgb Conc 32.3 g/dL (32-36); Mean Corpuscular Hgb 29.7 pg (27.0-32.0); Mean Corpuscular Volume 91.8 fL (80-94); Mean Platelet Vol. 8.9 fl (6.2-12.0); Monocyte# 0.76 X10^3/uL; Monocyte% 10.5 % (0-10); NRBC Flagged by Analyzer 0 % (0-5); Neutrophil # 4.63 X10^3/uL (2.7-7.7); Neutrophil % 63.7 % (47-70); Platelet Count 276 K/mm3 (150-450); RBC Distribution Width SD 43.2 fl (35.1-43.9); Red Blood Count 3.64 M/mm3 (4.6-6.2); White Blood Count 7.3 K/mm3 (4.4-11.0)
[2023-09-18] MEDS: Ipratropium/Albuterol Sulfate 3 ML AMPUL.NEB INHALATION ×3 (06:47→19:24)
[2023-09-18] MEDS: Budesonide Respules 0.5 MG/2 ML AMPUL.NEB. INHALATION ×2 (06:47→19:24)
[2023-09-18 07:42] LABS: Anion Gap 5 (5-15); BUN 23 mg/dL (7-18); BUN/Creat Ratio 15.4 RATIO (10-20); Chloride 109 mmol/L (98-107); Creatinine, Serum 1.49 mg/dL (0.70-1.30); EST Glomerular Filtration Rate 55 mL/min (>60); Est Glom Filt Rate - Afr Amer 67 mL/min (>60); Glucose 324 mg/dL (74-106); Potassium 3.8 mmol/L (3.5-5.1); Sodium Level 139 mmol/L (136-145)
[2023-09-18] MEDS: Juven (unflavored) Packet 1 PACKET PO ×2 (08:11→16:25)
[2023-09-18] MEDS: Metoprolol(XL)Succ 25 MG Tablet PO ×2 (08:13→21:28)
[2023-09-18] MEDS: Aspirin E.C. 81 MG Tablet PO (08:13)
[2023-09-18] MEDS: Isosorbide Mononitrate 30 MG Tablet PO (08:13)
[2023-09-18] MEDS: Pantoprazole Sodium 40 MG Tablet PO (08:14)
[2023-09-18] MEDS: Clopidogrel Bisulfate 75 MG Tablet PO (08:14)
[2023-09-18] MEDS: Furosemide 40 MG Tablet PO (08:15)
[2023-09-18] MEDS: SACUBITRIL/VALSARTAN 49-51 MG TABLET 1 EACH PO ×2 (08:15→21:28)
[2023-09-18] MEDS: Gabapentin 300 MG Capsule PO ×4 (08:21→21:28)
[2023-09-18] MEDS: Piperacil/Tazobactam 3.375 GM in 0.9% Normal Saline (50mL MB+) 50 ML IV ×3 (08:21→21:28)
[2023-09-18] MEDS: Insulin Lispro 100 UNIT/ML INSULN.PEN SC ×3 (08:27→21:29)
[2023-09-18] MEDS: Insulin Lispro 100 UNIT/ML INSULN.PEN 20 UNIT SC ×2 (08:27→11:08)
--- NOTE | 2023-09-18 08:43 | CASEMGMT ---
Addendum entered by Ariela Borges 09/18/23 11:22: Social Work [facility] declined pt. SW spoke w/pt for more choices. Pt states wants to speak w/his mother who will be here shortly for additional choices, SW asked him to ask for SW once she is here, and we will speak w/he and his mother at that time. MARIA ESTHER Pinon Original Note: Social Work SW met w/pt in room in regard to long-term choices. Pt would like a referral sent to [facility]. He has not made any additional choices yet, is going to speak w/his family. Pt states the ID doctor did say he will need IV antibiotics for an extended amout of time. SW did speak w/pt about the Suboxone use. Pt states that he uses it for pain management. Pt denies any history of substance abuse, opiate abuse, heroin abuse. Pt states he does have his marijuana medical card. SW explained will have the referral made to [facility], will come back later for additional choices. MARIA ESTHER Pinon
[2023-09-18 08:56] LABS: Bedside Glucose 360 mg/dL (74-106)
--- NOTE | 2023-09-18 09:40 | PN.HOSP_ITS ---
Reason for Visit Reason for Visit: Diagnoses Type 2 diabetes mellitus with diabetic polyneuropathy (09/14/23) Cellulitis of left lower limb (09/14/23) Hallux rigidus, right foot (09/14/23) Other acute osteomyelitis, unspecified site (09/14/23) Other acute osteomyelitis, right ankle and foot (09/14/23) Strain of left Achilles tendon, initial encounter (09/14/23) senior care (current) use of insulin (09/14/23) Objective Data Objective Data Vital Signs: Vital Signs Temp Pulse Resp BP Pulse Ox O2 Del Method O2 Flow Rate 98.9 F 72 18 144/69 H 95 Room Air 2 09/18/23 04:08 09/18/23 08:13 09/18/23 06:48 09/18/23 04:08 09/18/23 06:48 09/18/23 06:48 09/17/23 13:33 Oxygen Flow Rate (L/min) 2 Oxygen Delivery Method Room Air Weight: 241 lb 9.6 oz Body Mass Index (BMI) 35.7 Intake & Output: Intake and Output for Last 24 Hours 09/16/23 09/17/23 09/18/23 23:59 23:59 23:59 Intake Total 1216 / 1216 1350 / 1350 Output Total 950 / 950 1450 / 1450 Balance 266 / 266 -100 / -100 Lab / Micro Data 09/18/23 05:58 09/18/23 05:58 Labs: Laboratory Results - last 24 hr 09/17/23 10:16: POC Glucose 183 H 09/17/23 12:46: POC Glucose 223 H 09/17/23 16:45: POC Glucose 274 H 09/17/23 22:29: POC Glucose 244 H 09/18/23 05:58: WBC 7.3, RBC 3.64 L, Hgb 10.8 L, Hct 33.4 L, MCV 91.8, MCH 29.7, MCHC 32.3, RDW Std Deviation 43.2, RDW Coeff of Simone 13.0, Plt Count 276, MPV 8.9, Immature Gran % (Auto) 0.400, Neut % (Auto) 63.7, Lymph % (Auto) 20.7, [place] % (Auto) 10.5 H, Eos % (Auto) 4.3, Baso % (Auto) 0.4, Absolute Neuts (auto) 4.6, Absolute Lymphs (auto) 1.50, Nucleated RBC % 0, Sodium 139, Potassium 3.8, Chloride 109 H, Carbon Dioxide 25.0, Anion Gap 5, BUN 23 H, Creatinine 1.49 H, Estim Creat Clear Calc 79.60, Est GFR (MDRD) Af Amer 67, Est GFR (MDRD) Non-Af 55 L, BUN/Creatinine Ratio 15.4, Glucose 324 H, Calcium 9.0 09/18/23 08:26: POC Glucose 360 H Micro: Microbiology 09/17/23 12:59 Incision/Surgical Site Gram Stain - Final 09/17/23 12:59 Tissue - Toe Gram Stain - Final Radiography Diagnostic Testing: Radiology Impression Foot X-Ray 09/17/23 13:30 IMPRESSION: Amputation of the phalanges of the first digit with residual soft tissue swelling. Stable osteoarthritic changes. Electronically Signed: Morro Foley MD at 14:15 EDT , Physical Exam Narrative Seen and examined. Patient had procedure on 09/16 for right hallux osteomyelitis. Patient had right hallux amputation and application of splint in plantarflexion. Pain is controlled. No fever. Patient complain of pain. Physical exam General: Alert, Oriented x3, Cooperative. Morbid obesity 35.1 kg/m? HEENT: Atraumatic, PERRLA, EOMI, Normocephalic Oral: No Gingival or Mucosal Lesions/ Ulcerations Neck: Supple, No JVD, Negative Carotid Bruits Chest wall/Lungs: Air entry diminished in bilateral lung bases. No crepitation/rhonchi Cardiovascular: Regular rate, Regular Rhythm, Normal S1, Normal S2, No M/G/R Abdomen: Bowel Sounds Present, Soft, Non Tender, Non-Distended : No dysuria. No renal angle tenderness. No suprapubic tenderness. Extremities: Mild reactive edema, Capillary Refill Less than 3 Seconds Skin: Eschar of left great toe amputation well-healed Musculoskeletal: Tenderness present on both hunter, ankle and feet on both legs. Status post left great toe amputation. Neurological: Cranial nerves II-XII grossly intact, DTR 2+/4. No acute focal neurological deficit. Psych/Mental Status: Flat affect. 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 Complain of predominantly right great toe pain swollen for last 2 weeks although on both lower legs. Subjective fever and chills. Denies new injury. Outpatient MRI from 09/12/2023 shows developing osteomyelitis of first proximal phalanx and surrounding subcutaneous tissue of right great toe extending to the dorsum of the foot with no discrete fluid collection. #1. Bilateral Diabetic Foot Wounds with concern for R Foot Acute Osteomyelitis, possibly failed outpatient antibiotic therapy: [facility]. There is no drainage present on the feet. Was seen by clint henson. Left foot MRI is ordered. Pain control. On IV antibiotics. 09/15: Patient constantly asking for Dilaudid, pain not controlled with oxycodone. Discussed about the mentioned morphine and allergy list as anaphylaxis. Patient is states it is wrong and he did not had hives, anaphylaxis or respiratory depression or arrest. It was taken off from allergy list. Started on IV Dilaudid. Oxycodone discontinued MRI foot of left ankle and foot shows a tear of Achilles tendon with subcutaneous edema of ankle secondary to trauma rather than infection. Cellulitis and myositis of left foot without evidence of osteomyelitis or abscess. 09/16: Patient had right hallux osteomyelitis and right hallux amputation and application of a splint. Left Achilles tendon rupture also noted in the operative note. 3/: No acute issues. Patient was warned about the high doses of pain medication which might cause bowel ileus. Therefore dose of Dilaudid decreased. #2. Diabetes mellitus type II, poorly controlled, chronic polyneuropathy with chronic diabetic foot wounds and diabetic nephropathy: Patient admitting glucose was 728 with serum sodium 128. With the correction of the glucose to 368, her serum sodium is 136 and serum osmolarity 329, patient has HHS, hyperosmolar hyperglycemic state. A1c high 13.8. Accu-Cheks before meals and cover with Humalog sliding scale. Patient also on long-acting insulin. Titrate the dose as guided by Accu-Cheks 09/15 glucose is between 200-300. Lantus and Humalog dose increased. Lantus and Humalog dose increased. 09/16: Glucose between 132- 223. Yesterday evening glucose dropped to 117 therefore insulin dose was decreased. Insulin dose adjusted. 09/17: Glucose keeps on fluctuating. Sometimes low 100s sometimes in 300. Insulin doses changed. #3. Hypotonic hypovolemic hyponatremia due to HHS: Serum sodium is corrected. Rest as mentioned above #4. CAD: s/p CABG x 1 and PCI x 8, given at this point per discussion with ED not definitive that patient will go to OR will continue aspirin, Plavix especially given significant cardiac history, metoprolol, losartan, statin therapy. #5. Chronic pain syndrome: As per Dr. Saxena's note, patient lied about the pain scale in order to get narcotics. Currently on oxycodone. Allergenics shows anaphylaxis to morphine. #6. HF unclear type: Chart reported, unclear type, no echocardiogram in the system for comparison, given 1 L fluid in the ED, will continue maintenance IV fluids only for 1 additional liter, continue closely monitor, will continue aspirin, Plavix as noted as currently no definitive plan for OR, statin therapy, metoprolol, losartan although may potentially be on Entresto thus will need to clarify as should not be on both, Lasix home regimen. #7. Chronic COPD: Will hold home inhalers in the interim transition to ATC budesonide, PRN albuterol, HOB, IS parameters. #8. Hypertension: Continue home regimen including metoprolol, losartan, isosor bide, Lasix with hold parameters as needed, PRN hydralazine. #9. Hyperlipidemia: We will continue patient on statin therapy. #10. chronic Kidney Disease Stage III,a: Admission BUN/Cr 26/1.75, baseline renal function primarily 1.7-2.0. BUN/creatinine 29/1.57 improved from admitting creatinine 1.75. #11. Tobacco Abuse: Encouraged cessation, inpatient consultation per RT, NR if desired. #12. Obesity: Weight loss and lifestyle changes encouraged. #13. GERD: We will continue patient on PPI and sucralfate. #14. Chronic normocytic anemia: Admission hemoglobin 12.1, MCV 88.9, baseline hemoglobin appears primarily 11-12 range although more recently 09/05/2023 hemoglobin 13.3, will continue to trend. #15. DVT Prophylaxis: SCDs, hold chemoprophylaxis pending Podiatry evaluation in case of OR. If no our intention may add chemoprophylaxis. #16. CODE status: Patient does not have healthcare power employment attorney or living will in place but notes that if he was unable to make his own medical decisions he would want his mother to be his decision-maker. Discussed CODE status at length including difference between FULL code, DNR-CCA and DNR-CC status. Following discussions about the differences in these status, requested DNR-CCA but allowance of intubation which was discussed again and confirmed. Charges/Coding Visit Charges Inpatient E&M: 21372 Subs Hosp L2
--- NOTE | 2023-09-18 10:11 | CASEMGMT ---
Addendum entered by Jesika Monzon 09/18/23 10:43: [facility] declined referral. SW updated. Jesika Monzon, Discharge Planning Asst. Original Note: Discharge Planning Referral sent via [facility] to [facility]. Jesika Monzon, Discharge Planning Asst.
--- NOTE | 2023-09-18 10:31 | PN.ID_ITS ---
Physical Exam Narrative Feeling ok, pain improved, no fever, no n/v/d Const alert and no apparent distress General Appearance: cooperative Resp normal air movement and clear to auscultation bilaterally Cardio regular rate and regular rhythm GI soft to palpation, non-tender and non-distended Skin no rashes or lesions noted ID ID: Route of nutrition/ use of supplements: [] Nutritional Intake: [] IV Site: [] Anne Catheter: [] Assessment & Plan Assessment/Plan (1) Osteomyelitis of foot, right, acute: PLAN: Glucose 700s on admit. On vanc/zosyn. Now s/p toe amp 09/17/[address] Saxena. Cxs pending. 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
[2023-09-18] MEDS: Ondansetron 4 MG/2 ML Vial IV (11:01)
[2023-09-18] MEDS: 0.9% Saline Lock 10 ML Syringe IV ×2 (11:02→16:25)
--- NOTE | 2023-09-18 11:03 | WOUNDNOTE ---
wound photo: right foot
--- NOTE | 2023-09-18 11:04 | WOUNDNOTE ---
wound photo: right foot
[2023-09-18] MEDS: Insulin Glargine-YFGN 100 UNIT/ML Pen 30 UNIT SC ×2 (11:07→21:29)
[2023-09-18 11:38] LABS: Bedside Glucose 231 mg/dL (74-106)
[2023-09-18] MEDS: Acetaminophen 325 MG Tablet 650 MG PO (15:09)
[2023-09-18 17:08] LABS: Bedside Glucose 106 mg/dL (74-106)
--- NOTE | 2023-09-18 19:29 | PCM.RX.CS ---
Consult Antibiotic Management Pharmacy has been consulted to manage selected antibiotic: Vancomycin Type of Intervention Type of Consult: Follow-up Suspected Infection Suspected Infection: Osteomyelitis Prior Doses of Antibiotics Prior Doses of Antibiotics Received/Current Regimen: current dose is vanc 1000mg IV q12h Labs Labs: Sodium 139 mmol/L (136-145) 09/18/23 05:58 Potassium 3.8 mmol/L (3.5-5.1) 09/18/23 05:58 Chloride 109 mmol/L (98-107) H 09/18/23 05:58 Carbon Dioxide 25.0 mmol/L (21.0-32.0) 09/18/23 05:58 Anion Gap 5 (5-15) 09/18/23 05:58 BUN 23 mg/dL (7-18) H 09/18/23 05:58 Creatinine 1.49 mg/dL (0.70-1.30) H 09/18/23 05:58 Est GFR (MDRD) Af Amer 67 mL/min (>60) 09/18/23 05:58 Est GFR (MDRD) Non-Af 55 mL/min (>60) L 09/18/23 05:58 BUN/Creatinine Ratio 15.4 RATIO (10-20) 09/18/23 05:58 Glucose 324 mg/dL (74-106) H 09/18/23 05:58 Vancomycin Trough 16.0 ug/mL (5.0-15.0) H 09/18/23 18:40 Random Vancomycin 10.4 ug/mL (0.0-15.0) 09/17/23 06:07 Microbiology Microbiology: Microbiology 09/17/23 12:59 Incision/Surgical Site Gram Stain - Final 09/17/23 12:59 Tissue - Toe Gram Stain - Final Dosing Weight Weight used for dosin.6 kg Estimated Creatinine Clearance Estimated Creatinine Clearance: 79.6ml/min Goal Trough Goal Trough: 15-20 mcg/mL Pharmacy Plan for Drug Dosing Pharmacy Plan for Drug Dosing: The vanc trough drawn at 18:40 tonight came back as 16.0. This is within goal range so will keep same dose. Repeat a trough in 2 days per protocol. Pharmacy Service will continue to monitor and adjust dosing as required. Follow-Up Labs Follow-Up Labs: Trough: Vancomycin Date/Time Labs Ordered Labs to be done on [date and time ordered]: 09/20/23 18:30
[2023-09-18] MEDS: Atorvastatin Calcium 40 MG Tablet PO (21:28)
[2023-09-18 22:13] LABS: Bedside Glucose 232 mg/dL (74-106)
[2023-09-19] VITALS (8 sets, daily range): BP systolic 101–148; BP diastolic 52–87; PULSE 68–80; RESP 16–20; TEMP 36.6–37.1; O2SAT 93–100; BMI 34.3
[2023-09-19] MEDS: HYDROmorphone 0.5 MG/0.5 ML SYRINGE IV ×5 (03:19→21:14)
[2023-09-19] MEDS: Sucralfate 1 GM Tablet PO ×4 (06:16→21:02)
[2023-09-19] MEDS: oxyCODONE 5 MG Tablet PO ×2 (06:16→11:28)
[2023-09-19] MEDS: Vancomycin IV 1,000 MG/200 ML BAG 200 MG IV ×2 (06:16→18:36)
[2023-09-19] MEDS: Buprenorphine HCl 2 MG TAB.SUBL SL ×2 (06:16→21:01)
[2023-09-19] MEDS: Piperacil/Tazobactam 3.375 GM in 0.9% Normal Saline (50mL MB+) 50 ML IV ×3 (07:37→21:01)
[2023-09-19] MEDS: 0.9% Saline Lock 10 ML Syringe IV ×3 (07:51→16:51)
[2023-09-19] MEDS: Juven (unflavored) Packet 1 PACKET PO ×2 (07:52→17:29)
[2023-09-19 08:27] LABS: Bedside Glucose 239 mg/dL (74-106)
[2023-09-19] MEDS: Insulin Lispro 100 UNIT/ML INSULN.PEN 18 UNIT SC ×3 (09:47→17:30)
[2023-09-19] MEDS: Insulin Lispro 100 UNIT/ML INSULN.PEN SC ×2 (09:48→11:35)
[2023-09-19] MEDS: Furosemide 40 MG Tablet PO (09:49)
[2023-09-19] MEDS: Clopidogrel Bisulfate 75 MG Tablet PO (09:49)
[2023-09-19] MEDS: Metoprolol(XL)Succ 25 MG Tablet PO ×2 (09:49→21:04)
[2023-09-19] MEDS: Pantoprazole Sodium 40 MG Tablet PO (09:49)
[2023-09-19] MEDS: Aspirin E.C. 81 MG Tablet PO (09:50)
[2023-09-19] MEDS: SACUBITRIL/VALSARTAN 49-51 MG TABLET 1 EACH PO ×2 (09:50→21:02)
[2023-09-19] MEDS: Isosorbide Mononitrate 30 MG Tablet PO (09:50)
[2023-09-19] MEDS: Insulin Glargine-YFGN 100 UNIT/ML Pen 30 UNIT SC ×2 (09:51→21:10)
[2023-09-19] MEDS: Gabapentin 300 MG Capsule PO ×3 (09:59→21:02)
--- NOTE | 2023-09-19 10:47 | CASEMGMT ---
Social Work SW met with pt and introduced self and role of SW. Pt sitting up in bed and willing to speak with SW. SW requesting additional choices for SNF. Pt clearly and adamantly stating he has decided he will not be going to a SNF and will be going home. SW reiterated physician recommendations that pt go to SNF. Reviewed weight bearing status and possible need for IV ATB. Pt states he can maintain WBS and acknowledges he is NWB left and partial weight bearing right. Pt also reports he had IV ATB with a PICC line at home previously and was able to manage this. Pt lives in a one story home and states his mother or her boyfriend are in the home and can provide 24 hour care as needed. Pt has a knee scooter but does not have a walker. SW again reviewed physician recommendation for SNF placement, pt is understanding of recommendations and consequences and is requesting to return home. RNSAMIR greenfield. LIZ Shah
--- NOTE | 2023-09-19 11:02 | CASEMGMT ---
Discharge Planning A list of?HH providers including quality and resource use data and consistent with the patient's preferred geographic region, medical needs, and insurance network was created in [facility] Guide.? This list was provided to the RN SAMIR. Jesika Monzon, Discharge Planning Asst.
[2023-09-19 12:01] LABS: Bedside Glucose 161 mg/dL (74-106)
--- NOTE | 2023-09-19 13:15 | CASEMGMT ---
RADHA DAWSON notified that pt now wants to go home instead of a SNF by SW. RADHA DAWSON into pt room, pt sitting up in bed, pt states he would like to go home with C. Pt provided a list of C providers including quality and resource use data and consistent with the patient?s preferred geographic region, medical needs, and insurance network were provided from the [facility] Guide. Pt states that he does not have a preference of agency as long as they take his insurance and will come to his home. He is agreeable to multiple referrals being sent and see who will accept. Pt states he has done IV atb before. Pt would like a FWW as well. Provided pt with a verbal local in network list of Infusion companies and DME (for walker) , he chose [facility] and [facility]. Updated pod on pt plan for dc. RADHA DAWSON to follow ID.
--- NOTE | 2023-09-19 13:55 | CASEMGMT ---
Discharge Planning HH referral sent via [facility] to [facility], [facility], [facility], [facility], [facility], [facility], [facility], [facility], [facility], [facility], [facility], and [facility]. Jesika Monzon, Discharge Planning Asst.
[2023-09-19 14:17] LABS: Bedside Glucose 87 mg/dL (74-106)
[2023-09-19 15:03] LABS: Bedside Glucose 106 mg/dL (74-106)
[2023-09-19] MEDS: Ondansetron 4 MG/2 ML Vial IV (16:50)
[2023-09-19 17:11] LABS: Bedside Glucose 143 mg/dL (74-106)
--- NOTE | 2023-09-19 17:30 | PN.HOSP_ITS ---
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 (09/14/23) Objective Data Objective Data Vital Signs: Vital Signs Temp Pulse Resp BP Pulse Ox O2 Del Method O2 Flow Rate 98 F 72 20 H 144/70 H 100 Room Air 2 09/19/23 14:43 09/19/23 16:34 09/19/23 16:34 09/19/23 16:34 09/19/23 16:34 09/19/23 16:34 09/17/23 13:33 Oxygen Flow Rate (L/min) 2 Oxygen Delivery Method Room Air Weight: 231 lb 14.821 oz Body Mass Index (BMI) 34.3 Intake & Output: Intake and Output for Last 24 Hours 09/17/23 09/18/23 09/19/23 23:59 23:59 23:59 Intake Total 1216 / 1216 1650 / 1650 2500 / 2500 Output Total 950 / 950 1450 / 1450 1500 / 1500 Balance 266 / 266 200 / 200 1000 / 1000 Lab / Micro Data 09/18/23 05:58 09/18/23 05:58 Labs: Laboratory Results - last 24 hr 09/18/23 18:40: Vancomycin Trough 16.0 H 09/18/23 21:21: POC Glucose 232 H 09/19/23 07:41: POC Glucose 239 H 09/19/23 11:31: POC Glucose 161 H 09/19/23 13:56: POC Glucose 87 09/19/23 14:41: POC Glucose 106 09/19/23 16:45: POC Glucose 143 H Micro: Microbiology 09/17/23 12:59 Incision/Surgical Site Gram Stain - Final 09/17/23 12:59 Incision/Surgical Site Wound Culture - Preliminary GNR Poss Pseudomonas sp 09/17/23 12:59 Incision/Surgical Site Anaerobic Culture - Preliminary No growth in 48 hours. 09/17/23 12:59 Tissue - Toe Gram Stain - Final 09/17/23 12:59 Tissue - Toe Wound Culture - Preliminary Coag Negative Staph GNR Poss Pseudomonas sp 09/17/23 12:59 Tissue - Toe Anaerobic Culture - Preliminary No growth in 48 hours. Physical Exam Narrative Seen and examined. Patient had procedure on 09/16 for right hallux osteomyelitis. Patient had right hallux amputation and application of splint in plantarflexion. Pain is controlled. No fever. Pain is controlled. Physical exam General: Alert, Oriented x3, Cooperative. Morbid obesity 35.1 kg/m? HEENT: Atraumatic, PERRLA, EOMI, Normocephalic Oral: No Gingival or Mucosal Lesions/ Ulcerations Neck: Supple, No JVD, Negative Carotid Bruits Chest wall/Lungs: Air entry diminished in bilateral lung bases. No crepitation/rhonchi Cardiovascular: Regular rate, Regular Rhythm, Normal S1, Normal S2, No M/G/R Abdomen: Bowel Sounds Present, Soft, Non Tender, Non-Distended : No dysuria. No renal angle tenderness. No suprapubic tenderness. Extremities: Mild reactive edema, Capillary Refill Less than 3 Seconds Skin: Eschar of left great toe amputation well-healed Musculoskeletal: Tenderness present on both hunter, ankle and feet on both legs. This time, right great toe amputation. Left Achilles tendon repair. Status post left great toe amputation. Neurological: Cranial nerves II-XII grossly intact, DTR 2+/4. No acute focal neurological deficit. Psych/Mental Status: Flat affect. 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 Complain of predominantly right great toe pain swollen for last 2 weeks although on both lower legs. Subjective fever and chills. Denies new injury. Outpatient MRI from 09/12/2023 shows developing osteomyelitis of first proximal phalanx and surrounding subcutaneous tissue of right great toe extending to the dorsum of the foot with no discrete fluid collection. #1. Bilateral Diabetic Foot Wounds with concern for R Foot/great toe acute Osteomyelitis, possibly failed outpatient antibiotic therapy: Patient is being admitted in [facility] floor. There is no drainage present on the feet. Was seen by finishing inspector. Left foot MRI is ordered. Pain control. On IV antibiotics. 09/15: Patient constantly asking for Dilaudid, pain not controlled with oxycodone. Discussed about the mentioned morphine and allergy list as anaphylaxis. Patient is states it is wrong and he did not had hives, anaphylaxis or respiratory depression or arrest. It was taken off from allergy list. Started on IV Dilaudid. Oxycodone discontinued MRI foot of left ankle and foot shows a tear of Achilles tendon with subcutaneous edema of ankle secondary to trauma rather than infection. Cellulitis and myositis of left foot without evidence of osteomyelitis or abscess. 09/16: Patient had right hallux osteomyelitis and right hallux amputation and application of a splint. Left Achilles tendon rupture also noted in the operative note. 09/17: No acute issues. Patient was warned about the high doses of pain medication which might cause bowel ileus. Therefore dose of Dilaudid decreased. 09/18: No acute issues. 09/16 tissue culture growing GNR possible Pseudomonas. Other culture growing 1+ gram-positive cocci, GNR possible Pseudomonas and: Negative staph. ID following. When cultures finalized will need possible PICC line for Pseudomonas infection. #2. Diabetes mellitus type II, poorly controlled, chronic polyneuropathy with chronic diabetic foot wounds and diabetic nephropathy: Patient admitting glucose was 728 with serum sodium 128. With the correction of the glucose to 368, her serum sodium is 136 and serum osmolarity 329, patient has HHS, hyperosmolar hyperglycemic state. A1c high 13.8. Accu-Cheks before meals and cover with Humalog sliding scale. Patient also on long-acting insulin. Titrate the dose as guided by Accu-Cheks 09/15 glucose is between 200-300. Lantus and Humalog dose increased. Lantus and Humalog dose increased. 09/16: Glucose between 132- 223. Yesterday evening glucose dropped to 117 therefore insulin dose was decreased. Insulin dose adjusted. 09/17: Glucose keeps on fluctuating. Sometimes low 100s sometimes in 300. Insulin doses changed. 09/18: Glucose is better controlled between 1 43-161. Continue same regimen. #3. Hypotonic hypovolemic hyponatremia due to HHS: Serum sodium is corrected. Rest as mentioned above #4. CAD: s/p CABG x 1 and PCI x 8, given at this point per discussion with ED not definitive that patient will go to OR will continue aspirin, Plavix especia lly given significant cardiac history, metoprolol, losartan, statin therapy. #5. Chronic pain syndrome: As per Dr. Saxena's note, patient lied about the pain scale in order to get narcotics. Currently on oxycodone. Allergenics shows anaphylaxis to morphine. #6. HF unclear type: Chart reported, unclear type, no echocardiogram in the system for comparison, given 1 L fluid in the ED, will continue maintenance IV fluids only for 1 additional liter, continue closely monitor, will continue aspi rin, Plavix as noted as currently no definitive plan for OR, statin therapy, metoprolol, losartan although may potentially be on Entresto thus will need to clarify as should not be on both, Lasix home regimen. #7. Chronic COPD: Will hold home inhalers in the interim transition to ATC budesonide, PRN albuterol, HOB, IS parameters. #8. Hypertension: Continue home regimen including metoprolol, losartan, isosorbide, Lasix with hold parameters as needed, PRN hydralazine. #9. Hyperlipidemia: We will continue patient on statin therapy. #10. chronic Kidney Disease Stage III,a: Admission BUN/Cr 26/1.75, baseline renal function primarily 1.7-2.0. BUN/creatinine 29/1.57 improved from admitting creatinine 1.75. #11. Tobacco Abuse: Encouraged cessation, inpatient consultation per RT, NR if desired. #12. Obesity: Weight loss and lifestyle changes encouraged. #13. GERD: We will continue patient on PPI and sucralfate. #14. Chronic normocytic anemia: Admission hemoglobin 12.1, MCV 88.9, baseline hemoglobin appears primarily 11-12 range although more recently 09/05/2023 hemoglobin 13.3, will continue to trend. #15. DVT Prophylaxis: SCDs, hold chemoprophylaxis pending Podiatry evaluation in case of OR. If no our intention may add chemoprophylaxis. #16. CODE status: Patient does not have healthcare power assistant city attorney or living will in place but notes that if he was unable to make his own medical decisions he would want his mother to be his decision-maker. Discussed CODE status at length including difference between FULL code, DNR-CCA and DNR-CC status. Following discussions about the differences in these status, requested DNR-CCA but allowance of intubation which was discussed again and confirmed. Charges/Coding Visit Charges Inpatient E&M: 65524 Subs Hosp L2
[2023-09-19] MEDS: Atorvastatin Calcium 40 MG Tablet PO (21:04)
[2023-09-20] MEDS: HYDROmorphone 0.5 MG/0.5 ML SYRINGE IV ×2 (00:15→06:46)
[2023-09-20 00:51] LABS: Bedside Glucose 146 mg/dL (74-106)
[2023-09-20 03:30] VITALS: BP 155/74; PULSE 68; RESP 16; TEMP 36.8; O2SAT 98
[2023-09-20 06:00] VITALS: BMI 35.0
[2023-09-20] MEDS: Sucralfate 1 GM Tablet PO ×2 (06:46→11:05)
[2023-09-20] MEDS: Buprenorphine HCl 2 MG TAB.SUBL SL (06:46)
[2023-09-20] MEDS: Insulin Lispro 100 UNIT/ML INSULN.PEN SC (06:51)
[2023-09-20] MEDS: Insulin Lispro 100 UNIT/ML INSULN.PEN 18 UNIT SC ×2 (06:51→12:33)
[2023-09-20] MEDS: Piperacil/Tazobactam 3.375 GM in 0.9% Normal Saline (50mL MB+) 50 ML IV ×2 (06:57→14:05)
[2023-09-20 07:11] LABS: Bedside Glucose 206 mg/dL (74-106)
--- NOTE | 2023-09-20 07:22 | PN.HOSP_ITS ---
Reason for Visit Reason for Visit: Diagnoses Type 2 diabetes mellitus with diabetic polyneuropathy (09/14/23) Cellulitis of left lower limb (09/14/23) Hallux rigidus, right foot (09/14/23) Other acute osteomyelitis, unspecified site (09/14/23) Other acute osteomyelitis, right ankle and foot (09/14/23) Strain of left Achilles tendon, initial encounter (09/14/23) residential (current) use of insulin (09/14/23) Objective Data Objective Data Vital Signs: Vital Signs Temp Pulse Resp BP Pulse Ox O2 Del Method O2 Flow Rate 36.8 C 68 16 155/74 H 98 Room Air 2 09/20/23 03:30 09/20/23 03:30 09/20/23 03:30 09/20/23 03:30 09/20/23 03:30 09/20/23 03:30 09/17/23 13:33 Oxygen Flow Rate (L/min) 2 Oxygen Delivery Method Room Air Weight: 107.3 kg Body Mass Index (BMI) 35.0 Intake & Output: Intake and Output for Last 24 Hours 09/18/23 09/19/23 09/20/23 23:59 23:59 23:59 Intake Total 1650 / 1650 3450 / 4250 1450 / 1450 Output Total 1450 / 1450 2300 / 3000 1100 / 1100 Balance 200 / 200 1150 / 1250 350 / 350 Lab / Micro Data 09/18/23 05:58 09/18/23 05:58 Labs: Laboratory Results - last 24 hr 09/19/23 07:41: POC Glucose 239 H 09/19/23 11:31: POC Glucose 161 H 09/19/23 13:56: POC Glucose 87 09/19/23 14:41: POC Glucose 106 09/19/23 16:45: POC Glucose 143 H 09/19/23 21:09: POC Glucose 146 H 09/20/23 06:50: POC Glucose 206 H Micro: Microbiology 09/14/23 17:38 Blood Culture (Wb) - Anticubital Left Blood Culture - Final No growth in 5 days. 09/14/23 17:20 Blood Culture (Wb) - Anticubital Left Blood Culture - Final No growth in 5 days. 09/17/23 12:59 Incision/Surgical Site Gram Stain - Final 09/17/23 12:59 Incision/Surgical Site Wound Culture - Preliminary GNR Poss Pseudomonas sp 09/17/23 12:59 Incision/Surgical Site Anaerobic Culture - Preliminary No growth in 48 hours. 09/17/23 12:59 Tissue - Toe Gram Stain - Final 09/17/23 12:59 Tissue - Toe Wound Culture - Preliminary Coag Negative Staph GNR Poss Pseudomonas sp 09/17/23 12:59 Tissue - Toe Anaerobic Culture - Preliminary No growth in 48 hours. Assessment & Plan Assessment/Plan (1) Acute osteomyelitis: PLAN: Plan Bilateral Diabetic Foot Wounds with osteomyelitis of right hallux * MRI Left heel on 09/14 shows tear of achilles tendon, SQ edema of the ankle, cellulitis and myositis of left foot w/o evidence of OM or abscess. * 09/16: Right hallux amputation, application of splint in plantarflexion on left side. * abx with pip/tazo and vancomycin. Uncontrolled DM2 * a1c 13.8 * insuline regimen: glargine 30 BID, lispro 18 TID and SSI. * glucose overall improved. I suspect pt does not take his insulin given his a1c and improved control while on similiar insulin dosing that is listed at home. Hyponatremia: * pseudohyponatremia given uncontrolled glucose * no additional work up. Chronic conditions: * CAD: s/p CABG x 1 and PCI x 8, given at this point per discussion with ED not definitive that patient will go to OR will continue aspirin, Plavix especially given significant cardiac history, metoprolol, losartan, statin therapy. * Chronic pain syndrome: As per Dr. Saxena's note, patient lied about the pain scale in order to get narcotics. Currently on oxycodone. Allergenics shows anaphylaxis to morphine. Reviewed [facility], pt receives Suboxone through Dr. Mark Bello. * HF unclear type: Chart reported, unclear type, no echocardiogram in the system for comparison, given 1 L fluid in the ED, will continue maintenance IV fluids only for 1 additional liter, continue closely monitor, will continue aspirin, Plavix as noted as currently no definitive plan for OR, statin therapy, metoprolol,Entresto thus will need to clarify as should not be on both, Lasix home regimen. * Chronic COPD: Will hold home inhalers in the interim transition to ATC budesonide, PRN albuterol, HOB, IS parameters. * Hypertension: Continue home regimen including metoprolol, losartan, isosorbide, Lasix with hold parameters as needed, PRN hydralazine. * Hyperlipidemia: We will continue patient on statin therapy. * chronic Kidney Disease Stage III,a: Admission BUN/Cr 26/1.75, baseline renal function primarily 1.7-2.0. BUN/creatinine 29/1.57 improved from admitting creatinine 1.75. * Tobacco Abuse: Encouraged cessation, inpatient consultation per RT, NR if desired. * Obesity: Weight loss and lifestyle changes encouraged. * GERD: We will continue patient on PPI and sucralfate. * Chronic normocytic anemia: Admission hemoglobin 12.1, MCV 88.9, baseline hemoglobin appears primarily 11-12 range although more recently 09/05/2023 hemoglobin 13.3, will continue to trend. DVT Prophylaxis: SCDs CODE status: DNRCCA.
--- NOTE | 2023-09-20 07:22 | PCM.PN.HOSP ---
Reason for Visit Reason for Visit: Diagnoses Type 2 diabetes mellitus with diabetic polyneuropathy (09/14/23) Cellulitis of left lower limb (09/14/23) Hallux rigidus, right foot (09/14/23) Other acute osteomyelitis, unspecified site (09/14/23) Other acute osteomyelitis, right ankle and foot (09/14/23) Strain of left Achilles tendon, initial encounter (09/14/23) [facility] (current) use of insulin (09/14/23) Subjective Subjective Feels ok. Anxious to go home. Objective Data Objective Data Vital Signs: Vital Signs Temp Pulse Resp BP Pulse Ox O2 Del Method O2 Flow Rate 36.8 C 68 16 155/74 H 98 Room Air 2 09/20/23 03:30 09/20/23 03:30 09/20/23 03:30 09/20/23 03:30 09/20/23 03:30 09/20/23 03:30 09/17/23 13:33 Oxygen Flow Rate (L/min) 2 Oxygen Delivery Method Room Air Weight: 107.3 kg Body Mass Index (BMI) 35.0 Intake & Output: Intake and Output for Last 24 Hours 09/18/23 09/19/23 09/20/23 23:59 23:59 23:59 Intake Total 1650 / 1650 3450 / 4250 1450 / 1450 Output Total 1450 / 1450 2300 / 3000 1100 / 1100 Balance 200 / 200 1150 / 1250 350 / 350 Lab / Micro Data 09/18/23 05:58 09/20/23 08:40 Labs: Laboratory Results - last 24 hr 09/19/23 07:41: POC Glucose 239 H 09/19/23 11:31: POC Glucose 161 H 09/19/23 13:56: POC Glucose 87 09/19/23 14:41: POC Glucose 106 09/19/23 16:45: POC Glucose 143 H 09/19/23 21:09: POC Glucose 146 H 09/20/23 06:50: POC Glucose 206 H Micro: Microbiology 09/14/23 17:38 Blood Culture (Wb) - Anticubital Left Blood Culture - Final No growth in 5 days. 09/14/23 17:20 Blood Culture (Wb) - Anticubital Left Blood Culture - Final No growth in 5 days. 09/17/23 12:59 Incision/Surgical Site Gram Stain - Final 09/17/23 12:59 Incision/Surgical Site Wound Culture - Preliminary GNR Poss Pseudomonas sp 09/17/23 12:59 Incision/Surgical Site Anaerobic Culture - Preliminary No growth in 48 hours. 09/17/23 12:59 Tissue - Toe Gram Stain - Final 09/17/23 12:59 Tissue - Toe Wound Culture - Preliminary Coag Negative Staph GNR Poss Pseudomonas sp 09/17/23 12:59 Tissue - Toe Anaerobic Culture - Preliminary No growth in 48 hours. Physical Exam Const alert and no apparent distress Constitutional Narrative: Up in bed. No acute distress. HEENT head/scalp atraumatic and moist oral mucous membranes Resp normal respiratory effort Assessment & Plan Assessment/Plan (1) Acute osteomyelitis: PLAN: Plan Bilateral Diabetic Foot Wounds with osteomyelitis of right hallux MRI Left heel on 09/14 shows tear of achilles tendon, SQ edema of the ankle, cellulitis and myositis of left foot w/o evidence of OM or abscess. 09/16: Right hallux amputation, application of splint in plantarflexion on left side. abx with pip/tazo and vancomycin through 10/29/2023 PICC line pending Uncontrolled DM2 a1c 13.8 insuline regimen: glargine 30 BID, lispro 18 TID and SSI. glucose overall improved. I suspect pt does not take his insulin given his a1c and improved control while on similiar insulin dosing that is listed at home. Hyponatremia: pseudohyponatremia given uncontrolled glucose no additional work up. Chronic pain syndrome: Reviewed [facility], pt receives Suboxone through Dr. Mark Bello. I asked if there is Dr. Jimenez is a addiction medicine physician, he said he is not in patient is taking it to help him stay off of narcotics. I told patient I suspect he is not having resolution of his acute pain as he has been taking buprenorphine in addition to oxycodone and hydromorphone and likely the buprenorphine is mediating the effect of those other narcotics as it is occupying the mu receptors. I told the patient that I will give him a short course of oxycodone and while he is taking the oxycodone to hold off on his buprenorphine. Chronic conditions: CAD: s/p CABG x 1 and PCI x 8, given at this point per discussion with ED not definitive that patient will go to OR will continue aspirin, Plavix especially given significant cardiac history, metoprolol, losartan, statin therapy. HF unclear type: Chart reported, unclear type, no echocardiogram in the system for comparison, given 1 L fluid in the ED, will continue maintenance IV fluids only for 1 additional liter, continue closely monitor, will continue aspirin, Plavix as noted as currently no definitive plan for OR, statin therapy, metoprolol,Entresto thus will need to clarify as should not be on both, Lasix home regimen. Chronic COPD: Will hold home inhalers in the interim transition to ATC budesonide, PRN albuterol, HOB, IS parameters. Hypertension: Continue home regimen including metoprolol, losartan, isosorbide, Lasix with hold parameters as needed, PRN hydralazine. Hyperlipidemia: We will continue patient on statin therapy. chronic Kidney Disease Stage III,a: Admission BUN/Cr 26/1.75, baseline renal function primarily 1.7-2.0. BUN/creatinine 29/1.57 improved from admitting creatinine 1.75. Tobacco Abuse: Encouraged cessation, inpatient consultation per RT, NR if desired. Obesity: Weight loss and lifestyle changes encouraged. GERD: We will continue patient on PPI and sucralfate. Chronic normocytic anemia: Admission hemoglobin 12.1, MCV 88.9, baseline hemoglobin appears primarily 11-12 range although more recently 09/05/2023 hemoglobin 13.3, will continue to trend. DVT Prophylaxis: SCDs CODE status: DNRCCA. To home with home care pending PICC line placement. Discussed with case management
[2023-09-20] MEDS: Vancomycin IV 1,000 MG/200 ML BAG 200 MG IV (07:43)
[2023-09-20] MEDS: Juven (unflavored) Packet 1 PACKET PO (07:45)
[2023-09-20 07:48] VITALS: BP 125/80; PULSE 65; RESP 16; TEMP 36.6; O2SAT 94
--- NOTE | 2023-09-20 09:09 | CASEMGMT ---
Discharge Planning [facility] accepted. Updated via [facility] that they are agency of choice and patient will discharge with IV antibiotics. Referral sent to I. Jesika Monzon, Discharge Planning Asst.
[2023-09-20 09:38] LABS: Anion Gap 8 (5-15); BUN 20 mg/dL (7-18); BUN/Creat Ratio 14.7 RATIO (10-20); Calcium,Total 9.9 mg/dL (8.5-10.1); Chloride 110 mmol/L (98-107); Creatinine, Serum 1.36 mg/dL (0.70-1.30); EST Glomerular Filtration Rate 61 mL/min (>60); Est Glom Filt Rate - Afr Amer 74 mL/min (>60); Estimated Creatinine Clearance 86.28 ml/min; Glucose 171 mg/dL (74-106); Potassium 3.6 mmol/L (3.5-5.1); Sodium Level 142 mmol/L (136-145)
[2023-09-20] MEDS: oxyCODONE 5 MG Tablet PO ×2 (10:14→14:09)
[2023-09-20] MEDS: Gabapentin 300 MG Capsule PO ×2 (10:15→14:09)
[2023-09-20] MEDS: Aspirin E.C. 81 MG Tablet PO (10:18)
[2023-09-20] MEDS: Furosemide 40 MG Tablet PO (10:18)
[2023-09-20] MEDS: SACUBITRIL/VALSARTAN 49-51 MG TABLET 1 EACH PO (10:18)
[2023-09-20] MEDS: Pantoprazole Sodium 40 MG Tablet PO (10:18)
[2023-09-20] MEDS: Isosorbide Mononitrate 30 MG Tablet PO (10:18)
[2023-09-20] MEDS: Clopidogrel Bisulfate 75 MG Tablet PO (10:18)
--- NOTE | 2023-09-20 10:18 | CASEMGMT ---
Addendum entered by Anila Parsons 09/20/23 15:36: Received notification that pt is covered 100% for IV medications. Uploaded picc insertion and dc summary to [facility]. Plan for delivery tonight of medications. TC to [facility], they are aware SOC will be needed in the am for medications. Addendum entered by Anila Parsons 09/20/23 12:46: DC Summary sent to [facility] via [facility] at this time. Addendum entered by Anila Parsons 09/20/23 10:53: RADHA DAWSON into pt room, delivered walker from [employer] and pt signed consignment form, pt given yellow copy. Uploaded form to [facility] and referral sent at this time. Pt is aware of 2 IV atb, the infusion company and homecare who accepted him for care. Pt again states that he is able to do IV atb. Pt is aware that the cost will be given of medications/supplies once known and that the delivery should occur this evening with a start of care tomorrow morning. Pt verbalizes understanding and denies any further needs. Addendum entered by Anila Parsons 09/20/23 10:20: Pt accepted by [facility] and care will start tomorrow morning. Original Note: Uploaded IV rx to [facility] and sent to [facility] as well as Infusion company.
[2023-09-20 10:19] VITALS: BP 138/64; PULSE 64
[2023-09-20] MEDS: Metoprolol(XL)Succ 25 MG Tablet PO (10:19)
[2023-09-20] MEDS: Insulin Glargine-YFGN 100 UNIT/ML Pen 30 UNIT SC (10:24)
--- NOTE | 2023-09-20 10:28 | PCM.PN.ID ---
Physical Exam Narrative Feeling better, some pain in foot, no fever, no n/v/d Const alert and no apparent distress Resp normal air movement and clear to auscultation bilaterally Cardio regular rate and regular rhythm GI soft to palpation, non-tender and non-distended Skin Skin Narrative: feet wrapped ID ID: Route of nutrition/ use of supplements: [] Nutritional Intake: [] IV Site: [] Anne Catheter: [] Assessment & Plan Assessment/Plan (1) Osteomyelitis of foot, right, acute: PLAN: Glucose 700s on admit. On vanc/zosyn. Now s/p toe amp 09/17/[address] Saxena. Cxs showing MR-CoNS, PsA, sphingomonas. Will order picc and 6 weeks vanc/zosyn, stop date 10/29/23 with weekly labs and ID followup in 2 weeks. D/w pillowcase cutter. 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
--- NOTE | 2023-09-20 11:13 | DS.PCM_ITS ---
Providers Date of Admission: 09/14/23 Primary Care Physician: Dr. Connor Nazario MD Consultations 09/14/23 21:05 Consult: Infectious Disease Routine Consulting Provider: Connor Brown Reason for Consult: Diabetic foot wound EMERGENT Consult: No Notified: Yes Date Notified: 09/14/23 Time Notified: 21:07 Method of Notification: Text Consult: Onc/Wound/spark plug tester Routine Comment: Reason for Consult:: Diabetic foot wounds Consult: Podiatry Routine Consulting Provider: Po Saxena Reason for Consult: Diabetic foot wound, ? osteo EMERGENT Consult: No Notified: Yes Date Notified: 09/14/23 Time Notified: 21:06 Method of Notification: ED Physician Initiated Reason For Visit: DIABETIC FOOT WOUND, HYPERGLYCEMIA Diagnosis Discharge Diagnosis (1) Acute osteomyelitis: Status: Acute Code(s): M86.10 - Other acute osteomyelitis, unspecified site Plan Bilateral Diabetic Foot Wounds with osteomyelitis of right hallux * MRI Left heel on 09/14 shows tear of achilles tendon, SQ edema of the ankle, cellulitis and myositis of left foot w/o evidence of OM or abscess. * 09/16: Right hallux amputation, application of splint in plantarflexion on left side. * abx with pip/tazo and vancomycin through 10/29/2023 * PICC line pending Uncontrolled DM2 * a1c 13.8 * insuline regimen: glargine 30 BID, lispro 18 TID and SSI. * glucose overall improved. I suspect pt does not take his insulin given his a1c and improved control while on similiar insulin dosing that is listed at home. Hyponatremia: * pseudohyponatremia given uncontrolled glucose * no additional work up. Chronic pain syndrome: * Reviewed [facility], pt receives Suboxone through Dr. Mark Bello. * I asked if there is Dr. Jimenez is a addiction medicine physician, he said he is not in patient is taking it to help him stay off of narcotics. I told patient I suspect he is not having resolution of his acute pain as he has been taking buprenorphine in addition to oxycodone and hydromorphone and likely the bupre norphine is mediating the effect of those other narcotics as it is occupying the mu receptors. I told the patient that I will give him a short course of oxycodone and while he is taking the oxycodone to hold off on his buprenorphine. Chronic conditions: * CAD: s/p CABG x 1 and PCI x 8, given at this point per discussion with ED not definitive that patient will go to OR will continue aspirin, Plavix especially given significant cardiac history, metoprolol, losartan, statin therapy. * * HF unclear type: Chart reported, unclear type, no echocardiogram in the system for comparison, given 1 L fluid in the ED, will continue maintenance IV fluids only for 1 additional liter, continue closely monitor, will continue aspirin, Plavix as noted as currently no definitive plan for OR, statin therapy, m etoprolol,Entresto thus will need to clarify as should not be on both, Lasix home regimen. * Chronic COPD: Will hold home inhalers in the interim transition to ATC budesonide, PRN albuterol, HOB, IS parameters. * Hypertension: Continue home regimen including metoprolol, losartan, isosorbide, Lasix with hold parameters as needed, PRN hydralazine. * Hyperlipidemia: We will continue patient on statin therapy. * chronic Kidney Disease Stage III,a: Admission BUN/Cr 26/1.75, baseline renal function primarily 1.7-2.0. BUN/creatinine 29/1.57 improved from admitting creatinine 1.75. * Tobacco Abuse: Encouraged cessation, inpatient consultation per RT, NR if desired. * Obesity: Weight loss and lifestyle changes encouraged. * GERD: We will continue patient on PPI and sucralfate. * Chronic normocytic anemia: Admission hemoglobin 12.1, MCV 88.9, baseline hemoglobin appears primarily 11-12 range although more recently 09/05/2023 hemoglobin 13.3, will continue to trend. DVT Prophylaxis: SCDs CODE status: DNRCCA. To home with home care pending PICC line placement. Discussed with case management Medications at Discharge Home Medications aspirin 81 mg tablet,delayed release 81 mg PO DAILY 03/31/23 atorvastatin 40 mg tablet 40 mg PO DAILY 03/31/23 clopidogrel 75 mg tablet 75 mg PO DAILY 03/31/23 fluticasone fur. 200 mcg-umeclid 62.5 mcg-vilant 25 mcg inhalat.powder (Trelegy Ellipta) 1 inh inhalation Q24H 03/31/23 furosemide 40 mg tablet 40 mg PO DAILY 03/31/23 gabapentin 300 mg capsule 300 mg PO 4X/DAY 03/31/23 isosorbide mononitrate 30 mg tablet,extended release 24 hr 30 mg PO DAILY 03/31/23 sacubitril 49 mg-valsartan 51 mg tablet (Entresto) 1 tab PO BID 03/31/23 sucralfate 1 gram tablet 1 g PO 4X/DAY 03/31/23 acetaminophen 500 mg capsule 1,000 mg (2 x 500 mg) PO Q8H PRN PRN pain #90 caps 04/04/23 insulin lispro 100 unit/mL subcutaneous pen (Humalog KwikPen (U-100) Insulin) 10 unit (0.1 mL) subcut TID #15 mL 04/04/23 albuterol sulfate 2.5 mg/3 mL (0.083 %) solution for nebulization 2.5 mg inhalation Q8H PRN PRN shortness of breath or wheezing 06/21/23 albuterol sulfate 90 mcg/actuation aerosol inhaler 2 inh inhalation PRN PRN shortness of breath or wheezing 06/21/23 pantoprazole 40 mg tablet,delayed release 40 mg PO DAILY 06/21/23 metoprolol succinate 25 mg tablet,extended release 24 hr 25 mg PO Q12H 09/02/23 buprenorphine 8 mg-naloxone 2 mg sublingual film 1 film sublingual BID 09/14/23 insulin glargine 100 unit/mL subcutaneous solution 30 unit (0.3 mL) subcut BID #10 mL 09/20/23 insulin lispro 100 unit/mL subcutaneous pen (Humalog KwikPen (U-100) Insulin) 18 unit (0.18 mL) subcut TIDAC #15 mL 09/20/23 oxycodone 5 mg tablet 5 mg PO Q4H PRN Pain Score 4-10 3 days #18 tabs 09/20/23 piperacillin-tazobactam 3.375 gram/50 mL dextrose(iso-os) IV piggyback (Zosyn) 3.375 g (56.25 mL) IV Q8H 39 days 09/20/23 vancomycin 1 gram/200 mL in dextrose 5 % intravenous piggyback 1,000 mg IV Q12H 39 days #7,800 mL 09/20/23 Hospital Course Procedures None Summary of Care Provided Minutes Spent on Discharge: 35 Weight / BMI Weight Weight: 107.3 kg Body Mass Index (BMI) 35.0 ABG / Lab / Microbiology Data 09/18/23 05:58 09/20/23 08:40 Laboratory: Laboratory Results - last 24 hr 09/19/23 11:31: POC Glucose 161 H 09/19/23 13:56: POC Glucose 87 09/19/23 14:41: POC Glucose 106 09/19/23 16:45: POC Glucose 143 H 09/19/23 21:09: POC Glucose 146 H 09/20/23 06:50: POC Glucose 206 H 09/20/23 08:40: Sodium 142, Potassium 3.6, Chloride 110 H, Carbon Dioxide 24.0, Anion Gap 8, BUN 20 H, Creatinine 1.36 H, Estim Creat Clear Calc 86.28, Est GFR (MDRD) Af Amer 74, Est GFR (MDRD) Non-Af 61, BUN/Creatinine Ratio 14.7, Glucose 171 H, Calcium 9.9 Microbiology: Microbiology 09/17/23 12:59 Incision/Surgical Site Gram Stain - Final 09/17/23 12:59 Incision/Surgical Site Wound Culture - Final Sphingomonas paucimobilis 09/17/23 12:59 Incision/Surgical Site Anaerobic Culture - Preliminary No growth in 48 hours. 09/17/23 12:59 Tissue - Toe Gram Stain - Final 09/17/23 12:59 Tissue - Toe Wound Culture - Preliminary Staphylococcus epidermidis Pseudomonas aeruginosa 09/17/23 12:59 Tissue - Toe Anaerobic Culture - Preliminary No growth in 48 hours. 09/14/23 17:38 Blood Culture (Wb) - Anticubital Left Blood Culture - Final No growth in 5 days. 09/14/23 17:20 Blood Culture (Wb) - Anticubital Left Blood Culture - Final No growth in 5 days. D/C Instructions Discharge Diet: 2000 Calorie Control Diet Meaningful Use Info Meaningful Use Diagnoses (Choose all that apply): None applicable Discharge Plan Admission Admit Date/Time: 09/14/23 20:27 Primary Reason for Your Visit: osteomyelitis. Attending Provider: Brendon Marie Primary Care Provider: Connor Nazario Consulting Providers: Magali Jiménez; Connor Brown; Po Saxena; Darnell Lewis Instructions Additional Instructions / Restrictions: He had a diabetic foot wounds and with infection of the bone in your right heel. You are going to be on IV antibiotics through 28 October. You have a short course of pain control with oxycodone. Do recommend that you hold off on your Suboxone while you are taking the oxycodone as it may mute the effect of the oxycodone. Your blood sugar was extremely high when you came in here and your A1c was 13. Your blood sugars remained fairly well-controlled with your home dosing of Lantus and we did have to go up on your mealtime insulin spike blood sugar has remained pretty well-controlled. Very poorly you do take your insulin to prevent further risk further diabetic foot infections and progression of neuropathy. Discharge Orders/Prescriptions Prescriptions: New Zosyn in dextrose (iso-osm) 3.375 gram/50 mL piggyback 3.375 g IV Q8H 39 Days Rx Instructions: stop date 10/29/23. Dx: toe osteomyelitis. Weekly bmp, cbc, ESR, and vanc trough; fax to [phone]. Routine picc care per protocol. vancomycin in dextrose 5 % 1 gram/200 mL Piggyback 1,000 mg IV Q12H 39 Days Qty: 7800 0RF Rx Instructions: stop date 10/29/23. Dx: toe osteomyelitis. Weekly bmp, cbc, ESR, and vanc trough; fax to [phone]. Routine picc care per protocol. insulin lispro [Humalog KwikPen Insulin] 100 unit/mL Insulin Pen 18 unit subcut TIDAC Qty: 15 0RF oxycodone 5 mg Tablet 5 mg PO Q4H PRN (Reason: Pain Score 4-10) 3 Days Qty: 18 0RF Continued atorvastatin 40 mg tablet 40 mg PO DAILY Patient Comments: TAKE 1 TABLET BY MOUTH ONCE DAILY clopidogrel 75 mg tablet 75 mg PO DAILY Patient Comments: TAKE 1 TABLET BY MOUTH ONCE DAILY sucralfate 1 gram tablet 1 g PO 4X/DAY Patient Comments: TAKE 1 TABLET BY MOUTH FOUR TIMES DAILY Entresto 49-51 mg tablet 1 tab PO BID Patient Comments: TAKE 1 TABLET BY MOUTH TWICE DAILY isosorbide mononitrate 30 mg tablet extended release 24 hr 30 mg PO DAILY Patient Comments: TAKE 1 TABLET BY MOUTH ONCE DAILY gabapentin 300 mg capsule 300 mg PO 4X/DAY Patient Comments: TAKE 1 CAPSULE BY MOUTH THREE TIMES DAILY furosemide 40 mg tablet 40 mg PO DAILY Patient Comments: TAKE 1 TABLET BY MOUTH ONCE DAILY Trelegy Ellipta 200-62.5-25 mcg blister with device 1 inh INHALATION Q24H Patient Comments: INHALE 1 PUFF BY MOUTH ONCE DAILY DIRECTED acetaminophen 500 mg capsule 1,000 mg PO Q8H PRN PRN (Reason: pain) Qty: 90 0RF pantoprazole 40 mg tablet,delayed release (DR/EC) 40 mg PO DAILY Patient Comments: TAKE 1 TABLET BY MOUTH ONCE DAILY albuterol sulfate 2.5 mg /3 mL (0.083 %) solution for nebulization 2.5 mg inhalation Q8H PRN PRN (Reason: shortness of breath or wheezing) Patient Comments: INHALE ONE 3ML VIAL PER NEBULIZER THREE TIMES DAILY NEEDED FOR WHEEZING OR SHORTNESS OF BREATH INHALING OVER 5 TO 15 MINUTES insulin glargine 100 unit/mL solution 30 unit subcut BID Qty: 10 0RF metoprolol succinate 25 mg tablet extended release 24 hr 25 mg PO Q12H Patient Comments: TAKE 1 TABLET BY MOUTH TWICE DAILY Held buprenorphine-naloxone 8-2 mg film 1 film sublingual BID Hold Instructions: Hold while taking oxycodone. Patient Comments: DISSOLVE 1 film UNDER THE TONGUE TWICE DAILY Discontinued metformin 500 mg tablet 500 mg PO DAILY Patient Comments: TAKE 1 TABLET BY MOUTH ONCE DAILY WITH BREAKFAST losartan 50 mg tablet 50 mg PO 1500 Patient Comments: TAKE 1 TABLET BY MOUTH EVERY DAY ciprofloxacin HCl 750 mg tablet 750 mg PO Q12H Patient Comments: TAKE 1 TABLET BY MOUTH TWICE DAILY FOR 10 DAYS doxycycline monohydrate 100 mg capsule 100 mg PO Q12H Patient Comments: TAKE 1 CAPSULE BY MOUTH TWICE DAILY FOR 10 DAYS No Action aspirin 81 mg tablet,delayed release (DR/EC) 81 mg PO DAILY Patient Comments: TAKE 1 TABLET BY MOUTH EVERY MORNING insulin lispro [Humalog KwikPen Insulin] 100 unit/mL insulin pen 10 unit subcut TID Qty: 15 0RF albuterol sulfate 90 mcg/actuation HFA aerosol inhaler 2 inh INHALATION PRN PRN (Reason: shortness of breath or wheezing) Patient Comments: INHALE 2 PUFFS BY MOUTH as instructed EVERY 4 HOURS NEEDED for FOR WHEEZING, SHORTNESS OF BREATH Referrals / Follow Up: Po Saxena DPM [Med Staff - Active Staff] - Within 1 Week Connor Nazario MD [Primary Care Provider] - Within 2 Weeks Disposition Disposition (needs filled in before D/C Order can be placed): Home Health Service
[2023-09-20 12:16] LABS: Bedside Glucose 143 mg/dL (74-106)
[2023-09-20] MEDS: Acetaminophen 325 MG Tablet 650 MG PO (12:37)
[2023-09-20 15:40] VITALS: BP 138/68; PULSE 72; RESP 18; TEMP 36.5; O2SAT 95
== END 2023-09-20 16:02 | disposition home health service (06) | DRG 617 ==
LOC: ED 20:29 → MS3 20:47
PROVIDERS: Anesthesiology; Internal Medicine; Podiatrist; Admitting Provider Family Medicine; Emergency Provider Emergency Medicine
PROC: 0Y6P0Z0 Detachment at Right 1st Toe, Complete, Open Approach (ICD-10-PCS; principal; 2023-09-17 10:45)
DX: E11.69 Type 2 diabetes mellitus with other specified complication (principal); M86.671 Other chronic osteomyelitis, right ankle and foot; L03.116 Cellulitis of left lower limb; I13.0 Hypertensive heart and chronic kidney disease with heart failure and stage 1 through stage 4 chronic kidney disease, or unspecified chronic kidney disease; D63.1 Anemia in chronic kidney disease; E11.22 Type 2 diabetes mellitus with diabetic chronic kidney disease; I50.9 Heart failure, unspecified; E11.51 Type 2 diabetes mellitus with diabetic peripheral angiopathy without gangrene; I48.0 Paroxysmal atrial fibrillation; E86.1 Hypovolemia; J44.9 Chronic obstructive pulmonary disease, unspecified; N18.31 Chronic kidney disease, stage 3a; E11.00 Type 2 diabetes mellitus with hyperosmolarity without nonketotic hyperglycemic-hyperosmolar coma (NKHHC); E11.42 Type 2 diabetes mellitus with diabetic polyneuropathy; Z79.4 Long term (current) use of insulin; Z89.422 Acquired absence of other left toe(s); I25.10 Atherosclerotic heart disease of native coronary artery without angina pectoris; F17.210 Nicotine dependence, cigarettes, uncomplicated; E78.00 Pure hypercholesterolemia, unspecified; K21.9 Gastro-esophageal reflux disease without esophagitis; M60.872 Other myositis, left ankle and foot; S86.012A Strain of left Achilles tendon, initial encounter; I25.2 Old myocardial infarction; E66.9 Obesity, unspecified; X58.XXXA Exposure to other specified factors, initial encounter; G89.4 Chronic pain syndrome; B96.5 Pseudomonas (aeruginosa) (mallei) (pseudomallei) as the cause of diseases classified elsewhere; B96.89 Other specified bacterial agents as the cause of diseases classified elsewhere; B95.7 Other staphylococcus as the cause of diseases classified elsewhere; Z66 Do not resuscitate; Z68.35 Body mass index [BMI] 35.0-35.9, adult; Z91.148 Patient's other noncompliance with medication regimen for other reason; Z91.199 Patient's noncompliance with other medical treatment and regimen due to unspecified reason; Z95.1 Presence of aortocoronary bypass graft; Z95.5 Presence of coronary angioplasty implant and graft; Z72.89 Other problems related to lifestyle; Z79.02 Long term (current) use of antithrombotics/antiplatelets; Z79.51 Long term (current) use of inhaled steroids; Z79.82 Long term (current) use of aspirin; Z79.84 Long term (current) use of oral hypoglycemic drugs; Z79.899 Other long term (current) drug therapy; Z86.14 Personal history of Methicillin resistant Staphylococcus aureus infection; Z86.73 Personal history of transient ischemic attack (TIA), and cerebral infarction without residual deficits
CPT/HCPCS: 36415; 36569; 73630; 73718; 73721; 80048; 80053; 80202; 82009; 82803; 82947; 82962; 83036; 83735; 83930; 85025; 85027; 85652; 86140; 87040; 87070; 87075; 87077; 87176; 87184; 87186; 87205; 88305; 88311; 93005; 94640; 94668; 97110; 97162; 97166; 97530; 97535; 97542; 97802; 99285; J7030; J7040; J7050; A4216; J2405

== ENCOUNTER 2023-10-10 22:26 | Emergency (ER) | payer MEDICARE, MEDICAID, SELFPAY ==
[2023-10-10 22:27] VITALS: BP 170/84; PULSE 70; RESP 16; TEMP 36.6; O2SAT 98
[2023-10-10 23:36] VITALS: BP 156/80; PULSE 84; RESP 16; O2SAT 94
[2023-10-10 23:47] VITALS: BMI 36.0
--- NOTE | 2023-10-11 00:32 | EDS_ITS ---
HPI History of Present Illness Chief Complaint: Other, Pain/Inj Informant: patient and spouse/S.O. Narrative Narrative: Patient is a 42-year-old male with past medical history of COPD hypertension insulin-dependent diabetes and osteomyelitis. He has a PICC line in his left arm secondary to need for prolonged antibiotics. He states that he went to use the PICC line this evening and it would not flush or draw. He also states he has noticed increased pain in the left arm since that time and secondary to this comes in for evaluation. He states he has been no trauma or tugging to the PICC line [facility] Medical History Amputation of left great toe Anxiety Arthritis Back pain Cardiology follow-up encounter COPD (chronic obstructive pulmonary disease) Coronary artery disease Diabetic foot Dietary restriction DVT (deep venous thrombosis) Failure of outpatient treatment Fatty liver Gastric reflux Hallux rigidus of right foot Hammertoe of left foot Heart attack High cholesterol History of atrial fibrillation History of CHF (congestive heart failure) History of echocardiogram History of edema History of pain when walking History of stress test History of ulceration Hypertension Insulin dependent diabetes mellitus Leg cramps Marijuana use Metatarsal deformity Migraine headache MRSA infection Other hammer toe(s) (acquired), left foot Peripheral vascular disease, unspecified Restless legs Short Achilles tendon (acquired), left ankle Shortness of breath on exertion Smoker Substance abuse Syncope TIA (transient ischemic attack) Type 2 diabetes mellitus with diabetic polyneuropathy Uncontrolled diabetes mellitus Wears glasses Home Medications aspirin 81 mg tablet,delayed release 81 mg PO DAILY 03/31/23 [History Last Taken 09/14/23] atorvastatin 40 mg tablet 40 mg PO DAILY 03/31/23 [History Last Taken 09/14/23] clopidogrel 75 mg tablet 75 mg PO DAILY 03/31/23 [History Last Taken 09/14/23] fluticasone fur. 200 mcg-umeclid 62.5 mcg-vilant 25 mcg inhalat.powder (Trelegy Ellipta) 1 inh inhalation Q24H 03/31/23 [History Last Taken 09/14/23] furosemide 40 mg tablet 40 mg PO DAILY 03/31/23 [History Last Taken 09/14/23] gabapentin 300 mg capsule 300 mg PO 4X/DAY 03/31/23 [History Last Taken 09/14/23] isosorbide mononitrate 30 mg tablet,extended release 24 hr 30 mg PO DAILY 03/31/23 [History Last Taken 09/14/23] sacubitril 49 mg-valsartan 51 mg tablet (Entresto) 1 tab PO BID 03/31/23 [History Last Taken 09/14/23] sucralfate 1 gram tablet 1 g PO 4X/DAY 03/31/23 [History Last Taken 09/14/23] acetaminophen 500 mg capsule 1,000 mg (2 x 500 mg) PO Q8H PRN PRN pain #90 caps 04/04/23 [Rx Last Taken 09/14/23] insulin lispro 100 unit/mL subcutaneous pen (Humalog KwikPen (U-100) Insulin) 10 unit (0.1 mL) subcut TID #15 mL 04/04/23 [Rx Last Taken 09/14/23] albuterol sulfate 2.5 mg/3 mL (0.083 %) solution for nebulization 2.5 mg inhalation Q8H PRN PRN shortness of breath or wheezing 06/21/23 [History Last Taken 09/05/23] albuterol sulfate 90 mcg/actuation aerosol inhaler 2 inh inhalation PRN PRN shortness of breath or wheezing 06/21/23 [History Last Taken 09/14/23] pantoprazole 40 mg tablet,delayed release 40 mg PO DAILY 06/21/23 [History Last Taken 09/14/23] metoprolol succinate 25 mg tablet,extended release 24 hr 25 mg PO Q12H 09/02/23 [History Last Taken 09/14/23] buprenorphine 8 mg-naloxone 2 mg sublingual film 1 film sublingual BID 09/14/23 [History Last Taken 09/12/23] insulin glargine 100 unit/mL subcutaneous solution 30 unit (0.3 mL) subcut BID #10 mL 09/20/23 [Rx Last Taken Unknown] insulin lispro 100 unit/mL subcutaneous pen (Humalog KwikPen (U-100) Insulin) 18 unit (0.18 mL) subcut TIDAC #15 mL 09/20/23 [Rx Last Taken Unknown] oxycodone 5 mg tablet 5 mg PO Q4H PRN Pain Score 4-10 3 days #18 tabs 09/20/23 [Rx Last Taken Unknown] piperacillin-tazobactam 3.375 gram/50 mL dextrose(iso-os) IV piggyback (Zosyn) 3.375 g (56.25 mL) IV Q8H 39 days 09/20/23 [Rx Last Taken Unknown] vancomycin 1 gram/200 mL in dextrose 5 % intravenous piggyback 1,000 mg IV Q12H 39 days #7,800 mL 09/20/23 [Rx Last Taken Unknown] Allergy/AdvReac Type Severity Reaction Status Date / Time sumatriptan [From Imitrex] Allergy Severe Other Verified 10/10/23 22:29 acetarsol Allergy Intermediate Rash Verified 10/10/23 22:29 chlorpromazine Allergy Intermediate Other Verified 10/10/23 22:29 [From Thorazine] nalbuphine Allergy Intermediate Shortness Verified 10/10/23 22:29 of breath prasterone (DHEA) [From DHEA] Allergy Intermediate Shortness Verified 10/10/23 22:29 of breath prednisone Allergy Intermediate Other Verified 10/10/23 22:29 prochlorperazine Allergy Intermediate Shortness Verified 10/10/23 22:29 of breath Iodinated Contrast Media AdvReac Mild Hives Verified 10/10/23 22:29 iodine AdvReac Mild Hives Verified 10/10/23 22:29 ketorolac [From Toradol] AdvReac Mild Nausea Verified 10/10/23 22:29 tramadol AdvReac Mild Vomiting Verified 10/10/23 22:29 adhesive tape [paper tape] AdvReac Other Verified 10/10/23 22:29 Family History Mother Hypertension HLD (hyperlipidemia) Heart disease Father Hypertension HLD (hyperlipidemia) Heart disease Myocardial infarction CAD (coronary artery disease) Surgical History History of cardiac catheterization History of carpal tunnel surgery of left wrist History of carpal tunnel surgery of right wrist Hx of heart artery stent Hx of left knee surgery Hx of single vessel coronary artery bypass Hx of tonsillectomy Social History household members: none Smoking Status: Current every day smoker tobacco type: cigarettes alcohol intake: never substance use type: does not use ROS ROS ED Constitutional Constitutional ED: Denies chills or fever(s) ENT ENT ED: Denies sore throat Cardiovascular Cardiovascular: Denies chest pain Respiratory/Chest Respiratory/Chest: Denies cough or dyspnea Gastrointestinal Gastrointestinal: Denies abdominal pain, diarrhea, nausea or vomiting Genitourinary Genitourinary ED: Denies dysuria Musculoskeletal Musculoskeletal: Reports other Details: Positive left arm pain Integumentary Reports other Details: Positive postsurgical wound left foot Neurologic Neurologic: Denies headache(s) Hematologic/Lymphatic Hematologic/Lymphatic: Reports easy bleeding and easy bruising EXAM Physical Exam Const Vital Signs: 10/10/23 22:27 10/10/23 23:23 10/10/23 23:36 Temperature 97.8 F Temperature Source Temporal Pulse Rate 70 84 Respiratory Rate 16 16 Respiratory Effort Normal Respiratory Pattern Normal Blood Pressure 170/84 H 156/80 H Blood Pressure Mean 112 105 Pulse Ox 98 94 Oxygen Delivery Method Room Air Room Air 10/11/23 00:59 Temperature 98.0 F Temperature Source Pulse Rate 81 Respiratory Rate 18 Respiratory Effort Respiratory Pattern Blood Pressure 152/65 H Blood Pressure Mean 94 Pulse Ox 95 Oxygen Delivery Method Positive well nourished, well developed and obese General Appearance ED: well developed Nutritional Appearance: obese HEENT HEENT Narrative: Normocephalic atraumatic Eyes PERRL and EOMs intact bilaterally General Eye ED: Negative for scleral icterus Neck supple Neck Narrative: No nuchal rigidity or meningeal signs Resp normal respiratory effort Resp Narrative: Breath sounds are diminished throughout with faint expiratory wheeze diffusely consistent with COPD but no signs of respiratory distress Cardio regular rate and regular rhythm Extremity Extremity Narrative: There is a PICC line in place in the medial left proximal humerus. There is no surrounding erythema or warmth to suggest infection no surrounding blood from the insertion site. No lymphangitic streaking. The humerus is soft and compressible going against compartment syndrome. Patient has postsurgical changes to the left foot consistent with recent amputation. Neuro oriented x3 and CN's II-XII intact bilaterally Sensorium / Orientation: alert Psych mental status grossly normal Skin Skin Narrative: Postsurgical changes to the left foot as documented above MDM MDM MDM Narrative Medical decision making narrative: Patient presented to the ER hypertensive but has a past medical history of this. He reported his PICC line would not draw or flush this evening and states there was no trauma. Physical exam shows no blood to suggest the PICC line has been physically removed from the vessel and there is no surrounding erythema or warmth to suggest infection such as cellulitis or abscess. Also the arm is compressible and soft going against compartment syndrome. Therefore the most likely diagnosis is that the PICC line has just become occluded and therefore there is no need for imaging or laboratory studies. The patient had heparin flushes placed through the line and at this the line flushed without difficulty. Therefore there is no need for further testing or admission and patient can be discharged home and follow-up with his family doctor and PICC team on an outpatient basis. History & Record Review Discussion w/independent historian: Patient and Significant other Discharge Plan Triage Chief Complaint: Other, Pain/Inj ED Provider: Brett Knutson Dx/Rx/DC Orders Clinical Impression: Occluded PICC line, Osteomyelitis of great toe of left foot, Diabetes mellitus, type II, insulin dependent, Hypertension Instructions: Caring for Your PICC Dc Prescriptions: No Action aspirin 81 mg tablet,delayed release (DR/EC) 81 mg PO DAILY Patient Comments: TAKE 1 TABLET BY MOUTH EVERY MORNING atorvastatin 40 mg tablet 40 mg PO DAILY Patient Comments: TAKE 1 TABLET BY MOUTH ONCE DAILY clopidogrel 75 mg tablet 75 mg PO DAILY Patient Comments: TAKE 1 TABLET BY MOUTH ONCE DAILY sucralfate 1 gram tablet 1 g PO 4X/DAY Patient Comments: TAKE 1 TABLET BY MOUTH FOUR TIMES DAILY Entresto 49-51 mg tablet 1 tab PO BID Patient Comments: TAKE 1 TABLET BY MOUTH TWICE DAILY isosorbide mononitrate 30 mg tablet extended release 24 hr 30 mg PO DAILY Patient Comments: TAKE 1 TABLET BY MOUTH ONCE DAILY gabapentin 300 mg capsule 300 mg PO 4X/DAY Patient Comments: TAKE 1 CAPSULE BY MOUTH THREE TIMES DAILY furosemide 40 mg tablet 40 mg PO DAILY Patient Comments: TAKE 1 TABLET BY MOUTH ONCE DAILY Trelegy Ellipta 200-62.5-25 mcg blister with device 1 inh INHALATION Q24H Patient Comments: INHALE 1 PUFF BY MOUTH ONCE DAILY DIRECTED insulin lispro [Humalog KwikPen Insulin] 100 unit/mL insulin pen 10 unit subcut TID Qty: 15 0RF acetaminophen 500 mg capsule 1,000 mg PO Q8H PRN PRN (Reason: pain) Qty: 90 0RF pantoprazole 40 mg tablet,delayed release (DR/EC) 40 mg PO DAILY Patient Comments: TAKE 1 TABLET BY MOUTH ONCE DAILY albuterol sulfate 90 mcg/actuation HFA aerosol inhaler 2 inh INHALATION PRN PRN (Reason: shortness of breath or wheezing) Patient Comments: INHALE 2 PUFFS BY MOUTH as instructed EVERY 4 HOURS NEEDED for FOR WHEEZING, SHORTNESS OF BREATH albuterol sulfate 2.5 mg /3 mL (0.083 %) solution for nebulization 2.5 mg inhalation Q8H PRN PRN (Reason: shortness of breath or wheezing) Patient Comments: INHALE ONE 3ML VIAL PER NEBULIZER THREE TIMES DAILY NEEDED FOR WHEEZING OR SHORTNESS OF BREATH INHALING OVER 5 TO 15 MINUTES buprenorphine-naloxone 8-2 mg film 1 film sublingual BID Hold Instructions: Hold while taking oxycodone. Patient Comments: DISSOLVE 1 film UNDER THE TONGUE TWICE DAILY Zosyn in dextrose (iso-osm) 3.375 gram/50 mL piggyback 3.375 g IV Q8H 39 Days Rx Instructions: stop date 10/29/23. Dx: toe osteomyelitis. Weekly bmp, cbc, ESR, and vanc trough; fax to [phone]. Routine picc care per protocol. vancomycin in dextrose 5 % 1 gram/200 mL Piggyback 1,000 mg IV Q12H 39 Days Qty: 7800 0RF Rx Instructions: stop date 10/29/23. Dx: toe osteomyelitis. Weekly bmp, cbc, ESR, and vanc t rough; fax to [phone]. Routine picc care per protocol. insulin lispro [Humalog KwikPen Insulin] 100 unit/mL Insulin Pen 18 unit subcut TIDAC Qty: 15 0RF oxycodone 5 mg Tablet 5 mg PO Q4H PRN (Reason: Pain Score 4-10) 3 Days Qty: 18 0RF insulin glargine 100 unit/mL solution 30 unit subcut BID Qty: 10 0RF metoprolol succinate 25 mg tablet extended release 24 hr 25 mg PO Q12H Patient Comments: TAKE 1 TABLET BY MOUTH TWICE DAILY Primary Care Provider: Connor Nazario Referrals: Connor Nazario MD [Primary Care Provider] - Activity Restrictions/Additional Instructions: Please contact your family doctor or PICC line team to inform them that the line will flush but not draw blood and discuss what options they want to pursue Disposition Disposition: Home, Self Care Discharge Date/Time: 10/11/23 01:01
[2023-10-11] MEDS: Ondansetron 4 MG/2 ML Vial IV (00:39)
[2023-10-11] MEDS: HYDROmorphone 1 MG/ML Syringe IV (00:39)
[2023-10-11 00:59] VITALS: BP 152/65; PULSE 81; RESP 18; TEMP 36.7; O2SAT 95
== END 2023-10-11 01:01 | disposition home or self-care (01) ==
PROVIDERS: Emergency Provider Emergency Medicine; Visit Provider Emergency Medicine
DX: T82.594A Other mechanical complication of infusion catheter, initial encounter (principal); M86.8X7 Other osteomyelitis, ankle and foot; I11.0 Hypertensive heart disease with heart failure; I50.9 Heart failure, unspecified; J44.9 Chronic obstructive pulmonary disease, unspecified; E11.51 Type 2 diabetes mellitus with diabetic peripheral angiopathy without gangrene; Z79.4 Long term (current) use of insulin; E11.69 Type 2 diabetes mellitus with other specified complication; E11.42 Type 2 diabetes mellitus with diabetic polyneuropathy; Y71.8 Miscellaneous cardiovascular devices associated with adverse incidents, not elsewhere classified; E78.00 Pure hypercholesterolemia, unspecified; E66.9 Obesity, unspecified; I25.2 Old myocardial infarction; F17.210 Nicotine dependence, cigarettes, uncomplicated; Z79.82 Long term (current) use of aspirin; Z79.02 Long term (current) use of antithrombotics/antiplatelets; Z79.899 Other long term (current) drug therapy; Z95.1 Presence of aortocoronary bypass graft
CPT/HCPCS: 96374; 96375; 99283; A4216; J2405

== ENCOUNTER 2023-10-11 09:26 | Outpatient (CLI) | payer MEDICARE, MEDICAID, SELFPAY ==
[2023-10-11] MEDS: Alteplase 2 MG/2 ML Vial IV (09:50)
[2023-10-11 12:12] LABS: Erythrocyte Sedimentation Rate 48 mm/hr (0-20)
[2023-10-11 12:13] LABS: Absolute Lymphocyte Count 1.35 X10^3/uL (0.83-4.51); Absolute Neutrophil Count 7.6 X10^3/uL (2.0-7.7); Basophil# 0.05 X10^3/uL; Basophil% 0.5 % (0-1); Eosinophil# 0.34 X10^3/uL; Eosinophils% 3.4 % (0-5); Hematocrit 33.4 % (40-54); Hemoglobin 11.1 g/dL (13.0-16.5); Lymphocyte # 1.35 X10^3/ul (0.83-4.51); Lymphocyte % 13.4 % (19-41); Mean Corp Hgb Conc 33.2 g/dL (32-36); Mean Corpuscular Hgb 29.2 pg (27.0-32.0); Mean Corpuscular Volume 87.9 fL (80-94); Mean Platelet Vol. 8.6 fl (6.2-12.0); Monocyte# 0.68 X10^3/uL; Monocyte% 6.8 % (0-10); NRBC Flagged by Analyzer 0 % (0-5); Neutrophil # 7.62 X10^3/uL (2.7-7.7); Neutrophil % 75.6 % (47-70); Platelet Count 322 K/mm3 (150-450); RBC Distribution Width CV 13.3 % (11.6-14.6); RBC Distribution Width SD 42.2 fl (35.1-43.9); White Blood Count 10.1 K/mm3 (4.4-11.0)
[2023-10-11 12:36] LABS: ALB/GLOB Ratio 0.6 RATIO (0.9-2.4); AST(SGOT) 18 U/L (15-37); Alanine Aminotransfer ALT/SGPT 19 U/L (16-61); Albumin, Serum 2.6 g/dL (3.2-5.0); Alkaline Phosphatase 59 U/L (45-117); Anion Gap 3 (5-15); BUN 16 mg/dL (7-18); BUN/Creat Ratio 12.6 RATIO (10-20); Calcium,Total 9.6 mg/dL (8.5-10.1); Chloride 107 mmol/L (98-107); Creatinine, Serum 1.27 mg/dL (0.70-1.30); EST Glomerular Filtration Rate 66 mL/min (>60); Est Glom Filt Rate - Afr Amer 80 mL/min (>60); Globulin 4.5 g/dL (2.2-4.2); Glucose 267 mg/dL (74-106); Potassium 3.8 mmol/L (3.5-5.1); Protein, Total 7.1 g/dL (6.4-8.2); Sodium Level 137 mmol/L (136-145); Vancomycin, Trough Level 3.9 ug/mL (5.0-15.0)
== END 2023-10-11 09:27 | disposition home or self-care (01) ==
LOC: MEDOUTP 09:27
PROVIDERS: Referring Provider Internal Medicine Infectious Disease; Visit Provider Internal Medicine Infectious Disease
DX: M86.171 Other acute osteomyelitis, right ankle and foot (principal); T82.538A Leakage of other cardiac and vascular devices and implants, initial encounter; X58.XXXA Exposure to other specified factors, initial encounter
CPT/HCPCS: 96374; 36592; 36593; 80053; 80202; 85025; 85652; J2997; A4216

== ENCOUNTER 2023-10-12 21:33 | Emergency (ER) | payer MEDICARE, MEDICAID, SELFPAY ==
[2023-10-12 21:34] VITALS: BP 158/73; PULSE 66; RESP 18; TEMP 36; O2SAT 98; BMI 37.5
--- NOTE | 2023-10-12 22:44 | EX.ED.DYSGE1 ---
HPI History of Present Illness Chief Complaint: Other, Pain/Inj Informant: patient Narrative Narrative: Patient having problems with his left upper extremity PICC line. He has a because of osteomyelitis of the toe/foot, he has had 3 to 4 weeks of it, he has about 3 weeks to go. Yesterday would not flow, he had someone place Cathflo within the line for 2 hours and he was able to give himself antibiotics at home like he had been then. Tonight, he tried to give himself his antibiotics and they will not drip and he is having significant pain in the left arm despite disconnecting the antibiotics. He denies any fevers, chills, chest discomfort, other systemic symptoms. [facility] Medical History Amputation of left great toe Anxiety Arthritis Back pain Cardiology follow-up encounter COPD (chronic obstructive pulmonary disease) Coronary artery disease Diabetic foot Dietary restriction DVT (deep venous thrombosis) Failure of outpatient treatment Fatty liver Gastric reflux Hallux rigidus of right foot Hammertoe of left foot Heart attack High cholesterol History of atrial fibrillation History of CHF (congestive heart failure) History of echocardiogram History of edema History of pain when walking History of stress test History of ulceration Hypertension Insulin dependent diabetes mellitus Leg cramps Marijuana use Metatarsal deformity Migraine headache MRSA infection Other hammer toe(s) (acquired), left foot Peripheral vascular disease, unspecified Restless legs Short Achilles tendon (acquired), left ankle Shortness of breath on exertion Smoker Substance abuse Syncope TIA (transient ischemic attack) Type 2 diabetes mellitus with diabetic polyneuropathy Uncontrolled diabetes mellitus Wears glasses Home Medications aspirin 81 mg tablet,delayed release 81 mg PO DAILY 03/31/23 [History Last Taken 09/14/23] atorvastatin 40 mg tablet 40 mg PO DAILY 03/31/23 [History Last Taken 09/14/23] clopidogrel 75 mg tablet 75 mg PO DAILY 03/31/23 [History Last Taken 09/14/23] fluticasone fur. 200 mcg-umeclid 62.5 mcg-vilant 25 mcg inhalat.powder (Trelegy Ellipta) 1 inh inhalation Q24H 03/31/23 [History Last Taken 09/14/23] furosemide 40 mg tablet 40 mg PO DAILY 03/31/23 [History Last Taken 09/14/23] gabapentin 300 mg capsule 300 mg PO 4X/DAY 03/31/23 [History Last Taken 09/14/23] isosorbide mononitrate 30 mg tablet,extended release 24 hr 30 mg PO DAILY 03/31/23 [History Last Taken 09/14/23] sacubitril 49 mg-valsartan 51 mg tablet (Entresto) 1 tab PO BID 03/31/23 [History Last Taken 09/14/23] sucralfate 1 gram tablet 1 g PO 4X/DAY 03/31/23 [History Last Taken 09/14/23] acetaminophen 500 mg capsule 1,000 mg (2 x 500 mg) PO Q8H PRN PRN pain #90 caps 04/04/23 [Rx Last Taken 09/14/23] insulin lispro 100 unit/mL subcutaneous pen (Humalog KwikPen (U-100) Insulin) 10 unit (0.1 mL) subcut TID #15 mL 04/04/23 [Rx Last Taken 09/14/23] albuterol sulfate 2.5 mg/3 mL (0.083 %) solution for nebulization 2.5 mg inhalation Q8H PRN PRN shortness of breath or wheezing 06/21/23 [History Last Taken 09/05/23] albuterol sulfate 90 mcg/actuation aerosol inhaler 2 inh inhalation PRN PRN shortness of breath or wheezing 06/21/23 [History Last Taken 09/14/23] pantoprazole 40 mg tablet,delayed release 40 mg PO DAILY 06/21/23 [History Last Taken 09/14/23] metoprolol succinate 25 mg tablet,extended release 24 hr 25 mg PO Q12H 09/02/23 [History Last Taken 09/14/23] buprenorphine 8 mg-naloxone 2 mg sublingual film 1 film sublingual BID 09/14/23 [History Last Taken 09/12/23] insulin glargine 100 unit/mL subcutaneous solution 30 unit (0.3 mL) subcut BID #10 mL 09/20/23 [Rx Last Taken Unknown] piperacillin-tazobactam 3.375 gram/50 mL dextrose(iso-os) IV piggyback (Zosyn) 3.375 g (56.25 mL) IV Q8H 39 days 09/20/23 [Rx Last Taken Unknown] vancomycin 1 gram/200 mL in dextrose 5 % intravenous piggyback 1,000 mg IV Q12H 39 days #7,800 mL 09/20/23 [Rx Last Taken Unknown] Allergy/AdvReac Type Severity Reaction Status Date / Time sumatriptan [From Imitrex] Allergy Severe Other Verified 10/12/23 21:36 acetarsol Allergy Intermediate Rash Verified 10/12/23 21:36 chlorpromazine Allergy Intermediate Other Verified 10/12/23 21:36 [From Thorazine] nalbuphine Allergy Intermediate Shortness Verified 10/12/23 21:36 of breath prasterone (DHEA) [From DHEA] Allergy Intermediate Shortness Verified 10/12/23 21:36 of breath prednisone Allergy Intermediate Other Verified 10/12/23 21:36 prochlorperazine Allergy Intermediate Shortness Verified 10/12/23 21:36 of breath Iodinated Contrast Media AdvReac Mild Hives Verified 10/12/23 21:36 iodine AdvReac Mild Hives Verified 10/12/23 21:36 ketorolac [From Toradol] AdvReac Mild Nausea Verified 10/12/23 21:36 tramadol AdvReac Mild Vomiting Verified 10/12/23 21:36 adhesive tape [paper tape] AdvReac Other Verified 10/12/23 21:36 Family History Mother Hypertension HLD (hyperlipidemia) Heart disease Father Hypertension HLD (hyperlipidemia) Heart disease Myocardial infarction CAD (coronary artery disease) Surgical History History of cardiac catheterization History of carpal tunnel surgery of left wrist History of carpal tunnel surgery of right wrist Hx of heart artery stent Hx of left knee surgery Hx of single vessel coronary artery bypass Hx of tonsillectomy Social History household members: none Smoking Status: Current every day smoker tobacco type: cigarettes alcohol intake: never substance use type: does not use ROS ROS ED Constitutional Constitutional ED: Denies chills or fever(s) Eyes Eyes: Denies change in vision or diplopia ENT ENT ED: Denies rhinorrhea or sore throat Cardiovascular Cardiovascular: Denies chest pain or palpitations Respiratory/Chest Respiratory/Chest: Denies cough or dyspnea Gastrointestinal Gastrointestinal: Denies abdominal pain, diarrhea, nausea or vomiting Genitourinary Genitourinary ED: Denies dysuria or hematuria Musculoskeletal Musculoskeletal: Reports as per HPI and extremity pain; Denies back pain or neck pain Integumentary Denies abscess or rash Neurologic Neurologic: Denies headache(s), paresthesias or weakness Psychiatric Psychiatric: Denies anxiety or suicidal thoughts EXAM Physical Exam Const Vital Signs: 10/12/23 21:34 10/12/23 23:26 10/12/23 23:33 Temperature 96.8 F L Temperature Source Temporal Pulse Rate 66 62 Respiratory Rate 18 18 Respiratory Pattern Tachypnea Blood Pressure 158/73 H 162/73 H Blood Pressure Mean 101 102 Pulse Ox 98 94 Oxygen Delivery Method Room Air Room Air Positive well nourished and well developed General Appearance ED: well developed and NAD HEENT Reports moist mucous membranes normocephalic and atraumatic Eyes PERRL and EOMs intact bilaterally Neck full ROM and supple Resp normal respiratory effort and clear to auscultation bilaterally Cardio regular rate, regular rhythm and no murmurs GI non-tender and non-distended Auscultation: normoactive bowel sounds Palpation: soft Back/Spine no CVA tenderness General Back: other FROM Extremity normal to inspection Extremity Narrative: Left foot wrapped in boot Left upper arm: PICC in place, site is benign appearing with chlorhexidine dressing in place, there is no discharge or bleeding, the area is exquisitely tender all the way up to the axilla from the site of insertion. It is normal-appearing I do not feel lymphadenopathy but his obesity limits as part of the exam, and there is no lymphangitic streaking or other signs of erythema/infection. General Extremety ED: Yes tenderness; Negative for edema or pulses abnormal General Extremity: Negative for edema or pulses abnormal Neuro oriented x3, CN's II-XII intact bilaterally and no sensory deficits noted Sensorium / Orientation: awake and alert Motor Exam: strength 5/5 throughout Psych mental status grossly normal Skin no rashes or lesions noted and no wounds MDM MDM MDM Narrative Medical decision making narrative: Given the fact that this catheter was previously not working and it was not working again and now is really hurting him, I recommend that we hold it. He is in agreement. We did this in a sterile fashion, sending the tip for a culture. The line came out intact without any difficulty and the site does not appear to be grossly infected just minimally erythematous right around the insertion site consistent with minor inflammation. He was given IV doses of morphine, Zosyn, and vancomycin. After looking at his records, he is on Zosyn 3.375 every 8 hour, and vancomycin 1000 mg every 12 hours. He was due for both this evening. After discussion with inpatient staff, we are able to set him up for a PICC line if he comes back to the ER tomorrow morning Sunday. The patient prefers this rather than being admitted. Therefore he is advised to come back to the ER in the morning, and get a PICC placed in his other arm preferably, and then ideally he can go home and continue giving himself doses of his scheduled antibiotics. History & Record Review Additional record(s) reviewed:: Prior inpatient record Discharge Plan Triage Chief Complaint: Other, Pain/Inj ED Provider: Marvin Robert Dx/Rx/DC Orders Clinical Impression: Occluded PICC line Instructions: PICC Change Dressing Dc Prescriptions: No Action aspirin 81 mg tablet,delayed release (DR/EC) 81 mg PO DAILY Patient Comments: TAKE 1 TABLET BY MOUTH EVERY MORNING atorvastatin 40 mg tablet 40 mg PO DAILY Patient Comments: TAKE 1 TABLET BY MOUTH ONCE DAILY clopidogrel 75 mg tablet 75 mg PO DAILY Patient Comments: TAKE 1 TABLET BY MOUTH ONCE DAILY sucralfate 1 gram tablet 1 g PO 4X/DAY Patient Comments: TAKE 1 TABLET BY MOUTH FOUR TIMES DAILY Entresto 49-51 mg tablet 1 tab PO BID Patient Comments: TAKE 1 TABLET BY MOUTH TWICE DAILY isosorbide mononitrate 30 mg tablet extended release 24 hr 30 mg PO DAILY Patient Comments: TAKE 1 TABLET BY MOUTH ONCE DAILY gabapentin 300 mg capsule 300 mg PO 4X/DAY Patient Comments: TAKE 1 CAPSULE BY MOUTH THREE TIMES DAILY furosemide 40 mg tablet 40 mg PO DAILY Patient Comments: TAKE 1 TABLET BY MOUTH ONCE DAILY Trelegy Ellipta 200-62.5-25 mcg blister with device 1 inh INHALATION Q24H Patient Comments: INHALE 1 PUFF BY MOUTH ONCE DAILY DIRECTED insulin lispro [Humalog KwikPen Insulin] 100 unit/mL insulin pen 10 unit subcut TID Qty: 15 0RF acetaminophen 500 mg capsule 1,000 mg PO Q8H PRN PRN (Reason: pain) Qty: 90 0RF pantoprazole 40 mg tablet,delayed release (DR/EC) 40 mg PO DAILY Patient Comments: TAKE 1 TABLET BY MOUTH ONCE DAILY albuterol sulfate 90 mcg/actuation HFA aerosol inhaler 2 inh INHALATION PRN PRN (Reason: shortness of breath or wheezing) Patient Comments: INHALE 2 PUFFS BY MOUTH as instructed EVERY 4 HOURS NEEDED for FOR WHEEZING, SHORTNESS OF BREATH albuterol sulfate 2.5 mg /3 mL (0.083 %) solution for nebulization 2.5 mg inhalation Q8H PRN PRN (Reason: shortness of breath or wheezing) Patient Comments: INHALE ONE 3ML VIAL PER NEBULIZER THREE TIMES DAILY NEEDED FOR WHEEZING OR SHORTNESS OF BREATH INHALING OVER 5 TO 15 MINUTES buprenorphine-naloxone 8-2 mg film 1 film sublingual BID Hold Instructions: Hold while taking oxycodone. Patient Comments: DISSOLVE 1 film UNDER THE TONGUE TWICE DAILY Zosyn in dextrose (iso-osm) 3.375 gram/50 mL piggyback 3.375 g IV Q8H 39 Days Rx Instructions: stop date 10/29/23. Dx: toe osteomyelitis. Weekly bmp, cbc, ESR, and vanc trough; fax to [phone]. Routine picc care per protocol. vancomycin in dextrose 5 % 1 gram/200 mL Piggyback 1,000 mg IV Q12H 39 Days Qty: 7800 0RF Rx Instructions: stop date 10/29/23. Dx: toe osteomyelitis. Weekly bmp, cbc, ESR, and vanc trough; fax to [phone]. Routine picc care per protocol. insulin glargine 100 unit/mL solution 30 unit subcut BID Qty: 10 0RF metoprolol succinate 25 mg tablet extended release 24 hr 25 mg PO Q12H Patient Comments: TAKE 1 TABLET BY MOUTH TWICE DAILY Primary Care Provider: Connor Nazario Referrals: ER, [facility] [Other] - 10/13/23 8:00 am Connor Nazario MD [Primary Care Provider] - Disposition Disposition: Home, Self Care
[2023-10-12] MEDS: Morphine 4 MG/ML Syringe IV (23:22)
[2023-10-12 23:33] VITALS: BP 162/73; PULSE 62; RESP 18; O2SAT 94
[2023-10-12] MEDS: Piperacil/Tazobactam 3.375 GM in 0.9% Normal Saline (50mL MB+) 50 ML IV (23:44)
--- NOTE | 2023-10-13 00:04 | ED.RN ---
DR. MCKEON REMOVED PICC LINE FROM PT'S LEFT UPPER ARM AND WILL SEND THE TIP OF CATHETER FOR CULTURE, INSERTION SITE PINK AND DRESSING APPLIED AND SECURED WITH TAPE. PT TOLERATED WELL.
[2023-10-13] MEDS: Vancomycin IV 1,000 MG/200 ML BAG 200 MG IV (00:35)
[2023-10-13 01:00] VITALS: BP 126/64; PULSE 60; RESP 16; TEMP 36.4; O2SAT 95
[2023-10-13] MEDS: morphine 8 MG/ML Syringe 6 MG IV (02:03)
[2023-10-13 02:06] VITALS: BP 126/64; PULSE 60; RESP 16; TEMP 36.4; O2SAT 95
== END 2023-10-13 02:09 | disposition home or self-care (01) ==
PROVIDERS: Emergency Provider Emergency Medicine; Visit Provider Emergency Medicine
DX: T82.594A Other mechanical complication of infusion catheter, initial encounter (principal); M86.8X7 Other osteomyelitis, ankle and foot; J44.9 Chronic obstructive pulmonary disease, unspecified; Z79.4 Long term (current) use of insulin; E11.69 Type 2 diabetes mellitus with other specified complication; E11.42 Type 2 diabetes mellitus with diabetic polyneuropathy; T85.848A Pain due to other internal prosthetic devices, implants and grafts, initial encounter; M79.602 Pain in left arm; Y82.8 Other medical devices associated with adverse incidents; I25.10 Atherosclerotic heart disease of native coronary artery without angina pectoris; Z79.82 Long term (current) use of aspirin; Z79.02 Long term (current) use of antithrombotics/antiplatelets; Z79.899 Other long term (current) drug therapy; F17.210 Nicotine dependence, cigarettes, uncomplicated
CPT/HCPCS: 87070; 87205; 96365; 96367; 96375; 96376; 99283; J7050; A4216

== ENCOUNTER 2023-10-13 10:49 | Outpatient (CLI) | payer MEDICARE, MEDICAID, SELFPAY ==
--- NOTE | 2023-10-13 11:41 | NURSING ---
acess rn already here upon pt arrival. family outside room. pt prepped and rn at bedside to insert picc.
[2023-10-13 11:58] VITALS: BP 165/89; PULSE 62; RESP 16; TEMP 36.8; O2SAT 94
[2023-10-13 12:00] VITALS: PULSE 74; RESP 18; TEMP 37; O2SAT 94; BMI 38.4
[2023-10-13] MEDS: 0.9 % NaCl (Sterile) Posiflush 10 mL IV (12:00)
== END 2023-10-13 12:00 | disposition home or self-care (01) ==
LOC: ED 10:51 → MS3 11:34
PROVIDERS: Visit Provider Emergency Medicine
DX: Z45.2 Encounter for adjustment and management of vascular access device (principal)
CPT/HCPCS: 36569

== ENCOUNTER 2023-10-17 17:09 | Emergency (ER) | payer MEDICARE, MEDICAID, SELFPAY ==
[2023-10-17 17:09] VITALS: BP 194/92; PULSE 87; RESP 20; TEMP 36.4; O2SAT 99; BMI 35.6
[2023-10-17 17:11] VITALS: BP 194/92; PULSE 87; RESP 20; TEMP 36.4; O2SAT 99
--- NOTE | 2023-10-17 19:04 | EDS_ITS ---
HPI History of Present Illness Chief Complaint: Other, Pain/Inj Informant: patient Onset/Context/Timing Onset: Yesterday Context: Gradual Onset Timing: Continuous Quality: Sharp, shooting Location: Left upper arm Worsened by: Movement Relieved by: Rest Narrative Narrative: Patient presents with pain at his PICC line site that began last night. Patient states it is gradually getting worse. Patient describes it as sharp and shooting. Patient states it is over the left upper arm at the insertion site. Patient states it is worse with movement. Patient states it is better with rest. Patient states he was unable to flush the PICC line today. Patient states he is on antibiotics for osteomyelitis in his left foot. [facility] Medical History Amputation of left great toe Anxiety Arthritis Back pain Cardiology follow-up encounter COPD (chronic obstructive pulmonary disease) Coronary artery disease Diabetic foot Dietary restriction DVT (deep venous thrombosis) Failure of outpatient treatment Fatty liver Gastric reflux Hallux rigidus of right foot Hammertoe of left foot Heart attack High cholesterol History of atrial fibrillation History of CHF (congestive heart failure) History of echocardiogram History of edema History of pain when walking History of stress test History of ulceration Hypertension Insulin dependent diabetes mellitus Leg cramps Marijuana use Metatarsal deformity Migraine headache MRSA infection Other hammer toe(s) (acquired), left foot Peripheral vascular disease, unspecified Restless legs Short Achilles tendon (acquired), left ankle Shortness of breath on exertion Smoker Substance abuse Syncope TIA (transient ischemic attack) Type 2 diabetes mellitus with diabetic polyneuropathy Uncontrolled diabetes mellitus Wears glasses Home Medications aspirin 81 mg tablet,delayed release 81 mg PO DAILY 03/31/23 [History Last Taken 09/14/23] atorvastatin 40 mg tablet 40 mg PO DAILY 03/31/23 [History Last Taken 09/14/23] clopidogrel 75 mg tablet 75 mg PO DAILY 03/31/23 [History Last Taken 09/14/23] fluticasone fur. 200 mcg-umeclid 62.5 mcg-vilant 25 mcg inhalat.powder (Trelegy Ellipta) 1 inh inhalation Q24H 03/31/23 [History Last Taken 09/14/23] furosemide 40 mg tablet 40 mg PO DAILY 03/31/23 [History Last Taken 09/14/23] gabapentin 300 mg capsule 300 mg PO 4X/DAY 03/31/23 [History Last Taken 09/14/23] isosorbide mononitrate 30 mg tablet,extended release 24 hr 30 mg PO DAILY 03/31/23 [History Last Taken 09/14/23] sacubitril 49 mg-valsartan 51 mg tablet (Entresto) 1 tab PO BID 03/31/23 [History Last Taken 09/14/23] sucralfate 1 gram tablet 1 g PO 4X/DAY 03/31/23 [History Last Taken 09/14/23] acetaminophen 500 mg capsule 1,000 mg (2 x 500 mg) PO Q8H PRN PRN pain #90 caps 04/04/23 [Rx Last Taken 09/14/23] insulin lispro 100 unit/mL subcutaneous pen (Humalog KwikPen (U-100) Insulin) 10 unit (0.1 mL) subcut TID #15 mL 04/04/23 [Rx Last Taken 09/14/23] albuterol sulfate 2.5 mg/3 mL (0.083 %) solution for nebulization 2.5 mg inhalation Q8H PRN PRN shortness of breath or wheezing 06/21/23 [History Last Taken 09/05/23] albuterol sulfate 90 mcg/actuation aerosol inhaler 2 inh inhalation PRN PRN shortness of breath or wheezing 06/21/23 [History Last Taken 09/14/23] pantoprazole 40 mg tablet,delayed release 40 mg PO DAILY 06/21/23 [History Last Taken 09/14/23] metoprolol succinate 25 mg tablet,extended release 24 hr 25 mg PO Q12H 09/02/23 [History Last Taken 09/14/23] buprenorphine 8 mg-naloxone 2 mg sublingual film 1 film sublingual BID 09/14/23 [History Last Taken 09/12/23] insulin glargine 100 unit/mL subcutaneous solution 30 unit (0.3 mL) subcut BID #10 mL 09/20/23 [Rx Last Taken Unknown] piperacillin-tazobactam 3.375 gram/50 mL dextrose(iso-os) IV piggyback (Zosyn) 3.375 g (56.25 mL) IV Q8H 39 days 09/20/23 [Rx Last Taken Unknown] vancomycin 1 gram/200 mL in dextrose 5 % intravenous piggyback 1,000 mg IV Q12H 39 days #7,800 mL 09/20/23 [Rx Last Taken Unknown] Allergy/AdvReac Type Severity Reaction Status Date / Time sumatriptan [From Imitrex] Allergy Severe Other Verified 10/17/23 17:11 acetarsol Allergy Intermediate Rash Verified 10/17/23 17:11 chlorpromazine Allergy Intermediate Other Verified 10/17/23 17:11 [From Thorazine] nalbuphine Allergy Intermediate Shortness Verified 10/17/23 17:11 of breath prasterone (DHEA) [From DHEA] Allergy Intermediate Shortness Verified 10/17/23 17:11 of breath prednisone Allergy Intermediate Other Verified 10/17/23 17:11 prochlorperazine Allergy Intermediate Shortness Verified 10/17/23 17:11 of breath Iodinated Contrast Media AdvReac Mild Hives Verified 10/17/23 17:11 iodine AdvReac Mild Hives Verified 10/17/23 17:11 ketorolac [From Toradol] AdvReac Mild Nausea Verified 10/17/23 17:11 tramadol AdvReac Mild Vomiting Verified 10/17/23 17:11 adhesive tape [paper tape] AdvReac Other Verified 10/17/23 17:11 Family History Mother Hypertension HLD (hyperlipidemia) Heart disease Father Hypertension HLD (hyperlipidemia) Heart disease Myocardial infarction CAD (coronary artery disease) Surgical History History of cardiac catheterization History of carpal tunnel surgery of left wrist History of carpal tunnel surgery of right wrist Hx of heart artery stent Hx of left knee surgery Hx of single vessel coronary artery bypass Hx of tonsillectomy Social History (Updated 10/17/23 @ 19:[address] Brendon Schuster DO) household members: none Smoking Status: Current every day smoker tobacco type: cigarettes alcohol intake: never substance use type: marijuana ROS ROS ED Constitutional Constitutional ED: Denies chills or fever(s) Eyes Eyes: Denies blurry vision or change in vision ENT ENT ED: Denies rhinorrhea or sore throat Cardiovascular Cardiovascular: Denies chest pain or palpitations Respiratory/Chest Respiratory/Chest: Denies cough or dyspnea Gastrointestinal Gastrointestinal: Reports nausea; Denies vomiting Genitourinary Genitourinary ED: Denies dysuria or hematuria Musculoskeletal Musculoskeletal: Denies back pain or neck pain Integumentary Denies abscess or rash Neurologic Neurologic: Denies headache(s) or weakness Allergic/Immunologic Allergic/Immunologic ED: Denies mouth swelling or urticaria EXAM Physical Exam Const Vital Signs: 10/17/23 17:09 10/17/23 17:11 Temperature 97.5 F L 97.5 F L Temperature Source Temporal Temporal Pulse Rate 87 87 Respiratory Rate 20 H 20 H Blood Pressure 194/92 H 194/92 H Blood Pressure Mean 126 126 Pulse Ox 99 99 Oxygen Delivery Method Room Air Room Air Positive well nourished and well developed General Appearance ED: well developed and NAD HEENT Reports moist mucous membranes Neck supple and no JVD Chest Wall inspection of chest normal and palpation of chest normal Resp normal respiratory effort and clear to auscultation bilaterally Cardio regular rate and regular rhythm GI non-tender and non-distended Palpation: soft Extremity Extremity Narrative: There is tenderness over the medial aspect of the right upper arm. There is no erythema noted. There is no bleeding from the PICC line site. There is no ecchymosis noted. There is no infiltration noted. There is full range of motion of the right shoulder and right elbow. Neuro oriented x3, CN's II-XII intact bilaterally and no sensory deficits noted Sensorium / Orientation: alert Motor Exam: strength 5/5 throughout Psych mental status grossly normal Skin no rashes or lesions noted MDM MDM MDM Narrative Medical decision making narrative: Nursing was able to flush and aspirate from the PICC line catheter. Patient was advised to continue using his PICC line. It does not need to be replaced. Patient was given 1 [place] tablet here. Patient was instructed to use ice to the area. Patient was instructed to follow-up with his primary care physician in 5 to 7 days. Patient understood and was agreeable with the plan. All questions were answered. Discharge Plan Triage Chief Complaint: Other, Pain/Inj ED Provider: Brendon Schuster Dx/Rx/DC Orders Clinical Impression: Diabetes mellitus, type II, insulin dependent, Pain in right upper arm Instructions: ED Pain, Acute, Uncertain Cause Prescriptions: No Action aspirin 81 mg tablet,delayed release (DR/EC) 81 mg PO DAILY Patient Comments: TAKE 1 TABLET BY MOUTH EVERY MORNING atorvastatin 40 mg tablet 40 mg PO DAILY Patient Comments: TAKE 1 TABLET BY MOUTH ONCE DAILY clopidogrel 75 mg tablet 75 mg PO DAILY Patient Comments: TAKE 1 TABLET BY MOUTH ONCE DAILY sucralfate 1 gram tablet 1 g PO 4X/DAY Patient Comments: TAKE 1 TABLET BY MOUTH FOUR TIMES DAILY Entresto 49-51 mg tablet 1 tab PO BID Patient Comments: TAKE 1 TABLET BY MOUTH TWICE DAILY isosorbide mononitrate 30 mg tablet extended release 24 hr 30 mg PO DAILY Patient Comments: TAKE 1 TABLET BY MOUTH ONCE DAILY gabapentin 300 mg capsule 300 mg PO 4X/DAY Patient Comments: TAKE 1 CAPSULE BY MOUTH THREE TIMES DAILY furosemide 40 mg tablet 40 mg PO DAILY Patient Comments: TAKE 1 TABLET BY MOUTH ONCE DAILY Trelegy Ellipta 200-62.5-25 mcg blister with device 1 inh INHALATION Q24H Patient Comments: INHALE 1 PUFF BY MOUTH ONCE DAILY DIRECTED insulin lispro [Humalog KwikPen Insulin] 100 unit/mL insulin pen 10 unit subcut TID Qty: 15 0RF acetaminophen 500 mg capsule 1,000 mg PO Q8H PRN PRN (Reason: pain) Qty: 90 0RF pantoprazole 40 mg tablet,delayed release (DR/EC) 40 mg PO DAILY Patient Comments: TAKE 1 TABLET BY MOUTH ONCE DAILY albuterol sulfate 90 mcg/actuation HFA aerosol inhaler 2 inh INHALATION PRN PRN (Reason: shortness of breath or wheezing) Patient Comments: INHALE 2 PUFFS BY MOUTH as instructed EVERY 4 HOURS NEEDED for FOR WHEEZING, SHORTNESS OF BREATH albuterol sulfate 2.5 mg /3 mL (0.083 %) solution for nebulization 2.5 mg inhalation Q8H PRN PRN (Reason: shortness of breath or wheezing) Patient Comments: INHALE ONE 3ML VIAL PER NEBULIZER THREE TIMES DAILY NEEDED FOR WHEEZING OR SHORTNESS OF BREATH INHALING OVER 5 TO 15 MINUTES buprenorphine-naloxone 8-2 mg film 1 film sublingual BID Hold Instructions: Hold while taking oxycodone. Patient Comments: DISSOLVE 1 film UNDER THE TONGUE TWICE DAILY Zosyn in dextrose (iso-osm) 3.375 gram/50 mL piggyback 3.375 g IV Q8H 39 Days Rx Instructions: stop date 10/29/23. Dx: toe osteomyelitis. Weekly bmp, cbc, ESR, and vanc trough; fax to [phone]. Routine picc care per protocol. vancomycin in dextrose 5 % 1 gram/200 mL Piggyback 1,000 mg IV Q12H 39 Days Qty: 7800 0RF Rx Instructions: stop date 10/29/23. Dx: toe osteomyelitis. Weekly bmp, cbc, ESR, and vanc trough; fax to [phone]. Routine picc care per protocol. insulin glargine 100 unit/mL solution 30 unit subcut BID Qty: 10 0RF metoprolol succinate 25 mg tablet extended release 24 hr 25 mg PO Q12H Patient Comments: TAKE 1 TABLET BY MOUTH TWICE DAILY Primary Care Provider: Connor Nazario Referrals: Connor Nazario MD [Primary Care Provider] - 5-7 Days Disposition Disposition: Home, Self Care
[2023-10-17 19:09] VITALS: BP 150/79; PULSE 81; RESP 16; O2SAT 97
--- NOTE | 2023-10-17 19:20 | ED.RN ---
This nurse into room to attempt to flush PICC line in right upper arm. PICC line flushed with 20cc with ease and blood return noted without difficulty. Pt watched as this nurse flushed and got blood return in PICC. Pt stating that sight is where it hurts. Dr. Schuster updated.
[2023-10-17] MEDS: HYDROcodone Bitartrate/Apap 5/325 Tablet PO (20:03)
[2023-10-17 20:08] VITALS: BP 150/79; PULSE 82; RESP 16; TEMP 36.4; O2SAT 97
== END 2023-10-17 20:10 | disposition home or self-care (01) ==
PROVIDERS: Emergency Provider Emergency Medicine; Visit Provider Emergency Medicine
DX: M79.621 Pain in right upper arm (principal); M86.8X7 Other osteomyelitis, ankle and foot; E11.51 Type 2 diabetes mellitus with diabetic peripheral angiopathy without gangrene; Z79.4 Long term (current) use of insulin; E11.69 Type 2 diabetes mellitus with other specified complication; E11.42 Type 2 diabetes mellitus with diabetic polyneuropathy; F17.210 Nicotine dependence, cigarettes, uncomplicated; Z79.82 Long term (current) use of aspirin; Z79.02 Long term (current) use of antithrombotics/antiplatelets; Z79.899 Other long term (current) drug therapy
CPT/HCPCS: 36592; 99282

== ENCOUNTER 2023-11-20 19:30 | Inpatient (IN) | payer MEDICARE, MEDICAID, SELFPAY ==
[2023-11-20 19:31] VITALS: BP 156/85; PULSE 101; RESP 18; TEMP 36.8; O2SAT 98
--- NOTE | 2023-11-20 20:40 | EX.ED.DYSGE1 ---
HPI History of Present Illness Chief Complaint: Abscess Informant: patient Onset/Context/Timing Onset: Today and Yesterday Context: Gradual Onset Timing: Continuous Narrative Narrative: 42-year-old male extensive past medical history of diabetes, DVT, TIA, CABG, on Plavix and aspirin. States he had a right axillary abscess started yesterday. Tried to drain it today without any relief. Has had chills. No fever. Prior similar symptoms: No Recent Illness/Hospitalization: No PFSH PFSH Medical History Wears glasses MRSA infection Anxiety Marijuana use Substance abuse Insulin dependent diabetes mellitus Arthritis Fatty liver High cholesterol DVT (deep venous thrombosis) Restless legs Back pain Migraine headache TIA (transient ischemic attack) Syncope Dietary restriction History of ulceration Gastric reflux Smoker COPD (chronic obstructive pulmonary disease) Shortness of breath on exertion Leg cramps History of pain when walking History of edema History of echocardiogram History of stress test Hypertension Cardiology follow-up encounter History of CHF (congestive heart failure) History of atrial fibrillation Metatarsal deformity Other hammer toe(s) (acquired), left foot Short Achilles tendon (acquired), left ankle Coronary artery disease Hallux rigidus of right foot Hammertoe of left foot Peripheral vascular disease, unspecified Type 2 diabetes mellitus with diabetic polyneuropathy Uncontrolled diabetes mellitus Failure of outpatient treatment Diabetic foot Amputation of left great toe Heart attack Home Medications ?Medication ?Instructions ?Recorded ?Last Taken ?Type aspirin 81 mg tablet,delayed 81 mg PO DAILY 03/31/23 09/14/23 History release atorvastatin 40 mg tablet 40 mg PO DAILY 03/31/23 09/14/23 History clopidogrel 75 mg tablet 75 mg PO DAILY 03/31/23 09/14/23 History fluticasone fur. 200 mcg-umeclid 1 inh inhalation Q24H 03/31/23 09/14/23 History 62.5 mcg-vilant 25 mcg inhalat.powder (Trelegy Ellipta) furosemide 40 mg tablet 40 mg PO DAILY 03/31/23 09/14/23 History gabapentin 300 mg capsule 300 mg PO 4X/DAY 03/31/23 09/14/23 History isosorbide mononitrate 30 mg 30 mg PO DAILY 03/31/23 09/14/23 History tablet,extended release 24 hr sacubitril 49 mg-valsartan 51 mg 1 tab PO BID 03/31/23 09/14/23 History tablet (Entresto) insulin lispro 100 unit/mL 10 unit (0.1 mL) subcut TID #15 mL 04/04/23 09/14/23 Rx subcutaneous pen (Humalog KwikPen (U-100) Insulin) albuterol sulfate 2.5 mg/3 mL 2.5 mg inhalation Q8H PRN PRN 06/21/23 09/05/23 History (0.083 %) solution for nebulization shortness of breath or wheezing albuterol sulfate 90 mcg/actuation 2 inh inhalation PRN PRN shortness 06/21/23 09/14/23 History aerosol inhaler of breath or wheezing pantoprazole 40 mg tablet,delayed 40 mg PO DAILY 06/21/23 09/14/23 History release metoprolol succinate 25 mg 25 mg PO Q12H 09/02/23 09/14/23 History tablet,extended release 24 hr insulin glargine 100 unit/mL 30 unit (0.3 mL) subcut BID #10 mL 09/20/23 Unknown Rx subcutaneous solution betamethasone, augmented 0.05 % 1 applic topical BID as needed for 11/20/23 Unknown History topical ointment skin famotidine 20 mg tablet 20 mg PO BID 11/20/23 Unknown History Allergy/AdvReac Type Severity Reaction Status Date / Time sumatriptan (From Imitrex) Allergy Severe Other Verified 11/20/23 19:33 acetarsol Allergy Intermediate Rash Verified 11/20/23 19:33 chlorpromazine (From Allergy Intermediate Other Verified 11/20/23 19:33 Thorazine) nalbuphine Allergy Intermediate Shortness Verified 11/20/23 19:33 of breath prasterone (DHEA) (From DHEA) Allergy Intermediate Shortness Verified 11/20/23 19:33 of breath prednisone Allergy Intermediate Other Verified 11/20/23 19:33 prochlorperazine Allergy Intermediate Shortness Verified 11/20/23 19:33 of breath Iodinated Contrast Media AdvReac Mild Hives Verified 11/20/23 19:33 iodine AdvReac Mild Hives Verified 11/20/23 19:33 ketorolac (From Toradol) AdvReac Mild Nausea Verified 11/20/23 19:33 tramadol AdvReac Mild Vomiting Verified 11/20/23 19:33 adhesive tape (paper tape) AdvReac Other Verified 11/20/23 19:33 Family History Mother Hypertension HLD (hyperlipidemia) Heart disease Father Hypertension HLD (hyperlipidemia) Heart disease Myocardial infarction CAD (coronary artery disease) Surgical History History of cardiac catheterization History of carpal tunnel surgery of right wrist History of carpal tunnel surgery of left wrist Hx of tonsillectomy Hx of left knee surgery Hx of single vessel coronary artery bypass Hx of heart artery stent Social History household members: none Smoking Status: Current every day smoker tobacco type: cigarettes alcohol intake: never substance use type: marijuana ROS ROS ED ROS Narrative Chills. Right axillary abscess. Review of Systems ROS Unobtainable: Denies due to encephalopathy Constitutional Constitutional ED: Reports chills Eyes Eyes: Reports none ENT ENT ED: Reports none Cardiovascular Cardiovascular: Reports none Respiratory/Chest Respiratory/Chest: Reports none Gastrointestinal Gastrointestinal: Reports none Genitourinary Genitourinary ED: Reports none Musculoskeletal Musculoskeletal: Reports none Integumentary Reports abscess Neurologic Neurologic: Reports none Psychiatric Psychiatric: Reports none Endocrine Endocrinology: Reports none Hematologic/Lymphatic Hematologic/Lymphatic: Reports none Allergic/Immunologic Allergic/Immunologic ED: Reports none EXAM Physical Exam Narrative Exam Narrative: 42-year-old male sitting upright in bed. Vital signs stable afebrile. Patient does not look septic toxic or in distress. H EENT exam unremarkable. Neck nontender. Lungs clear to auscultation. Heart regular rhythm no murmur. Rate about 100. Abdomen soft nontender. Moving all 4 extremities. Nontender no edema. Right axilla is about a 3 inch x 1/2 inch area of indurated red tissue is very tender to palpation consistent with infection possible abscess there is no fluctuance. Neurologically is awake alert. No focal motor deficits. Const Vital Signs: 11/20/23 19:31 11/20/23 21:33 11/20/23 23:00 Temperature 98.2 F 98.6 F 98.3 F Temperature Source Oral Oral Oral Pulse Rate 101 H 88 79 Respiratory Rate 18 17 18 Blood Pressure 156/85 H 146/88 H 166/109 H Blood Pressure Mean 108 107 128 Pulse Ox 98 98 95 Oxygen Delivery Method Room Air Room Air Room Air 11/20/23 23:21 Temperature 98.4 F Temperature Source Pulse Rate 78 Respiratory Rate 17 Blood Pressure 155/90 H Blood Pressure Mean 111 Pulse Ox 96 Oxygen Delivery Method Positive well nourished, well developed, alert, oriented x3, no apparent distress, average body habitus and no limitations General Appearance ED: active, cooperative, comfortable and well developed Orientation / Consciousness: awake, oriented to person, oriented to place and oriented to time HEENT Reports normocephalic and head/scalp atraumatic normocephalic Eyes PERRL, EOMs intact bilaterally and conjunctivae normal General Eye ED: Yes normal appearance of both eyes Neck full ROM, No nuchal rigidity, no lymphadenopathy, supple, no meningeal signs and no JVD General: normal visual inspection Lymph Lymphatic: no lymphadenopathy noted and no lymphedema noted; Negative for lymphedema or lymphadenopathy Chest Wall inspection of chest normal and palpation of chest normal Resp normal respiratory effort, normal air movement, no retractions, no use of accessory muscles and clear to auscultation bilaterally Cardio regular rate, regular rhythm, S1 normal heart sound, S2 normal heart sound, no murmurs, no rub, no gallops, no clicks and no JVD GI normal to inspection, nondistended, normoactive bowel sounds, soft to palpation, non-tender, non-distended, no masses and no bruits Back/Spine no CVA tenderness Extremity normal to inspection, full ROM, normal capillary refill, no joint enlargement, no clubbing, cyanosis or edema, no calf tenderness and no pedal edema Extremity Narrative: Right axillary abscess. Neuro oriented x3, CN's II-XII intact bilaterally and moves all extremities Sensorium / Orientation: awake, alert, oriented to person, oriented to place and oriented to time Psych mental status grossly normal, thought process normal, cooperative, affect normal, speech normal and activity/motor behavior normal Appearance: grossly normal Attitude: calm and engaged Activity / Motor Behavior: appropriate eye contact Skin No no rashes or lesions noted, no jaundice, no petechiae and no mottling Skin Narrative: Right axillary abscess versus indurated tissue just infected without abscess formation. Image ED - Upper Extremity Diagram: 1. Right axillary abscess versus indurated infected tissue. MDM MDM MDM Narrative Medical decision making narrative: Patient is requesting something for pain did not want a pill. Will be given IM injection of morphine. Let will be applied to the infected area. Locally anesthetized with lidocaine and will try to incise and drain this. It may just be infected tissue. He will be given a dose of Bactrim and Keflex here in the emergency department. I do not think he needs labs other than a blood sugar. I believe will be able to treat this at home with oral antibiotics. I attempted incision and drainage of the right arm cellulitis in case there may have been an abscess. Really got minimal if any purulent material. There is a small amount of blood. Patient tolerated well. Due to the cellulitis being from his right armpit down on his right elbow I do think he would warrant inpatient antibiotic therapy. To be written for dose of Unasyn IV. He has been on clindamycin for the last 4 days which he initially did not tell me and the infection in his right arm is only gotten worse. I already spoke to the hospitalist he will be down to admit the patient. History & Record Review Discussion w/independent historian: Patient Additional record(s) reviewed:: Other Lab Data Attestation: I reviewed the patient's lab results. Lab results narrative: BGT equals 309. CBC CBC shows white count 12.3. H&H 12.7 and 37. Platelets 288. Labs: Laboratory Results - last 24 hr 11/20/23 11/20/23 21:58 23:01 WBC 12.3 H RBC 4.34 L Hgb 12.7 L Hct 37.8 L MCV 87.1 MCH 29.3 MCHC 33.6 RDW Std Deviation 43.3 RDW Coeff of Simone 13.6 Plt Count 288 MPV 8.9 Immature Gran % (Auto) 0.300 Neut % (Auto) 68.5 Lymph % (Auto) 17.5 L [place] % (Auto) 7.5 Eos % (Auto) 5.6 H Baso % (Auto) 0.6 Absolute Neuts (auto) 8.4 H Absolute Lymphs (auto) 2.15 Nucleated RBC % 0 POC Glucose 309 H Discharge Plan Dx/Rx/DC Orders Clinical Impression: Cellulitis of arm, right, Hyperglycemia due to diabetes mellitus, History of TIAs, Hx of CABG Disposition Disposition: [facility]
[2023-11-20] MEDS: Cephalexin 250 MG Capsule 500 MG PO (21:00)
[2023-11-20] MEDS: Lidocaine 1% (20 ml mdv) 20 ML Vial INFILT (21:01)
[2023-11-20] MEDS: morphine 10 MG/ML Syringe IM (21:01)
[2023-11-20] MEDS: Smz/Tmp Ds Tablet 1 TABLET PO (21:01)
[2023-11-20] MEDS: Lidocaine/Epi/Tetracaine 50 ML 1 APPLIC TOPICAL (21:02)
[2023-11-20 21:30] VITALS: BMI 34.7
[2023-11-20 21:33] VITALS: BP 146/88; PULSE 88; RESP 17; TEMP 37; O2SAT 98
[2023-11-20 22:20] LABS: Bedside Glucose 309 mg/dL (74-106)
[2023-11-20 23:00] VITALS: BP 166/109; PULSE 79; RESP 18; TEMP 36.8; O2SAT 95
[2023-11-20 23:07] LABS: Absolute Lymphocyte Count 2.15 X10^3/uL (0.83-4.51); Absolute Neutrophil Count 8.4 X10^3/uL (2.0-7.7); Basophil# 0.07 X10^3/uL; Basophil% 0.6 % (0-1); Eosinophil# 0.69 X10^3/uL; Eosinophils% 5.6 % (0-5); Hematocrit 37.8 % (40-54); Hemoglobin 12.7 g/dL (13.0-16.5); Lymphocyte # 2.15 X10^3/ul (0.83-4.51); Lymphocyte % 17.5 % (19-41); Mean Corp Hgb Conc 33.6 g/dL (32-36); Mean Corpuscular Hgb 29.3 pg (27.0-32.0); Mean Corpuscular Volume 87.1 fL (80-94); Mean Platelet Vol. 8.9 fl (6.2-12.0); Monocyte# 0.92 X10^3/uL; Monocyte% 7.5 % (0-10); NRBC Flagged by Analyzer 0 % (0-5); Neutrophil % 68.5 % (47-70); Platelet Count 288 K/mm3 (150-450); RBC Distribution Width CV 13.6 % (11.6-14.6); RBC Distribution Width SD 43.3 fl (35.1-43.9); Red Blood Count 4.34 M/mm3 (4.6-6.2); White Blood Count 12.3 K/mm3 (4.4-11.0)
[2023-11-20] MEDS: morphine 8 MG/ML Syringe IV (23:12)
[2023-11-20] MEDS: Ampicillin/Sulbactam 3 GM in 0.9% Normal Saline (100mL MB+) 100 ML IV (23:12)
[2023-11-20 23:21] VITALS: BP 155/90; PULSE 78; RESP 17; TEMP 36.9; O2SAT 96
[2023-11-20 23:30] LABS: Anion Gap 5 (5-15); BUN 24 mg/dL (7-18); BUN/Creat Ratio 16.1 RATIO (10-20); Calcium,Total 9.8 mg/dL (8.5-10.1); Chloride 107 mmol/L (98-107); Creatinine, Serum 1.49 mg/dL (0.70-1.30); EST Glomerular Filtration Rate 55 mL/min (>60); Est Glom Filt Rate - Afr Amer 67 mL/min (>60); Estimated Creatinine Clearance 78.57 ml/min; Glucose 301 mg/dL (74-106); Potassium 3.6 mmol/L (3.5-5.1); Sodium Level 136 mmol/L (136-145)
[2023-11-21] VITALS (16 sets, daily range): BP systolic 125–154; BP diastolic 71–95; PULSE 71–98; RESP 15–19; TEMP 36.3–36.9; O2SAT 94–99; BMI 34.8
--- NOTE | 2023-11-21 | CT_ITS ---
INDICATION: right upper arm cellulitis r/o abscess EXAMINATION: CT BONE - CT Upper Extremity W/ Contrast Injection TECHNIQUE: Helically acquired images were obtained of the right upper extremity. 2-D reformats were performed by the technologist. A radiation dose optimization technique was used for this scan. IV Contrast dosage and agent: None. COMPARISON: None. FINDINGS: SOFT TISSUES: Medial upper arm skin thickening with underlying ill-defined subcutaneous soft tissue edema. Additional dorsal distal upper arm subcutaneous soft tissue edema. No organized or drainable fluid collection. No subcutaneous emphysema. No radiopaque foreign body. BONES/JOINTS: No acute fracture. No periostitis or aggressive osseous lesion. Chronic mineralization or fragmentation along the inferior acetabulum without evidence of donor site. Mild elbow olecranon fossa osteophyte formation. Normal alignment. Preservation of the joint space. CT/Extremity Upper WITH Contrast IMPRESSION: Medial upper arm skin thickening and underlying soft tissue edema as can be seen with cellulitis. Similar dorsal distal upper arm subcutaneous soft tissue edema. No evidence of organized abscess. No acute osseous finding. Electronically Signed: Marcos Jackson MD at 2:43 EDT Reading Location ID and State: [facility] / [place] Tel , Service support ,
[2023-11-21] MEDS: Morphine 4 MG/ML Syringe IV (01:01)
[2023-11-21] MEDS: MethylPREDNISolone 125 MG/2 ML Vial 40 MG IV (01:06)
[2023-11-21] MEDS: DiphenhydrAMINE 50 MG/ML Syringe IV (01:09)
--- NOTE | 2023-11-21 03:12 | HP.PCM.HOS_ITS ---
[facility] - General General Date of Service: 11/21/23 Chief Complaint: Right arm redness [facility] Narrative RUSTY MCCLURE, is a 42 M who presents with 2-day history infection right arm. Patient noted he had some swelling and redness in his right armpit a couple days ago. He had some clindamycin lying around and he was taking that but despite that his arm got worse. Which led him to seek attention here. Patient was diagnosed with cellulitis. He had an indurated region under his right axilla and I&D was attempted and only had scant purulent material expressed. CAT scan performed afterwards, did not show any evidence of any abscess. Patient received Unasyn in the emergency room. [facility] Medical History Wears glasses MRSA infection Anxiety Marijuana use Substance abuse Insulin dependent diabetes mellitus Arthritis Fatty liver High cholesterol DVT (deep venous thrombosis) Restless legs Back pain Migraine headache TIA (transient ischemic attack) Syncope Dietary restriction History of ulceration Gastric reflux Smoker COPD (chronic obstructive pulmonary disease) Shortness of breath on exertion Leg cramps History of pain when walking History of edema History of echocardiogram History of stress test Hypertension Cardiology follow-up encounter History of CHF (congestive heart failure) History of atrial fibrillation Metatarsal deformity Other hammer toe(s) (acquired), left foot Short Achilles tendon (acquired), left ankle Coronary artery disease Hallux rigidus of right foot Hammertoe of left foot Peripheral vascular disease, unspecified Type 2 diabetes mellitus with diabetic polyneuropathy Uncontrolled diabetes mellitus Failure of outpatient treatment Diabetic foot Amputation of left great toe Heart attack Home Medications ?Medication ?Instructions ?Recorded ?Last Taken ?Type aspirin 81 mg tablet,delayed 81 mg PO DAILY 03/31/23 09/14/23 History release atorvastatin 40 mg tablet 40 mg PO DAILY 03/31/23 09/14/23 History clopidogrel 75 mg tablet 75 mg PO DAILY 03/31/23 09/14/23 History fluticasone fur. 200 mcg-umeclid 1 inh inhalation Q24H 03/31/23 09/14/23 History 62.5 mcg-vilant 25 mcg inhalat.powder (Trelegy Ellipta) furosemide 40 mg tablet 40 mg PO DAILY 03/31/23 09/14/23 History gabapentin 300 mg capsule 300 mg PO 4X/DAY 03/31/23 09/14/23 History isosorbide mononitrate 30 mg 30 mg PO DAILY 03/31/23 09/14/23 History tablet,extended release 24 hr sacubitril 49 mg-valsartan 51 mg 1 tab PO BID 03/31/23 09/14/23 History tablet (Entresto) insulin lispro 100 unit/mL 10 unit (0.1 mL) subcut TID #15 mL 04/04/23 09/14/23 Rx subcutaneous pen (Humalog KwikPen (U-100) Insulin) albuterol sulfate 2.5 mg/3 mL 2.5 mg inhalation Q8H PRN PRN 06/21/23 09/05/23 History (0.083 %) solution for nebulization shortness of breath or wheezing albuterol sulfate 90 mcg/actuation 2 inh inhalation PRN PRN shortness 06/21/23 09/14/23 History aerosol inhaler of breath or wheezing pantoprazole 40 mg tablet,delayed 40 mg PO DAILY 06/21/23 09/14/23 History release metoprolol succinate 25 mg 25 mg PO Q12H 09/02/23 09/14/23 History tablet,extended release 24 hr insulin glargine 100 unit/mL 30 unit (0.3 mL) subcut BID #10 mL 09/20/23 Unknown Rx subcutaneous solution betamethasone, augmented 0.05 % 1 applic topical BID as needed for 11/20/23 Unknown History topical ointment skin famotidine 20 mg tablet 20 mg PO BID 11/20/23 Unknown History Allergy/AdvReac Type Severity Reaction Status Date / Time sumatriptan (From Imitrex) Allergy Severe Other Verified 11/20/23 19:33 acetarsol Allergy Intermediate Rash Verified 11/20/23 19:33 chlorpromazine (From Allergy Intermediate Other Verified 11/20/23 19:33 Thorazine) nalbuphine Allergy Intermediate Shortness Verified 11/20/23 19:33 of breath prasterone (DHEA) (From DHEA) Allergy Intermediate Shortness Verified 11/20/23 19:33 of breath prednisone Allergy Intermediate Other Verified 11/20/23 19:33 prochlorperazine Allergy Intermediate Shortness Verified 11/20/23 19:33 of breath Iodinated Contrast Media AdvReac Mild Hives Verified 11/20/23 19:33 iodine AdvReac Mild Hives Verified 11/20/23 19:33 ketorolac (From Toradol) AdvReac Mild Nausea Verified 11/20/23 19:33 tramadol AdvReac Mild Vomiting Verified 11/20/23 19:33 adhesive tape (paper tape) AdvReac Other Verified 11/20/23 19:33 Family History Mother Hypertension HLD (hyperlipidemia) Heart disease Father Hypertension HLD (hyperlipidemia) Heart disease Myocardial infarction CAD (coronary artery disease) Surgical History History of cardiac catheterization History of carpal tunnel surgery of right wrist History of carpal tunnel surgery of left wrist Hx of tonsillectomy Hx of left knee surgery Hx of single vessel coronary artery bypass Hx of heart artery stent Social History household members: none Smoking Status: Current every day smoker tobacco type: cigarettes alcohol intake: never substance use type: marijuana ROS ROS Narrative Pain in his axilla. Chills. All review of systems were negative except as mentioned above in the history of present illness and the other review of systems. Vital Signs Vital Signs Vital Signs: 11/20/23 19:31 11/20/23 21:33 11/20/23 23:00 Temperature 36.8 C 37.0 C 36.8 C Temperature Source Oral Oral Oral Pulse Rate 101 H 88 79 Respiratory Rate 18 17 18 Blood Pressure 156/85 H 146/88 H 166/109 H Blood Pressure Mean 108 107 128 Pulse Ox 98 98 95 Oxygen Delivery Method Room Air Room Air Room Air 11/20/23 23:21 11/21/23 00:00 11/21/23 01:00 Temperature 36.9 C 36.7 C 36.9 C Temperature Source Temporal Oral Pulse Rate 78 80 80 Respiratory Rate 17 16 19 H Blood Pressure 155/90 H 148/95 H 147/89 H Blood Pressure Mean 111 112 108 Pulse Ox 96 97 96 Oxygen Delivery Method Room Air Room Air 11/21/23 02:00 11/21/23 03:00 Temperature 36.9 C 36.8 C Temperature Source Oral Oral Pulse Rate 98 71 Respiratory Rate 16 16 Blood Pressure 154/81 H 152/71 H Blood Pressure Mean 105 98 Pulse Ox 98 99 Oxygen Delivery Method Room Air Room Air Weight Weight: 106.8 kg Body Mass Index (BMI) 34.7 Physical Exam Const alert Constitutional Narrative: Uncomfortable. Nontoxic. Afebrile. HEENT normocephalic and head/scalp atraumatic Resp normal respiratory effort, no retractions, no use of accessory muscles and clear to auscultation bilaterally Cardio regular rate, regular rhythm, S1 normal heart sound and S2 normal heart sound GI normal to inspection, nondistended, normoactive bowel sounds, soft to palpation, non-tender and non-distended Extremity Extremity Narrative: Induration under the right axilla extending distally down his arm. Skin Skin Narrative: Erythema that was demarcated in his medial right arm that began in his axilla extending down to his elbow. Does have the opened incision from the attempted I&D. Patient has sunburn on his back. Neuro Sensorium / Orientation: awake and alert Psych affect normal Results Lab / Micro Data Attestation: I reviewed the patient's lab results. 11/20/23 23:01 11/20/23 23:01 Labs: Laboratory Results - last 24 hr 11/20/23 21:58: POC Glucose 309 H 11/20/23 23:01: WBC 12.3 H, RBC 4.34 L, Hgb 12.7 L, Hct 37.8 L, MCV 87.1, MCH 29.3, MCHC 33.6, RDW Std Deviation 43.3, RDW Coeff of Simone 13.6, Plt Count 288, MPV 8.9, Immature Gran % (Auto) 0.300, Neut % (Auto) 68.5, Lymph % (Auto) 17.5 L , [place] % (Auto) 7.5, Eos % (Auto) 5.6 H, Baso % (Auto) 0.6, Absolute Neuts (auto) 8.4 H, Absolute Lymphs (auto) 2.15, Nucleated RBC % 0, Sodium 136, Potassium 3.6, Chloride 107, Carbon Dioxide 24.0, Anion Gap 5, BUN 24 H, C reatinine 1.49 H, Estim Creat Clear Calc 78.57, Est GFR (MDRD) Af Amer 67, Est GFR (MDRD) Non-Af 55 L, BUN/Creatinine Ratio 16.1, Glucose 301 H, Calcium 9.8 Imaging Radiology Impression Upper Extremity CT 11/21/23 00:00 IMPRESSION: Medial upper arm skin thickening and underlying soft tissue edema as can be seen with cellulitis. Similar dorsal distal upper arm subcutaneous soft tissue edema. No evidence of organized abscess. No acute osseous finding. Electronically Signed: Marcos Jackson MD at 2:43 EDT , Assessment & Plan Assessment/Plan (1) Cellulitis of arm, right: PLAN: Plan Right upper extremity cellulitis * Onset approximately 2 days ago * Patient was taking clindamycin that was lying around his house and not prescribed necessarily for this particular infection. Got worse despite taking that. Unclear if he was taking it appropriately. * CT scan showed no evidence of any abscess. I&D was attempted before the CAT scan was even performed which had no significant purulence. No additional surgical measures at this time other than local wound care. * Antibiotics with ampicillin/sulbactam and vancomycin * Check culture Diabetes mellitus type 2 * Insulin-dependent * Continue with glargine, mealtime insulin and sliding scale insulin. * Patient has previously had poorly controlled diabetes that once he was started on his home regimen, his sugars are much improved, so there is concern about compliance at home. Chronic conditions * Neuropathy: Continue with gabapentin * CAD: Continue with aspirin and clopidogrel. * GERD continue with PPI VTE prophylaxis with enoxaparin. Charges/Coding Visit Charges Inpatient E&M: 12558 In Hosp L3
--- NOTE | 2023-11-21 05:02 | PCM.RX.CS ---
Consult Antibiotic Management Pharmacy has been consulted to manage selected antibiotic: Vancomycin Type of Intervention Type of Consult: New start Suspected Infection Suspected Infection: Skin/Soft tissue Labs Labs: Sodium 136 mmol/L (136-145) 11/20/23 23:01 Potassium 3.6 mmol/L (3.5-5.1) 11/20/23 23:01 Chloride 107 mmol/L (98-107) 11/20/23 23:01 Carbon Dioxide 24.0 mmol/L (21.0-32.0) 11/20/23 23:01 Anion Gap 5 (5-15) 11/20/23 23:01 BUN 24 mg/dL (7-18) H 11/20/23 23:01 Creatinine 1.49 mg/dL (0.70-1.30) H 11/20/23 23:01 Est GFR (MDRD) Af Amer 67 mL/min (>60) 11/20/23 23:01 Est GFR (MDRD) Non-Af 55 mL/min (>60) L 11/20/23 23:01 BUN/Creatinine Ratio 16.1 RATIO (10-20) 11/20/23 23:01 Glucose 301 mg/dL (74-106) H 11/20/23 23:01 Dosing Weight Weight used for dosin kg Estimated Creatinine Clearance Estimated Creatinine Clearance: 78 Goal Trough Goal Trough: 15-20 mcg/mL Pharmacy Plan for Drug Dosing Pharmacy Plan for Drug Dosing: NEW START IV VANCOMYCIN Consulting Physician: Dr. Marie Indication: Cellulitis Goal Trough: 15-20 SrCr: 1.49 CrCl: 78 ml/min (AdjBW 85kg) Comments: Initial dose 1500mg x1 to be given Vancomycin Dose: 1250mg Q12H to start at 18:00 11/21/23 Pending Level: Vancomycin trough @ 17:30 11/22/23 Pharmacy Service will continue to monitor and adjust dosing as required.
[2023-11-21] MEDS: oxyCODONE 5 MG Tablet PO ×2 (05:04→09:08)
[2023-11-21] MEDS: Acetaminophen 325 MG Tablet 650 MG PO ×2 (05:04→16:46)
[2023-11-21] MEDS: Vancomycin HCl 1,500 MG in 0.9% Normal Saline (500mL Bag) 500 ML 250 MG IV (05:07)
[2023-11-21] MEDS: 0.9% Normal Saline (250mL Bag) 250 ML 15 ML IV (05:07)
[2023-11-21] MEDS: 0.9% Saline Lock 10 ML Syringe IV (05:07)
[2023-11-21] MEDS: Ampicillin/Sulbactam 3 GM in 0.9% Normal Saline (100mL MB+) 100 ML IV ×3 (05:58→16:48)
[2023-11-21] MEDS: Insulin Lispro 100 UNIT/ML INSULN.PEN 10 UNIT SC ×4 (06:47→16:40)
[2023-11-21] MEDS: Ipratropium/Albuterol Sulfate 3 ML AMPUL.NEB INHALATION ×3 (07:12→19:02)
[2023-11-21] MEDS: Budesonide Respules 0.5 MG/2 ML AMPUL.NEB. INHALATION ×2 (07:12→19:02)
[2023-11-21 07:37] LABS: Absolute Lymphocyte Count 0.67 X10^3/uL (0.83-4.51); Absolute Neutrophil Count 11.5 X10^3/uL (2.0-7.7); Basophil# 0.03 X10^3/uL; Basophil% 0.2 % (0-1); Eosinophil# 0.02 X10^3/uL; Eosinophils% 0.2 % (0-5); Hematocrit 36.4 % (40-54); Hemoglobin 12.1 g/dL (13.0-16.5); Lymphocyte # 0.67 X10^3/ul (0.83-4.51); Lymphocyte % 5.4 % (19-41); Mean Corp Hgb Conc 33.2 g/dL (32-36); Mean Corpuscular Hgb 29.2 pg (27.0-32.0); Mean Corpuscular Volume 87.7 fL (80-94); Mean Platelet Vol. 9.3 fl (6.2-12.0); Monocyte# 0.12 X10^3/uL; NRBC Flagged by Analyzer 0 % (0-5); Neutrophil # 11.52 X10^3/uL (2.7-7.7); Neutrophil % 92.8 % (47-70); Platelet Count 242 K/mm3 (150-450); RBC Distribution Width CV 13.7 % (11.6-14.6); RBC Distribution Width SD 44.1 fl (35.1-43.9); Red Blood Count 4.15 M/mm3 (4.6-6.2); White Blood Count 12.4 K/mm3 (4.4-11.0)
--- NOTE | 2023-11-21 08:13 | WOUNDNOTE ---
wound photo: right axilla/upper arm
[2023-11-21 08:33] LABS: Anion Gap 6 (5-15); BUN 26 mg/dL (7-18); BUN/Creat Ratio 16.8 RATIO (10-20); Calcium,Total 9.2 mg/dL (8.5-10.1); Chloride 106 mmol/L (98-107); Creatinine, Serum 1.55 mg/dL (0.70-1.30); EST Glomerular Filtration Rate 53 mL/min (>60); Est Glom Filt Rate - Afr Amer 64 mL/min (>60); Glucose 454 mg/dL (74-106); Potassium 4.4 mmol/L (3.5-5.1); Sodium Level 132 mmol/L (136-145)
[2023-11-21] MEDS: Insulin Lispro 100 UNIT/ML INSULN.PEN SC ×3 (08:57→16:41)
[2023-11-21] MEDS: Pantoprazole Sodium 40 MG Tablet PO (09:02)
[2023-11-21] MEDS: Famotidine 20 MG Tablet PO ×2 (09:02→22:18)
[2023-11-21] MEDS: SACUBITRIL/VALSARTAN 49-51 MG TABLET 1 EACH PO ×2 (09:02→22:19)
[2023-11-21] MEDS: Aspirin E.C. 81 MG Tablet PO (09:02)
[2023-11-21] MEDS: Metoprolol(XL)Succ 25 MG Tablet PO ×2 (09:02→22:22)
[2023-11-21] MEDS: Furosemide 40 MG Tablet PO (09:02)
[2023-11-21] MEDS: Enoxaparin 40 MG/0.4 ML Syringe SC (09:04)
[2023-11-21] MEDS: Clopidogrel Bisulfate 75 MG Tablet PO (09:04)
[2023-11-21] MEDS: Insulin Glargine-YFGN 100 UNIT/ML Pen 30 UNIT SC ×2 (09:04→22:26)
[2023-11-21] MEDS: Isosorbide Mononitrate 30 MG Tablet PO (09:05)
[2023-11-21] MEDS: Gabapentin 300 MG Capsule PO ×4 (09:08→22:18)
[2023-11-21 09:30] LABS: Troponin-I HS 9 pg/mL (3.0-78.0)
[2023-11-21 11:48] LABS: Bedside Glucose 364 mg/dL (74-106)
[2023-11-21 12:21] LABS: Bedside Glucose 458 mg/dL (74-106)
[2023-11-21 12:22] LABS: Bedside Glucose 466 mg/dL (74-106)
[2023-11-21] MEDS: oxyCODONE 5 MG Tablet 10 MG PO ×2 (12:54→16:46)
--- NOTE | 2023-11-21 15:20 | CASEMGMT ---
RADHA DAWSON Assessment: Face to Face with pt for initial transition planning/care coordination assessment. RN SAMIR introduced self and role at [facility], pt voices understanding and consents to assessment. Pt is A&O x4 and answers all questions appropriately at this time. Pt sitting up in bed in no distress. Care providers, pharmacy, and demographics verified/updated. Admitting Dx: R cellulitis PCP:Aravind Specialists: Nithya, cardio; Hemanth, pod Preferred Pharmacy: [facility] Insurance: My Care CRS, CRS Prescription Benefit: yes LNOK: Nicolasa Ann, mother Living Arrangements: Pt lives with mother and her boyfriend in a single story home with no steps to enter. Pt reports he is I in ADL's and denies concerns at home. Transportation: Pt drives self and denies concerns with transportation. DME:walker- doesn't use, nebulizer, BGM with sufficient supply of lancets and strips, sufficient supply of insulin and pen needles HHC/SNF: Pt has had HHC in the past but cannot recall the name, denies SNF stays. Pt states no concerns with going home at time of dc. Pt reports he smokes a half pack of cigarettes per day, drinks once in a blue lee, pt has a marijuana card and denies other drug use. Pt states no further concerns/needs. CM to follow. Advised pt to ask CM if any further question/concerns/needs arise, voices understanding. Pt Goal: Home Plan: Home, follow wound care rec and atb rec
--- NOTE | 2023-11-21 17:08 | PCM.HOSP.N ---
Hospitalist Note Patient was seen and examined briefly today, he has been having some pain due to his cellulitis, I increased his oxycodone to 10 mg every 6 hours as needed for pain. Patient remains on Unasyn and vancomycin at this time.
[2023-11-21 17:10] LABS: Bedside Glucose 296 mg/dL (74-106)
[2023-11-21] MEDS: Vancomycin HCl 1,250 MG in 0.9% Normal Saline (250mL Bag) 250 ML 167 MG IV (17:30)
[2023-11-21 22:49] LABS: Bedside Glucose 232 mg/dL (74-106)
[2023-11-22] MEDS: Zolpidem Tartrate 5 MG Tablet 10 MG PO (00:09)
[2023-11-22] MEDS: Ampicillin/Sulbactam 3 GM in 0.9% Normal Saline (100mL MB+) 100 ML IV ×2 (00:12→04:49)
[2023-11-22 03:00] VITALS: RESP 15
[2023-11-22 04:00] VITALS: BP 106/59; PULSE 69; RESP 15; TEMP 36.6; O2SAT 95
[2023-11-22] MEDS: Vancomycin HCl 1,250 MG in 0.9% Normal Saline (250mL Bag) 250 ML 167 MG IV (06:21)
[2023-11-22] MEDS: Insulin Lispro 100 UNIT/ML INSULN.PEN SC (06:26)
[2023-11-22 06:56] LABS: Bedside Glucose 212 mg/dL (74-106)
[2023-11-22 08:23] VITALS: O2SAT 96
[2023-11-22 08:24] VITALS: BP 113/69; PULSE 68; RESP 16; TEMP 36.6; O2SAT 100
--- NOTE | 2023-11-22 08:35 | DCINST_ITS ---
Discharge Instructions Diet Discharge Diet: 1800 Calorie Control Diet Activity Discharge Activity: Return to Normal Activity Follow Up Care Test Results: Test results from this visit will be discussed in further detail at your follow- up appointment, if applicable. Discharge Plan Admission Admit Date/Time: 11/21/23 03:01 Primary Reason for Your Visit: Cellulitis right maxilla Attending Provider: Ramo Guadarrama Primary Care Provider: Connor Nazario Consulting Providers: Brendon Marie Discharge Orders/Prescriptions Prescriptions: New doxycycline monohydrate 100 mg tablet 100 mg PO BID Qty: 20 0RF cefdinir 300 mg capsule 300 mg PO BID Qty: 20 0RF hydrocodone-acetaminophen 5-325 mg tablet 1 tab PO Q4H PRN (Reason: pain) 5 Days Qty: 14 0RF Continued aspirin 81 mg tablet,delayed release (DR/EC) 81 mg PO DAILY Patient Comments: TAKE 1 TABLET BY MOUTH EVERY MORNING atorvastatin 40 mg tablet 40 mg PO DAILY Patient Comments: TAKE 1 TABLET BY MOUTH ONCE DAILY clopidogrel 75 mg tablet 75 mg PO DAILY Patient Comments: TAKE 1 TABLET BY MOUTH ONCE DAILY Entresto 49-51 mg tablet 1 tab PO BID Patient Comments: TAKE 1 TABLET BY MOUTH TWICE DAILY isosorbide mononitrate 30 mg tablet extended release 24 hr 30 mg PO DAILY Patient Comments: TAKE 1 TABLET BY MOUTH ONCE DAILY gabapentin 300 mg capsule 300 mg PO 4X/DAY Patient Comments: TAKE 1 CAPSULE BY MOUTH THREE TIMES DAILY furosemide 40 mg tablet 40 mg PO DAILY Patient Comments: TAKE 1 TABLET BY MOUTH ONCE DAILY Trelegy Ellipta 200-62.5-25 mcg blister with device 1 inh INHALATION Q24H Patient Comments: INHALE 1 PUFF BY MOUTH ONCE DAILY DIRECTED insulin lispro [Humalog KwikPen Insulin] 100 unit/mL insulin pen 10 unit subcut TID Qty: 15 0RF pantoprazole 40 mg tablet,delayed release (DR/EC) 40 mg PO DAILY Patient Comments: TAKE 1 TABLET BY MOUTH ONCE DAILY albuterol sulfate 90 mcg/actuation HFA aerosol inhaler 2 inh INHALATION PRN PRN (Reason: shortness of breath or wheezing) Patient Comments: INHALE 2 PUFFS BY MOUTH as instructed EVERY 4 HOURS NEEDED for FOR WHEEZING, SHORTNESS OF BREATH albuterol sulfate 2.5 mg /3 mL (0.083 %) solution for nebulization 2.5 mg inhalation Q8H PRN PRN (Reason: shortness of breath or wheezing) Patient Comments: INHALE ONE 3ML VIAL PER NEBULIZER THREE TIMES DAILY NEEDED FOR WHEEZING OR SHORTNESS OF BREATH INHALING OVER 5 TO 15 MINUTES insulin glargine 100 unit/mL solution 30 unit subcut BID Qty: 10 0RF betamethasone, augmented 0.05 % ointment 1 applic TOPICAL BID famotidine 20 mg tablet 20 mg PO BID metoprolol succinate 25 mg tablet extended release 24 hr 25 mg PO Q12H Patient Comments: TAKE 1 TABLET BY MOUTH TWICE DAILY Referrals / Follow Up: Connor Nazario MD [Primary Care Provider] - In 1 Week Disposition Disposition (needs filled in before D/C Order can be placed): Home, Self Care
[2023-11-22] MEDS: Insulin Lispro 100 UNIT/ML INSULN.PEN 10 UNIT SC (08:37)
--- NOTE | 2023-11-22 08:44 | DS.PCM_ITS ---
Providers Date of Admission: 11/21/23 Date of Discharge: 11/22/23 Primary Care Physician: Dr. Connor Nazario MD Consultations 11/21/23 07:37 Consult: Onc/Wound/rotor pilot Routine Comment: Reason For Visit: RIGHT CELLULITIS Diagnosis Discharge Diagnosis (1) Cellulitis of arm, right: Status: Acute Code(s): L03.113 - Cellulitis of right upper limb Plan 1. Right upper extremity cellulitis #2 type 2 diabetes #3 coronary artery disease Medications at Discharge Home Medications aspirin 81 mg tablet,delayed release 81 mg PO DAILY 03/31/23 atorvastatin 40 mg tablet 40 mg PO DAILY 03/31/23 clopidogrel 75 mg tablet 75 mg PO DAILY 03/31/23 fluticasone fur. 200 mcg-umeclid 62.5 mcg-vilant 25 mcg inhalat.powder (Trelegy Ellipta) 1 inh inhalation Q24H 03/31/23 furosemide 40 mg tablet 40 mg PO DAILY 03/31/23 gabapentin 300 mg capsule 300 mg PO 4X/DAY 03/31/23 isosorbide mononitrate 30 mg tablet,extended release 24 hr 30 mg PO DAILY 03/31/23 sacubitril 49 mg-valsartan 51 mg tablet (Entresto) 1 tab PO BID 03/31/23 insulin lispro 100 unit/mL subcutaneous pen (Humalog KwikPen (U-100) Insulin) 10 unit (0.1 mL) subcut TID #15 mL 04/04/23 albuterol sulfate 2.5 mg/3 mL (0.083 %) solution for nebulization 2.5 mg inhalation Q8H PRN PRN shortness of breath or wheezing 06/21/23 albuterol sulfate 90 mcg/actuation aerosol inhaler 2 inh inhalation PRN PRN shortness of breath or wheezing 06/21/23 pantoprazole 40 mg tablet,delayed release 40 mg PO DAILY 06/21/23 metoprolol succinate 25 mg tablet,extended release 24 hr 25 mg PO Q12H 09/02/23 insulin glargine 100 unit/mL subcutaneous solution 30 unit (0.3 mL) subcut BID #10 mL 09/20/23 betamethasone, augmented 0.05 % topical ointment 1 applic topical BID as needed for skin 11/20/23 famotidine 20 mg tablet 20 mg PO BID 11/20/23 cefdinir 300 mg capsule 300 mg PO BID #20 caps 11/22/23 doxycycline monohydrate 100 mg tablet 100 mg PO BID #20 tabs 11/22/23 hydrocodone-acetaminophen 5-325mg 5mg-325mg 1 tab PO Q4H PRN pain 5 days #14 tabs 11/22/23 Hospital Course Operations None Procedures None Summary of Care Provided Minutes Spent on Discharge: 31 Hospital Course: This 42-year-old white male was seen in the emergency room with complaints of redness over 48 hours in his right arm, he had some clindamycin at his house and he took a few doses of this medication but the redness of his arm got worse. Patient had indurated area in his right axillary area, this was IDed by the emergency room physician and only a scant amount of purulent material was expressed. CT scanning was performed of the area which did not show any evidence of abscess. Patient was placed on IV Unasyn and vancomycin and admitted to [place] [id number], his redness improved during this hospitalization, there was no growth from his wound culture. On 11/22/2023, patient was seen and examined: On examination he appeared in good health and spirits. Vital signs as documented. Skin warm and dry, there is noted to be an indurated area in the right axillary area that was a few centimeters in diameter. Neck without JVD, neck was supple, trachea midline, thyroid was normal. Lungs clear bilaterally, normal air movement was noted. Heart exam notable for regular rhythm, normal sounds and absence of murmurs, rubs or gallops. Abdomen unremarkable and without evidence of organomegaly, masses, or abdominal aortic enlargement. Bowel sounds are present, abdomen is not distended. Extremities nonedematous, no cyanosis was noted, no clubbing was noted. Neuro: Cranial nerves II through XII are grossly intact, no focal motor deficits were noted, sensation to light touch and pinprick intact, motor exam 5/5 throughout. Psych: Patient is alert and oriented x3, he does not appear anxious or depressed, he does not appear agitated. On 11/22/2023, patient was seen and examined and felt to be in stable condition for discharge home. Weight / BMI Weight Weight: 106.8 kg Body Mass Index (BMI) 34.8 ABG / Lab / Microbiology Data 11/21/23 07:00 11/21/23 07:00 Laboratory: Laboratory Results - last 24 hr 11/21/23 06:11: POC Glucose 458 H* 11/21/23 06:13: POC Glucose 466 H* 11/21/23 08:42: Troponin I High Sens 9 11/21/23 11:28: POC Glucose 364 H 11/21/23 16:38: POC Glucose 296 H 11/21/23 22:24: POC Glucose 232 H 11/22/23 06:24: POC Glucose 212 H D/C Instructions Discharge Diet: 1800 Calorie Control Diet Meaningful Use Info Meaningful Use Meaningful Use Diagnoses (Choose all that apply): None applicable Ischemic Stroke Statin Dosing Therapy Reference: STATIN DOSE THERAPY REFERENCE: * Patients > 75 years receive moderate or high dose statin therapy. * Patients 75 years or YOUNGER should receive HIGH intensity statin dose unless contraindicated. You will be required to document reason for non-treatment if statin daily dose does not meet guidelines. HIGH DOSE STATIN THERAPY DAILY Atorvastatin > than or = to 40 mg Rosuvastatin > than or = to 20 mg Amlodipine + Atorvastatin > than or = to 2.5/40 mg Ezetimibe + Simvastatin 10/80 mg Simvastatin 80mg Discharge Plan Admission Admit Date/Time: 11/21/23 03:01 Primary Reason for Your Visit: Cellulitis right maxilla Attending Provider: Ramo Guadarrama Primary Care Provider: Connor Nazario Consulting Providers: Brendon Marie Discharge Orders/Prescriptions Prescriptions: New doxycycline monohydrate 100 mg tablet 100 mg PO BID Qty: 20 0RF cefdinir 300 mg capsule 300 mg PO BID Qty: 20 0RF hydrocodone-acetaminophen 5-325 mg tablet 1 tab PO Q4H PRN (Reason: pain) 5 Days Qty: 14 0RF Continued aspirin 81 mg tablet,delayed release (DR/EC) 81 mg PO DAILY Patient Comments: TAKE 1 TABLET BY MOUTH EVERY MORNING atorvastatin 40 mg tablet 40 mg PO DAILY Patient Comments: TAKE 1 TABLET BY MOUTH ONCE DAILY clopidogrel 75 mg tablet 75 mg PO DAILY Patient Comments: TAKE 1 TABLET BY MOUTH ONCE DAILY Entresto 49-51 mg tablet 1 tab PO BID Patient Comments: TAKE 1 TABLET BY MOUTH TWICE DAILY isosorbide mononitrate 30 mg tablet extended release 24 hr 30 mg PO DAILY Patient Comments: TAKE 1 TABLET BY MOUTH ONCE DAILY gabapentin 300 mg capsule 300 mg PO 4X/DAY Patient Comments: TAKE 1 CAPSULE BY MOUTH THREE TIMES DAILY furosemide 40 mg tablet 40 mg PO DAILY Patient Comments: TAKE 1 TABLET BY MOUTH ONCE DAILY Trelegy Ellipta 200-62.5-25 mcg blister with device 1 inh INHALATION Q24H Patient Comments: INHALE 1 PUFF BY MOUTH ONCE DAILY DIRECTED insulin lispro [Humalog KwikPen Insulin] 100 unit/mL insulin pen 10 unit subcut TID Qty: 15 0RF pantoprazole 40 mg tablet,delayed release (DR/EC) 40 mg PO DAILY Patient Comments: TAKE 1 TABLET BY MOUTH ONCE DAILY albuterol sulfate 90 mcg/actuation HFA aerosol inhaler 2 inh INHALATION PRN PRN (Reason: shortness of breath or wheezing) Patient Comments: INHALE 2 PUFFS BY MOUTH as instructed EVERY 4 HOURS NEEDED for FOR WHEEZING, SHORTNESS OF BREATH albuterol sulfate 2.5 mg /3 mL (0.083 %) solution for nebulization 2.5 mg inhalation Q8H PRN PRN (Reason: shortness of breath or wheezing) Patient Comments: INHALE ONE 3ML VIAL PER NEBULIZER THREE TIMES DAILY NEEDED FOR WHEEZING OR SHORTNESS OF BREATH INHALING OVER 5 TO 15 MINUTES insulin glargine 100 unit/mL solution 30 unit subcut BID Qty: 10 0RF betamethasone, augmented 0.05 % ointment 1 applic TOPICAL BID famotidine 20 mg tablet 20 mg PO BID metoprolol succinate 25 mg tablet extended release 24 hr 25 mg PO Q12H Patient Comments: TAKE 1 TABLET BY MOUTH TWICE DAILY Referrals / Follow Up: Connor Nazario MD [Primary Care Provider] - In 1 Week Disposition Disposition (needs filled in before D/C Order can be placed): Home, Self Care Charges/Coding Visit Charges Inpatient E&M: 97783 Disch Hosp >30min
== END 2023-11-22 09:40 | disposition home or self-care (01) | DRG 638 ==
LOC: ED 23:07 → MS3 11-21 03:23
PROVIDERS: Emergency Provider Emergency Medicine; Visit Provider Internal Medicine
DX: E11.628 Type 2 diabetes mellitus with other skin complications (principal); L03.113 Cellulitis of right upper limb; L02.413 Cutaneous abscess of right upper limb; E11.40 Type 2 diabetes mellitus with diabetic neuropathy, unspecified; E11.65 Type 2 diabetes mellitus with hyperglycemia; F12.90 Cannabis use, unspecified, uncomplicated; F17.200 Nicotine dependence, unspecified, uncomplicated; Z79.4 Long term (current) use of insulin; I25.10 Atherosclerotic heart disease of native coronary artery without angina pectoris; I25.2 Old myocardial infarction; Z79.82 Long term (current) use of aspirin; Z79.02 Long term (current) use of antithrombotics/antiplatelets; Z86.73 Personal history of transient ischemic attack (TIA), and cerebral infarction without residual deficits; Z86.14 Personal history of Methicillin resistant Staphylococcus aureus infection
CPT/HCPCS: 36415; 73201; 80048; 82962; 84484; 85025; 94640; 99285; 99406; J7030; J7040; J7050; Q9967; A4216; J0295

== ENCOUNTER 2023-12-12 01:35 | Inpatient (IN) | payer MEDICARE, MEDICAID, SELFPAY ==
[2023-12-12] VITALS (14 sets, daily range): BP systolic 107–151; BP diastolic 70–90; PULSE 66–91; RESP 15–20; TEMP 35.8–36.9; O2SAT 92–100; BMI 35.0; BMI 33.6
--- NOTE | 2023-12-12 02:56 | RAD_ITS ---
EXAM: XR BILATERAL TIBIAS AND FIBULAS, 1 VIEW CLINICAL INDICATION: pain/infection TECHNIQUE: Frontal or lateral views of the bilateral tibias and fibulas. COMPARISON: No relevant prior studies available. FINDINGS: BONES/JOINTS: Unremarkable. No acute fracture. No dislocation. SOFT TISSUES: Unremarkable. No radiopaque foreign body. RAD/Tibia & Fibula 2 Views IMPRESSION: Negative bilateral tibia and fibula x-ray. Electronically Signed: Jose Cruz Stringer MD at 5:02 EDT ,
--- NOTE | 2023-12-12 02:56 | RAD_ITS ---
EXAM: XR BILATERAL FINGERS, 2 OR MORE VIEWS CLINICAL INDICATION: pain/infection TECHNIQUE: Frontal, lateral and oblique views of the fingers of the bilateral hands. COMPARISON: 09/14/2023. FINDINGS: BONES/JOINTS: Status post amputation of the great toe of the right foot. Status post amputation of the first ray of the left foot at the level of the mid first metatarsal. Probable soft tissue ulceration adjacent to the residual first metatarsal of the left foot. No sclerotic or destructive changes observed. 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 SOFT TISSUES: Unremarkable. No soft tissue swelling or gas. No radiopaque foreign body. RAD/Foot 2 Views IMPRESSION: 1. 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 2. Status post amputation of the great toe of the right foot. 3. Status post amputation of the first ray of the left foot at the level of the mid first metatarsal. 4. Probable soft tissue ulceration adjacent to the residual first metatarsal of the left foot. 5. No specific sign of osteomyelitis. Electronically Signed: Jose Cruz Stringer MD at 5:08 EDT ,
--- NOTE | 2023-12-12 02:58 | EDS_ITS ---
HPI History of Present Illness Chief Complaint: Lower Extremity Injury Informant: patient Narrative Narrative: 1-2 days of redness and pain in both legs, started in the feet and has progressively spread up to his knees. Subjective fever/chills but no other symptoms. He states it hurts so bad he cannot take it anymore. He has had cellulitis before he is an uncontrolled type I diabetic his last blood sugar was 303 this past afternoon, and he states this seems to be progressing quickly. [facility] Medical History Hyperglycemia due to diabetes mellitus Wears glasses MRSA infection Anxiety Marijuana use Substance abuse Insulin dependent diabetes mellitus Arthritis Fatty liver High cholesterol DVT (deep venous thrombosis) Restless legs Back pain Migraine headache TIA (transient ischemic attack) Syncope Dietary restriction History of ulceration Gastric reflux Smoker COPD (chronic obstructive pulmonary disease) Shortness of breath on exertion Leg cramps History of pain when walking History of edema History of echocardiogram History of stress test Hypertension Cardiology follow-up encounter History of CHF (congestive heart failure) History of atrial fibrillation Metatarsal deformity Other hammer toe(s) (acquired), left foot Short Achilles tendon (acquired), left ankle Coronary artery disease Hallux rigidus of right foot Hammertoe of left foot Peripheral vascular disease, unspecified Type 2 diabetes mellitus with diabetic polyneuropathy Uncontrolled diabetes mellitus Failure of outpatient treatment Diabetic foot Amputation of left great toe Heart attack Home Medications ?Medication ?Instructions ?Recorded ?Last Taken ?Type aspirin 81 mg tablet,delayed 81 mg PO DAILY 03/31/23 09/14/23 History release atorvastatin 40 mg tablet 40 mg PO DAILY 03/31/23 09/14/23 History clopidogrel 75 mg tablet 75 mg PO DAILY 03/31/23 09/14/23 History fluticasone fur. 200 mcg-umeclid 1 inh inhalation Q24H 03/31/23 09/14/23 History 62.5 mcg-vilant 25 mcg inhalat.powder (Trelegy Ellipta) furosemide 40 mg tablet 40 mg PO DAILY 03/31/23 09/14/23 History gabapentin 300 mg capsule 300 mg PO 4X/DAY 03/31/23 09/14/23 History isosorbide mononitrate 30 mg 30 mg PO DAILY 03/31/23 09/14/23 History tablet,extended release 24 hr sacubitril 49 mg-valsartan 51 mg 1 tab PO BID 03/31/23 09/14/23 History tablet (Entresto) insulin lispro 100 unit/mL 10 unit (0.1 mL) subcut TID #15 mL 04/04/23 09/14/23 Rx subcutaneous pen (Humalog KwikPen (U-100) Insulin) albuterol sulfate 2.5 mg/3 mL 2.5 mg inhalation Q8H PRN PRN 06/21/23 09/05/23 History (0.083 %) solution for nebulization shortness of breath or wheezing albuterol sulfate 90 mcg/actuation 2 inh inhalation PRN PRN shortness 06/21/23 09/14/23 History aerosol inhaler of breath or wheezing pantoprazole 40 mg tablet,delayed 40 mg PO DAILY 06/21/23 09/14/23 History release metoprolol succinate 25 mg 25 mg PO Q12H 09/02/23 09/14/23 History tablet,extended release 24 hr insulin glargine 100 unit/mL 30 unit (0.3 mL) subcut BID #10 mL 09/20/23 Unknown Rx subcutaneous solution betamethasone, augmented 0.05 % 1 applic topical BID as needed for 11/20/23 Unknown History topical ointment skin famotidine 20 mg tablet 20 mg PO BID 11/20/23 Unknown History hydrocodone-acetaminophen 5-325mg 1 tab PO Q4H PRN pain 5 days #14 11/22/23 Unknown Rx 5mg-325mg tabs Allergy/AdvReac Type Severity Reaction Status Date / Time sumatriptan (From Imitrex) Allergy Severe Other Verified 11/20/23 19:33 acetarsol Allergy Intermediate Rash Verified 11/20/23 19:33 chlorpromazine (From Allergy Intermediate Other Verified 11/20/23 19:33 Thorazine) nalbuphine Allergy Intermediate Shortness Verified 11/20/23 19:33 of breath prasterone (DHEA) (From DHEA) Allergy Intermediate Shortness Verified 11/20/23 19:33 of breath prednisone Allergy Intermediate Other Verified 11/20/23 19:33 prochlorperazine Allergy Intermediate Shortness Verified 11/20/23 19:33 of breath Iodinated Contrast Media AdvReac Mild Hives Verified 11/20/23 19:33 iodine AdvReac Mild Hives Verified 11/20/23 19:33 ketorolac (From Toradol) AdvReac Mild Nausea Verified 11/20/23 19:33 tramadol AdvReac Mild Vomiting Verified 11/20/23 19:33 adhesive tape (paper tape) AdvReac Other Verified 11/20/23 19:33 Family History Mother Hypertension HLD (hyperlipidemia) Heart disease Father Hypertension HLD (hyperlipidemia) Heart disease Myocardial infarction CAD (coronary artery disease) Surgical History History of cardiac catheterization History of carpal tunnel surgery of right wrist History of carpal tunnel surgery of left wrist Hx of tonsillectomy Hx of left knee surgery Hx of single vessel coronary artery bypass Hx of heart artery stent Social History household members: none Smoking Status: Current every day smoker tobacco type: cigarettes alcohol intake: never substance use type: marijuana ROS ROS ED Constitutional Constitutional ED: Reports chills, fever(s) and subjective Eyes Eyes: Denies change in vision or diplopia ENT ENT ED: Denies rhinorrhea or sore throat Cardiovascular Cardiovascular: Denies chest pain or palpitations Respiratory/Chest Respiratory/Chest: Denies cough or dyspnea Gastrointestinal Gastrointestinal: Denies abdominal pain, diarrhea, nausea or vomiting Genitourinary Genitourinary ED: Denies dysuria or hematuria Musculoskeletal Musculoskeletal: Reports extremity pain; Denies neck pain Integumentary Reports rash; Denies Abrasions or wounds Neurologic Neurologic: Denies paresthesias or weakness Psychiatric Psychiatric: Denies suicidal thoughts EXAM Physical Exam Const Vital Signs: 12/12/23 01:37 12/12/23 03:39 Temperature 96.5 F L 98.1 F Temperature Source Temporal Oral Pulse Rate 91 78 Respiratory Rate 20 H 15 Blood Pressure 119/70 Blood Pressure Mean 86 Pulse Ox 97 93 Oxygen Delivery Method Room Air Room Air Positive well nourished and well developed General Appearance ED: well developed and NAD HEENT Reports moist mucous membranes normocephalic and atraumatic Eyes PERRL and EOMs intact bilaterally Neck full ROM and supple Resp normal respiratory effort and clear to auscultation bilaterally Cardio regular rate, regular rhythm and no murmurs GI non-tender and non-distended Auscultation: normoactive bowel sounds Palpation: soft Back/Spine normal ROM and normal to inspection General Back: other FROM Extremity Extremity Narrative: Blanching erythema from the feet up the legs to about the knees. There is some minimal medial distal thigh involvement bilaterally but there is no inguinal tenderness or inguinal lymphadenopathy. All compartments are soft and nondistended but he is very tender basically throughout the lower legs and feet. He can move the ankles and knees but limited due to pain. He states he can walk but limited due to pain. There is no subcutaneous emphysema/crepitance or necrotic tissue or wounds. He has amputated toes that appear benign and well- healed from surgical incisions. General Extremety ED: Yes tenderness; Negative for edema or pulses abnormal General Extremity: Negative for edema or pulses abnormal Neuro oriented x3, no focal motor deficits and no sensory deficits noted Sensorium / Orientation: alert Motor Exam: strength 5/5 throughout Psych mental status grossly normal and thought process normal Mood & Affect: anxious Skin no wounds MDM MDM MDM Narrative Medical decision making narrative: Most likely cellulitis, considered necrotizing fasciitis, osteomyelitis, myositis, rhabdomyolysis. And considering all of this, labs show a mild leukocytosis, nonspecifically mildly elevated ESR and CRP, expected hyperglycemia to 90, and x-rays show no evidence of subcutaneous emphysema or radiographic evidence of osteomyelitis my interpretation; this includes 8 views of the bilateral tibia/fibula/lower leg, and 4 views of both feet. More likely to be cellulitis, I am giving him Unasyn to cover for the most likely scenario strep, and admitting him to the hospital after treating his pain as well. Lab Data Attestation: I reviewed the patient's lab results. Labs: Laboratory Results - last 24 hr 12/12/23 01:46 WBC 12.5 H RBC 4.30 L Hgb 12.6 L Hct 37.8 L MCV 87.9 MCH 29.3 MCHC 33.3 RDW Std Deviation 43.3 RDW Coeff of Simone 13.5 Plt Count 363 MPV 9.3 Immature Gran % (Auto) 0.300 Neut % (Auto) 63.2 Lymph % (Auto) 22.2 [place] % (Auto) 8.7 Eos % (Auto) 4.6 Baso % (Auto) 1.0 Absolute Neuts (auto) 7.9 H Absolute Lymphs (auto) 2.78 Nucleated RBC % 0 ESR 27 H Sodium 136 Potassium 3.8 Chloride 102 Carbon Dioxide 25.0 Anion Gap 9 BUN 30 H Creatinine 1.95 H Estim Creat Clear Calc 58.41 Est GFR (MDRD) Af Amer 49 L Est GFR (MDRD) Non-Af 40 L BUN/Creatinine Ratio 15.4 Glucose 290 H Calcium 9.5 Total Creatine Kinase 86 C-React Prot Ext Range 7.25 H Management Discussion w/another healthcare provider: Hospitalist Discharge Plan Triage Chief Complaint: Lower Extremity Injury ED Provider: Marvin Robert Dx/Rx/DC Orders Clinical Impression: Bilateral cellulitis of lower leg, Uncontrolled type 2 diabetes mellitus, Intractable pain Prescriptions: No Action aspirin 81 mg tablet,delayed release (DR/EC) 81 mg PO DAILY Patient Comments: TAKE 1 TABLET BY MOUTH EVERY MORNING atorvastatin 40 mg tablet 40 mg PO DAILY Patient Comments: TAKE 1 TABLET BY MOUTH ONCE DAILY clopidogrel 75 mg tablet 75 mg PO DAILY Patient Comments: TAKE 1 TABLET BY MOUTH ONCE DAILY Entresto 49-51 mg tablet 1 tab PO BID Patient Comments: TAKE 1 TABLET BY MOUTH TWICE DAILY isosorbide mononitrate 30 mg tablet extended release 24 hr 30 mg PO DAILY Patient Comments: TAKE 1 TABLET BY MOUTH ONCE DAILY gabapentin 300 mg capsule 300 mg PO 4X/DAY Patient Comments: TAKE 1 CAPSULE BY MOUTH THREE TIMES DAILY furosemide 40 mg tablet 40 mg PO DAILY Patient Comments: TAKE 1 TABLET BY MOUTH ONCE DAILY Trelegy Ellipta 200-62.5-25 mcg blister with device 1 inh INHALATION Q24H Patient Comments: INHALE 1 PUFF BY MOUTH ONCE DAILY DIRECTED insulin lispro [Humalog KwikPen Insulin] 100 unit/mL insulin pen 10 unit subcut TID Qty: 15 0RF pantoprazole 40 mg tablet,delayed release (DR/EC) 40 mg PO DAILY Patient Comments: TAKE 1 TABLET BY MOUTH ONCE DAILY albuterol sulfate 90 mcg/actuation HFA aerosol inhaler 2 inh INHALATION PRN PRN (Reason: shortness of breath or wheezing) Patient Comments: INHALE 2 PUFFS BY MOUTH as instructed EVERY 4 HOURS NEEDED for FOR WHEEZING, SHORTNESS OF BREATH albuterol sulfate 2.5 mg /3 mL (0.083 %) solution for nebulization 2.5 mg inhalation Q8H PRN PRN (Reason: shortness of breath or wheezing) Patient Comments: INHALE ONE 3ML VIAL PER NEBULIZER THREE TIMES DAILY NEEDED FOR WHEEZING OR SHORTNESS OF BREATH INHALING OVER 5 TO 15 MINUTES insulin glargine 100 unit/mL solution 30 unit subcut BID Qty: 10 0RF betamethasone, augmented 0.05 % ointment 1 applic TOPICAL BID famotidine 20 mg tablet 20 mg PO BID hydrocodone-acetaminophen 5-325 mg tablet 1 tab PO Q4H PRN (Reason: pain) 5 Days Qty: 14 0RF metoprolol succinate 25 mg tablet extended release 24 hr 25 mg PO Q12H Patient Comments: TAKE 1 TABLET BY MOUTH TWICE DAILY Primary Care Provider: Connor Nazario Referrals: Connor Nazario MD [Primary Care Provider] - Print Language: Slovak Disposition Disposition: Acute Care [facility]
[2023-12-12 03:06] LABS: Absolute Lymphocyte Count 2.78 X10^3/uL (0.83-4.51); Absolute Neutrophil Count 7.9 X10^3/uL (2.0-7.7); Basophil# 0.12 X10^3/uL; Eosinophil# 0.57 X10^3/uL; Eosinophils% 4.6 % (0-5); Hematocrit 37.8 % (40-54); Hemoglobin 12.6 g/dL (13.0-16.5); Lymphocyte # 2.78 X10^3/ul (0.83-4.51); Lymphocyte % 22.2 % (19-41); Mean Corp Hgb Conc 33.3 g/dL (32-36); Mean Corpuscular Hgb 29.3 pg (27.0-32.0); Mean Corpuscular Volume 87.9 fL (80-94); Mean Platelet Vol. 9.3 fl (6.2-12.0); Monocyte# 1.09 X10^3/uL; Monocyte% 8.7 % (0-10); NRBC Flagged by Analyzer 0 % (0-5); Neutrophil % 63.2 % (47-70); Platelet Count 363 K/mm3 (150-450); RBC Distribution Width CV 13.5 % (11.6-14.6); RBC Distribution Width SD 43.3 fl (35.1-43.9); White Blood Count 12.5 K/mm3 (4.4-11.0)
[2023-12-12 03:19] LABS: Erythrocyte Sedimentation Rate 27 mm/hr (0-20)
[2023-12-12 03:22] LABS: Anion Gap 9 (5-15); BUN 30 mg/dL (7-18); BUN/Creat Ratio 15.4 RATIO (10-20); CPK Total, Creatine Kinase 86 U/L (39-308); CRP 7.25 mg/L (0.0-3.0); Calcium,Total 9.5 mg/dL (8.5-10.1); Chloride 102 mmol/L (98-107); Creatinine, Serum 1.95 mg/dL (0.70-1.30); EST Glomerular Filtration Rate 40 mL/min (>60); Est Glom Filt Rate - Afr Amer 49 mL/min (>60); Estimated Creatinine Clearance 58.41 ml/min; Glucose 290 mg/dL (74-106); Potassium 3.8 mmol/L (3.5-5.1); Sodium Level 136 mmol/L (136-145)
[2023-12-12] MEDS: morphine 10 MG/ML Syringe IV (03:36)
[2023-12-12] MEDS: Ampicillin/Sulbactam 3 GM in 0.9% Normal Saline (100mL MB+) 100 ML IV ×2 (03:36→11:45)
--- NOTE | 2023-12-12 04:48 | PCM.HP.STD ---
[facility] - General General Date of Admission: 12/12/23 Date of Service: 12/12/23 Chief Complaint: Bilateral lower extremity redness, swelling and pain. HPI Narrative RUSTY MCCLURE, is a 42 M with a past medical history of essential hypertension, obesity; with BMI of 35 this admission, history of tobacco abuse; with subsequent COPD, history of cannabis abuse, DM-1; uncontrolled with hyperglycemia, diabetic neuropathy, history of diabetic foot ulcers with osteomyelitis, CAD; s/p DE (first at age 22) with stents x 8 and CABG x 1, history of CHF, history of atrial fibrillation, PVD; with history of amputation of the Left great toe, history of TIAs, history of DVT, RLS, history of leg cramps, migraine headaches, history of cellulitis of the right arm and left foot, history of MRSA, history of fatty liver disease, history of left Achilles rupture, GERD and osteoarthritis; with chronic back pain and history of left knee surgery who presents to [facility] ER complaining of bilateral lower extremity redness, swelling and pain. Mr. Mcclure reports his symptoms began approximately 1 to 2 days prior to admission with a gradual onset of progressively worsening redness and pain in both of his lower extremities. He further explained that started in his feet and progressively spread up to his knees and the pain became so severe he could not take it anymore so he decided to come in for further evaluation and treatment. He also admits to subjective fever and chills with malaise but he denies recent abrasions or traumatic injury. There is no report of nausea, vomiting, abdominal pain, chest pain, dysuria or diaphoresis. In the ER he was diagnosed with bilateral lower extremity cellulitis with x-rays that revealed no subcutaneous emphysema or radiographic evidence of osteomyelitis with leukocytosis of 12.5 K present on admission along with an elevated ESR of 27 mm/h and a C-reactive protein of 7.25 present on admission complicated by laboratory evidence of STEPHANIE; with elevated serum creatinine of 1.95 mg/dL (up from his baseline of 1.55 mg/dL approximately 3 weeks ago) with an elevated BUN of 30 mg/dL and hyperglycemia of 290 mg/dL present on admission due to uncontrolled DM-1 and he was then admitted to the general medical floor for ongoing care for stay that is expected to extend beyond 2 midnights. FOR[facility]LY [facility], [facility] Medical History (Updated 12/12/23 @ 06:[address] Augustin Pierson, DO) Peripheral vascular disease, unspecified Hyperglycemia due to diabetes mellitus Wears glasses MRSA infection Anxiety Marijuana use Substance abuse Insulin dependent diabetes mellitus Arthritis Fatty liver High cholesterol DVT (deep venous thrombosis) Restless legs Back pain Migraine headache TIA (transient ischemic attack) Syncope Dietary restriction History of ulceration Gastric reflux Smoker COPD (chronic obstructive pulmonary disease) Shortness of breath on exertion Leg cramps History of pain when walking History of edema History of echocardiogram History of stress test Hypertension Cardiology follow-up encounter History of CHF (congestive heart failure) History of atrial fibrillation Metatarsal deformity Other hammer toe(s) (acquired), left foot Short Achilles tendon (acquired), left ankle Coronary artery disease Hallux rigidus of right foot Hammertoe of left foot Type 2 diabetes mellitus with diabetic polyneuropathy Uncontrolled diabetes mellitus Failure of outpatient treatment Diabetic foot Amputation of left great toe Heart attack Home Medications ?Medication ?Instructions ?Recorded ?Last Taken ?Type aspirin 81 mg tablet,delayed 81 mg PO DAILY blood thinner 03/31/23 09/14/23 History release atorvastatin 40 mg tablet 40 mg PO DAILY hld 03/31/23 09/14/23 History clopidogrel 75 mg tablet 75 mg PO DAILY blood thinner 03/31/23 09/14/23 History fluticasone fur. 200 mcg-umeclid 1 inh inhalation Q24H wheezes 03/31/23 09/14/23 History 62.5 mcg-vilant 25 mcg inhalat.powder (Trelegy Ellipta) furosemide 40 mg tablet 40 mg PO DAILY water pill 03/31/23 09/14/23 History gabapentin 300 mg capsule 300 mg PO 4X/DAY pain 03/31/23 09/14/23 History isosorbide mononitrate 30 mg 30 mg PO DAILY heart 03/31/23 09/14/23 History tablet,extended release 24 hr sacubitril 49 mg-valsartan 51 mg 1 tab PO BID 03/31/23 09/14/23 History tablet (Entresto) insulin lispro 100 unit/mL 10 unit (0.1 mL) subcut TID dm #15 04/04/23 09/14/23 Rx subcutaneous pen (Humalog KwikPen mL (U-100) Insulin) albuterol sulfate 2.5 mg/3 mL 2.5 mg inhalation Q8H PRN PRN 06/21/23 09/05/23 History (0.083 %) solution for nebulization shortness of breath or wheezing albuterol sulfate 90 mcg/actuation 2 inh inhalation PRN PRN shortness 06/21/23 09/14/23 History aerosol inhaler of breath or wheezing pantoprazole 40 mg tablet,delayed 40 mg PO DAILY stomach 06/21/23 09/14/23 History release metoprolol succinate 25 mg 25 mg PO Q12H heart 09/02/23 09/14/23 History tablet,extended release 24 hr insulin glargine 100 unit/mL 30 unit (0.3 mL) subcut BID dm #10 09/20/23 Unknown Rx subcutaneous solution mL betamethasone, augmented 0.05 % 1 applic topical BID as needed for 11/20/23 Unknown History topical ointment skin famotidine 20 mg tablet 20 mg PO BID gerd 11/20/23 Unknown History hydrocodone-acetaminophen 5-325mg 1 tab PO Q4H PRN pain 5 days #14 11/22/23 Unknown Rx 5mg-325mg tabs Allergy/AdvReac Type Severity Reaction Status Date / Time sumatriptan (From Imitrex) Allergy Severe Other Verified 11/20/23 19:33 acetarsol Allergy Intermediate Rash Verified 11/20/23 19:33 chlorpromazine (From Allergy Intermediate Other Verified 11/20/23 19:33 Thorazine) nalbuphine Allergy Intermediate Shortness Verified 11/20/23 19:33 of breath prasterone (DHEA) (From DHEA) Allergy Intermediate Shortness Verified 11/20/23 19:33 of breath prednisone Allergy Intermediate Other Verified 11/20/23 19:33 prochlorperazine Allergy Intermediate Shortness Verified 11/20/23 19:33 of breath Iodinated Contrast Media AdvReac Mild Hives Verified 11/20/23 19:33 iodine AdvReac Mild Hives Verified 11/20/23 19:33 ketorolac (From Toradol) AdvReac Mild Nausea Verified 11/20/23 19:33 tramadol AdvReac Mild Vomiting Verified 11/20/23 19:33 adhesive tape (paper tape) AdvReac Other Verified 11/20/23 19:33 Family History Mother Hypertension HLD (hyperlipidemia) Heart disease Father Hypertension HLD (hyperlipidemia) Heart disease Myocardial infarction CAD (coronary artery disease) Surgical History History of cardiac catheterization History of carpal tunnel surgery of right wrist History of carpal tunnel surgery of left wrist Hx of tonsillectomy Hx of left knee surgery Hx of single vessel coronary artery bypass Hx of heart artery stent Social History household members: none Smoking Status: Current every day smoker tobacco type: cigarettes alcohol intake: never substance use type: marijuana ROS ROS Narrative Review of systems: General: Patient admits to subjective fever and chills. HENT: Denies headache, denies stuffy nose, denies sore throat EYES: Denies changes in vision or discharge from eyes. Resp: Denies cough, denies shortness of breath Cardiac: Denies chest pain, palpitations or heart racing. GI: Denies abdominal pain, denies changes in bowel, denies nausea or vomiting. : Denies changes in urination Extremity: Patient admits to bilateral lower extremity redness, swelling and pain as per HPI. Musculoskeletal: Feels somewhat generally weak and unwell with pain in his legs as per HPI. Neuro: Patient denies related headache, paresthesias or focal neurologic weakness. Heme: Denies any bleeding or bruising Skin: Patient admits to reddish discoloration of his legs bilaterally from the knee to the ankle. Psychiatric: No complaints voiced related to uncontrolled depression or anxiety. Endocrine: No polyuria, polydipsia or polyphagia. The rest of the 14 point ROS was negative except for positives in HPI. Vital Signs Vital Signs Vital Signs: 12/12/23 01:37 12/12/23 03:39 Temperature 96.5 F L 98.1 F Temperature Source Temporal Oral Pulse Rate 91 78 Respiratory Rate 20 H 15 Blood Pressure 119/70 Blood Pressure Mean 86 Pulse Ox 97 93 Oxygen Delivery Method Room Air Room Air Weight Weight: 230 lb 6.129 oz Body Mass Index (BMI) 35.0 Physical Exam Const alert and oriented x3 Constitutional Narrative: Mild discomfort noted with patient and obese. General Appearance: cooperative HEENT normocephalic, head/scalp atraumatic, hearing grossly normal bilaterally and moist oral mucous membranes Eyes PERRL and EOMs intact bilaterally Neck no lymphadenopathy and supple Resp normal respiratory effort, no retractions, no use of accessory muscles and clear to auscultation bilaterally Cardio regular rate and regular rhythm GI normal to inspection, nondistended, normoactive bowel sounds, soft to palpation, non-tender and non-distended GI Narrative: Obese. Extremity Extremity Narrative: Blanching erythema from the ankles up to the area just proximal to the knees with minimal medial distal thigh involvement bilaterally but with no inguinal tenderness or inguinal lymphadenopathy. All compartments are soft and nondistended but patient is very tender throughout both of his lower legs and feet. There is no subcutaneous emphysema, crepitance, necrotic tissue or wounds. There is evidence of previously amputated toes that are well-healed. Skin Skin Narrative: Blanching erythema from the ankles up to the area just proximal to the knees with minimal medial distal thigh involvement bilaterally but with no inguinal tenderness or inguinal lymphadenopathy. All compartments are soft and nondistended but patient is very tender throughout both of his lower legs and feet. There is no subcutaneous emphysema, crepitance, necrotic tissue or wounds. There is evidence of previously amputated toes that are well-healed. Neuro oriented x3, CN's II-XII intact bilaterally, moves all extremities and no focal motor deficits Sensorium / Orientation: awake, alert, oriented to person, oriented to place and oriented to time Speech: speech normal Psych affect normal Results Medical Records Data Attestation: I reviewed the patient's medical records Lab / Micro Data Attestation: I reviewed the patient's lab results. 12/12/23 01:46 12/12/23 01:46 Labs: Laboratory Results - last 24 hr 12/12/23 01:46: WBC 12.5 H, RBC 4.30 L, Hgb 12.6 L, Hct 37.8 L, MCV 87.9, MCH 29.3, MCHC 33.3, RDW Std Deviation 43.3, RDW Coeff of Simone 13.5, Plt Count 363, MPV 9.3, Immature Gran % (Auto) 0.300, Neut % (Auto) 63.2, Lymph % (Auto) 22.2, [place] % (Auto) 8.7, Eos % (Auto) 4.6, Baso % (Auto) 1.0, Absolute Neuts (auto) 7.9 H, Absolute Lymphs (auto) 2.78, Nucleated RBC % 0, ESR 27 H, Sodium 136, Potassium 3.8, Chloride 102, Carbon Dioxide 25.0, Anion Gap 9, BUN 30 H, Creatinine 1.95 H, Estim Creat Clear Calc 58.41, Est GFR (MDRD) Af Amer 49 L, Est GFR (MDRD) Non-Af 40 L, BUN/Creatinine Ratio 15.4, Glucose 290 H, Calcium 9.5, Total Creatine Kinase 86, C-React Prot Ext Range 7.25 H Assessment & Plan Assessment/Plan (1) Bilateral cellulitis of lower leg: (2) Diabetes mellitus type 1, uncontrolled: QUALIFIERS: Glycemic state: with hyperglycemia Qualified Code(s): E10.65 - Type 1 diabetes mellitus with hyperglycemia (3) History of MRSA infection: (4) Intractable pain: (5) Peripheral vascular disease, unspecified: (6) History of cellulitis: (7) Hx of CABG: PLAN: Plan 1. Bilateral lower extremity cellulitis with a known history of MRSA with leukocytosis of 12.5 K present on admission along with an elevated ESR of 27 mm/h and a C-reactive protein of 7.25 present on admission - Admit to general medical floor on contact precautions. Continue IV vancomycin and IV Unasyn and await culture and sensitivity data. Give probiotic plus supplemental vitamin D3, vitamin C and Zinc to help boost immunity and speed recovery. Give Tylenol prn for [id number] (level 1-5/10) pain or fever. Continue Hydrocodone prn for severe (level 6-10/10) pain. 2. DM-1; uncontrolled with hyperglycemia with glucose of 290 mg/dL and diabetic neuropathy likely causing #1 - ADA diet. FSBS q. AC/HS plus SSI. Continue Lantus at 20 units sq BID plus resume premeal insulin at 10 units AC. Check HgbA1c to objectively assess quality of diabetic control. 3. History of cellulitis of the Right arm and Left foot plus DFU's with a known history of MRSA compounding #1 & #2 - Noted. 4. PVD; with history of amputation of the Left great toe and osteomyelitis adding to the pathology of #1 - #3 - Noted. Resume BASA and Plavix as previous. No signs of osteomyelitis on X-rays. 5. Laboratory evidence of STEPHANIE; with elevated serum creatinine of 1.95 mg/dL (up from his baseline of 1.55 mg/dL approximately 3 weeks ago) with an elevated BUN of 30 mg/dL compounding #1 - #4 - Hold Lasix and other potentially nephrotoxic agents plus volume resuscitate and then recheck BMP in the AM to ensure improvement. 6. Obesity; with BMI of 35 this admission with history of fatty liver disease - Weight loss will be recommended. Check TSH. This adds to case complexity and may hamper recovery. 7. History of tobacco abuse; with subsequent COPD - Stable with no evidence of flare. Tobacco cessation will be strongly encouraged with Nicotine patch offered to control cravings. 8. CAD; s/p DE (first at age 22) with stent and CABG x 1 - Noted. Restart home regimen as previous. 9. Essential hypertension - Continue current medications except hold diuretic and potentially nephrotoxic agents until kidney function fully recovers to normal baseline levels. 10. History of cannabis abuse - Cannabis cessation will be encouraged with [place] UDS pending to more fully evaluate for possible illicit drug use. 11. History of CHF - Stable. 12. History of atrial fibrillation - Noted with patient currently in NSR. 13. History of TIAs - Stable. 14. History of DVT - Noted. 15. RLS with history of Leg Cramps - Stable. 16. Migraine headaches - Stable with no headache at this time. 17. History of Left Achilles rupture - Noted. 18. GERD - Continue Pepcid as previous. 19. Osteoarthritis; with chronic back pain and history of left knee surgery - Give Tylenol prn. 20. DVT prophylaxis - Lovenox 40 mg sq daily. Total time: Approximately 75 minutes. Charges/Coding Visit Charges Inpatient E&M: 24212 Init Hosp L3
[2023-12-12 06:33] LABS: Lactic Acid 1.3 mmol/L (0.4-1.9)
[2023-12-12] MEDS: 0.9% Normal Saline (1000mL) 1,000 ML 70 ML IV ×2 (06:45→17:57)
[2023-12-12 07:21] LABS: Absolute Lymphocyte Count 2.58 X10^3/uL (0.83-4.51); Absolute Neutrophil Count 5.2 X10^3/uL (2.0-7.7); Basophil# 0.09 X10^3/uL; Eosinophil# 0.49 X10^3/uL; Eosinophils% 5.2 % (0-5); Hematocrit 35.1 % (40-54); Hemoglobin 11.5 g/dL (13.0-16.5); Lymphocyte # 2.58 X10^3/ul (0.83-4.51); Lymphocyte % 27.4 % (19-41); Mean Corp Hgb Conc 32.8 g/dL (32-36); Mean Corpuscular Hgb 29.2 pg (27.0-32.0); Mean Corpuscular Volume 89.1 fL (80-94); Monocyte# 0.98 X10^3/uL; Monocyte% 10.4 % (0-10); NRBC Flagged by Analyzer 0 % (0-5); Neutrophil # 5.23 X10^3/uL (2.7-7.7); Neutrophil % 55.7 % (47-70); Platelet Count 290 K/mm3 (150-450); RBC Distribution Width CV 13.2 % (11.6-14.6); RBC Distribution Width SD 43.5 fl (35.1-43.9); Red Blood Count 3.94 M/mm3 (4.6-6.2); White Blood Count 9.4 K/mm3 (4.4-11.0)
[2023-12-12] MEDS: Vancomycin HCl 2,000 MG in 0.9% Normal Saline (500mL Bag) 500 ML 250 MG IV (07:26)
--- NOTE | 2023-12-12 08:25 | PCM.RX.CS ---
Consult Antibiotic Management Pharmacy has been consulted to manage selected antibiotic: Vancomycin Type of Intervention Type of Consult: New start Suspected Infection Suspected Infection: Skin/Soft tissue Prior Doses of Antibiotics Prior Doses of Antibiotics Received/Current Regimen: 2000MG given 12/12/23 @ 0726 Dosing Weight Weight used for dosin.4 kg Estimated Creatinine Clearance Estimated Creatinine Clearance: 58 Goal Trough Goal Trough: 15-20 mcg/mL Pharmacy Plan for Drug Dosing Pharmacy Plan for Drug Dosing: Patient will recieve 1000mg of Vancomycin every 12 hours starting 12/12/23 @ 1930 Pharmacy Service will continue to monitor and adjust dosing as required. Follow-Up Labs Follow-Up Labs: Trough: Vancomycin Date/Time Labs Ordered Labs to be done on [date and time ordered]: 12/13/23 @ 1900
--- NOTE | 2023-12-12 08:43 | PCM.PN.HOSP ---
Reason for Visit Reason for Visit: Diagnoses Type 1 diabetes mellitus with hyperglycemia (12/12/23) Peripheral vascular disease, unspecified (12/12/23) Cellulitis of right lower limb (12/12/23) Cellulitis of left lower limb (12/12/23) Pain, unspecified (12/12/23) Personal history of Methicillin resistant Staphylococcus aureus infection (12/12/23) Personal history of diseases of the skin and subcutaneous tissue (12/12/23) Presence of aortocoronary bypass graft (12/12/23) Subjective Subjective Still with LE pain and redness. Objective Data Objective Data Vital Signs: Vital Signs Temp Pulse Resp BP Pulse Ox O2 Del Method 36.1 C L 72 16 151/90 H 98 Room Air 12/12/23 05:52 12/12/23 05:52 12/12/23 05:52 12/12/23 05:52 12/12/23 05:52 12/12/23 06:03 Oxygen Delivery Method Room Air Weight: 103.4 kg Body Mass Index (BMI) 33.6 Intake & Output: Intake and Output for Last 24 Hours 12/10/23 12/11/23 12/12/23 23:59 23:59 23:59 Intake Total 112 / 112 Balance 112 / 112 Lab / Micro Data 12/12/23 07:00 12/12/23 07:00 Labs: Laboratory Results - last 24 hr 12/12/23 01:46: WBC 12.5 H, RBC 4.30 L, Hgb 12.6 L, Hct 37.8 L, MCV 87.9, MCH 29.3, MCHC 33.3, RDW Std Deviation 43.3, RDW Coeff of Simone 13.5, Plt Count 363, MPV 9.3, Immature Gran % (Auto) 0.300, Neut % (Auto) 63.2, Lymph % (Auto) 22.2, [place] % (Auto) 8.7, Eos % (Auto) 4.6, Baso % (Auto) 1.0, Absolute Neuts (auto) 7.9 H, Absolute Lymphs (auto) 2.78, Nucleated RBC % 0, ESR 27 H, Sodium 136, Potassium 3.8, Chloride 102, Carbon Dioxide 25.0, Anion Gap 9, BUN 30 H, Creatinine 1.95 H, Estim Creat Clear Calc 58.41, Est GFR (MDRD) Af Amer 49 L, Est GFR (MDRD) Non-Af 40 L, BUN/Creatinine Ratio 15.4, Glucose 290 H, Calcium 9.5, Total Creatine Kinase 86, C-React Prot Ext Range 7.25 H 12/12/23 03:45: Lactic Acid 1.3 12/12/23 07:00: WBC 9.4, RBC 3.94 L, Hgb 11.5 L, Hct 35.1 L, MCV 89.1, MCH 29.2, MCHC 32.8, RDW Std Deviation 43.5, RDW Coeff of Simone 13.2, Plt Count 290, MPV 9.0, Immature Gran % (Auto) 0.300, Neut % (Auto) 55.7, Lymph % (Auto) 27.4, [place] % (Auto) 10.4 H, Eos % (Auto) 5.2 H, Baso % (Auto) 1.0, Absolute Neuts (auto) 5.2, Absolute Lymphs (auto) 2.58, Nucleated RBC % 0 Radiography Diagnostic Testing: Radiology Impression Foot X-Ray 12/12/23 02:56 IMPRESSION: 1. 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 2. Status post amputation of the great toe of the right foot. 3. Status post amputation of the first ray of the left foot at the level of the mid first metatarsal. 4. Probable soft tissue ulceration adjacent to the residual first metatarsal of the left foot. 5. No specific sign of osteomyelitis. Electronically Signed: Jose Cruz Stringer MD at 5:08 EDT , Tibia/Fibula X-Ray 12/12/23 02:56 IMPRESSION: Negative bilateral tibia and fibula x-ray. Electronically Signed: Jose Cruz Stringer MD at 5:02 EDT , Physical Exam Const alert Constitutional Narrative: uncomfortable. tearful. HEENT head/scalp atraumatic and moist oral mucous membranes Resp normal respiratory effort, no retractions, no use of accessory muscles and clear to auscultation bilaterally Cardio regular rate, regular rhythm, S1 normal heart sound and S2 normal heart sound GI normal to inspection, nondistended, normoactive bowel sounds, soft to palpation, non-tender and non-distended Extremity Extremity Narrative: Minimal edema in the distal lower extremities. Some mild mottling noted on the lower extremities. No confluent areas suggesting cellulitis. Skin Skin Narrative: When had the patient set up there was an electrical cord that he had been laying on shortly and there is very marked right erythema surrounding that that did fade shortly. No evidence of any rash over his back. Assessment & Plan Assessment/Plan (1) Bilateral cellulitis of lower leg: (2) Diabetes mellitus type 1, uncontrolled: QUALIFIERS: Glycemic state: with hyperglycemia Qualified Code(s): E10.65 - Type 1 diabetes mellitus with hyperglycemia (3) History of MRSA infection: (4) Intractable pain: (5) Peripheral vascular disease, unspecified: (6) History of cellulitis: (7) Hx of CABG: PLAN: Plan Bilateral LE pain I do not see any signs of cellulitis so we will add a will discontinue the antibiotics. There is mottling on the lower extremities. Pulses are strong bilaterally. Will check a duplex to see if he has underlying DVTs. Patient does have significant pain and is tearful. Discussed with the patient we can increase his pain medication but I did express reluctance and caution with him given his previous past admitted history of drug abuse. DM2 (not type I) insulin-dependent a1c in September was 13.8 Continue glargine 20 BID prandial insulin. SSI STEPHANIE furosemide held improved monitor Chronic conditions: PVD; with history of amputation of the Left great toe and osteomyelitis continue ASA and Plavix . Obesity class I: complicates care and recovery COPD: stable. CAD; stable Essential hypertension stable VTE prophylaxis: enoxaparin Charges/Coding Procedures Hospitalists Procedures: Other Procedure - See Report (Nonbillable rounding as patient was admitted after midnight.)
[2023-12-12] MEDS: Insulin Glargine-YFGN 100 UNIT/ML Pen 20 UNIT SC ×2 (09:17→21:10)
[2023-12-12] MEDS: Enoxaparin 40 MG/0.4 ML Syringe SC (09:18)
[2023-12-12] MEDS: Insulin Lispro 100 UNIT/ML INSULN.PEN 10 UNIT SC ×3 (09:18→16:50)
[2023-12-12] MEDS: Gabapentin 300 MG Capsule PO ×4 (09:18→21:02)
[2023-12-12] MEDS: Ascorbic Acid 500 MG Tablet 1000 MG PO ×2 (09:18→17:57)
[2023-12-12] MEDS: Zinc Sulfate 50 mg zinc (220 mg) ORAL capsule PO (09:18)
[2023-12-12] MEDS: Pantoprazole Sodium 40 MG Tablet PO (09:18)
[2023-12-12] MEDS: Aspirin E.C. 81 MG Tablet PO (09:18)
[2023-12-12] MEDS: Isosorbide Mononitrate 30 MG Tablet PO (09:19)
[2023-12-12] MEDS: Cholecalciferol (Vit D3) 125 MCG CAPSULE (5,000 UNITS) PO (09:19)
[2023-12-12] MEDS: Clopidogrel Bisulfate 75 MG Tablet PO (09:19)
[2023-12-12] MEDS: Famotidine 20 MG Tablet PO ×2 (09:19→21:07)
[2023-12-12] MEDS: Metoprolol(XL)Succ 25 MG Tablet PO ×2 (09:19→21:07)
[2023-12-12] MEDS: Lactobacillis Acidophilus 2 CAP PO ×2 (09:19→21:07)
[2023-12-12] MEDS: HYDROcodone Bitartrate/Apap 5/325 Tablet PO (09:29)
[2023-12-12 09:42] LABS: Bedside Glucose 251 mg/dL (74-106)
[2023-12-12 11:18] LABS: ALB/GLOB Ratio 0.7 RATIO (0.9-2.4); AST(SGOT) 20 U/L (15-37); Alanine Aminotransfer ALT/SGPT 34 U/L (16-61); Albumin, Serum 2.8 g/dL (3.2-5.0); Alkaline Phosphatase 50 U/L (45-117); Anion Gap 8 (5-15); BUN 31 mg/dL (7-18); BUN/Creat Ratio 17.4 RATIO (10-20); Chloride 107 mmol/L (98-107); Creatinine, Serum 1.78 mg/dL (0.70-1.30); EST Glomerular Filtration Rate 45 mL/min (>60); Est Glom Filt Rate - Afr Amer 54 mL/min (>60); Estimated Creatinine Clearance 64.72 ml/min; Globulin 3.8 g/dL (2.2-4.2); Glucose 301 mg/dL (74-106); Magnesium 1.8 mg/dL (1.6-2.6); Phosphorus 3.8 mg/dL (2.5-4.9); Potassium 3.9 mmol/L (3.5-5.1); Protein, Total 6.6 g/dL (6.4-8.2); Sodium Level 136 mmol/L (136-145); Thyroid Stim Hormone (TSH) 0.83 uIU/mL (0.358-3.74)
[2023-12-12 11:34] LABS: Amphetamine Urine VISTA NEGATIVE (<1000 ng/mL); Barbiturate Urine VISTA NEGATIVE (< 200 ng/mL); Benzodiazepine Urine VISTA NEGATIVE (< 200 ng/mL); Cocaine Urine VISTA NEGATIVE (< 300 ng/mL); Ecstacy Urine VISTA NEGATIVE (< 500 ng/mL); Methadone Urine VISTA NEGATIVE (< 300 ng/mL); PCP Urine VISTA NEGATIVE (< 25 ng/mL); THC Urine VISTA POSITIVE (< 50 ng/mL); Vista UDS pH Range 5
[2023-12-12 11:57] LABS: Hemoglobin A1c 11.1 % (3.8-5.6)
[2023-12-12 12:06] LABS: Bedside Glucose 245 mg/dL (74-106)
--- NOTE | 2023-12-12 13:31 | VDLE_ITS ---
Reason For Study: Bilateral leg pain RIGHT LEFT GSV is normal. GSV is normal. CFV is compressible, spontaneous, phasic, CFV is compressible, spontaneous, phasic, competent and demonstrates normal competent, and demonstrates normal augmentation. augmentation. FV is compressible, spontaneous, phasic, FV is compressible, spontaneous, phasic, competent and demonstrates normal competent and demonstrates normal augmentation. augmentation. POP V is compressible, spontaneous, phasic, POP V is compressible, spontaneous, phasic, competent and demonstrates normal competent and demonstrates normal augmentation. augmentation. T/P Trunk is compressible. T/P Trunk is compressible. PTV is compressible. PTV is compressible. RT PerV is compressible. LT PerV is compressible. Procedure This is a venous duplex using B-mode, color flow and spectral Doppler. Exam performed portable in patient room. A preliminary report was called and/or faxed to [facility]. VL/Venous Duplex US - Bharat Extrem Interpretation Summary Deep veins of the bilateral lower extremities are patent and compressible segme ntally. There is no evidence of bilateral lower extremity deep vein thrombosis. The bilateral great saphenous veins appear patent and compressible segmentally. Ordering Physician: Brendon Marie Referring Physician: Connor Nazario Performed By: Vivi Mercado RVT
[2023-12-12] MEDS: Ipratropium/Albuterol Sulfate 3 ML AMPUL.NEB INHALATION ×2 (13:47→19:26)
[2023-12-12] MEDS: oxyCODONE 5 MG Tablet PO ×2 (14:05→17:56)
[2023-12-12 18:17] LABS: Bedside Glucose 260 mg/dL (74-106)
[2023-12-12] MEDS: Budesonide Respules 0.5 MG/2 ML AMPUL.NEB. INHALATION (19:27)
[2023-12-12] MEDS: Acetaminophen 325 MG Tablet 650 MG PO (20:26)
[2023-12-12] MEDS: Morphine 2 MG/ML Syringe IV (20:57)
[2023-12-12] MEDS: Atorvastatin Calcium 40 MG Tablet PO (21:07)
[2023-12-12] MEDS: Enoxaparin 100 MG/ML Syringe SC (21:11)
[2023-12-12] MEDS: MELATONIN 3 MG TABLET PO (21:14)
[2023-12-12 21:30] LABS: Bedside Glucose 321 mg/dL (74-106)
[2023-12-13] MEDS: oxyCODONE 5 MG Tablet PO ×3 (02:40→13:53)
[2023-12-13] MEDS: Acetaminophen 325 MG Tablet 650 MG PO ×2 (02:40→10:00)
[2023-12-13 02:43] VITALS: BP 141/84; PULSE 65; RESP 16; TEMP 36.5; O2SAT 97
[2023-12-13 02:46] VITALS: BMI 33.9
[2023-12-13] MEDS: Morphine 2 MG/ML Syringe IV (04:12)
[2023-12-13 06:52] VITALS: PULSE 70; RESP 20; O2SAT 96
[2023-12-13] MEDS: Budesonide Respules 0.5 MG/2 ML AMPUL.NEB. INHALATION (06:52)
[2023-12-13 07:13] LABS: Absolute Neutrophil Count 2.8 X10^3/uL (2.0-7.7); Basophil# 0.06 X10^3/uL; Basophil% 1.1 % (0-1); Eosinophil# 0.38 X10^3/uL; Eosinophils% 6.9 % (0-5); Hematocrit 32.7 % (40-54); Hemoglobin 10.7 g/dL (13.0-16.5); Lymphocyte % 30.7 % (19-41); Mean Corp Hgb Conc 32.7 g/dL (32-36); Mean Corpuscular Hgb 29.1 pg (27.0-32.0); Mean Corpuscular Volume 88.9 fL (80-94); Monocyte# 0.54 X10^3/uL; Monocyte% 9.8 % (0-10); NRBC Flagged by Analyzer 0 % (0-5); Neutrophil # 2.84 X10^3/uL (2.7-7.7); Neutrophil % 51.3 % (47-70); Platelet Count 233 K/mm3 (150-450); RBC Distribution Width CV 13.3 % (11.6-14.6); RBC Distribution Width SD 43.5 fl (35.1-43.9); Red Blood Count 3.68 M/mm3 (4.6-6.2); White Blood Count 5.5 K/mm3 (4.4-11.0)
[2023-12-13 07:41] VITALS: BP 132/69; PULSE 65; RESP 16; TEMP 36.7; O2SAT 99
--- NOTE | 2023-12-13 07:45 | PCM.PN.HOSP ---
Reason for Visit Reason for Visit: Diagnoses Type 1 diabetes mellitus with hyperglycemia (12/12/23) Peripheral vascular disease, unspecified (12/12/23) Cellulitis of right lower limb (12/12/23) Cellulitis of left lower limb (12/12/23) Pain, unspecified (12/12/23) Personal history of Methicillin resistant Staphylococcus aureus infection (12/12/23) Personal history of diseases of the skin and subcutaneous tissue (12/12/23) Presence of aortocoronary bypass graft (12/12/23) Subjective Subjective Still with leg pain. Pain under forefoot. Objective Data Objective Data Vital Signs: Vital Signs Temp Pulse Resp BP Pulse Ox O2 Del Method 36.7 C 65 16 132/69 H 99 Room Air 12/13/23 07:41 12/13/23 07:41 12/13/23 07:41 12/13/23 07:41 12/13/23 07:41 12/13/23 07:41 Oxygen Delivery Method Room Air Weight: 104.1 kg Body Mass Index (BMI) 33.9 Intake & Output: Intake and Output for Last 24 Hours 12/11/23 12/12/23 12/13/23 23:59 23:59 23:59 Intake Total 1748 / 1748 200 / 200 Balance 1748 / 1748 200 / 200 Lab / Micro Data 12/13/23 06:46 12/13/23 06:46 Labs: Laboratory Results - last 24 hr 12/12/23 01:46: Hemoglobin A1c 11.1 H 12/12/23 07:00: Sodium 136, Potassium 3.9, Chloride 107, Carbon Dioxide 21.0, Anion Gap 8, BUN 31 H, Creatinine 1.78 H, Estim Creat Clear Calc 64.72, Est GFR (MDRD) Af Amer 54 L, Est GFR (MDRD) Non-Af 45 L, BUN/Creatinine Ratio 17.4, Glucose 301 H, Calcium 9.0, Phosphorus 3.8, Magnesium 1.8, Total Bilirubin 0.20, AST 20, ALT 34, Alkaline Phosphatase 50, Total Protein 6.6, Albumin 2.8 L, Globulin 3.8, Albumin/Globulin Ratio 0.7 L, TSH 0.83 12/12/23 09:16: POC Glucose 251 H 12/12/23 10:55: Urine Opiates Screen POSITIVE H, Urine Methadone Screen NEGATIVE, Ur Barbiturates Screen NEGATIVE, Ur Phencyclidine Scrn NEGATIVE, Ur Amphetamines Screen NEGATIVE, MDMA (Ecstasy) Screen NEGATIVE, U Benzodiazepines Scrn NEGATIVE, Urine Cocaine Screen NEGATIVE, U Cannabinoids Screen POSITIVE H, Ur Drug Screen Comment 12/12/23 11:46: POC Glucose 245 H 12/12/23 16:50: POC Glucose 260 H 12/12/23 21:09: POC Glucose 321 H 12/13/23 06:46: WBC 5.5, RBC 3.68 L, Hgb 10.7 L, Hct 32.7 L, MCV 88.9, MCH 29.1, MCHC 32.7, RDW Std Deviation 43.5, RDW Coeff of Simone 13.3, Plt Count 233, MPV 9.0, Immature Gran % (Auto) 0.200, Neut % (Auto) 51.3, Lymph % (Auto) 30.7, [place] % (Auto) 9.8, Eos % (Auto) 6.9 H, Baso % (Auto) 1.1 H, Absolute Neuts (auto) 2.8, Absolute Lymphs (auto) 1.70, Nucleated RBC % 0 Physical Exam Const alert and no apparent distress Constitutional Narrative: appears more comfortable. afebrile. HEENT head/scalp atraumatic Extremity Extremity Narrative: No further reticular mottling noted on his lower extremities. Patient had some pain in his plantar forefoot but no lesions or ulcerations noted. cut off tender glass in the lower extremities with palpation but less so than on the fifth. Neuro moves all extremities Sensorium / Orientation: awake and alert Psych affect normal Assessment & Plan Assessment/Plan (1) History of MRSA infection: (2) Intractable pain: (3) Peripheral vascular disease, unspecified: (4) History of cellulitis: (5) Hx of CABG: PLAN: Plan Bilateral LE pain I do not see any signs of cellulitis so we will add a will discontinue the antibiotics. Duplex negative for DVTs Will check MRI of the lower extremities. Patient with contrast allergy so we will avoid CT with contrast at this time. DM2 (not type I) insulin-dependent a1c in September was 13.8 Continue glargine 20 BID prandial insulin. SSI STEPHANIE furosemide held improved monitor Chronic conditions: PVD; with history of amputation of the Left great toe and osteomyelitis continue ASA and Plavix . Obesity class I: complicates care and recovery COPD: stable. CAD; stable Essential hypertension stable VTE prophylaxis: enoxaparin Charges/Coding Visit Charges Inpatient E&M: 17332 Subs Hosp L2
[2023-12-13] MEDS: Ascorbic Acid 500 MG Tablet 1000 MG PO ×2 (07:54→17:32)
[2023-12-13] MEDS: 0.9% Normal Saline (1000mL) 1,000 ML 70 ML IV (07:58)
[2023-12-13 08:19] LABS: Bedside Glucose 229 mg/dL (74-106)
[2023-12-13 08:22] LABS: Anion Gap 6 (5-15); BUN 22 mg/dL (7-18); BUN/Creat Ratio 17.5 RATIO (10-20); Calcium,Total 8.5 mg/dL (8.5-10.1); Chloride 116 mmol/L (98-107); Creatinine, Serum 1.26 mg/dL (0.70-1.30); EST Glomerular Filtration Rate 67 mL/min (>60); Est Glom Filt Rate - Afr Amer 81 mL/min (>60); Estimated Creatinine Clearance 91.73 ml/min; Glucose 222 mg/dL (74-106); Sodium Level 140 mmol/L (136-145)
[2023-12-13] MEDS: Insulin Lispro 100 UNIT/ML INSULN.PEN 10 UNIT SC ×3 (09:51→17:32)
[2023-12-13] MEDS: Lactobacillis Acidophilus 2 CAP PO (09:52)
[2023-12-13] MEDS: Aspirin E.C. 81 MG Tablet PO (09:52)
[2023-12-13] MEDS: Insulin Glargine-YFGN 100 UNIT/ML Pen 20 UNIT SC (09:53)
[2023-12-13] MEDS: Clopidogrel Bisulfate 75 MG Tablet PO (09:53)
[2023-12-13] MEDS: Famotidine 20 MG Tablet PO (09:53)
[2023-12-13] MEDS: Isosorbide Mononitrate 30 MG Tablet PO (09:53)
[2023-12-13 09:54] VITALS: PULSE 65
[2023-12-13] MEDS: Pantoprazole Sodium 40 MG Tablet PO (09:54)
[2023-12-13] MEDS: Cholecalciferol (Vit D3) 125 MCG CAPSULE (5,000 UNITS) PO (09:54)
[2023-12-13] MEDS: Metoprolol(XL)Succ 25 MG Tablet PO (09:54)
[2023-12-13] MEDS: Zinc Sulfate 50 mg zinc (220 mg) ORAL capsule PO (09:54)
--- NOTE | 2023-12-13 09:57 | MRI_ITS ---
INDICATION: generalized foot pain -- history of osteomyelitis EXAMINATION: MRI - RIGHT MR Foot W/O Contrast TECHNIQUE: Multiplanar and multisequence MR images of the RIGHT foot. IV Contrast Dosage and Agent: None. COMPARISON: FINDINGS: BONE: Status post amputation of the first toe.] [There are subcortical areas of hyperintense T2 and hypointense T1 signal of the talus at the superolateral corner and the inferomedial corner. There is cortical irregularity at the medial corner of the talus at the talotibial articulation. JOINTS: No joint effusion. MUSCLES: Normal bulk and signal. LIGAMENTS: The Lisfranc ligament is intact. TENDONS: There is thickening of the flexor hallucis longus tendon. MISCELLANEOUS: Intact plantar fascia. There is dorsal subcutaneous edema. MRI/Lower Ext/No Jt/w/o IMPRESSION: Abnormal subcortical signal and cortical irregularity of the talus as noted likely traumatic or degenerative in nature. Status post amputation of the first toe. Dorsal subcutaneous edema of the foot. Electronically Signed: Simon Almanza DO at 17:07 EDT ,
[2023-12-13] MEDS: Gabapentin 300 MG Capsule PO ×3 (10:00→17:31)
--- NOTE | 2023-12-13 11:10 | MRI_ITS ---
INDICATION: FOREFOOT PAIN, HISTORY OF OSTEOMYELITIS EXAMINATION: MRI - LEFT MR Forefoot W/O Contrast TECHNIQUE: Multiplanar and multisequence MR images of the LEFT foot. IV Contrast Dosage and Agent: None. COMPARISON: FINDINGS: BONE: Status post transmetatarsal amputation of the first toe. Old fracture of the second metatarsal bone with no complete bony union.] [No acute fracture or marrow edema. JOINTS: No joint effusion. MUSCLES: Normal bulk and signal. LIGAMENTS: The Lisfranc ligament is intact. TENDONS: The flexor and extensor tendons are intact. MISCELLANEOUS: Intact plantar fascia. Mild dorsal subcutaneous edema. MRI/Lower Ext/No Jt/w/o IMPRESSION: Status post transmetatarsal amputation of the first toe. Old fracture of the second metatarsal bone with no complete bony union.] Mild subcutaneous edema at the dorsum. Electronically Signed: Simon Almanza DO at 16:50 EDT Reading Location ID and State: [facility] / [place] Tel [phone], Service support ,
[2023-12-13 12:22] LABS: Bedside Glucose 110 mg/dL (74-106)
--- NOTE | 2023-12-13 15:56 | CHAPLAIN ---
Type of Pastoral Visit ___ Initial Visit ___ Follow-up Visit ___ On-call Visit ___ General Patient Visit ___ Spiritual Assessment ___ Family Conference ___ Bereavement ___ Rapid Response ___ Code Blue ___ Other (describe below) Pastoral Care Referral From ___ Patient ___ Family ___ Nurse ___ Physician ___ Dining Room Coordinator ___ Currency Exchange Specialist ___ Other (describe below) Sacrament/Intervention ___ Active listening ___ Anointing ___ Christian ___ Bereavement ___ Communion ___ Shelly exploration ___ ___ Life review ___ Prayer ___ Reconciliation ___ Sacrament of Sick ___ Supportive presence ___ Wedding ___ Other (describe below) Pastoral Comments patient and bed are out of the room; calling card left
--- NOTE | 2023-12-13 16:27 | CASEMGMT ---
RADHA DAWSON chart review: Index admission 11/20-11/21 for cellulitis. See RADHA DAWSON assessment from 11/21/15. Patient was discharged home with antibiotics. Patient returned 12/12/23 to [facility] ED for bilateral lower extremity redness and pain. RADHA DAWSON in to discuss readmission and discharge needs with patient. Patient states followed up with PCP after DC. Patient states he was taking medications as prescribed. Patient denies needs at discharge. CM will continue to follow this patient and plan for a safe discharge. Tanesha Rose RN CM
[2023-12-13 16:33] VITALS: BP 184/93; PULSE 61; RESP 16; TEMP 36.8; O2SAT 100
[2023-12-13 16:57] LABS: Bedside Glucose 177 mg/dL (74-106)
[2023-12-13] MEDS: Acetaminophen 500 MG Tablet 1000 MG PO (17:31)
--- NOTE | 2023-12-13 17:50 | DS.PCM_ITS ---
Providers Date of Admission: 12/12/23 Primary Care Physician: Dr. Connor Nazario MD Reason For Visit: BILATERAL LOWER EXTREMITY CELLULITIS WITH SEVERE Diagnosis Discharge Diagnosis (1) History of MRSA infection: Status: Acute Code(s): Z86.14 - Personal history of Methicillin resistant Staphylococcus aureus infection (2) Intractable pain: Status: Acute Code(s): R52 - Pain, unspecified (3) Peripheral vascular disease, unspecified: Status: Acute Code(s): I73.9 - Peripheral vascular disease, unspecified (4) History of cellulitis: Status: Acute Code(s): Z87.2 - Personal history of diseases of the skin and subcutaneous tissue (5) Hx of CABG: Status: Acute Code(s): Z95.1 - Presence of aortocoronary bypass graft Plan Bilateral LE pain * I do not see any signs of cellulitis so we will add a will discontinue the antibiotics. * Duplex negative for DVTs * Will check MRI of the lower extremities. Patient with contrast allergy so we will avoid CT with contrast at this time. DM2 (not type I) * insulin-dependent * a1c in September was 13.8 * Continue glargine 20 BID prandial insulin. SSI STEPHANIE * furosemide held * improved * monitor Chronic conditions: * PVD; with history of amputation of the Left great toe and osteomyelitis continue ASA and Plavix . * Obesity class I: complicates care and recovery * COPD: stable. * CAD; stable * Essential hypertension stable VTE prophylaxis: enoxaparin Medications at Discharge Home Medications aspirin 81 mg tablet,delayed release 81 mg PO DAILY blood thinner 03/31/23 atorvastatin 40 mg tablet 40 mg PO DAILY hld 03/31/23 clopidogrel 75 mg tablet 75 mg PO DAILY blood thinner 03/31/23 fluticasone fur. 200 mcg-umeclid 62.5 mcg-vilant 25 mcg inhalat.powder (Trelegy Ellipta) 1 inh inhalation Q24H wheezes 03/31/23 furosemide 40 mg tablet 40 mg PO DAILY water pill 03/31/23 gabapentin 300 mg capsule 300 mg PO 4X/DAY pain 03/31/23 isosorbide mononitrate 30 mg tablet,extended release 24 hr 30 mg PO DAILY heart 03/31/23 sacubitril 49 mg-valsartan 51 mg tablet (Entresto) 1 tab PO BID 03/31/23 insulin lispro 100 unit/mL subcutaneous pen (Humalog KwikPen (U-100) Insulin) 10 unit (0.1 mL) subcut TID dm #15 mL 04/04/23 albuterol sulfate 2.5 mg/3 mL (0.083 %) solution for nebulization 2.5 mg inhalation Q8H PRN PRN shortness of breath or wheezing 06/21/23 albuterol sulfate 90 mcg/actuation aerosol inhaler 2 inh inhalation PRN PRN shortness of breath or wheezing 06/21/23 pantoprazole 40 mg tablet,delayed release 40 mg PO DAILY stomach 06/21/23 metoprolol succinate 25 mg tablet,extended release 24 hr 25 mg PO Q12H heart 09/02/23 insulin glargine 100 unit/mL subcutaneous solution 30 unit (0.3 mL) subcut BID dm #10 mL 09/20/23 betamethasone, augmented 0.05 % topical ointment 1 applic topical BID as needed for skin 11/20/23 famotidine 20 mg tablet 20 mg PO BID gerd 11/20/23 hydrocodone-acetaminophen 5-325mg 5mg-325mg 1 tab PO Q4H PRN pain 5 days #14 tabs 11/22/23 Hospital Course Operations None Procedures None Summary of Care Provided Minutes Spent on Discharge: 36 Hospital Course: Patient presents with bilateral lower extremity pain. Patient was diagnosed with cellulitis. I saw the patient on the fifth and I did not appreciate any cellulitis the patient did have some very faint, reticular pattern in his lower extremities. No mottling was noted. Pulses were good. I discontinued the antibiotics and order a duplex. Duplex was performed on that showed no DVT. Patient was then indicating more pain in the his distal feet on the plantar aspect. Given the patient's history of a cellulitis, I ordered an MRI. MRI showed no obvious osteomyelitis or any other kind of concerning signs. But before the results of the MRI would be available, the patient left AGAINST MEDICAL ADVICE. Patient had been asking, prior to that, about pain medications. Patient has admitted in the past has had drug problems in the past so he was receiving narcotics while he was here. Weight / BMI Weight Weight: 104.1 kg Body Mass Index (BMI) 33.9 ABG / Lab / Microbiology Data 12/13/23 06:46 12/13/23 06:46 Laboratory: Laboratory Results - last 24 hr 12/13/23 16:38: POC Glucose 177 H Radiography Diagnostic Testing: Radiology Impression Venous Doppler Study 12/12/23 13:31 Interpretation Summary Deep veins of the bilateral lower extremities are patent and compressible segmentally. There is no evidence of bilateral lower extremity deep vein thrombosis. The bilateral great saphenous veins appear patent and compressible segmentally. Ordering Physician: Brendon Marie Referring Physician: Connor Nazario Performed By: Vivi Mercado Bhavana Lower Extremity MRI 12/13/23 09:57 IMPRESSION: Abnormal subcortical signal and cortical irregularity of the talus as noted likely traumatic or degenerative in nature. Status post amputation of the first toe. Dorsal subcutaneous edema of the foot. Electronically Signed: Simon Almanza DO at 17:07 EDT , Lower Extremity MRI 12/13/23 11:10 IMPRESSION: Status post transmetatarsal amputation of the first toe. Old fracture of the second metatarsal bone with no complete bony union.] Mild subcutaneous edema at the dorsum. Electronically Signed: Simon Almanza DO at 16:50 EDT , Meaningful Use Info Meaningful Use Meaningful Use Diagnoses (Choose all that apply): None applicable Ischemic Stroke Statin Dosing Therapy Reference: STATIN DOSE THERAPY REFERENCE: * Patients > 75 years receive moderate or high dose statin therapy. * Patients 75 years or YOUNGER should receive HIGH intensity statin dose unless contraindicated. You will be required to document reason for non-treatment if statin daily dose does not meet guidelines. HIGH DOSE STATIN THERAPY DAILY Atorvastatin > than or = to 40 mg Rosuvastatin > than or = to 20 mg Amlodipine + Atorvastatin > than or = to 2.5/40 mg Ezetimibe + Simvastatin 10/80 mg Simvastatin 80mg Discharge Plan Admission Admit Date/Time: 12/12/23 05:20 Primary Reason for Your Visit: Leg pain Attending Provider: Brendon Marie Primary Care Provider: Connor Nazario Consulting Providers: Augustin Pierson Discharge Orders/Prescriptions Prescriptions: No Action aspirin 81 mg tablet,delayed release (DR/EC) 81 mg PO DAILY Patient Comments: TAKE 1 TABLET BY MOUTH EVERY MORNING atorvastatin 40 mg tablet 40 mg PO DAILY Patient Comments: TAKE 1 TABLET BY MOUTH ONCE DAILY clopidogrel 75 mg tablet 75 mg PO DAILY Patient Comments: TAKE 1 TABLET BY MOUTH ONCE DAILY Entresto 49-51 mg tablet 1 tab PO BID Patient Comments: TAKE 1 TABLET BY MOUTH TWICE DAILY isosorbide mononitrate 30 mg tablet extended release 24 hr 30 mg PO DAILY Patient Comments: TAKE 1 TABLET BY MOUTH ONCE DAILY gabapentin 300 mg capsule 300 mg PO 4X/DAY Patient Comments: TAKE 1 CAPSULE BY MOUTH THREE TIMES DAILY furosemide 40 mg tablet 40 mg PO DAILY Patient Comments: TAKE 1 TABLET BY MOUTH ONCE DAILY Trelegy Ellipta 200-62.5-25 mcg blister with device 1 inh INHALATION Q24H Patient Comments: INHALE 1 PUFF BY MOUTH ONCE DAILY DIRECTED insulin lispro [Humalog KwikPen Insulin] 100 unit/mL insulin pen 10 unit subcut TID Qty: 15 0RF pantoprazole 40 mg tablet,delayed release (DR/EC) 40 mg PO DAILY Patient Comments: TAKE 1 TABLET BY MOUTH ONCE DAILY albuterol sulfate 90 mcg/actuation HFA aerosol inhaler 2 inh INHALATION PRN PRN (Reason: shortness of breath or wheezing) Patient Comments: INHALE 2 PUFFS BY MOUTH as instructed EVERY 4 HOURS NEEDED for FOR WHEEZING, SHORTNESS OF BREATH albuterol sulfate 2.5 mg /3 mL (0.083 %) solution for nebulization 2.5 mg inhalation Q8H PRN PRN (Reason: shortness of breath or wheezing) Patient Comments: INHALE ONE 3ML VIAL PER NEBULIZER THREE TIMES DAILY NEEDED FOR WHEEZING OR SHORTNESS OF BREATH INHALING OVER 5 TO 15 MINUTES insulin glargine 100 unit/mL solution 30 unit subcut BID Qty: 10 0RF betamethasone, augmented 0.05 % ointment 1 applic TOPICAL BID famotidine 20 mg tablet 20 mg PO BID hydrocodone-acetaminophen 5-325 mg tablet 1 tab PO Q4H PRN (Reason: pain) 5 Days Qty: 14 0RF metoprolol succinate 25 mg tablet extended release 24 hr 25 mg PO Q12H Patient Comments: TAKE 1 TABLET BY MOUTH TWICE DAILY Referrals / Follow Up: Connor Nazario MD [Primary Care Provider] - Disposition Disposition (needs filled in before D/C Order can be placed): Against Medical Advice Charges/Coding Visit Charges Inpatient E&M: 19081 Disch Hosp >30min
== END 2023-12-13 17:48 | disposition left against medical advice (07) | DRG 638 ==
LOC: ED 04:21 → MS3 05:42
PROVIDERS: Admitting Provider Internal Medicine; Emergency Provider Emergency Medicine
DX: E11.65 Type 2 diabetes mellitus with hyperglycemia (principal); N17.9 Acute kidney failure, unspecified; I11.0 Hypertensive heart disease with heart failure; J44.9 Chronic obstructive pulmonary disease, unspecified; I50.9 Heart failure, unspecified; I48.91 Unspecified atrial fibrillation; Z79.4 Long term (current) use of insulin; I73.9 Peripheral vascular disease, unspecified; M79.604 Pain in right leg; I25.10 Atherosclerotic heart disease of native coronary artery without angina pectoris; K21.9 Gastro-esophageal reflux disease without esophagitis; M54.9 Dorsalgia, unspecified; M19.90 Unspecified osteoarthritis, unspecified site; I25.2 Old myocardial infarction; E78.00 Pure hypercholesterolemia, unspecified; M79.605 Pain in left leg; E66.9 Obesity, unspecified; Z87.2 Personal history of diseases of the skin and subcutaneous tissue; G89.29 Other chronic pain; Z79.82 Long term (current) use of aspirin; Z79.02 Long term (current) use of antithrombotics/antiplatelets; Z79.51 Long term (current) use of inhaled steroids; Z87.891 Personal history of nicotine dependence; Z68.35 Body mass index [BMI] 35.0-35.9, adult; Z95.5 Presence of coronary angioplasty implant and graft; Z95.1 Presence of aortocoronary bypass graft; Z86.73 Personal history of transient ischemic attack (TIA), and cerebral infarction without residual deficits; Z79.899 Other long term (current) drug therapy; Z86.14 Personal history of Methicillin resistant Staphylococcus aureus infection
CPT/HCPCS: 36415; 73590; 73620; 73718; 80048; 80053; 80307; 82550; 82962; 83036; 83605; 83735; 84100; 84443; 85025; 85652; 86140; 93970; 94640; 94668; 97802; 99252; 99284; 99406; J7030; J7040; A4216; G0463; J0295

== ENCOUNTER → 2024-03-18 | Outpatient (CLI) | payer MEDICARE, MEDICAID, SELFPAY | END | disposition home or self-care (01) | PROVIDERS: Referring Provider Podiatrist; Visit Provider Podiatrist | DX: L97.522 Non-pressure chronic ulcer of other part of left foot with fat layer exposed (principal) | CPT/HCPCS: 87070; 87075; 87077; 87186; 87205 ==